=== PATIENT | female | born 1980 | race Asian ===

== ENCOUNTER → 2020-01-14 13:20 | Outpatient (BNVA) | payer MEDICAID, SELFPAY | PROVIDERS: Referring Provider Nurse Practitioner Family; Visit Provider Internal Medicine | DX: J45.50 Severe persistent asthma, uncomplicated (principal); Z79.899 Other long term (current) drug therapy | CPT/HCPCS: 99212 ==

== ENCOUNTER 2020-01-18 15:09 | Outpatient (REF) | payer MEDICAID, SELFPAY ==
[2020-01-18 15:43] LABS: MANUAL DIFF FLAG NO
[2020-01-18 15:44] LABS: Basophils Percent Auto 0.8 % (0-2); Eosinophils Absolute Auto 0.4 X10*3/uL (0.0-0.4); Eosinophils Percent Auto 6.8 % (0-4); Hematocrit 34.2 % (37-47); Hemoglobin 10.8 g/dl (12.0-16.0); Lymphocytes Absolute Auto 2.6 X10*3/uL (1.2-4.9); Lymphocytes Percent Auto 48.7 % (20-40); Mean Corpuscular HGB Conc 31.6 g/dl (31.0-35.0); Mean Corpuscular Hemoglobin 29.3 pg (27.0-33.0); Mean Corpuscular Volume 92.9 fL (80-98); Mean Platelet Volume 10.8 fL (9.4-12.3); Monocytes Absolute Auto 0.3 X10*3/uL (0.1-1.2); Monocytes Percent Auto 5.9 % (2-11); Neutrophils Percent Auto 37.8 % (45-73); Platelet Count 196 X10*3/uL (160-400); Red Blood Count 3.68 X10*6/uL (4.20-5.50); White Blood Count 5.3 X10*3/uL (4.8-10.8)
[2020-01-19 20:37] LABS: Immunoglobulin E 204 kU/L (<OR=114)
== END 2020-01-18 15:10 | disposition home or self-care (01) ==
LOC: HO.LAB 15:09
PROVIDERS: PCP Nurse Practitioner Family; Visit Provider Internal Medicine
DX: J45.909 Unspecified asthma, uncomplicated (principal)
CPT/HCPCS: 36415; 82785; 85025

== ENCOUNTER → 2020-01-21 14:01 | Outpatient (BNVA) | payer MEDICAID, SELFPAY | PROVIDERS: Visit Provider Internal Medicine | DX: J45.909 Unspecified asthma, uncomplicated (principal) | CPT/HCPCS: 99212 ==

== ENCOUNTER 2020-02-04 13:17 | Outpatient (REF) | payer MEDICAID, SELFPAY | END 2020-02-04 13:18 | disposition home or self-care (01) | LOC: HO.LAB 13:17 | PROVIDERS: PCP Nurse Practitioner Family; Visit Provider Internal Medicine | DX: J45.909 Unspecified asthma, uncomplicated (principal) | CPT/HCPCS: 82785; 86003; 99212 ==

== ENCOUNTER 2020-03-21 16:10 | Outpatient (REF) | payer MEDICAID, SELFPAY ==
[2020-03-21 17:34] LABS: Free T4 (Free Thyroxine) 1.32 ng/dL (0.71-1.85); Thyroid Stimulating Hormone 0.02 uIU/mL (0.32-4.0)
[2020-03-24 14:33] LABS: Thyroid Stimulating Immunoglob <89 % baseline (<140)
[2020-03-26 23:13] LABS: Thyrotropin Receptor Antibody <1.00 IU/L (<=2.00)
== END 2020-03-21 16:11 | disposition home or self-care (01) ==
LOC: HO.LAB 16:10
PROVIDERS: Visit Provider Nurse Practitioner Gerontology
DX: E89.0 Postprocedural hypothyroidism (principal)
CPT/HCPCS: 36415; 83520; 84439; 84443; 84445

== ENCOUNTER 2020-04-28 12:58 | Outpatient (REF) | payer MEDICAID, SELFPAY | END 2020-04-28 12:59 | disposition home or self-care (01) | LOC: HO.MDS 12:58 | PROVIDERS: Visit Provider Internal Medicine | DX: J45.50 Severe persistent asthma, uncomplicated (principal) | CPT/HCPCS: 96372; J2357 ==

== ENCOUNTER 2020-05-26 10:51 | Outpatient (REF) | payer MEDICAID, SELFPAY ==
[2020-05-26 11:47] LABS: MANUAL DIFF FLAG NO
[2020-05-26 11:55] LABS: Basophils Percent Auto 0.5 % (0-2); Eosinophils Absolute Auto 0.2 X10*3/uL (0.0-0.4); Eosinophils Percent Auto 3.8 % (0-4); Hematocrit 35.6 % (37-47); Hemoglobin 11.4 g/dl (12.0-16.0); Imm Gran Abs Auto 0.01 X10*3/uL (0.00-0.03); Imm Gran Pct Auto 0.2 % (0.0-0.4); Lymphocytes Absolute Auto 1.9 X10*3/uL (1.2-4.9); Lymphocytes Percent Auto 34.4 % (20-40); Mean Corpuscular Hemoglobin 28.9 pg (27.0-33.0); Mean Corpuscular Volume 90.4 fL (80-98); Mean Platelet Volume 10.8 fL (9.4-12.3); Monocytes Absolute Auto 0.4 X10*3/uL (0.1-1.2); Neutrophils Percent Auto 54.1 % (45-73); Platelet Count 209 X10*3/uL (160-400); Red Blood Count 3.94 X10*6/uL (4.20-5.50); Red Cell Distribution Width 12.5 % (11.0-16.0); White Blood Count 5.5 X10*3/uL (4.8-10.8)
[2020-05-26 11:56] LABS: INTERNATIONAL NORM RATIO 1.1 (0.9-1.1); Prothrombin Time 12.6 SEC (10.8-13.0)
[2020-05-26 12:59] LABS: Free T4 (Free Thyroxine) 1.16 ng/dL (0.71-1.85)
[2020-05-26 13:00] LABS: Ferritin 16 ng/mL (10-122); Thyroid Stimulating Hormone 0.06 uIU/mL (0.32-4.0)
[2020-05-31 09:52] LABS: Thyrotropin Receptor Antibody <1.00 IU/L (<=2.00)
[2020-05-31 20:37] LABS: Vitamin C 0.8 mg/dL (0.3-2.7)
[2020-06-02 15:17] LABS: Thyroid Stimulating Immunoglob <89 % baseline (<140)
== END 2020-05-26 10:52 | disposition home or self-care (01) ==
LOC: HO.MDS 10:51
PROVIDERS: Family Medicine; Nurse Practitioner Gerontology; PCP Nurse Practitioner Family; Visit Provider Internal Medicine
DX: J45.50 Severe persistent asthma, uncomplicated (principal); E89.0 Postprocedural hypothyroidism; D64.9 Anemia, unspecified; T14.8XXA Other injury of unspecified body region, initial encounter
CPT/HCPCS: 36415; 82180; 82728; 83520; 84439; 84443; 84445; 85025; 85610; 96372; J2357

== ENCOUNTER → 2020-06-09 14:00 | Outpatient (BNVA) | payer MEDICAID, SELFPAY | PROVIDERS: PCP Nurse Practitioner Family; Visit Provider Internal Medicine ==

== ENCOUNTER 2020-06-24 11:33 | Outpatient (REF) | payer MEDICAID, SELFPAY | END 2020-06-24 11:34 | disposition home or self-care (01) | LOC: HO.MDS 11:33 | PROVIDERS: PCP Nurse Practitioner Family; Visit Provider Internal Medicine | DX: J45.50 Severe persistent asthma, uncomplicated (principal) | CPT/HCPCS: 96372; J2357 ==

== ENCOUNTER 2020-07-02 12:06 | Emergency (ER) | payer OTHER, MEDICAID, SELFPAY ==
[2020-07-02 12:13] VITALS: BP 117/78; PULSE 65; RESP 17; TEMP 36.6; O2SAT 99; BMI 27.4
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
== END 2020-07-02 13:07 | disposition home or self-care (01) ==
PROVIDERS: Emergency Provider Emergency Medicine
DX: S39.012A Strain of muscle, fascia and tendon of lower back, initial encounter (principal); S16.1XXA Strain of muscle, fascia and tendon at neck level, initial encounter; M54.2 Cervicalgia; V43.62XA Car passenger injured in collision with other type car in traffic accident, initial encounter; Y93.9 Activity, unspecified; Y92.410 Unspecified street and highway as the place of occurrence of the external cause; Y99.9 Unspecified external cause status; Z79.899 Other long term (current) drug therapy
CPT/HCPCS: 99284

== ENCOUNTER 2020-07-27 10:15 | Outpatient (REF) | payer MEDICAID, SELFPAY ==
[2020-07-27 12:39] LABS: Free T4 (Free Thyroxine) 0.98 ng/dL (0.71-1.85); Thyroid Stimulating Hormone 1.86 uIU/mL (0.32-4.0)
== END 2020-07-27 10:16 | disposition home or self-care (01) ==
LOC: HO.LAB 10:15
PROVIDERS: Visit Provider Nurse Practitioner Gerontology
DX: E89.0 Postprocedural hypothyroidism (principal)
CPT/HCPCS: 36415; 84439; 84443

== ENCOUNTER 2020-07-27 10:30 | Outpatient (REF) | payer MEDICAID, SELFPAY | END 2020-07-27 10:31 | disposition home or self-care (01) | LOC: HO.MDS 10:30 | PROVIDERS: PCP Nurse Practitioner Family; Visit Provider Internal Medicine | DX: J45.50 Severe persistent asthma, uncomplicated (principal) | CPT/HCPCS: 96372; J2357 ==

== ENCOUNTER 2020-08-04 12:12 | Outpatient (REF) | payer MEDICAID, SELFPAY ==
[2020-08-04 14:45] LABS: Estimated Average Glucose 103 mg/dL; Hemoglobin A1c % 5.2 %
[2020-08-04 14:58] LABS: Free T4 (Free Thyroxine) 1.11 ng/dL (0.71-1.85); Thyroid Stimulating Hormone 1.28 uIU/mL (0.32-4.0)
[2020-08-10 15:56] LABS: Thyroid Stimulating Immunoglob <89 % baseline (<140)
== END 2020-08-04 12:13 | disposition home or self-care (01) ==
LOC: HO.LAB 12:12
PROVIDERS: Visit Provider Nurse Practitioner Gerontology
DX: E89.0 Postprocedural hypothyroidism (principal); E11.42 Type 2 diabetes mellitus with diabetic polyneuropathy; Z83.3 Family history of diabetes mellitus
CPT/HCPCS: 36415; 83036; 84439; 84443; 84445; 99212

== ENCOUNTER 2020-08-24 11:36 | Outpatient (REF) | payer MEDICAID, SELFPAY | END 2020-08-24 11:37 | disposition home or self-care (01) | LOC: HO.MDS 11:36 | PROVIDERS: Visit Provider Internal Medicine | DX: J45.50 Severe persistent asthma, uncomplicated (principal) | CPT/HCPCS: 96372; J2357 ==

== ENCOUNTER 2020-09-12 08:16 | Outpatient (REF) | payer MEDICAID, SELFPAY ==
--- NOTE | ~2020-09-12 | XR_ITS ---
EXAMINATION: XR KNEE, LEFT CLINICAL INFORMATION: Pain. COMPARISON: Left knee radiographs dated 01/22/2018 TECHNIQUE: Weightbearing AP and lateral views of the left knee. FINDINGS: Bones and soft tissues are normal. No fracture or joint effusion. Alignment is anatomic. Joint spaces are well maintained. No abnormal soft tissue calcification. XR/XR knee LT 2V IMPRESSION: Unremarkable examination.
== END 2020-09-12 08:17 | disposition home or self-care (01) ==
LOC: HO.XRAY 08:16
PROVIDERS: PCP Family Medicine; Visit Provider Family Medicine
DX: M25.562 Pain in left knee (principal)
CPT/HCPCS: 73560

== ENCOUNTER 2020-09-16 17:00 | Emergency (ER) | payer MEDICAID, SELFPAY ==
--- NOTE | ~2020-09-16 | XR_ITS ---
EXAMINATION: XR CHEST CLINICAL INFORMATION: Shortness of breath, cough COMPARISON: 11/07/2019 TECHNIQUE: 2 views of the chest were obtained. FINDINGS: No acute finding. No infiltrate. Lung pinto are grossly clear. The cardiac silhouette is within normal limits. The hilar structures do not appear pathologically enlarged. There is no effusion. XR/XR chest 2V IMPRESSION: No acute finding
[2020-09-16 17:50] VITALS: BP 109/56; PULSE 76; RESP 18; TEMP 36.2; O2SAT 99; BMI 25.6
[2020-09-16 19:56] LABS: MANUAL DIFF FLAG NO
[2020-09-16 19:57] LABS: Basophils Percent Auto 0.3 % (0-2); Eosinophils Percent Auto 0.1 % (0-4); Hematocrit 35.5 % (37-47); Hemoglobin 11.5 g/dl (12.0-16.0); Imm Gran Abs Auto 0.02 X10*3/uL (0.00-0.03); Imm Gran Pct Auto 0.3 % (0.0-0.4); Lymphocytes Absolute Auto 0.8 X10*3/uL (1.2-4.9); Lymphocytes Percent Auto 11.9 % (20-40); Mean Corpuscular HGB Conc 32.4 g/dl (31.0-35.0); Mean Corpuscular Hemoglobin 29.6 pg (27.0-33.0); Mean Corpuscular Volume 91.3 fL (80-98); Mean Platelet Volume 10.7 fL (9.4-12.3); Monocytes Absolute Auto 0.1 X10*3/uL (0.1-1.2); Neutrophils Absolute Auto 5.9 X10*3/uL (2.0-8.3); Neutrophils Percent Auto 86.4 % (45-73); Platelet Count 175 X10*3/uL (160-400); Red Blood Count 3.89 X10*6/uL (4.20-5.50); Red Cell Distribution Width 12.6 % (11.0-16.0); White Blood Count 6.8 X10*3/uL (4.8-10.8)
--- NOTE | 2020-09-16 20:18 | ED_ITS ---
HPI - Asthma General Chief Complaint: Asthma Stated Complaint: sob Time Seen by Provider: 09/16/20 20:17 Source: patient Mode of arrival: ambulatory Limitations: no limitations History of Present Illness HPI Narrative: patient is a 39-year-old female with a past medical history of asthma presenting with shortness of breath x1 day. Patient states she also feels itchiness throughout her body. She states she took 20 mg of prednisone prior to coming to the emergency department but did not feel any relief. She s tates she does have an allergy to seafood but did not eat any seafood today. She denies itchiness or tingling in the back of her throat, she denies feeling like her throat is closing up. She does endorse bilateral rib pain. she did try an albuterol treatment at home with no relief. She denies any sick contacts, nausea, vomiting, diarrhea or fevers. Related Data Home Medications Medication Instructions Recorded Confirmed Ca 600 mg-D3 20 mcg-mag oxide 50 tab PO DAILY tab 01/14/20 08/04/20 pu-Gy-botjni-manganese-boron tablet albuterol sulfate 2.5 mg INHALATION Q6H 01/14/20 08/04/20 citalopram 20 mg tablet 20 mg PO DAILY 01/14/20 08/04/20 clonidine HCl 0.1 mg tablet 0.1 mg PO BEDTIME 01/14/20 08/04/20 cyanocobalamin (vitamin B-12) 1,000 mcg PO DAILY 01/14/20 08/04/20 1,000 mcg tablet epinephrine 0.3 mg/0.3 mL 0.3 mg IM Q10M PRN 01/14/20 08/04/20 injection syringe famotidine 40 mg tablet 40 mg PO BEDTIME 01/14/20 08/04/20 fluticasone 500 mcg-salmeterol 50 1 inh INHALATION BID 01/14/20 08/04/20 mcg/dose blistr powdr for inhalation fluticasone propionate 50 1 spray INTRANASAL DAILY 01/14/20 08/04/20 mcg/actuation nasal spray,suspension loratadine 10 mg capsule 10 mg PO DAILY 01/14/20 08/04/20 montelukast 10 mg tablet 10 mg PO BEDTIME 01/14/20 08/04/20 multivitamin with minerals-folic tab PO DAILY tab 01/14/20 08/04/20 acid 120 mcg chewable tablet tiotropium bromide 1.25 2 puff INHALATION DAILY 01/14/20 08/04/20 mcg/actuation mist for inhalation venlafaxine 150 mg 150 mg PO DAILY 01/14/20 08/04/20 capsule,extended release 24 hr Previous Rx's Medication Instructions Recorded prednisone 5 mg tablet 5 mg PO BID 30 Days #60 tab 01/21/20 omalizumab 150 mg subcutaneous 150 mg SUBCUT Q4W 360 Days #1 ea 02/25/20 solution levothyroxine 125 mcg tablet 125 mcg PO DAILY #30 tab 05/28/20 albuterol sulfate 90 mcg/actuation 2 puff INHALATION Q4-6H PRN #8.5 g 06/13/20 aerosol inhaler ibuprofen 600 mg PO Q6H PRN #20 tab 07/02/20 prednisone 50 mg PO DAILY #4 tab 09/16/20 Allergies Allergy/AdvReac Type Severity Reaction Status Date / Time Penicillins Allergy Mild RASH Verified 08/04/20 12:44 Review of Systems Review of Systems: Yes all other systems are reviewed and are negative [facility] Past Medical History Medical History Allergic rhinitis Allergic rhinitis Asthma Bronchial asthma Depression Postablative hypothyroidism Surgical History Hx of carpal tunnel repair Hx of tubal ligation Family History Family History Father Heart disease CVD (cardiovascular disease) Diabetes Mother CVD (cardiovascular disease) Asthma Heart disease Thyroid disease Diabetes Social History Social History Alcohol intake: never Advance Directives: No Advance Directives Information Provided: No Physical Exam Vital Signs: Vital Signs: Last Vital Signs Temp 97.2 F 09/16/20 17:50 Pulse 62 09/16/20 20:53 Resp 18 09/16/20 17:50 BP 109/56 L 09/16/20 17:50 Pulse Ox 99 09/16/20 17:50 Body Mass Index 25.6 Const: General: cooperative, healthy appearing, comfortable and no acute distress Nutritional Appearance: average body habitus Orientation/consciousness: patient oriented x3 HENMT: Head: Yes normal to inspection Eyes: General: appearance normal, both eyes and all related structures Neck: Neck: Yes normal visual inspection and Yes full ROM Resp: Effort & Inspection: normal respiratory effort Auscultation: wheezes scattered wheezes Cardio: Rate: regular rate Rhythm: regular rhythm Heart sounds: normal S1 and S2 Skin: General skin exam: no rashes or lesions noted Neuro: General: patient oriented x3 Extrem: General: Yes normal to inspection and Yes no pedal edema Course Course Course Narrative: patient is a 39-year-old female with a past medical history of asthma presenting with shortness of breath x1 day. Will give an additional 40 mg of prednisone, DuoNeb treatment and Benadryl for the itching. Reevaluation(s) Reevaluation #1: labs are within normal limits, chest x-ray is negative for acute process. Patient states she is feeling much brother in breathing easier, will discharge with short course of prednisone. MDM - Asthma Lab Data Result diagrams: 09/16/20 19:53 09/16/20 19:53 Labs: Lab Results 09/16/20 09/16/20 Range/Units 19:53 19:53 WBC 6.8 (4.8-10.8) X10*3/uL RBC 3.89 L (4.20-5.50) X10*6/uL Hgb 11.5 L (12.0-16.0) g/dl Hct 35.5 L (37-47) % MCV 91.3 (80-98) fL MCH 29.6 (27.0-33.0) pg MCHC 32.4 (31.0-35.0) g/dl RDW 12.6 (11.0-16.0) % Plt Count 175 (160-400) X10*3/uL MPV 10.7 (9.4-12.3) fL Immature Gran % (Auto) 0.3 (0.0-0.4) % Neut % (Auto) 86.4 H (45-73) % Lymph % (Auto) 11.9 L (20-40) % Merrick % (Auto) 1.0 L (2-11) % Eos % (Auto) 0.1 (0-4) % Baso % (Auto) 0.3 (0-2) % Lymph # (Auto) 0.8 L (1.2-4.9) X10*3/uL Merrick # (Auto) 0.1 (0.1-1.2) X10*3/uL Eos # (Auto) 0.0 (0.0-0.4) X10*3/uL Baso # (Auto) 0.0 (0.0-0.2) X10*3/uL Abs Immat Gran (auto) 0.02 (0.00-0.03) X10*3/uL Absolute Neuts (auto) 5.9 (2.0-8.3) X10*3/uL Absolute Nucleated RBC 0.000 (0.0-0.012) X10*3/uL Nucleated RBC % (auto) 0.0 (0.0-0.2) /100WBC Sodium 138 (135-145) mmol/L Potassium 4.7 (3.3-5.1) mmol/L Chloride 109 H (96-108) mmol/L Carbon Dioxide 20 L (22-29) mmol/L Anion Gap 14 (12-20) BUN 13 (9-16) mg/dL Creatinine 0.81 (0.5-1.4) mg/dL Estim Creat Clear Calc 83.2 Estimated GFR > 60 Random Glucose 121 H (60-115) mg/dL Calcium 9.4 (8.4-10.2) mg/dL Discharge Plan Discharge Clinical Impression: Asthma with acute exacerbation Qualifiers: Asthma severity: mild Asthma persistence: intermittent Qualified Code(s): J45.21 - Mild intermittent asthma with (acute) exacerbation Patient Disposition: Home, Self-Care Instructions: Asthma (ED) Additional Instructions: Please be sure to follow-up with your PCP if you feel your home inhalers are not enough to manage her asthma, you may need to add some other medications or a daily allergy pill. I am prescribing you 4 more days of the prednisone to help you breathe easier and stop the wheezing. Please be sure to take this medication in full for the next 4 days. If you have difficulty breathing, short of breath or chest pain, please return to the emergency department or call 911. Prescriptions: New prednisone 50 mg tablet 50 mg PO DAILY Qty: 4 RF: 0 No Action Xolair 150 mg recon soln 150 mg subcut Q4W 360 Days Qty: 1 RF: 5 levothyroxine 125 mcg tablet 125 mcg PO DAILY Qty: 30 RF: 11 albuterol sulfate [ProAir HFA] 90 mcg/actuation HFA aerosol inhaler 2 puff inhalation Q4-6H PRN (Reason: for wheezing) Qty: 8.5 RF: 3 ibuprofen 600 mg tablet 600 mg PO Q6H PRN (Reason: pain) Qty: 20 RF: 0 prednisone 5 mg tablet 5 mg PO BID 30 Days Qty: 60 RF: 2 fluticasone propion-salmeterol [Advair Diskus] 500-50 mcg/dose blister with device 1 inh inhalation BID RF: 0 Ca-D3-mag fq-mocs-pih-perry-bor [Calcium 600-D3 Plus (mag-zinc)] 600 mg calcium- 800 unit-50 mg tablet PO DAILY RF: 0 venlafaxine [Effexor XR] 150 mg capsule,extended release 24hr 150 mg PO DAILY RF: 0 epinephrine 0.3 mg/0.3 mL syringe 0.3 mg IM Q10M PRNRF: 0 famotidine [Pepcid] 40 mg tablet 40 mg PO BEDTIME RF: 0 cyanocobalamin (vitamin B-12) 1,000 mcg tablet 1,000 mcg PO DAILY RF: 0 Centrum Adult 50 Fresh-Fruity 120 mcg tablet,chewable PO DAILY RF: 0 citalopram [Celexa] 20 mg tablet 20 mg PO DAILY RF: 0 clonidine HCl 0.1 mg tablet 0.1 mg PO BEDTIME RF: 0 Spiriva Respimat 1.25 mcg/actuation mist 2 puff inhalation DAILY RF: 0 loratadine 10 mg capsule 10 mg PO DAILY RF: 0 fluticasone propionate [Flonase Allergy Relief] 50 mcg/actuation spray,suspension 1 spray intranasal DAILY RF: 0 montelukast [Singulair] 10 mg tablet 10 mg PO BEDTIME RF: 0 albuterol sulfate 2.5 mg /3 mL (0.083 %) solution for nebulization 2.5 mg inhalation Q6H RF: 0
[2020-09-16 20:33] LABS: Anion Gap 14 (12-20); Blood Urea Nitrogen 13 mg/dL (9-16); Calcium 9.4 mg/dL (8.4-10.2); Carbon Dioxide 20 mmol/L (22-29); Chloride 109 mmol/L (96-108); Creatinine Clr Calc Pharmacy 83.2; Estimated Glomerular Filt Rate > 60; Glucose Random 121 mg/dL (60-115); Potassium 4.7 mmol/L (3.3-5.1); Sodium 138 mmol/L (135-145)
[2020-09-16 20:53] VITALS: PULSE 62; O2SAT 98
[2020-09-16] MEDS: diphenhydrAMINE HCL 25 MG TABLET PO (20:53)
[2020-09-16] MEDS: predniSONE 20 MG TABLET 40 MG PO (20:53)
[2020-09-16] MEDS: Albuterol/Iprat 2.5/0.5MG 3 ML AMPUL.NEB INHALE (20:53)
== END 2020-09-16 22:13 | disposition home or self-care (01) ==
PROVIDERS: Emergency Provider Internal Medicine; PCP Nurse Practitioner Family
DX: J45.21 Mild intermittent asthma with (acute) exacerbation (principal); R06.02 Shortness of breath; Z79.899 Other long term (current) drug therapy
CPT/HCPCS: 36415; 71046; 80048; 85025; 94640; 96374; 99283; 99284; Q0163

== ENCOUNTER 2020-09-21 13:38 | Outpatient (REF) | payer MEDICAID, SELFPAY | END 2020-09-21 13:39 | disposition home or self-care (01) | LOC: HO.MDS 13:38 | PROVIDERS: Visit Provider Internal Medicine | DX: J45.50 Severe persistent asthma, uncomplicated (principal) | CPT/HCPCS: 96372; J2357 ==

== ENCOUNTER 2020-10-03 15:35 | Outpatient (REF) | payer MEDICAID, SELFPAY ==
--- NOTE | ~2020-10-03 | MR_ITS ---
EXAMINATION: MR OF THE BRAIN WITHOUT CONTRAST. CLINICAL INFORMATION: 39-year-old with amnesia. COMPARISON: None TECHNIQUE: Routine multiplanar multisequence MR imaging of the brain was done without IV contrast. FINDINGS: Brain Volume: Within normal limits. Structural: No malformations. Brain and Meninges: DWI imaging demonstrates no restricted diffusion. Specifically, there is no evidence for subacute or acute ischemic event. The brain is normal in morphology. A few nonspecific punctate subcortical right parietal white matter T2 hyperintensities are seen. Otherwise, the remainder of the brain is normal in signal intensity. Gradient echo imaging demonstrates no evidence for hemorrhage, hemosiderin staining or abnormal mineral deposition. No extra-axial fluid collections, space-occupying process or mass effect are identified. Ventricles and Subarachnoid Spaces: The ventricular system and subarachnoid spaces are within normal limits, without hydrocephalus. Orbital Structures: The visualized orbital structures are grossly unremarkable within the limitations of the study. Assessment is limited. Vascular: Signal voids are noted in the visualized major intracranial vessels. Sinuses and Osseous Structures: Minor mucosal thickening in the ethmoid complex noted with nasal septal deviation to the left and a spur encroaching on the left middle turbinate. Craniocervical junction is intact. Osseous marrow signal intensity is grossly unremarkable. MR/MR head/brain wo con IMPRESSION: 1. A few nonspecific punctate subcortical right parietal white matter T2 hyperintensities are seen which are nonspecific. 2. Otherwise normal study.
== END 2020-10-03 15:36 | disposition home or self-care (01) ==
LOC: HO.MRI 15:35
PROVIDERS: PCP Nurse Practitioner Family; Visit Provider Family Medicine
DX: R41.3 Other amnesia (principal)
CPT/HCPCS: 70551

== ENCOUNTER → 2020-10-06 13:52 | Outpatient (BNVA) | payer MEDICAID, SELFPAY | PROVIDERS: PCP Nurse Practitioner Family; Visit Provider Internal Medicine | DX: J30.9 Allergic rhinitis, unspecified (principal); J45.909 Unspecified asthma, uncomplicated | CPT/HCPCS: 99212 ==

== ENCOUNTER 2020-10-20 12:11 | Outpatient (REF) | payer MEDICAID, SELFPAY | END 2020-10-20 12:12 | disposition home or self-care (01) | LOC: HO.MDS 12:11 | PROVIDERS: PCP Nurse Practitioner Family; Visit Provider Internal Medicine | DX: J45.50 Severe persistent asthma, uncomplicated (principal) | CPT/HCPCS: 96372; J2357 ==

== ENCOUNTER 2020-11-18 08:55 | Outpatient (REF) | payer MEDICAID, SELFPAY | END 2020-11-18 08:56 | disposition home or self-care (01) | LOC: HO.MDS 08:55 | PROVIDERS: PCP Nurse Practitioner Family; Visit Provider Internal Medicine | DX: J45.50 Severe persistent asthma, uncomplicated (principal) | CPT/HCPCS: 96372; J2357 ==

== ENCOUNTER 2020-11-28 08:09 | Emergency (ER) | payer MEDICAID, SELFPAY ==
--- NOTE | ~2020-11-28 | XR_ITS ---
EXAMINATION: XR CHEST CLINICAL INFORMATION: Rib pain COMPARISON: None TECHNIQUE: 2 views of the chest were obtained. FINDINGS: The lungs are well-expanded and clear of acute pneumonic process. Heart size and pulmonary vascularity is normal. No gross bony abnormality seen. XR/XR chest 2V IMPRESSION: Unremarkable chest exam. No change from 09/16/2020.
[2020-11-28 09:14] VITALS: BP 130/76; PULSE 77; RESP 18; TEMP 36.6; O2SAT 99; BMI 27.4
--- NOTE | 2020-11-28 10:30 | ECG_ITS ---
Test Reason : SOB Blood Pressure : / mmHG Vent. Rate : 089 BPM Atrial Rate : 089 BPM P-R Int : 138 ms QRS Dur : 086 ms QT Int : 348 ms P-R-T Axes : 068 040 040 degrees QTc Int : 423 ms Normal sinus rhythm Nonspecific ST abnormality Abnormal ECG When compared with ECG of 30-AUG-2015 16:31, Vent. rate has increased BY 30 BPM Referred By: Alona Desir Electronically Signed By:GERONIMO RIVAS
[2020-11-28 10:59] LABS: MANUAL DIFF FLAG NO
[2020-11-28 11:05] LABS: Basophils Percent Auto 0.5 % (0-2); Eosinophils Absolute Auto 0.1 X10*3/uL (0.0-0.4); Eosinophils Percent Auto 1.3 % (0-4); Hemoglobin 11.8 g/dl (12.0-16.0); Imm Gran Abs Auto 0.02 X10*3/uL (0.00-0.03); Imm Gran Pct Auto 0.3 % (0.0-0.4); Lymphocytes Percent Auto 31.8 % (20-40); Mean Corpuscular HGB Conc 32.8 g/dl (31.0-35.0); Mean Corpuscular Hemoglobin 30.4 pg (27.0-33.0); Mean Corpuscular Volume 92.8 fL (80-98); Mean Platelet Volume 10.6 fL (9.4-12.3); Monocytes Absolute Auto 0.4 X10*3/uL (0.1-1.2); Monocytes Percent Auto 6.5 % (2-11); Neutrophils Absolute Auto 3.7 X10*3/uL (2.0-8.3); Neutrophils Percent Auto 59.6 % (45-73); Platelet Count 198 X10*3/uL (160-400); Red Blood Count 3.88 X10*6/uL (4.20-5.50); Red Cell Distribution Width 12.6 % (11.0-16.0); White Blood Count 6.3 X10*3/uL (4.8-10.8)
[2020-11-28 11:10] LABS: Prothrombin Time 11.1 SEC (9.9-13.0)
[2020-11-28 11:14] LABS: Anion Gap 11 (12-20); Blood Urea Nitrogen 14 mg/dL (9-16); Calcium 9.7 mg/dL (8.4-10.2); Carbon Dioxide 28 mmol/L (22-29); Chloride 106 mmol/L (96-108); Creatinine Clr Calc Pharmacy 85.9; Estimated Glomerular Filt Rate > 60; Glucose Random 78 mg/dL (60-115); Magnesium 1.8 mg/dL (1.6-2.6); Potassium 3.6 mmol/L (3.3-5.1); Sodium 141 mmol/L (135-145)
[2020-11-28 11:15] LABS: Strep A Nucleic Acid Negative (Negative)
[2020-11-28 11:17] VITALS: PULSE 73; O2SAT 95
[2020-11-28] MEDS: Albuterol Sulfate (0.083%) 2.5 MG/3 ML VIAL.NEB 10 MG INHALE (11:17)
[2020-11-28 11:19] LABS: Troponin-I High Sensitivity 3.7 ng/L (<3.5-17.0)
[2020-11-28] MEDS: methylPREDNISolone Sod Succ 125 MG/2 ML VIAL IVPUSH (11:19)
[2020-11-28] MEDS: Magnesium Sulfate/H2O 2 GM/50 ML PIGGYBACK IV (11:19)
[2020-11-28 11:24] VITALS: PULSE 81; O2SAT 100
[2020-11-28 12:08] LABS: HCG Quantitative < 2 mIU/mL
--- NOTE | 2020-11-28 12:16 | ED.ASTHMA ---
HPI - Asthma General Chief Complaint: Asthma Stated Complaint: ASTHMA Time Seen by Provider: 11/28/20 10:23 Source: patient Mode of arrival: ambulatory Limitations: no limitations History of Present Illness HPI Narrative: 39-year-old female with a past medical history of asthma currently taking albuterol inhalers, albuterol nebulizer is and p.o. steroids presenting to the ED with complaints of 4 days of cough with wheezing, sputum production with clear/yellow colored sputum and chest discomfort over the past 4 days worse today. Reports that her friend tested positive for COVID over the weekend and she had close contact with her friend. She reports she had COVID in February of last year and she reports that her symptoms do not feel the same as today. She denies any measured fevers, chills, dizziness, headaches, ear pain, neck pain/stiffness, palpitations, nausea/vomiting/diarrhea/constipation or abdominal pain, dysuria, hematuria, recent travel or any other symptoms complaints or concerns at this time. She reports she has been taking her nebulizers at least 4 times a day along with her albuterol inhaler and is currently on p.o. steroids and no symptomatic relief. She reports she frequently has asthma attacks. She denies ever being intubated or recent hospitalization. MD complaint: asthma attack , shortness of breath and wheezing Onset (ago): day(s) (For the past 4 days worse today) Severity: severe and worse than usual Context: none known Associated symptoms: productive cough and chest pain Asthma History: childhood onset and history of frequent attacks Treatments Prior to Arrival: inhaled bronchodilator and inhaled steroid Related Data Current Asthma Therapy: inhaled bronchodilator, inhaled steroid and recent oral steroid Home Medications Medication Instructions Recorded Confirmed Ca 600 mg-D3 20 mcg-mag oxide 50 tab PO DAILY tab 01/14/20 08/04/20 [id number]-manganese-boron tablet (Calcium 600-D3 Plus (mag-zinc)) albuterol sulfate 2.5 mg INHALATION Q6H 01/14/20 08/04/20 citalopram 20 mg tablet (Celexa) 20 mg PO DAILY 01/14/20 08/04/20 clonidine HCl 0.1 mg tablet 0.1 mg PO BEDTIME 01/14/20 08/04/20 cyanocobalamin (vitamin B-12) 1,000 mcg PO DAILY 01/14/20 08/04/20 1,000 mcg tablet epinephrine 0.3 mg/0.3 mL 0.3 mg IM Q10M PRN 01/14/20 08/04/20 injection syringe famotidine 40 mg tablet (Pepcid) 40 mg PO BEDTIME 01/14/20 08/04/20 fluticasone propionate 50 1 spray INTRANASAL DAILY 01/14/20 08/04/20 mcg/actuation nasal spray,suspension (Flonase Allergy Relief) loratadine 10 mg capsule 10 mg PO DAILY 01/14/20 08/04/20 montelukast 10 mg tablet 10 mg PO BEDTIME 01/14/20 08/04/20 (Singulair) multivitamin with minerals-folic tab PO DAILY tab 01/14/20 08/04/20 acid 120 mcg chewable tablet (Centrum Adult 50 Plus Fresh-Fruity) tiotropium bromide 1.25 2 puff INHALATION DAILY 01/14/20 08/04/20 mcg/actuation mist for inhalation (Spiriva Respimat) venlafaxine 150 mg 150 mg PO DAILY 01/14/20 08/04/20 capsule,extended release 24 hr (Effexor XR) Previous Rx's Medication Instructions Recorded prednisone 5 mg tablet 5 mg PO BID 30 Days #60 tab 01/21/20 omalizumab 150 mg subcutaneous 150 mg SUBCUT Q4W 360 Days #1 ea 02/25/20 solution (Xolair) levothyroxine 125 mcg tablet 125 mcg PO DAILY #30 tab 05/28/20 ibuprofen 600 mg tablet 600 mg PO Q6H PRN #20 tab 07/02/20 prednisone 50 mg tablet 50 mg PO DAILY #4 tab 09/16/20 prednisone 50 mg tablet 50 mg PO DAILY 4 Days #4 tab 09/16/20 albuterol sulfate 90 mcg/actuation 2 puff INHALATION Q4-6H PRN #8.5 g 10/06/20 aerosol inhaler (ProAir HFA) fluticasone 500 mcg-salmeterol 50 1 inh INHALATION BID 30 Days #60 ea 10/06/20 mcg/dose blistr powdr for inhalation (Advair Diskus) prednisone 5 mg tablet 5 mg PO BID 7 Days #14 tab 10/06/20 albuterol sulfate 0.63 mg/3 mL 0.63 mg INHALATION QID PRN #75 ml 11/28/20 solution for nebulization albuterol sulfate 90 mcg/actuation 1 inh INHALATION QID PRN #8.5 g 11/28/20 aerosol inhaler azithromycin 250 mg tablet See Rx Instructions .ROUTE 11/28/20 .COMPLEX #6 tab codeine 10 mg-guaifenesin 100 mg/5 5 ml PO Q6H PRN #120 ml 11/28/20 mL oral liquid (Guaifenesin AC) prednisone 20 mg tablet 40 mg PO DAILY 5 Days #10 tab 11/28/20 Allergies Allergy/AdvReac Type Severity Reaction Status Date / Time Penicillins Allergy Mild RASH Verified 10/06/20 14:34 Review of Systems Review of Systems: Constitutional : denies med noncompliance, no history of PE or DVT, denies recent travel, No Fever, No Chills ENT/Mouth : No Hoarseness, No sore throat, No Rhinorrhea Eyes: No Redness, No Discharge, No Vision Changes Cardiovascular : Positive chest pain with shortness of breath, No Dyspnea on Exertion, No Edema, no pleurisy, Respiratory : Positive cough with wheezing and sputum production, no stridor, no hemoptysis, Gastrointestinal : No Nausea, No Vomiting, No Diarrhea, No abdominal Pain Genitourinary : No Dysuria, No Hematuria Musculoskeletal : No joint pain, No Myalgias Extremities: no extremity swelling /pain Skin : No rash, no itching, no swelling Neuro : No Weakness, No Numbness, No Headache Psych : No anxiety, depression Heme/Lymph: No Bruising, No Bleeding Endocrine : No Polyuria, No Polydipsia Yes all other systems are reviewed and are negative [facility] Past Medical History Attestation statement: The following information was validated with the patient. Medical History Allergic rhinitis Allergic rhinitis Asthma Bronchial asthma Depression Postablative hypothyroidism Surgical History Hx of carpal tunnel repair Hx of tubal ligation Family History Family History Father Heart disease CVD (cardiovascular disease) Diabetes Mother CVD (cardiovascular disease) Asthma Heart disease Thyroid disease Diabetes Social History Social History Alcohol intake: never Patient Tobacco Use Status: Former Tobacco user Smoked in Last 30 Days: Yes Use of substances other than those prescribed or required for medical reasons: No Advance Directives: Yes Advance Directives Information Provided: No Advance Directives on File: No Patient : No Physical Exam Vital Signs: Vital Signs: Last Vital Signs Temp 97.8 F 11/28/20 09:14 Pulse 81 11/28/20 11:24 Resp 18 11/28/20 09:14 BP 130/76 11/28/20 09:14 Pulse Ox 100 11/28/20 11:24 Body Mass Index 27.4 vital signs have been reviewed as normal and appeared to be correct. Blood pressure normal. Heart rate normal. Respiration rate normal. Temperature normal. Oxygen saturation normal. Appearance: Alert. Oriented X3. In respiratory distress. Head: Normal external exam. Normocephalic. Atraumatic. Eyes: PERRLA. EOMI. Conjunctiva and sclera normal. Eyelids normal. ENT: EAC normal. TM's Normal. Pharynx normal. Uvula midline. Moist mucous membranes. No trismus noted. No drooling noted. No muffled voice noted. Neck: Normal inspection. Neck supple. FROM. No adenopathy. Thyroid Normal. No meningeal signs. No neck mass noted. CVS: Normal heart rate and rhythm. Heart sound normal. Pulses normal throughout. No murmurs/rales/gallops. Respiratory: In mild respiratory distress with inspiratory and expiratory wheezing throughout and decreased breath sounds with accessory muscle usage noted. No tracheal tugging or retractions noted. No stridor noted. No rales/rhonchi noted. Patient has reached producible mid chest wall tenderness. No rashes noted. Not consistent with flail chest. No crepitus is noted. Abdomen: Soft and nontender. Bowel sounds normal in all 4 quadrants. No distention noted. No organomegaly noted. No visible injury noted. Back: Full range of motion noted. No rashes/lesion/induration/fluctuance or signs of infection noted. Skin: Skin warm and dry. Normal skin color. Normal skin turgor. No rashes/lesions/lacerations noted. Extremities: No lower extremity edema. Extremities exhibit normal range of motion. Extremities nontender. Neuro: Oriented X 3. No motor deficit. No sensory deficit. Reflexes normal. Normal steady gait. No focal neuro deficits noted. Vascular: + radial pulses/+ 2 distal pedal pulses/+2 dorsalis pedis b/l. Normal cap refill. No cyanosis noted to upper extremity nails and lower extremity toes nails. Course Course Course Narrative: 39-year-old female presenting to the ED with complaints of productive cough with associated wheezing/sputum production despite using her albuterol treatment, nebulizers and p.o. steroids. On exam patient was noted to have respiratory distress with inspiratory and expiatory wheezing throughout with decreased breath sounds. Therefore patient had labs and labs are within normal limits including troponin. EKG is normal sinus rhythm nonspecific ST abnormalities no acute ischemic changes were noted. Chest x-ray within normal limits no acute processes were noted. Rapid strep negative.. COVID/RSV/flu is still pending at this time. Patient received an hour long breathing treatment along with 125 mg of Solu-Medrol and 2 g of magnesium and she reports complete symptomatic relief at this time. Exam has improved. No additional labs or imaging or treatment indicated at this time. Will DC home with symptomatic treatment and instructions that I will call her within 2-4 hours with positive or negative results for COVID and to return if any new or worsening symptoms and to self isolate for at least 7-10 days due to her positive COVID exposure. Patient understands agrees with this plan. [facility] - Asthma Medical Records Attestation: I reviewed the patient's medical records. Lab Data Attestation: I reviewed the patient's lab results. Result diagrams: 11/28/20 10:46 11/28/20 10:46 Labs: Lab Results 11/28/20 11/28/20 11/28/20 Range/Units 10:46 10:46 10:46 WBC 6.3 (4.8-10.8) X10*3/uL RBC 3.88 L (4.20-5.50) X10*6/uL Hgb 11.8 L (12.0-16.0) g/dl Hct 36.0 L (37-47) % MCV 92.8 (80-98) fL MCH 30.4 (27.0-33.0) pg MCHC 32.8 (31.0-35.0) g/dl RDW 12.6 (11.0-16.0) % Plt Count 198 (160-400) X10*3/uL MPV 10.6 (9.4-12.3) fL Immature Gran % (Auto) 0.3 (0.0-0.4) % Neut % (Auto) 59.6 (45-73) % Lymph % (Auto) 31.8 (20-40) % Victoria % (Auto) 6.5 (2-11) % Eos % (Auto) 1.3 (0-4) % Baso % (Auto) 0.5 (0-2) % Lymph # (Auto) 2.0 (1.2-4.9) X10*3/uL Victoria # (Auto) 0.4 (0.1-1.2) X10*3/uL Eos # (Auto) 0.1 (0.0-0.4) X10*3/uL Baso # (Auto) 0.0 (0.0-0.2) X10*3/uL Abs Immat Gran (auto) 0.02 (0.00-0.03) X10*3/uL Absolute Neuts (auto) 3.7 (2.0-8.3) X10*3/uL Absolute Nucleated RBC 0.000 (0.0-0.012) X10*3/uL Nucleated RBC % (auto) 0.0 (0.0-0.2) /100WBC PT (9.9-13.0) SEC INR (0.9-1.1) Sodium 141 (135-145) mmol/L Potassium 3.6 D (3.3-5.1) mmol/L Chloride 106 (96-108) mmol/L Carbon Dioxide 28 (22-29) mmol/L Anion Gap 11 L (12-20) BUN 14 (9-16) mg/dL Creatinine 0.81 (0.5-1.4) mg/dL Estim Creat Clear Calc 85.9 Estimated GFR > 60 Random Glucose 78 (60-115) mg/dL Calcium 9.7 (8.4-10.2) mg/dL Magnesium 1.8 (1.6-2.6) mg/dL Troponin I High Sens (<3.5-17.0) ng/L Beta HCG, Quant < 2 mIU/mL S. pyogenes GrpA DEB Negative (Negative) 11/28/20 11/28/20 Range/Units 10:46 10:46 WBC (4.8-10.8) X10*3/uL RBC (4.20-5.50) X10*6/uL Hgb (12.0-16.0) g/dl Hct (37-47) % MCV (80-98) fL MCH (27.0-33.0) pg MCHC (31.0-35.0) g/dl RDW (11.0-16.0) % Plt Count (160-400) X10*3/uL MPV (9.4-12.3) fL Immature Gran % (Auto) (0.0-0.4) % Neut % (Auto) (45-73) % Lymph % (Auto) (20-40) % Victoria % (Auto) (2-11) % Eos % (Auto) (0-4) % Baso % (Auto) (0-2) % Lymph # (Auto) (1.2-4.9) X10*3/uL Victoria # (Auto) (0.1-1.2) X10*3/uL Eos # (Auto) (0.0-0.4) X10*3/uL Baso # (Auto) (0.0-0.2) X10*3/uL Abs Immat Gran (auto) (0.00-0.03) X10*3/uL Absolute Neuts (auto) (2.0-8.3) X10*3/uL Absolute Nucleated RBC (0.0-0.012) X10*3/uL Nucleated RBC % (auto) (0.0-0.2) /100WBC PT 11.1 (9.9-13.0) SEC INR 1.0 (0.9-1.1) Sodium (135-145) mmol/L Potassium (3.3-5.1) mmol/L Chloride (96-108) mmol/L Carbon Dioxide (22-29) mmol/L Anion Gap (12-20) BUN (9-16) mg/dL Creatinine (0.5-1.4) mg/dL Estim Creat Clear Calc Estimated GFR Random Glucose (60-115) mg/dL Calcium (8.4-10.2) mg/dL Magnesium (1.6-2.6) mg/dL Troponin I High Sens 3.7 (<3.5-17.0) ng/L Beta HCG, Quant mIU/mL S. pyogenes GrpA DEB (Negative) Imaging Data Chest x-ray: Attestation: I personally reviewed and interpreted this imaging study as follows: Radiologist's impression: FINDINGS: The lungs are well-expanded and clear of acute pneumonic process. Heart size and pulmonary vascularity is normal. No gross bony abnormality seen. XR/XR chest 2V IMPRESSION: Unremarkable chest exam. No change from 09/16/2020. ECG Data Attestation: I personally reviewed and interpreted this ECG as follows: ECG interpretation date: 11/28/20 ECG interpretation time: 11:57 Interpretation: Normal sinus rhythm with ventricular rate of [address] abnormalities no acute ischemic changes are noted. Similar when compared to prior EKG 08/30/2015. Critical Care Time Critical Care Time Critical Care Time: Yes Total Critical Care Time: 60 Attestation: I personally attest to this time spent taking care of the patient Discharge Plan Discharge Clinical Impression: Asthma with acute exacerbation, Acute bronchitis with bronchospasm, Respiratory syncytial virus (RSV) Patient Disposition: Home, Self-Care Instructions: Asthma (ED), Acute Bronchitis (ED), Wheezing (ED), Respiratory Syncytial Virus (ED) Additional Instructions: You had a negative COVID results. Although you were positive for RSV a different virus. This is usually common and younger children. You can return back to work within 7 days I gave you a work note. Return if any new or worsening symptoms follow-up with her primary care provider. If you have little kids at home watch their respirations/breathing due to they can have difficulty breathing from this RSV. Prescriptions: New albuterol sulfate 0.63 mg/3 mL solution for nebulization 0.63 mg inhalation QID PRN (Reason: shortness of breath or wheezing) Qty: 75 RF: 0 azithromycin 250 mg tablet See Rx Instructions .ROUTE .COMPLEX Qty: 6 RF: 0 codeine-guaifenesin [Guaifenesin AC] 10-100 mg/5 mL liquid 5 ml PO Q6H PRN (Reason: cold symptoms) Qty: 120 RF: 0 albuterol sulfate 90 mcg/actuation HFA aerosol inhaler 1 inh inhalation QID PRN (Reason: shortness of breath or wheezing) Qty: 8.5 RF: 0 prednisone 20 mg tablet 40 mg PO DAILY 5 Days Qty: 10 RF: 0 No Action Xolair 150 mg recon soln 150 mg subcut Q4W 360 Days Qty: 1 RF: 5 levothyroxine 125 mcg tablet 125 mcg PO DAILY Qty: 30 RF: 11 prednisone 50 mg tablet 50 mg PO DAILY Qty: 4 RF: 0 prednisone 50 mg tablet 50 mg PO DAILY 4 Days Qty: 4 RF: 0 ibuprofen 600 mg tablet 600 mg PO Q6H PRN (Reason: pain) Qty: 20 RF: 0 prednisone 5 mg tablet 5 mg PO BID 30 Days Qty: 60 RF: 2 fluticasone propion-salmeterol [Advair Diskus] 500-50 mcg/dose blister with device 1 inh inhalation BID 30 Days Qty: 60 RF: 3 albuterol sulfate [ProAir HFA] 90 mcg/actuation HFA aerosol inhaler 2 puff inhalation Q4-6H PRN (Reason: for wheezing) Qty: 8.5 RF: 3 prednisone 5 mg tablet 5 mg PO BID 7 Days Qty: 14 RF: 1 Ca-D3-mag [id number]-gps-perry-bor [Calcium 600-D3 Plus (mag-zinc)] 600 mg calcium- 800 unit-50 mg tablet PO DAILY RF: 0 venlafaxine [Effexor XR] 150 mg capsule,extended release 24hr 150 mg PO DAILY RF: 0 epinephrine 0.3 mg/0.3 mL syringe 0.3 mg IM Q10M PRNRF: 0 famotidine [Pepcid] 40 mg tablet 40 mg PO BEDTIME RF: 0 cyanocobalamin (vitamin B-12) 1,000 mcg tablet 1,000 mcg PO DAILY RF: 0 Centrum Adult 50 Fresh-Fruity 120 mcg tablet,chewable PO DAILY RF: 0 citalopram [Celexa] 20 mg tablet 20 mg PO DAILY RF: 0 clonidine HCl 0.1 mg tablet 0.1 mg PO BEDTIME RF: 0 Spiriva Respimat 1.25 mcg/actuation mist 2 puff inhalation DAILY RF: 0 loratadine 10 mg capsule 10 mg PO DAILY RF: 0 fluticasone propionate [Flonase Allergy Relief] 50 mcg/actuation spray,suspension 1 spray intranasal DAILY RF: 0 montelukast [Singulair] 10 mg tablet 10 mg PO BEDTIME RF: 0 albuterol sulfate 2.5 mg /3 mL (0.083 %) solution for nebulization 2.5 mg inhalation Q6H RF: 0 Referrals: Physician,Unknown [Primary Care Provider] - 2 days (your pcp) Stand Alone Forms: Work/School Release
[2020-11-28 12:22] LABS: Influenza A PCR NEGATIVE (Negative); Influenza B PCR NEGATIVE (Negative); Resp Syncy Virus RNA Qual PCR POSITIVE (Negative); SARS COV2 PCR INHOUSE NEGATIVE (Negative)
[2020-11-28 12:43] VITALS: BP 120/67; PULSE 85; RESP 18; TEMP 36.6; O2SAT 100
== END 2020-11-28 13:05 | disposition home or self-care (01) ==
PROVIDERS: Physician Assistant Medical; Emergency Provider Emergency Medicine
DX: J45.901 Unspecified asthma with (acute) exacerbation (principal); J20.5 Acute bronchitis due to respiratory syncytial virus; Z87.891 Personal history of nicotine dependence; Z79.899 Other long term (current) drug therapy; Z20.822 Contact with and (suspected) exposure to COVID-19
CPT/HCPCS: 0241U; 36415; 71046; 80048; 83735; 84484; 84702; 85025; 85610; 87651; 93005; 94640; 94644; 96365; 96366; 96375; 99284; 99291; J2930; J3475

== ENCOUNTER → 2020-12-07 14:26 | Outpatient (BNVA) | payer MEDICAID, SELFPAY | PROVIDERS: Visit Provider Internal Medicine | DX: J30.9 Allergic rhinitis, unspecified (principal); J45.909 Unspecified asthma, uncomplicated; J40 Bronchitis, not specified as acute or chronic | CPT/HCPCS: 99212 ==

== ENCOUNTER 2021-01-06 12:04 | Outpatient (REF) | payer MEDICAID, SELFPAY | END 2021-01-06 12:05 | disposition home or self-care (01) | LOC: HO.MDS 12:04 | PROVIDERS: Visit Provider Internal Medicine | DX: J45.50 Severe persistent asthma, uncomplicated (principal) | CPT/HCPCS: 96372; J2357 ==

== ENCOUNTER → 2021-02-22 11:55 | Outpatient (BNVA) | payer MEDICAID, SELFPAY | PROVIDERS: PCP Family Medicine; Visit Provider Nurse Practitioner Gerontology | DX: E89.0 Postprocedural hypothyroidism (principal); L65.9 Nonscarring hair loss, unspecified; Z83.3 Family history of diabetes mellitus | CPT/HCPCS: 99212 ==

== ENCOUNTER 2021-03-03 13:20 | Outpatient (REF) | payer MEDICAID, SELFPAY ==
[2021-03-03 15:36] LABS: Free T4 (Free Thyroxine) 1.09 ng/dL (0.71-1.85); Thyroid Stimulating Hormone 1.21 uIU/mL (0.32-4.0)
== END 2021-03-03 13:21 | disposition home or self-care (01) ==
LOC: HO.MDS 13:20
PROVIDERS: Nurse Practitioner Gerontology; Visit Provider Internal Medicine
DX: J45.50 Severe persistent asthma, uncomplicated (principal); E89.0 Postprocedural hypothyroidism
CPT/HCPCS: 36415; 84439; 84443; 96372; J2357

== ENCOUNTER 2021-03-31 14:03 | Outpatient (REF) | payer MEDICAID, SELFPAY | END 2021-03-31 14:04 | disposition home or self-care (01) | LOC: HO.MDS 14:03 | PROVIDERS: Visit Provider Internal Medicine | DX: J45.50 Severe persistent asthma, uncomplicated (principal) | CPT/HCPCS: 96372; J2357 ==

== ENCOUNTER 2021-04-28 13:06 | Outpatient (REF) | payer MEDICAID, SELFPAY | END 2021-04-28 13:07 | disposition home or self-care (01) | LOC: HO.MDS 13:06 | PROVIDERS: Visit Provider Internal Medicine | DX: J45.50 Severe persistent asthma, uncomplicated (principal) | CPT/HCPCS: 96372; J2357 ==

== ENCOUNTER 2021-05-22 16:13 | Emergency (ER) | payer MEDICAID, SELFPAY ==
--- NOTE | ~2021-05-22 | XR_ITS ---
EXAMINATION: XR RIBS, LEFT CLINICAL INFORMATION: Fall with left posterior rib cage pain and wheezing COMPARISON: None TECHNIQUE: 3 views of the left ribs were obtained. FINDINGS: Lungs are clear. No consolidation, pneumothorax, or pleural effusion. The cardiomediastinal silhouette and pulmonary vasculature are normal. Osseous structures are unremarkable. Ribs are intact. No fractures are identified. XR/XR ribs LT 2V IMPRESSION: Unremarkable examination.
--- NOTE | ~2021-05-22 | XR_ITS ---
EXAMINATION: XR CHEST CLINICAL INFORMATION: Shortness of breath. COMPARISON: Chest radiograph dated from 11/28/2020. TECHNIQUE: 2 views of the chest were obtained. FINDINGS: No significant abnormality is noted involving the heart, lungs, mediastinum, bony thorax or soft tissues. XR/XR chest 2V IMPRESSION: Unremarkable examination.
[2021-05-22 16:17] VITALS: BP 105/72; PULSE 78; RESP 19; TEMP 36.6; O2SAT 96; BMI 25.6
[2021-05-22 16:41] LABS: UPreg QC Valid YES; Urine Pregnancy NEGATIVE (NEGATIVE)
[2021-05-22 16:54] LABS: COVID-19 Test Negative (Negative)
--- NOTE | 2021-05-22 18:08 | ECG_ITS ---
Test Reason : CP WITH BREATHING Blood Pressure : / mmHG Vent. Rate : 073 BPM Atrial Rate : 073 BPM P-R Int : 154 ms QRS Dur : 078 ms QT Int : 376 ms P-R-T Axes : 063 040 044 degrees QTc Int : 414 ms Normal sinus rhythm Normal ECG When compared with ECG of 28-NOV-2020 11:57, No significant change was found Referred By: Alona Desir Electronically Signed By:TIANNA GAVIRIA MD
--- NOTE | 2021-05-22 18:13 | ED_ITS ---
HPI - SOB/Dyspnea General Chief Complaint: Upper Respiratory Symptoms Stated Complaint: Chest pain/SOB Time Seen by Provider: 05/22/21 17:56 Source: patient Mode of arrival: ambulatory Limitations: no limitations History of Present Illness HPI Narrative: 40-year-old female with a past medical history of asthma and COVID-19 presenting to the ED with complaints of midsternal, left-sided/ left posterior chest/lung pain for the past 2 days worse today. She reports associated shortness of breath, dry cough and wheezing. She reports she is unsure if this is related to the fall she had approximately 3 days ago where she slipped and fell on ice injuring her left chest/shoulder although the pain did not start u ntil 2 days ago which was 1 day after her fall. She denies head injury loss of consciousness. She denies being on any blood thinners. She denies being on any oral contraceptives. She denies any fevers, chills, dizziness, headaches, neck pain/ stiffness, trouble swallowing, sore throat, dyspnea on exertion, orthopnea, palpitations, paresthesias, nausea/ vomiting/ diarrhea constipation, abdominal pain, back pain, dysuria, hematuria, abnormal vaginal discharge, lower extremity edema or calf tenderness, history of DVT or PE, history of hypercoagulation disorder or any other symptoms complaints or concerns at this time. MD elicited complaint: shortness of breath, cough and pain with inspiration Pertinent past history: asthma Onset (ago): day(s) (2) Timing: constant and progressively worsening Severity: moderate Exacerbating factors: coughing, inspiration and deep breaths Known history of: asthma Associated symptoms: chest pain, pain with inspiration, cough and wheezing Treatment prior to arrival: none Related Data Home oxygen amount: none Home Medications Medication Instructions Recorded Confirmed Ca 600 mg-D3 20 mcg-mag oxide 50 tab PO DAILY tab 01/14/20 02/22/21 pr-Zu-uczcth-manganese-boron tablet (Calcium 600-D3 Plus (mag-zinc)) albuterol sulfate 2.5 mg INHALATION Q6H 01/14/20 02/22/21 citalopram 20 mg tablet (Celexa) 20 mg PO DAILY 01/14/20 02/22/21 clonidine HCl 0.1 mg tablet 0.1 mg PO BEDTIME 01/14/20 02/22/21 cyanocobalamin (vitamin B-12) 1,000 mcg PO DAILY 01/14/20 02/22/21 1,000 mcg tablet epinephrine 0.3 mg/0.3 mL 0.3 mg IM Q10M PRN 01/14/20 02/22/21 injection syringe famotidine 40 mg tablet (Pepcid) 40 mg PO BEDTIME 01/14/20 02/22/21 fluticasone propionate 50 1 spray INTRANASAL DAILY 01/14/20 02/22/21 mcg/actuation nasal spray,suspension (Flonase Allergy Relief) loratadine 10 mg capsule 10 mg PO DAILY 01/14/20 02/22/21 montelukast 10 mg tablet 10 mg PO BEDTIME 01/14/20 02/22/21 (Singulair) multivitamin with minerals-folic tab PO DAILY tab 01/14/20 02/22/21 acid 120 mcg chewable tablet (Centrum Adult 50 Plus Fresh-Fruity) tiotropium bromide 1.25 2 puff INHALATION DAILY 01/14/20 02/22/21 mcg/actuation mist for inhalation (Spiriva Respimat) venlafaxine 150 mg 150 mg PO DAILY 01/14/20 02/22/21 capsule,extended release 24 hr (Effexor XR) prednisone 5 mg tablet 10 mg PO BID PRN tab 02/22/21 02/22/21 Previous Rx's Medication Instructions Recorded omalizumab 150 mg subcutaneous 150 mg SUBCUT Q4W 360 Days #1 ea 02/25/20 solution (Xolair) ibuprofen 600 mg tablet 600 mg PO Q6H PRN #20 tab 07/02/20 albuterol sulfate 90 mcg/actuation 2 puff INHALATION Q4-6H PRN #8.5 g 10/06/20 aerosol inhaler (ProAir HFA) prednisone 5 mg tablet 5 mg PO BID 7 Days #14 tab 10/06/20 albuterol sulfate 0.63 mg/3 mL 0.63 mg (3 mL) INHALATION QID PRN 11/28/20 solution for nebulization #75 ml albuterol sulfate 90 mcg/actuation 1 inh INHALATION QID PRN #8.5 g 11/28/20 aerosol inhaler codeine 10 mg-guaifenesin 100 mg/5 5 ml PO Q6H PRN #120 ml 09/13/21 mL oral liquid (Guaifenesin AC) fluticasone 500 mcg-salmeterol 50 1 ea PO BID #60 cap 02/07/21 mcg/dose blistr powdr for inhalation (Advair Diskus) levothyroxine 125 mcg tablet 125 mcg PO DAILY #30 tab 05/04/21 albuterol sulfate 0.63 mg/3 mL 0.63 mg (3 mL) INHALATION QID PRN 05/22/21 solution for nebulization #75 ml albuterol sulfate 90 mcg/actuation 1 inh INHALATION QID PRN #8.5 g 05/22/21 aerosol inhaler azithromycin 250 mg tablet See Rx Instructions .ROUTE 05/22/21 .COMPLEX #6 tab codeine 10 mg-guaifenesin 100 mg/5 5 ml PO Q6H PRN #120 ml 05/22/21 mL oral liquid (Guaifenesin AC) nebulizers (AeroEclipse II #1 ea 05/22/21 Nebulizer) prednisone 20 mg tablet 40 mg PO DAILY 5 Days #10 tab 05/22/21 Allergies Allergy/AdvReac Type Severity Reaction Status Date / Time Penicillins Allergy Mild RASH Verified 02/22/21 12:10 Review of Systems 2 Review of Systems: Constitutional : denies med noncompliance, no history of PE or DVT, denies recent travel, No Fever, No Chills ENT/Mouth : No Hoarseness, No sore throat, No Rhinorrhea, No Nasal congestion, No Sinus Pressure, No Ear Pain, No stridor, Eyes: No Redness, No Discharge, No Vision Changes Cardiovascular : + Chest Pain, + SOB, No Dyspnea on Exertion, No Edema, no pleurisy, Respiratory : + Cough, + wheezing, No Sputum, no stridor, no hemoptysis, Gastrointestinal : No Nausea, No Vomiting, No Diarrhea, No abdominal Pain Genitourinary : No Dysuria, No Hematuria Musculoskeletal : No joint pain/swelling, No Myalgias Extremities: no extremity swelling /pain Skin : No rash, no itching, no swelling Neuro : No Weakness, No Numbness, No Headache, No Dizziness, No Paresthesias Psych : No anxiety, depression Heme/Lymph: No Bruising, No Bleeding Endocrine : No Polyuria, No Polydipsia Yes all other systems are reviewed and are negative FOR[facility]LY [facility] Past Medical History Attestation statement: The following information was validated with the patient. Medical History Allergic rhinitis Allergic rhinitis Asthma Bronchial asthma Bronchitis Depression Postablative hypothyroidism Surgical History Hx of carpal tunnel repair Hx of tubal ligation Family History Family History Father Heart disease CVD (cardiovascular disease) Diabetes Mother CVD (cardiovascular disease) Asthma Heart disease Thyroid disease Diabetes Social History Social History Household Members: Children Alcohol intake: current Alcohol intake frequency: holidays/special occasions only Patient Tobacco Use Status: Former Tobacco user Advance Directives: No Advance Directives Information Provided: No Patient : No Physical Exam Vital Signs: Vital Signs: Last Vital Signs Temp 98 F 05/22/21 16:17 Pulse 65 05/22/21 18:25 Resp 18 05/22/21 18:25 BP 105/72 05/22/21 16:17 Pulse Ox 96 05/22/21 16:17 BMI result Body Mass Index 25.6 vital signs have been reviewed as normal and appeared to be correct. Blood pressure normal. Heart rate normal. Respiration rate normal. Temperature no rmal. Oxygen saturation normal. Appearance: Alert. Oriented X3. No acute d istress. Head: Normal external exam. Normocephalic. Atraumatic. Eyes: PERRLA. EOMI. Conjunctiva and sclera normal. Eyelids normal. ENT: EAC normal. TM's Normal. Pharynx normal. Uvula midline. Moist mucous membranes. Normal voice. No trismus noted. No drooling noted. No muffled voice noted. Neck: Normal inspection. Neck supple. FROM. No adenopathy. Thyroid Normal. No tracheal deviation noted. No crepitus is noted. No meningeal signs. No neck mass noted. No signs of trauma noted. CVS: Normal heart rate and rhythm. Heart sound normal. Pulses normal throughout. No murmurs/rales/gallops. Respiratory: No respiratory distress. Painless inspiration. Breath sounds normal. No wheezes/rales/rhonchi noted. Chest nontender. No crepitus is noted. No signs of trauma noted. No accessory muscle usage noted or decreased air movement noted. No signs of trauma. Abdomen: Soft and nontender. Bowel sounds normal in all 4 quadrants. No distention noted. No organomegaly noted. No visible injury noted. Back: No CVA tenderness. Full range of motion noted. Nontender. No signs of trauma. Patient neuro intact bilaterally and distally on all 4 extremities. Patient's reflexes intact bilaterally and distally on all 4 extremities. No rashes/lesion/induration/fluctuance or signs of infection noted. Skin: Skin warm and dry. Normal skin color. Normal skin turgor. No rashes/lesions/lacerations noted. Extremities: No lower extremity edema. No calf tenderness is noted. Extremities exhibit normal range of motion and nontender. Neuro: Oriented X 3. No motor deficit. No sensory deficit. Reflexes normal. Normal steady gait. No focal neuro deficits noted. CN's II-XII intact bilat erally? Vascular: + radial pulses/+ 2 distal pedal pulses/+2 dorsalis pedis b/l. Normal cap refill. No cyanosis noted to upper extremity nails and lower extremity toes nails. Course Course Course Narrative: 18pm - 40-year-old female with a past medical history of asthma and COVID presenting to the ED with complaints of midsternal, left-sided/ left posterior chest/lung pain for the past 2 days worse today. She reports associated shortness of breath, dry cough and wheezing. She reports she is unsure if this is related to the fall she had approximately 3 days ago where she slipped and fell on ice injuring her left chest/shoulder although the pain did not start until 2 days ago which was 1 day after her fall. Plan: labs, EKG, CXR, Rib Xrays, covid swab, influenza swab. Provide an hour long breathing treatment, 125 mg of IV Solu-Medrol then re-evaluate. Reevaluation(s) Reevaluation #1: - Sign out to ERICKSON Brar pending Labs including D-dimer troponin, EKG, rib x- rays and influenza swab. Time: 18:41 MDM - SOB/Dyspnea Medical Records Attestation: I reviewed the patient's medical records. Lab Data Attestation: I reviewed the patient's lab results. Result diagrams: 05/22/21 18:22 05/22/21 18:22 Labs: Lab Results 05/22/21 05/22/21 Range/Units 16:29 16:34 Urine Test NEGATIVE (NEGATIVE) COVID-19 ([facility]) Negative (Negative) COVID-19 Clin Com See Note Imaging Data Chest x-ray: Attestation: I personally reviewed and interpreted this imaging study as follows: Radiologist's impression: FINDINGS: No significant abnormality is noted involving the heart, lungs, mediastinum, bony thorax or soft tissues. XR/XR chest 2V IMPRESSION: Unremarkable examination. Critical Care Time Critical Care Time Critical Care Time: Yes Total Critical Care Time: 60 Attestation: I personally attest to this time spent taking care of the patient Discharge Plan Discharge Clinical Impression: Asthma exacerbation, Acute bronchitis with bronchospasm Patient Disposition: Still a Patient Instructions: Asthma (DC), Acute Bronchitis (ED) Prescriptions: New albuterol sulfate 0.63 mg/3 mL solution for nebulization 0.63 mg inhalation QID PRN (Reason: shortness of breath or wheezing) Qty: 75 0RF (DME) AeroEclipse II Nebulizer [facility] [place] See Rx Instructions .ROUTE .MEDSUPPLY Qty: 1 0RF Rx Instructions: As directed albuterol sulfate 90 mcg/actuation HFA aerosol inhaler 1 inh inhalation QID PRN (Reason: shortness of breath or wheezing) Qty: 8.5 0RF azithromycin 250 mg tablet See Rx Instructions .ROUTE .COMPLEX Qty: 6 0RF Rx Instructions: take 500 mg today (day 1), then 250 mg for 4 days (days 2-5) prednisone 20 mg tablet 40 mg PO DAILY 5 Days Qty: 10 0RF codeine-guaifenesin [Guaifenesin AC] 10-100 mg/5 mL liquid 5 ml PO Q6H PRN (Reason: cold symptoms) Qty: 120 0RF No Action Xolair 150 mg recon soln 150 mg subcut Q4W 360 Days Qty: 1 5RF fluticasone propion-salmeterol [Advair Diskus] 500-50 mcg/dose blister with d evice 1 ea PO BID Qty: 60 3RF levothyroxine 125 mcg tablet 125 mcg PO DAILY Qty: 30 11RF albuterol sulfate 0.63 mg/3 mL solution for nebulization 0.63 mg inhalation QID PRN (Reason: shortness of breath or wheezing) Qty: 75 0RF codeine-guaifenesin [Guaifenesin AC] 10-100 mg/5 mL liquid 5 ml PO Q6H PRN (Reason: cold symptoms) Qty: 120 0RF albuterol sulfate 90 mcg/actuation HFA aerosol inhaler 1 inh inhalation QID PRN (Reason: shortness of breath or wheezing) Qty: 8.5 0RF ibuprofen 600 mg tablet 600 mg PO Q6H PRN (Reason: pain) Qty: 20 0RF albuterol sulfate [ProAir HFA] 90 mcg/actuation HFA aerosol inhaler 2 puff inhalation Q4-6H PRN (Reason: for wheezing) Qty: 8.5 3RF prednisone 5 mg tablet 5 mg PO BID 7 Days Qty: 14 1RF Ca-D3-mag oa-zbwk-ngr-perry-bor [Calcium 600-D3 Plus (mag-zinc)] 600 mg calcium- 800 unit-50 mg tablet PO DAILY 0RF venlafaxine [Effexor XR] 150 mg capsule,extended release 24hr 150 mg PO DAILY 0RF epinephrine 0.3 mg/0.3 mL syringe 0.3 mg IM Q10M PRN0RF Rx Instructions: for 2 doses famotidine [Pepcid] 40 mg tablet 40 mg PO BEDTIME 0RF cyanocobalamin (vitamin B-12) 1,000 mcg tablet 1,000 mcg PO DAILY 0RF Centrum Adult 50 Fresh-Fruity 120 mcg tablet,chewable PO DAILY 0RF citalopram [Celexa] 20 mg tablet 20 mg PO DAILY 0RF clonidine HCl 0.1 mg tablet 0.1 mg PO BEDTIME 0RF Spiriva Respimat 1.25 mcg/actuation mist 2 puff inhalation DAILY 0RF loratadine 10 mg capsule 10 mg PO DAILY 0RF fluticasone propionate [Flonase Allergy Relief] 50 mcg/actuation spray,suspension 1 spray intranasal DAILY 0RF Rx Instructions: administer into each nostril montelukast [Singulair] 10 mg tablet 10 mg PO BEDTIME 0RF albuterol sulfate 2.5 mg /3 mL (0.083 %) solution for nebulization 2.5 mg inhalation Q6H 0RF prednisone 5 mg tablet 10 mg PO BID PRN (Reason: AC . EXCERBATION OF ASTHMA ) 0RF Rx Instructions: PREDNISONE 5 MG 2 TABS PO BID FOR ONE WEEK, THEN 1 TAB . PO BID Referrals: [facility] [Primary Care Provider] - 2 days Stand Alone Forms: Work/School Release Print Language: Yakut
[2021-05-22 18:25] VITALS: PULSE 65; RESP 18; O2SAT 100
[2021-05-22] MEDS: Albuterol Sulfate (0.083%) 2.5 MG/3 ML VIAL.NEB 10 MG INHALE (18:25)
[2021-05-22 18:40] LABS: MANUAL DIFF FLAG NO
[2021-05-22 18:41] LABS: Basophils Percent Auto 0.2 % (0-2); Eosinophils Percent Auto 0.2 % (0-4); Hemoglobin 12.4 g/dl (12.0-16.0); Imm Gran Abs Auto 0.01 X10*3/uL (0.00-0.03); Imm Gran Pct Auto 0.2 % (0.0-0.4); Lymphocytes Absolute Auto 0.9 X10*3/uL (1.2-4.9); Lymphocytes Percent Auto 13.8 % (20-40); Mean Corpuscular HGB Conc 32.6 g/dl (31.0-35.0); Mean Corpuscular Hemoglobin 29.8 pg (27.0-33.0); Mean Corpuscular Volume 91.3 fL (80.0-98.0); Mean Platelet Volume 11.1 fL (9.4-12.3); Monocytes Absolute Auto 0.1 X10*3/uL (0.1-1.2); Monocytes Percent Auto 1.9 % (2-11); Neutrophils Absolute Auto 5.2 x10*3/uL (2.0-8.3); Neutrophils Percent Auto 83.7 % (45-73); Platelet Count 222 X10*3/uL (160-400); Red Blood Count 4.16 X10*6/uL (4.20-5.50); Red Cell Distribution Width 12.1 % (11.0-16.0); White Blood Count 6.2 X10*3/uL (4.8-10.8)
[2021-05-22 18:46] LABS: Prothrombin Time 11.3 SEC (9.9-13.0)
[2021-05-22 18:48] LABS: D Dimer High Sensitivity 188 NG/ML
[2021-05-22] MEDS: methylPREDNISolone Sod Succ 125 MG/2 ML VIAL IVPUSH (18:53)
[2021-05-22 18:56] LABS: Alanine Aminotransferase 16 U/L (0-31); Albumin Level 4.4 g/dL (3.5-5.0); Alkaline Phosphatase 62 U/L (39-117); Anion Gap 12 (12-20); Aspartate Amino Transferase 17 U/L (5-31); Bilirubin Total 0.2 mg/dL (0.0-1.0); Blood Urea Nitrogen 13 mg/dL (9-16); Calcium 9.6 mg/dL (8.4-10.2); Carbon Dioxide 24 mmol/L (22-29); Chloride 107 mmol/L (96-108); Creatinine Clr Calc Pharmacy 65.5; Estimated Glomerular Filt Rate > 60; Glucose Random 104 mg/dL (60-115); Potassium 4.7 mmol/L (3.3-5.1); Sodium 138 mmol/L (135-145); Total Protein 7.3 g/dL (6.5-8.0)
[2021-05-22 18:57] LABS: IDNOW Serial# 55D5AD1C; Influenza A Negative (Negative); Influenza B2 Negative (Negative)
[2021-05-22 19:03] LABS: Troponin-I High Sensitivity < 3.5 ng/L (<3.5-17.0)
[2021-05-22 19:48] VITALS: BP 107/63; PULSE 87; RESP 16; O2SAT 99
--- NOTE | 2021-05-22 19:49 | PC.NURSE ---
pt reports breathing better after updraft. provider at bedside for reeval.lungs clear.
[2021-05-22 20:00] VITALS: BP 107/63; PULSE 94; RESP 18; TEMP 36.7; O2SAT 98
== END 2021-05-22 20:02 | disposition home or self-care (01) ==
PROVIDERS: Physician Assistant Medical; Emergency Provider Internal Medicine
DX: J20.9 Acute bronchitis, unspecified (principal); J45.901 Unspecified asthma with (acute) exacerbation; R07.9 Chest pain, unspecified; Z20.822 Contact with and (suspected) exposure to COVID-19
CPT/HCPCS: 36415; 71046; 71100; 80053; 81025; 83735; 84484; 85025; 85379; 85610; 87502; 87635; 93005; 94640; 94644; 96374; 99284; 99291; J2930

== ENCOUNTER 2021-05-30 13:31 | Outpatient (REF) | payer MEDICAID, SELFPAY | END 2021-05-30 13:32 | disposition home or self-care (01) | LOC: HO.MDS 13:31 | PROVIDERS: Visit Provider Internal Medicine | DX: J45.50 Severe persistent asthma, uncomplicated (principal) | CPT/HCPCS: 96372; J2357 ==

== ENCOUNTER 2021-06-27 14:07 | Outpatient (REF) | payer MEDICAID, SELFPAY | END 2021-06-27 14:08 | disposition home or self-care (01) | LOC: HO.MDS 14:07 | PROVIDERS: Visit Provider Internal Medicine | DX: J45.50 Severe persistent asthma, uncomplicated (principal) | CPT/HCPCS: 96372; J2357 ==

== ENCOUNTER 2021-07-26 08:59 | Outpatient (REF) | payer MEDICAID, SELFPAY | END 2021-07-26 09:00 | disposition home or self-care (01) | LOC: HO.MDS 08:59 | PROVIDERS: Visit Provider Internal Medicine | DX: J45.50 Severe persistent asthma, uncomplicated (principal) | CPT/HCPCS: 96372; J2357 ==

== ENCOUNTER 2021-08-23 13:26 | Outpatient (REF) | payer MEDICAID, SELFPAY | END 2021-08-23 13:27 | disposition home or self-care (01) | LOC: HO.MDS 13:26 | PROVIDERS: Visit Provider Internal Medicine | DX: J45.50 Severe persistent asthma, uncomplicated (principal) | CPT/HCPCS: 96372; J2357 ==

== ENCOUNTER 2021-08-28 13:33 | Emergency (ER) | payer MEDICAID, SELFPAY | END 2021-08-28 14:40 | disposition left against medical advice (07) | PROVIDERS: Emergency Provider Emergency Medicine | DX: S61.411A Laceration without foreign body of right hand, initial encounter (principal); X58.XXXA Exposure to other specified factors, initial encounter; Y93.9 Activity, unspecified; Y92.9 Unspecified place or not applicable; Y99.9 Unspecified external cause status ==

== ENCOUNTER 2021-10-05 09:25 | Outpatient (REF) | payer MEDICAID, SELFPAY | END 2021-10-05 09:26 | disposition home or self-care (01) | LOC: HO.MDS 09:25 | PROVIDERS: Visit Provider Internal Medicine | DX: J45.50 Severe persistent asthma, uncomplicated (principal) | CPT/HCPCS: 96372; J2357 ==

== ENCOUNTER 2021-11-02 14:08 | Outpatient (REF) | payer MEDICAID, SELFPAY | END 2021-11-02 14:09 | disposition home or self-care (01) | LOC: HO.MDS 14:08 | PROVIDERS: Visit Provider Internal Medicine | DX: J45.50 Severe persistent asthma, uncomplicated (principal) | CPT/HCPCS: 96372; J2357 ==

== ENCOUNTER 2021-12-08 16:57 | Emergency (ER) | payer MEDICAID, SELFPAY ==
--- NOTE | ~2021-12-08 | XR_ITS ---
EXAMINATION: XR CHEST CLINICAL INFORMATION: Cough COMPARISON: Chest x-ray 05/22/2021 TECHNIQUE: Frontal view of the chest was obtained. FINDINGS: The lungs are clear. No airspace consolidation, pleural effusion, or pneumothorax. The cardiomediastinal silhouette is within normal limits. No acute osseous injury. XR/XR chest 1V IMPRESSION: Unremarkable examination.
[2021-12-08 17:23] VITALS: BP 111/49; PULSE 71; RESP 18; TEMP 37.2; O2SAT 100; BMI 29.2
[2021-12-08 17:37] LABS: MANUAL DIFF FLAG NO
[2021-12-08 17:56] LABS: Alanine Aminotransferase 16 U/L (0-31); Albumin Level 4.1 g/dL (3.5-5.0); Alkaline Phosphatase 52 U/L (39-117); Anion Gap 15 (12-20); Aspartate Amino Transferase 14 U/L (5-31); Bilirubin Total 0.4 mg/dL (0.0-1.0); Blood Urea Nitrogen 17 mg/dL (9-16); Calcium 9.3 mg/dL (8.4-10.2); Carbon Dioxide 23 mmol/L (22-29); Chloride 107 mmol/L (96-108); Creatinine Clr Calc Pharmacy 86.7; Estimated Glomerular Filt Rate > 60; Glucose Random 86 mg/dL (60-115); Potassium 3.7 mmol/L (3.3-5.1); Sodium 141 mmol/L (135-145); Total Protein 6.8 g/dL (6.5-8.0)
[2021-12-08 17:57] LABS: IDNOW Serial# 16C4AD1C
[2021-12-08 17:58] LABS: COVID-19 Test Negative (Negative)
[2021-12-08 18:01] LABS: Basophils Absolute Auto 0.1 X10*3/uL (0.0-0.2); Basophils Percent Auto 0.7 % (0-2); Eosinophils Absolute Auto 0.1 X10*3/uL (0.0-0.4); Eosinophils Percent Auto 1.9 % (0-4); Hematocrit 33.8 % (37.0-47.0); Hemoglobin 11.1 g/dl (12.0-16.0); Imm Gran Abs Auto 0.02 X10*3/uL (0.00-0.03); Imm Gran Pct Auto 0.3 % (0.0-0.4); Lymphocytes Absolute Auto 2.8 X10*3/uL (1.2-4.9); Lymphocytes Percent Auto 39.3 % (20-40); Mean Corpuscular HGB Conc 32.8 g/dl (31.0-35.0); Mean Corpuscular Hemoglobin 30.2 pg (27.0-33.0); Mean Corpuscular Volume 92.1 fL (80.0-98.0); Mean Platelet Volume 10.8 fL (9.4-12.3); Monocytes Absolute Auto 0.4 X10*3/uL (0.1-1.2); Monocytes Percent Auto 5.1 % (2-11); Neutrophils Absolute Auto 3.8 x10*3/uL (2.0-8.3); Neutrophils Percent Auto 52.7 % (45-73); Platelet Count 212 X10*3/uL (160-400); Red Blood Count 3.67 X10*6/uL (4.20-5.50); Red Cell Distribution Width 12.5 % (11.0-16.0); White Blood Count 7.2 X10*3/uL (4.8-10.8)
--- NOTE | 2021-12-09 00:59 | ED_ITS ---
HPI - General Adult General Chief complaint: Dyspnea Stated complaint: Phy. referral xray of chest Time Seen by Provider: 12/08/21 22:00 Source: patient Mode of arrival: ambulatory Limitations: no limitations History of Present Illness HPI narrative: 32-year-old female for whom complaints she has known asthma presents to emergency room complaining of cough back pain and left lung pain she called her primary care doctor told her to come to the ER patient states she has also had frequency. Patient denies fevers chills nausea vomiting or diarrhea. Related Data Home Medications Medication Instructions Recorded Confirmed Ca 600 mg-D3 20 mcg-mag oxide 50 tab PO DAILY 01/14/20 02/22/21 oj-Qj-ckgztt-manganese-boron tablet (Calcium 600-D3 Plus (mag-zinc)) albuterol sulfate 2.5 mg/3 mL 2.5 mg inhalation Q6H 01/14/20 02/22/21 (0.083 %) solution for nebulization citalopram 20 mg tablet (Celexa) 20 mg PO DAILY 01/14/20 02/22/21 clonidine HCl 0.1 mg tablet 0.1 mg PO BEDTIME 01/14/20 02/22/21 cyanocobalamin (vitamin B-12) 1,000 mcg PO DAILY 01/14/20 02/22/21 1,000 mcg tablet epinephrine 0.3 mg/0.3 mL 0.3 mg IM Q10M PRN 01/14/20 02/22/21 injection syringe famotidine 40 mg tablet (Pepcid) 40 mg PO BEDTIME 01/14/20 02/22/21 fluticasone propionate 50 1 spray intranasal DAILY 01/14/20 02/22/21 mcg/actuation nasal spray,suspension (Flonase Allergy Relief) loratadine 10 mg capsule 10 mg PO DAILY 01/14/20 02/22/21 montelukast 10 mg tablet 10 mg PO BEDTIME 01/14/20 02/22/21 (Singulair) multivitamin with minerals-folic tab PO DAILY 01/14/20 02/22/21 acid 120 mcg chewable tablet (Centrum Adult 50 Plus Fresh-Fruity) tiotropium bromide 1.25 2 puff inhalation DAILY 01/14/20 02/22/21 mcg/actuation mist for inhalation (Spiriva Respimat) venlafaxine 150 mg 150 mg PO DAILY 01/14/20 02/22/21 capsule,extended release 24 hr (Effexor XR) prednisone 5 mg tablet 10 mg PO BID PRN AC . EXCERBATION 02/22/21 02/22/21 OF ASTHMA Previous Rx's Medication Instructions Recorded omalizumab 150 mg subcutaneous 150 mg subcut Q4W 12 months #1 ea 02/25/20 solution (Xolair) ibuprofen 600 mg tablet 600 mg PO Q6H PRN pain #20 tabs 07/02/20 albuterol sulfate 90 mcg/actuation 2 puff inhalation Q4-6H PRN for 10/06/20 aerosol inhaler (ProAir HFA) wheezing #8.5 grams prednisone 5 mg tablet 5 mg PO BID 7 days #14 tabs 10/06/20 albuterol sulfate 0.63 mg/3 mL 0.63 mg (3 mL) inhalation QID PRN 11/28/20 solution for nebulization shortness of breath or wheezing #75 mL albuterol sulfate 90 mcg/actuation 1 inh inhalation QID PRN shortness 11/28/20 aerosol inhaler of breath or wheezing #8.5 grams codeine 10 mg-guaifenesin 100 mg/5 5 ml PO Q6H PRN cold symptoms #120 11/28/20 mL oral liquid (Guaifenesin AC) mL levothyroxine 125 mcg tablet 125 mcg PO DAILY #30 tabs 05/04/21 albuterol sulfate 0.63 mg/3 mL 0.63 mg (3 mL) inhalation QID PRN 05/22/21 solution for nebulization shortness of breath or wheezing #75 mL albuterol sulfate 90 mcg/actuation 1 inh inhalation QID PRN shortness 05/22/21 aerosol inhaler of breath or wheezing #8.5 grams azithromycin 250 mg tablet See Rx Instructions PO .COMPLEX #6 05/22/21 tabs codeine 10 mg-guaifenesin 100 mg/5 5 ml PO Q6H PRN cold symptoms #120 05/22/21 mL oral liquid (Guaifenesin AC) mL nebulizers (AeroEclipse II #1 ea 05/22/21 Nebulizer) prednisone 20 mg tablet 40 mg PO DAILY rash 5 days #10 tabs 05/22/21 fluticasone 500 mcg-salmeterol 50 1 ea PO BID #60 ea 06/01/21 mcg/dose blistr powdr for inhalation (Advair Diskus) prednisone 20 mg tablet 60 mg PO DAILY Asthma 5 days #15 12/09/21 tabs Allergies Allergy/AdvReac Type Severity Reaction Status Date / Time Penicillins Allergy Mild RASH Verified 02/22/21 12:10 Review of Systems Review of Systems: General:? Patient denies any fever chills recent illness or falls Musculoskeletal: Denies back pain or body aches or other injuries HEENT: denies headache, runny nose, ear pain Respiratory: denies shortness of breath, cough Cardiovascular: no chest pain or palpitations : denies dysuria, frequency Abdomen: no nausea vomiting denies abdominal pain? Extremities: no swelling, no pain Skin: no diaphoresis PMFSH Past Medical History Medical History Allergic rhinitis Allergic rhinitis Asthma Bronchial asthma Bronchitis Depression Postablative hypothyroidism Surgical History Hx of carpal tunnel repair Hx of tubal ligation Family History Family History Father Heart disease CVD (cardiovascular disease) Diabetes Mother CVD (cardiovascular disease) Asthma Heart disease Thyroid disease Diabetes Social History Social History Household Members: Children Alcohol intake: current Alcohol intake frequency: holidays/special occasions only Patient Tobacco Use Status: Former Tobacco user Advance Directives: No Physical Exam ED Vital Signs: Vital Signs - 24 hr 12/08/21 17:23 Temperature 98.9 F Pulse Rate 71 Respiratory Rate 18 Blood Pressure 111/49 L Pulse Oximetry 100 Oxygen Delivery Method Room Air BMI result Body Mass Index 29.2 General: Well-appearing well-nourished in no signs of distress HEENT: Normocephalic atraumatic? Neck: No signs of JVD, no masses no tenderness or lymphadenopathy Cardiovascular: Regular rate and rhythm Respiratory: Clear to auscultation bilaterally Abdomen: Soft nontender no masses Extremities: Normal pedal pulses no signs of edema Skin: Dry warm no rashes Back: No tenderness full ROM Medical Decision Making MDM Narrative Medical decision making narrative: I will check a UA I explained the lab results I will give prednisone and send home. UA is negative she is asking for 3 days off of work. Lab Data Result diagrams: 12/08/21 17:29 12/08/21 17:29 Labs: Lab Results 12/08/21 12/08/21 12/08/21 Range/Units 17:27 17:29 17:29 WBC 7.2 (4.8-10.8) X10*3/uL RBC 3.67 L (4.20-5.50) X10*6/uL Hgb 11.1 L (12.0-16.0) g/dl Hct 33.8 L (37.0-47.0) % MCV 92.1 (80.0-98.0) fL MCH 30.2 (27.0-33.0) pg MCHC 32.8 (31.0-35.0) g/dl RDW 12.5 (11.0-16.0) % Plt Count 212 (160-400) X10*3/uL MPV 10.8 (9.4-12.3) fL Immature Gran % (Auto) 0.3 (0.0-0.4) % Neut % (Auto) 52.7 (45-73) % Lymph % (Auto) 39.3 (20-40) % [place] % (Auto) 5.1 (2-11) % Eos % (Auto) 1.9 (0-4) % Baso % (Auto) 0.7 (0-2) % Lymph # (Auto) 2.8 (1.2-4.9) X10*3/uL [place] # (Auto) 0.4 (0.1-1.2) X10*3/uL Eos # (Auto) 0.1 (0.0-0.4) X10*3/uL Baso # (Auto) 0.1 (0.0-0.2) X10*3/uL Abs Immat Gran (auto) 0.02 (0.00-0.03) X10*3/uL Absolute Neuts (auto) 3.8 (2.0-8.3) x10*3/uL Absolute Nucleated RBC 0.000 (0.0-0.012) X10*3/uL Nucleated RBC % (auto) 0.0 (0.0-0.2) /100WBC Sodium 141 (135-145) mmol/L Potassium 3.7 D (3.3-5.1) mmol/L Chloride 107 (96-108) mmol/L Carbon Dioxide 23 (22-29) mmol/L Anion Gap 15 (12-20) BUN 17 H (9-16) mg/dL Creatinine 0.82 (0.5-1.4) mg/dL Estim Creat Clear Calc 86.7 Estimated GFR > 60 Random Glucose 86 (60-115) mg/dL Calcium 9.3 (8.4-10.2) mg/dL Total Bilirubin 0.4 (0.0-1.0) mg/dL AST 14 (5-31) U/L ALT 16 (0-31) U/L Alkaline Phosphatase 52 (39-117) U/L Total Protein 6.8 (6.5-8.0) g/dL Albumin 4.1 (3.5-5.0) g/dL Urine Color Urine Appearance Urine pH (5.0-9.0) Ur Specific [place] (1.005-1.025) Urine Protein (Neg-Trace) mg/dL Urine Glucose (UA) (Negative) mg/dL Urine Ketones (Negative) mg/dL Urine Blood (Negative) Urine Nitrite (Negative) Ur Leukocyte Esterase (Negative) COVID-19 ([facility]) Negative (Negative) COVID-19 Clin Com See Note 12/09/21 Range/Units 01:09 WBC (4.8-10.8) X10*3/uL RBC (4.20-5.50) X10*6/uL Hgb (12.0-16.0) g/dl Hct (37.0-47.0) % MCV (80.0-98.0) fL MCH (27.0-33.0) pg MCHC (31.0-35.0) g/dl RDW (11.0-16.0) % Plt Count (160-400) X10*3/uL MPV (9.4-12.3) fL Immature Gran % (Auto) (0.0-0.4) % Neut % (Auto) (45-73) % Lymph % (Auto) (20-40) % [place] % (Auto) (2-11) % Eos % (Auto) (0-4) % Baso % (Auto) (0-2) % Lymph # (Auto) (1.2-4.9) X10*3/uL [place] # (Auto) (0.1-1.2) X10*3/uL Eos # (Auto) (0.0-0.4) X10*3/uL Baso # (Auto) (0.0-0.2) X10*3/uL Abs Immat Gran (auto) (0.00-0.03) X10*3/uL Absolute Neuts (auto) (2.0-8.3) x10*3/uL Absolute Nucleated RBC (0.0-0.012) X10*3/uL Nucleated RBC % (auto) (0.0-0.2) /100WBC Sodium (135-145) mmol/L Potassium (3.3-5.1) mmol/L Chloride (96-108) mmol/L Carbon Dioxide (22-29) mmol/L Anion Gap (12-20) BUN (9-16) mg/dL Creatinine (0.5-1.4) mg/dL Estim Creat Clear Calc Estimated GFR Random Glucose (60-115) mg/dL Calcium (8.4-10.2) mg/dL Total Bilirubin (0.0-1.0) mg/dL AST (5-31) U/L ALT (0-31) U/L Alkaline Phosphatase (39-117) U/L Total Protein (6.5-8.0) g/dL Albumin (3.5-5.0) g/dL Urine Color Yellow Urine Appearance Cloudy Urine pH 5.5 (5.0-9.0) Ur Specific [place] >= 1.030 H (1.005-1.025) Urine Protein Negative (Neg-Trace) mg/dL Urine Glucose (UA) Negative (Negative) mg/dL Urine Ketones Negative (Negative) mg/dL Urine Blood Negative (Negative) Urine Nitrite Negative (Negative) Ur Leukocyte Esterase Negative (Negative) COVID-19 ([facility]) (Negative) COVID-19 Clin Com Discharge Plan Discharge Clinical Impression: Asthma with exacerbation Patient Disposition: Home, Self-Care Instructions: Asthma (ED) Additional Instructions: Please follow up with your doctor. Prescriptions: New prednisone 20 mg tablet 60 mg PO DAILY 5 Days Qty: 15 0RF No Action Xolair 150 mg recon soln 150 mg subcut Q4W 360 Days Qty: 1 5RF levothyroxine 125 mcg tablet 125 mcg PO DAILY Qty: 30 11RF fluticasone propion-salmeterol [Advair Diskus] 500-50 mcg/dose blister with device 1 ea PO BID Qty: 60 3RF albuterol sulfate 0.63 mg/3 mL solution for nebulization 0.63 mg inhalation QID PRN (Reason: shortness of breath or wheezing) Qty: 75 0RF codeine-guaifenesin [Guaifenesin AC] 10-100 mg/5 mL liquid 5 ml PO Q6H PRN (Reason: cold symptoms) Qty: 120 0RF albuterol sulfate 90 mcg/actuation HFA aerosol inhaler 1 inh inhalation QID PRN (Reason: shortness of breath or wheezing) Qty: 8.5 0RF ibuprofen 600 mg tablet 600 mg PO Q6H PRN (Reason: pain) Qty: 20 0RF albuterol sulfate 0.63 mg/3 mL solution for nebulization 0.63 mg inhalation QID PRN (Reason: shortness of breath or wheezing) Qty: 75 0RF (DME) AeroEclipse II Nebulizer Misc See Rx Instructions .ROUTE .MEDSUPPLY Qty: 1 0RF Rx Instructions: As directed albuterol sulfate 90 mcg/actuation HFA aerosol inhaler 1 inh inhalation QID PRN (Reason: shortness of breath or wheezing) Qty: 8.5 0RF azithromycin 250 mg tablet See Rx Instructions .ROUTE .COMPLEX Qty: 6 0RF Rx Instructions: take 500 mg today (day 1), then 250 mg for 4 days (days 2-5) prednisone 20 mg tablet 40 mg PO DAILY 5 Days Qty: 10 0RF codeine-guaifenesin [Guaifenesin AC] 10-100 mg/5 mL liquid 5 ml PO Q6H PRN (Reason: cold symptoms) Qty: 120 0RF albuterol sulfate [ProAir HFA] 90 mcg/actuation HFA aerosol inhaler 2 puff inhalation Q4-6H PRN (Reason: for wheezing) Qty: 8.5 3RF prednisone 5 mg tablet 5 mg PO BID 7 Days Qty: 14 1RF Ca-D3-mag rc-yxfj-biq-perry-bor [Calcium 600-D3 Plus (mag-zinc)] 600 mg calcium- 800 unit-50 mg tablet PO DAILY venlafaxine [Effexor XR] 150 mg capsule,extended release 24hr 150 mg PO DAILY epinephrine 0.3 mg/0.3 mL syringe 0.3 mg IM Q10M PRN Rx Instructions: for 2 doses famotidine [Pepcid] 40 mg tablet 40 mg PO BEDTIME cyanocobalamin (vitamin B-12) 1,000 mcg tablet 1,000 mcg PO DAILY Centrum Adult 50 Fresh-Fruity 120 mcg tablet,chewable PO DAILY citalopram [Celexa] 20 mg tablet 20 mg PO DAILY clonidine HCl 0.1 mg tablet 0.1 mg PO BEDTIME Spiriva Respimat 1.25 mcg/actuation mist 2 puff inhalation DAILY loratadine 10 mg capsule 10 mg PO DAILY fluticasone propionate [Flonase Allergy Relief] 50 mcg/actuation spray, suspension 1 spray intranasal DAILY Rx Instructions: administer into each nostril montelukast [Singulair] 10 mg tablet 10 mg PO BEDTIME albuterol sulfate 2.5 mg /3 mL (0.083 %) solution for nebulization 2.5 mg inhalation Q6H prednisone 5 mg tablet 10 mg PO BID PRN (Reason: AC . EXCERBATION OF ASTHMA ) Rx Instructions: PREDNISONE 5 MG 2 TABS PO BID FOR ONE WEEK, THEN 1 TAB . PO BID Stand Alone Forms: Work/School Release
[2021-12-09 01:14] LABS: Appearance Urine Cloudy; Color Urine Yellow; Glucose Urine UA Negative (Negative); Leukocyte Esterase Urine Negative (Negative); Nitrite Urine Negative (Negative); PH 5.5 (5.0-9.0); Specific Gravity - Urine >= 1.030 (1.005-1.025); Urine Blood Negative (Negative); Urine Ketones Negative (Negative); Urine Protein Negative (Neg-Trace)
[2021-12-09] MEDS: predniSONE 20 MG TABLET 60 MG PO (01:39)
--- NOTE | 2021-12-09 01:42 | PC.NURSE ---
Pt. resting quietly in room. No apparent distress or SOB.
== END 2021-12-09 01:42 | disposition home or self-care (01) ==
PROVIDERS: Emergency Provider Student in an Organized Health Care Education/Training Program; PCP Family Medicine
DX: J45.901 Unspecified asthma with (acute) exacerbation (principal); Z20.822 Contact with and (suspected) exposure to COVID-19
CPT/HCPCS: 36415; 71045; 80053; 81003; 85025; 87635; 99283

== ENCOUNTER 2021-12-15 12:56 | Outpatient (REF) | payer MEDICAID, SELFPAY | END 2021-12-15 12:57 | disposition home or self-care (01) | LOC: HO.MDS 12:56 | PROVIDERS: Visit Provider Internal Medicine | DX: J45.50 Severe persistent asthma, uncomplicated (principal) | CPT/HCPCS: 96372; J2357 ==

== ENCOUNTER 2022-01-02 13:31 | Outpatient (REF) | payer MEDICAID, SELFPAY ==
[2022-01-02 14:09] LABS: MANUAL DIFF FLAG NO
[2022-01-02 15:22] LABS: Basophils Percent Auto 0.7 % (0-2); Eosinophils Absolute Auto 0.2 X10*3/uL (0.0-0.4); Eosinophils Percent Auto 3.3 % (0-4); Hemoglobin 12.1 g/dl (12.0-16.0); Imm Gran Abs Auto 0.02 X10*3/uL (0.00-0.03); Imm Gran Pct Auto 0.3 % (0.0-0.4); Lymphocytes Absolute Auto 1.9 X10*3/uL (1.2-4.9); Lymphocytes Percent Auto 31.3 % (20-40); Mean Corpuscular HGB Conc 32.7 g/dl (31.0-35.0); Mean Corpuscular Hemoglobin 29.8 pg (27.0-33.0); Mean Corpuscular Volume 91.1 fL (80.0-98.0); Mean Platelet Volume 11.5 fL (9.4-12.3); Monocytes Absolute Auto 0.3 X10*3/uL (0.1-1.2); Monocytes Percent Auto 4.8 % (2-11); Neutrophils Absolute Auto 3.6 x10*3/uL (2.0-8.3); Neutrophils Percent Auto 59.6 % (45-73); Platelet Count 210 X10*3/uL (160-400); Red Blood Count 4.06 X10*6/uL (4.20-5.50); Red Cell Distribution Width 12.3 % (11.0-16.0); White Blood Count 6.1 X10*3/uL (4.8-10.8)
[2022-01-02 15:33] LABS: Estimated Average Glucose 103 mg/dL; Hemoglobin A1c % 5.2 %
[2022-01-02 15:49] LABS: Alanine Aminotransferase 12 U/L (0-31); Albumin Level 4.1 g/dL (3.5-5.0); Alkaline Phosphatase 52 U/L (39-117); Anion Gap 17 (12-20); Aspartate Amino Transferase 17 U/L (5-31); Bilirubin Total 0.7 mg/dL (0.0-1.0); Blood Urea Nitrogen 19 mg/dL (9-16); Calcium 8.9 mg/dL (8.4-10.2); Carbon Dioxide 19 mmol/L (22-29); Chloride 107 mmol/L (96-108); Cholesterol 166 mg/dL; Estimated Glomerular Filt Rate > 60; Glucose Random 76 mg/dL (60-115); HDL Cholesterol 59 mg/dL; Iron 192 mcg/dL (30-160); LDL Cholesterol Calculated 93 mg/dl; Percent Iron Saturation 58 % (15-50); Sodium 139 mmol/L (135-145); Total Iron Binding Capacity 329 mcg/dL (228-428); Total Protein 6.9 g/dL (6.5-8.0); Triglycerides 70 mg/dL; Unsaturated Iron Binding 137 ug/dL
[2022-01-02 15:57] LABS: Ferritin 80 ng/mL (10-122); Vitamin D 25-OH Total 35.3 ng/mL (>30)
== END 2022-01-02 13:32 | disposition home or self-care (01) ==
LOC: HO.LAB 13:31
PROVIDERS: PCP Family Medicine; Visit Provider Family Medicine
DX: E66.01 Morbid (severe) obesity due to excess calories (principal)
CPT/HCPCS: 36415; 80053; 80061; 82306; 82728; 83036; 83540; 85025

== ENCOUNTER → 2022-01-03 15:12 | Outpatient (BNVA) | payer MEDICAID, SELFPAY | PROVIDERS: PCP Family Medicine; Visit Provider Internal Medicine | DX: J45.909 Unspecified asthma, uncomplicated (principal); L25.9 Unspecified contact dermatitis, unspecified cause | CPT/HCPCS: 99212 ==

== ENCOUNTER 2022-01-12 14:35 | Outpatient (REF) | payer MEDICAID, SELFPAY | END 2022-01-12 14:36 | disposition home or self-care (01) | LOC: HO.MDS 14:35 | PROVIDERS: Visit Provider Internal Medicine | DX: J45.50 Severe persistent asthma, uncomplicated (principal) | CPT/HCPCS: 96372; J2357 ==

== ENCOUNTER 2022-02-02 13:45 | Outpatient (REF) | payer MEDICAID, SELFPAY | END 2022-02-02 13:46 | disposition home or self-care (01) | LOC: HO.MDS 13:45 | PROVIDERS: Visit Provider Internal Medicine | DX: J45.50 Severe persistent asthma, uncomplicated (principal) | CPT/HCPCS: 96372; J2357 ==

== ENCOUNTER 2022-03-09 14:09 | Outpatient (REF) | payer MEDICAID, SELFPAY | END 2022-03-09 14:10 | disposition home or self-care (01) | LOC: HO.MDS 14:09 | PROVIDERS: Visit Provider Internal Medicine | DX: J45.50 Severe persistent asthma, uncomplicated (principal) | CPT/HCPCS: 96372; J2357 ==

== ENCOUNTER 2022-04-06 13:49 | Outpatient (REF) | payer MEDICAID, SELFPAY | END 2022-04-06 13:50 | disposition home or self-care (01) | LOC: HO.MDS 13:49 | PROVIDERS: Visit Provider Internal Medicine | DX: J45.50 Severe persistent asthma, uncomplicated (principal) | CPT/HCPCS: 96372; J2357 ==

== ENCOUNTER 2022-04-19 13:11 | Outpatient (REF) | payer MEDICAID, SELFPAY ==
[2022-04-19 14:35] LABS: Eos%MD 3.8 %; Hematocrit 38.7 % (37.0-47.0); Hemoglobin 12.4 g/dl (12.0-16.0); IG%MD 0.2 %; Lymph%MD 45.6 %; Mean Corpuscular Hemoglobin 29.6 pg (27.0-33.0); Mean Corpuscular Volume 92.4 fL (80.0-98.0); Mono%MD 5.4 %; Platelet Count 235 X10*3/uL (160-400); Red Blood Count 4.19 X10*6/uL (4.20-5.50); Red Cell Distribution Width 12.5 % (11.0-16.0); White Blood Count 5.2 X10*3/uL (4.8-10.8)
[2022-04-19 17:58] LABS: Band Neutrophils Percent 0 % (3-5); Basophils Abs Manual 0.1 X10*3/uL (0.0-0.2); Basophils Percent Manual 1 % (0-2); Eosinophils Absolute Manual 0.3 X10*3/uL (0.0-0.4); Eosinophils Percent Manual 5 % (0-4); Lymphocytes Absolute Manual 2.1 X10*3/uL (1.2-4.9); Lymphocytes Percent Manual 40 % (20-40); Monocytes Absolute Manual 0.3 X10*3/uL (0.1-1.2); Monocytes Percent Manual 5 % (2-11); Neutrophils Absolute Manual 2.5 X10*3/uL (2.0-8.3); Neutrophils Percent Manual 49 % (45-73)
[2022-04-19 17:59] LABS: Burr Cells 3+ (>5) /OIF; Microcytosis 1+ (5-14) /OIF; RBC Morphology NOTED
[2022-04-19 18:00] LABS: Platelet Estimate NORMAL (NORMAL); Platelet Morphology Comment NORMAL
[2022-04-21 03:24] LABS: Immunoglobulin E 852 kU/L (<OR=114)
== END 2022-04-19 13:12 | disposition home or self-care (01) ==
LOC: HO.LAB 13:11
PROVIDERS: PCP Family Medicine; Visit Provider Internal Medicine
DX: J45.909 Unspecified asthma, uncomplicated (principal); D82.4 Hyperimmunoglobulin E [IgE] syndrome
CPT/HCPCS: 36415; 82785; 85007; 85027; 99212

== ENCOUNTER 2022-05-02 16:09 | Outpatient (REF) | payer MEDICAID, SELFPAY ==
[2022-05-02 16:21] LABS: MANUAL DIFF FLAG NO
[2022-05-02 17:31] LABS: Basophils Percent Auto 0.4 % (0-2); Eosinophils Absolute Auto 0.1 X10*3/uL (0.0-0.4); Eosinophils Percent Auto 2.2 % (0-4); Hemoglobin 11.2 g/dl (12.0-16.0); Imm Gran Abs Auto 0.01 X10*3/uL (0.00-0.03); Imm Gran Pct Auto 0.2 % (0.0-0.4); Lymphocytes Absolute Auto 2.4 X10*3/uL (1.2-4.9); Lymphocytes Percent Auto 48.8 % (20-40); Mean Corpuscular Hemoglobin 29.6 pg (27.0-33.0); Mean Corpuscular Volume 92.6 fL (80.0-98.0); Mean Platelet Volume 11.5 fL (9.4-12.3); Monocytes Absolute Auto 0.3 X10*3/uL (0.1-1.2); Monocytes Percent Auto 6.1 % (2-11); Neutrophils Absolute Auto 2.1 x10*3/uL (2.0-8.3); Neutrophils Percent Auto 42.3 % (45-73); Platelet Count 194 X10*3/uL (160-400); Red Blood Count 3.78 X10*6/uL (4.20-5.50); Red Cell Distribution Width 12.3 % (11.0-16.0); White Blood Count 4.9 X10*3/uL (4.8-10.8)
[2022-05-02 18:02] LABS: Alanine Aminotransferase 22 U/L (0-31); Albumin Level 4.3 g/dL (3.5-5.0); Alkaline Phosphatase 56 U/L (39-117); Anion Gap 15 (12-20); Aspartate Amino Transferase 18 U/L (5-31); Bilirubin Total 0.2 mg/dL (0.0-1.0); Blood Urea Nitrogen 11 mg/dL (9-16); Calcium 9.5 mg/dL (8.4-10.2); Carbon Dioxide 23 mmol/L (22-29); Chloride 108 mmol/L (96-108); Estimated Glomerular Filt Rate > 60; Glucose Random 84 mg/dL (60-115); Sodium 142 mmol/L (135-145); Total Protein 6.7 g/dL (6.5-8.0)
[2022-05-02 18:31] LABS: Folate 18.1 ng/mL (> or = 4.0); Free T4 (Free Thyroxine) 0.96 ng/dL (0.71-1.85); Vitamin B12 555 pg/mL (200-900)
[2022-05-04 08:54] LABS: HIV AB/AG Nonreactive (Nonreactive); HIV Num 1 0.07 S/CO (0.00-0.99)
== END 2022-05-02 16:10 | disposition home or self-care (01) ==
LOC: HO.LAB 16:09
PROVIDERS: PCP Family Medicine; Visit Provider Family Medicine
DX: R41.840 Attention and concentration deficit (principal)
CPT/HCPCS: 36415; 80053; 82607; 82746; 84439; 84443; 85025; 87389

== ENCOUNTER 2022-05-04 12:59 | Outpatient (REF) | payer MEDICAID, SELFPAY | END 2022-05-04 13:00 | disposition home or self-care (01) | LOC: HO.MDS 12:59 | PROVIDERS: Visit Provider Internal Medicine | DX: J45.50 Severe persistent asthma, uncomplicated (principal) | CPT/HCPCS: 96372; J2357 ==

== ENCOUNTER 2022-05-18 13:26 | Outpatient (REF) | payer MEDICAID, SELFPAY | END 2022-05-18 13:27 | disposition home or self-care (01) | LOC: HO.MDS 13:26 | PROVIDERS: Visit Provider Internal Medicine | DX: J45.50 Severe persistent asthma, uncomplicated (principal) | CPT/HCPCS: 96372; J2357 ==

== ENCOUNTER 2022-06-01 14:00 | Outpatient (REF) | payer MEDICAID, SELFPAY | END 2022-06-01 14:01 | disposition home or self-care (01) | LOC: HO.MDS 14:00 | PROVIDERS: Visit Provider Internal Medicine | DX: J45.50 Severe persistent asthma, uncomplicated (principal) | CPT/HCPCS: 96372; J2357 ==

== ENCOUNTER 2022-06-22 13:06 | Outpatient (REF) | payer MEDICAID, SELFPAY | END 2022-06-22 13:07 | disposition home or self-care (01) | LOC: HO.MDS 13:06 | PROVIDERS: Visit Provider Internal Medicine | DX: J45.50 Severe persistent asthma, uncomplicated (principal) | CPT/HCPCS: 96372; J2357 ==

== ENCOUNTER 2022-07-06 13:11 | Outpatient (REF) | payer MEDICAID, SELFPAY | END 2022-07-06 13:12 | disposition home or self-care (01) | LOC: HO.MDS 13:11 | PROVIDERS: Visit Provider Internal Medicine | DX: J45.50 Severe persistent asthma, uncomplicated (principal) | CPT/HCPCS: 96372; J2357 ==

== ENCOUNTER → 2022-07-10 15:55 | Outpatient (BNVA) | payer MEDICAID, SELFPAY | PROVIDERS: PCP Family Medicine; Visit Provider Internal Medicine | DX: J45.909 Unspecified asthma, uncomplicated (principal); D82.4 Hyperimmunoglobulin E [IgE] syndrome; Z79.899 Other long term (current) drug therapy; Z76.0 Encounter for issue of repeat prescription | CPT/HCPCS: 99212 ==

== ENCOUNTER → 2022-07-19 13:18 | Outpatient (BNVA) | payer MEDICAID, SELFPAY | PROVIDERS: PCP Family Medicine; Visit Provider Internal Medicine | DX: E89.0 Postprocedural hypothyroidism (principal) | CPT/HCPCS: 99212 ==

== ENCOUNTER 2022-07-20 15:29 | Outpatient (REF) | payer MEDICAID, SELFPAY | END 2022-07-20 15:30 | disposition home or self-care (01) | LOC: HO.MDS 15:29 | PROVIDERS: Visit Provider Internal Medicine | DX: J45.50 Severe persistent asthma, uncomplicated (principal) | CPT/HCPCS: 96372; J2357 ==

== ENCOUNTER 2022-08-03 15:42 | Outpatient (REF) | payer MEDICAID, SELFPAY | END 2022-08-03 15:43 | disposition home or self-care (01) | LOC: HO.MDS 15:42 | PROVIDERS: Visit Provider Internal Medicine | DX: J45.50 Severe persistent asthma, uncomplicated (principal) | CPT/HCPCS: 96372; J2357 ==

== ENCOUNTER 2022-08-24 15:56 | Outpatient (REF) | payer MEDICAID, SELFPAY | END 2022-08-24 15:57 | disposition home or self-care (01) | LOC: HO.MDS 15:56 | PROVIDERS: Visit Provider Internal Medicine | DX: J45.50 Severe persistent asthma, uncomplicated (principal) | CPT/HCPCS: 96372; J2357 ==

== ENCOUNTER 2022-09-12 14:12 | Outpatient (REF) | payer MEDICAID, SELFPAY | END 2022-09-12 14:13 | disposition home or self-care (01) | LOC: HO.MDS 14:12 | PROVIDERS: Visit Provider Internal Medicine | DX: J45.50 Severe persistent asthma, uncomplicated (principal) | CPT/HCPCS: 96372; J2357 ==

== ENCOUNTER 2022-10-09 15:55 | Outpatient (AMB) | payer MEDICAID, SELFPAY ==
[2022-10-09 15:58] VITALS: BP 114/68; PULSE 64; O2SAT 98; BMI 32.1
--- NOTE | 2022-10-09 15:58 | MHC.OFFVIS ---
Intake Vital Signs 10/09/22 15:58 Height 5 ft 2 in Weight 175 lb 4.28 oz BMI 32.1 BP 114/68 Blood Pressure Location Rt brachial Position Sitting Pulse 64 Pulse Source Pulse Oximeter Pulse Oximetry (%) 98 Oxygen Delivery Method Room Air Intake Visit Reasons: Asthma Intake Note: Pt reports feeling pain in the back of lungs and her asthma symptoms are the same as usual. Allergies Penicillins Allergy (Mild, Verified 10/09/22 16:18) RASH Medication List - Last Reconciled 10/09/22 by Donny Jimenez MD albuterol sulfate 90 mcg/actuation 1 inh inhalation QID PRN albuterol sulfate 0.63 mg (3 mL) inhalation QID PRN albuterol sulfate 2.5 mg inhalation Q6H Ca-D3-mag tp-wern-bjs-perry-bor 600 mg calcium- 20 mcg-50 mg (Calcium 600-D3 Plus (mag-zinc)) tabs PO DAILY cholecalciferol (vitamin D3) 25 mcg PO QAM clonidine HCl 0.1 mg PO BEDTIME cyanocobalamin (vitamin B-12) 1,000 mcg PO DAILY epinephrine 0.3 mg IM Q10M PRN famotidine (Pepcid) 40 mg PO BEDTIME fluticasone propion-salmeterol 500-50 mcg/dose (Advair Diskus) 1 ea PO BID 30 days fluticasone propionate 50 mcg/actuation (Flonase Allergy Relief) 1 spray intranasal DAILY hydrocortisone 2.5% 1 appl topical BID PRN 15 days MDD SKIN RASH/IRRITATION ibuprofen 600 mg PO Q6H PRN levothyroxine 125 mcg PO DAILY loratadine 10 mg PO DAILY montelukast (Singulair) 10 mg PO BEDTIME multivit with min-folic acid 120 mcg (Centrum Adult 50 Plus Fresh-Fruity) tabs PO DAILY nebulizers (AeroEclipse II Nebulizer) As directed omalizumab (Xolair) 150 mg subcut Q4W 12 months prednisone 5 mg PO DAILY tiotropium bromide 1.25 mcg/actuation (Spiriva Respimat) 2 puffs inhalation DAILY 30 days venlafaxine ER (Effexor XR) 150 mg PO DAILY Do you need a note to return to daycare/school/sports/work: No HPI Asthma HPI Details 41 YEARS OLD FEMALE IS BEING TREATED FOR BRONCHIAL ASTHMA/ALLERGIC RHINITIS. OVERALL HER SYMPTOMS ARE CONTROLLED BUT SHE DOES HAVE FREQUENT EXACERBATIONS, WHEN SHE HAS TO USE PREDNISONE FOR A FEW DAYS. MOST OF HER COMPLAINTS ARE RELATED TO THE BONES AND MUSCLES . COMPLAINS PAIN IN UPPER BACK ALSO IN THE THIGHS AND LEGS. SHE WAS THINKING THAT THE PAIN IN THE UPPER BACK MAY BE DUE TO HER LUNGS, BUT I EXPLAINED TO HER THAT THERE DOES NOT SEEM TO BE ANY RELATION OF THIS PAIN TO THE LUNGS. FORMERLY [facility] Medical History Allergic rhinitis Allergic rhinitis Asthma Bronchial asthma Bronchitis Contact dermatitis Depression Hyper-IgE syndrome Postablative hypothyroidism Surgical History Hx of carpal tunnel repair Hx of tubal ligation Family History Father Heart disease CVD (cardiovascular disease) Diabetes Mother CVD (cardiovascular disease) Asthma Heart disease Thyroid disease Diabetes Social History Household Members: Children Alcohol intake: current Alcohol intake frequency: holidays/special occasions only Patient Tobacco Use Status: Former Tobacco user Review of Systems Const Reports fatigue and Reports night sweats Eyes Reports no additional complaints ENT Reports nasal congestion and Reports nasal discharge Card Denies chest pain, Denies irregular heart rhythm and Denies leg edema Resp Reports as per HPI GI Reports no additional complaints Reports no additional complaints Musc Reports no additional complaints Skin/Breast Reports system reviewed and no additional complaints, except as documented Neuro Reports no additional complaints Psych Reports no additional complaints Endo Reports fatigue Physical Exam Vital Signs: Last Vital Signs Pulse 64 10/09/22 15:58 BP 114/68 10/09/22 15:58 Pulse Ox 98 10/09/22 15:58 Oxygen Delivery Method Room Air 10/09/22 15:58 BMI result Body Mass Index 32.1 Const General: healthy appearing, comfortable, no acute distress, alert and awake Orientation/consciousness: patient oriented x3 HEENT Head: Yes normal to inspection General nose exam: No nasal polyps present and No nasal discharge present Face and sinus: Yes sinuses nontender Mouth: oropharynx normal Throat: Yes posterior oropharynx normal Eyes General: appearance normal, both eyes and all related structures Neck Neck: Yes normal visual inspection, Yes no lymphadenopathy, Yes trachea midline and Yes no JVD Thyroid: Thyroid normal Chest Chest palpation & inspection: normal inspection of the chest, normal palpation of entire chest wall and no tenderness Resp Other: Breath sounds are somewhat distant but equal on both sides. She has only a few expiratory wheezes on both sides. No crepitations Cardio Palpation: normal PMI Rate: regular rate Rhythm: regular rhythm Heart sounds: no gallops and no murmurs Peripheral pulses: Peripheral pulses 2+ throughout GI Palpation (GI): Soft to palpation, nontender, No hepatosplenomegaly present and no masses Auscultation: normal bowel sounds Back/Spine/Pelvis Thoracic/Lumbar Spine: thoracic and lumbar spine normal to inspection Skin Rashes: rashes noted (Erythematous plaques, around the ankles on both sides.) Neuro General: patient oriented x3 and no focal motor deficits Cranial nerves: Yes CN's II-XII intact bilaterally Extrem General: Yes normal to inspection, Yes no clubbing, cyanosis or edema and Yes no calf tenderness Psych Appearance: grossly normal and well kempt Speech and movement: Normal speech and movement present Assessment & Plan Assessment & Plan (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 4 weeks. , asthma is relatively well controlled ., except for minor exacerbations off and on. Code(s): D82.4 - Hyperimmunoglobulin E [IgE] syndrome (2) Bronchial asthma: Comment: PATIENT HAS HAD CHRONIC PERSISTENT ALLERGIC BRONCHIAL ASTHMA, SHE HAS DONE WELL SINCE SHE WAS STARTED ON BIOLOGIC INJECTIONS( XOLAIR ) SINCE WE INCREASED THE DOSE OF XOLAIR TO 150 MG Q 4 WEEKS, SHE IS DOING BETTER. IGE LEVEL IS STILL QUITE HIGH. TX : ADVISED TO CONTINUE : ADVAIR 500-51 INHALATION B.I.D. SPIRIVA RESPIMAT 1.25 2 INHALATIONS DAILY PROAIR 2 PUFFS Q 4-6 HOURS P.R.N. ALTERNATIVELY SHE CAN USE ALBUTEROL SOLUTION IN THE NEBULIZER Q 6 HOURS P.R.N. SCRIPTS ARE RENEWED. * she has been using prednisone 5 mg tablet, once a day , and now I suggest that she should use only on alternate days or PRN for 5 days when she gets excarbation of symptoms . Advised to take calcium 600 mg and vitamin-D 1000 units daily, Code(s): J45.909 - Unspecified asthma, uncomplicated (3) Allergic rhinitis: Comment: HAS CHRONIC PERSISTENT ALLERGIC RHINITIS, SIGNIFICANTLY IMPROVED SINCE SHE IS ON XOLAIR INJECTION. TX FLONASE 2 SPRAY EACH NOSTRIL DAILY MONTELUKAST 10 MG DAILY Code(s): J30.9 - Allergic rhinitis, unspecified Coding Level of Care Code Est Pt Level 4 (59824) Diagnoses Hyper-IgE syndrome D82.4 Bronchial asthma J45.909 Allergic rhinitis J30.9
== END 2022-10-09 16:26 | disposition home or self-care (01) ==
PROVIDERS: PCP Family Medicine; Visit Provider Internal Medicine
DX: D82.4 Hyperimmunoglobulin E [IgE] syndrome (principal); J45.909 Unspecified asthma, uncomplicated
CPT/HCPCS: 99214

== ENCOUNTER → 2022-10-09 15:55 | Outpatient (BNVA) | payer MEDICAID, SELFPAY | PROVIDERS: PCP Family Medicine; Visit Provider Internal Medicine | DX: J45.909 Unspecified asthma, uncomplicated (principal); J30.9 Allergic rhinitis, unspecified; D82.4 Hyperimmunoglobulin E [IgE] syndrome | CPT/HCPCS: 99212 ==

== ENCOUNTER 2022-10-12 13:41 | Outpatient (REF) | payer MEDICAID, SELFPAY | END 2022-10-12 13:42 | disposition home or self-care (01) | LOC: HO.MDS 13:41 | PROVIDERS: Visit Provider Internal Medicine | DX: J45.50 Severe persistent asthma, uncomplicated (principal) | CPT/HCPCS: 96372; J2357 ==

== ENCOUNTER 2022-10-26 10:54 | Outpatient (REF) | payer MEDICAID, SELFPAY | END 2022-10-26 10:55 | disposition home or self-care (01) | LOC: HO.MDS 10:54 | PROVIDERS: Visit Provider Internal Medicine | DX: J45.50 Severe persistent asthma, uncomplicated (principal) | CPT/HCPCS: 96372; J2357 ==

== ENCOUNTER 2022-11-16 12:47 | Outpatient (REF) | payer MEDICAID, SELFPAY | END 2022-11-16 12:48 | disposition home or self-care (01) | LOC: HO.MDS 12:47 | PROVIDERS: Visit Provider Internal Medicine | DX: J45.50 Severe persistent asthma, uncomplicated (principal) | CPT/HCPCS: 96372; J2357 ==

== ENCOUNTER 2022-11-30 14:33 | Outpatient (REF) | payer MEDICAID, SELFPAY | END 2022-11-30 14:34 | disposition home or self-care (01) | LOC: HO.MDS 14:33 | PROVIDERS: Visit Provider Internal Medicine | DX: J45.50 Severe persistent asthma, uncomplicated (principal) | CPT/HCPCS: 96372; J2357 ==

== ENCOUNTER 2022-12-10 13:12 | Outpatient (REF) | payer MEDICAID, SELFPAY | END 2022-12-10 13:13 | disposition home or self-care (01) | LOC: HO.MDS 13:12 | PROVIDERS: Visit Provider Internal Medicine | DX: J45.50 Severe persistent asthma, uncomplicated (principal) | CPT/HCPCS: 96372; J2357 ==

== ENCOUNTER 2022-12-28 10:26 | Outpatient (AMB) | payer MEDICAID, SELFPAY ==
--- NOTE | 2022-12-28 10:49 | A.OFFVIS_ITS ---
Intake Vital Signs 12/28/22 10:51 Height 5 ft 2 in Weight 175 lb BMI 32.0 Intake Visit Reasons: [employer]-chronic pain of left knee Intake Note: Charlie is a 42 year old female who presents today as a new patient for a evaluation for her left knee pain and giving way. The patient states that she injured her left knee several years ago. She twisted her knee and had acute onset of pain. Since that time her symptoms have gotten worse in spite of continued non operative treatments. Most of the pain is along the medial aspect of her knee. She has tried Tylenol and anti-inflammatory medicines which gave her minimal relief. She has also done physical therapy for 12 weeks over the last 6 months which aggravated her pain. She has had injections in the past which gave her only temporary relief. She states that her left knee will give out several times per day. Allergies Penicillins Allergy (Mild, Verified 12/28/22 10:52) RASH Medication List - Last Reconciled 12/28/22 by Nate Ash MD albuterol sulfate 90 mcg/actuation 1 inh inhalation QID PRN albuterol sulfate 0.63 mg (3 mL) inhalation QID PRN albuterol sulfate 2.5 mg inhalation Q6H Ca-D3-mag hx-eeuf-zjw-perry-bor 600 mg calcium- 20 mcg-50 mg (Calcium 600-D3 Plus (mag-zinc)) tabs PO DAILY cholecalciferol (vitamin D3) 25 mcg PO QAM clonidine HCl 0.1 mg PO BEDTIME cyanocobalamin (vitamin B-12) 1,000 mcg PO DAILY epinephrine 0.3 mg IM Q10M PRN famotidine (Pepcid) 40 mg PO BEDTIME fluticasone propion-salmeterol 500-50 mcg/dose (Advair Diskus) 1 ea PO BID 30 days fluticasone propionate 50 mcg/actuation (Flonase Allergy Relief) 1 spray intranasal DAILY hydrocortisone 2.5% 1 appl topical BID PRN 15 days MDD SKIN RASH/IRRITATION ibuprofen 600 mg PO Q6H PRN levothyroxine 125 mcg PO DAILY loratadine 10 mg PO DAILY montelukast (Singulair) 10 mg PO BEDTIME multivit with min-folic acid 120 mcg (Centrum Adult 50 Plus Fresh-Fruity) tabs PO DAILY nebulizers (AeroEclipse II Nebulizer) As directed omalizumab (Xolair) 150 mg subcut Q4W 12 months prednisone 5 mg PO DAILY tiotropium bromide 1.25 mcg/actuation (Spiriva Respimat) 2 puffs inhalation DAILY 30 days venlafaxine ER (Effexor XR) 150 mg PO DAILY [facility] Medical History Allergic rhinitis Allergic rhinitis Asthma Bronchial asthma Bronchitis Contact dermatitis Depression Hyper-IgE syndrome Postablative hypothyroidism Surgical History Hx of carpal tunnel repair Hx of tubal ligation Family History Father Heart disease CVD (cardiovascular disease) Diabetes Mother CVD (cardiovascular disease) Asthma Heart disease Thyroid disease Diabetes Social History Household Members: Children Alcohol intake: current Alcohol intake frequency: holidays/special occasions only Patient Tobacco Use Status: Former Tobacco user Physical Exam Vital Signs: BMI result Body Mass Index 32.0 Const Other: Well-nourished well-developed very friendly female awake alert and oriented x3 in no acute distress Extrem Other: Bilateral lower extremity examination shows good capillary refill, no skin les ions noted, normal sensation light touch Left knee examination shows a minimal effusion, minimal crepitus with range of motion, tenderness along her medial joint line, positive Danitza's test, no ins tability Results Reviewed Results Reviewed: X-rays of the patient's left knee show minimal diffuse joint space narrowing, no acute bony abnormalities Assessment & Plan Assessment & Plan (1) Left knee pain: Code(s): M25.562 - Pain in left knee Plan: Ms. Navarro presents with progressively worsening left knee pain and mechanical symptoms most likely due to a tear of her medial meniscus. Thus, I will send the patient for an MRI of her left knee for further evaluation. I will see her back once the MRI is completed to discuss the findings and treatment options. Feel free to call me at any time should questions regarding her orthopedic management arise. Thank you very much for asking me to see this very friendly present. I spent 22 minutes in reviewing the patient's records and imaging studies, seeing the patient and documenting in the medical record. Orders: Orders XR knee LT 3V Today M25.562 - Pain in left knee MR knee LT wo con Today M25.562 - Pain in left knee Coding Level of Care Code New Pt Level 2 (48026) Diagnoses Left knee pain M25.562
[2022-12-28 10:51] VITALS: BMI 32.0
== END 2022-12-28 11:10 | disposition home or self-care (01) ==
PROVIDERS: PCP Family Medicine; Visit Provider Orthopaedic Surgery
DX: M25.562 Pain in left knee (principal)
CPT/HCPCS: 99202

== ENCOUNTER 2022-12-28 11:25 | Outpatient (REF) | payer MEDICAID, SELFPAY | END 2022-12-28 11:26 | disposition home or self-care (01) | LOC: HO.MDS 11:25 | PROVIDERS: Visit Provider Internal Medicine | DX: J45.50 Severe persistent asthma, uncomplicated (principal); M25.562 Pain in left knee | CPT/HCPCS: 96372; 99202; J2357 ==

== ENCOUNTER 2022-12-28 16:42 | Outpatient (REF) | payer MEDICAID, SELFPAY ==
--- NOTE | ~2022-12-28 | XR_ITS ---
EXAMINATION: XR KNEE, LEFT CLINICAL INFORMATION: Pain in left knee COMPARISON: 09/12/2020 TECHNIQUE: Three views of the left knee. FINDINGS: No significant joint effusion. Mild medial joint space narrowing. Small posterior patellar osteophytes. XR/XR knee LT 3V IMPRESSION: Mild degenerative changes
== END 2022-12-28 16:43 | disposition home or self-care (01) ==
LOC: HO.HOSX 16:42
PROVIDERS: Visit Provider Orthopaedic Surgery
DX: M25.562 Pain in left knee (principal)
CPT/HCPCS: 73562

== ENCOUNTER 2023-01-07 22:29 | Emergency (ER) | payer MEDICAID, SELFPAY ==
--- NOTE | ~2023-01-07 | CT_ITS ---
EXAMINATION: CT HEAD WITHOUT CONTRAST CLINICAL INFORMATION: Headache. COMPARISON: CT head 07/04/2016. TECHNIQUE: Contiguous axial imaging was performed from the skull base to vertex without intravenous administration of contrast. This CT examination was performed using dose optimization techniques as appropriate, variously including the following: *Automated exposure control *Adjustment of mA and/or kV according to patient size (this includes techniques or standardized protocols for targeted exams where dose is matched to indication/reason for exam; i.e. extremities or head) *Use of iterative reconstruction technique DLP: 628 mGy-cm FINDINGS: There is no acute intracranial hemorrhage or abnormal extra-axial collection. No intracranial mass effect or midline shift. Lateral and third ventricles are normal. No hydrocephalus. Barroso-white matter differentiation is preserved and there is no evidence of acute territorial infarct. The calvarium and skull base are intact. Mastoid air cells and middle ear cavities are well aerated. No active paranasal sinus disease. CT/CT head/brain wo IV con IMPRESSION: Normal CT scan of the head.
[2023-01-07 22:33] VITALS: BP 134/73; PULSE 63; RESP 18; TEMP 36.6; O2SAT 100; BMI 29.3
[2023-01-08 02:40] VITALS: BP 120/68; PULSE 68; RESP 18; TEMP 36.4; O2SAT 100
[2023-01-08] MEDS: Ibuprofen 600 MG TABLET PO (02:43)
[2023-01-08 06:18] VITALS: BP 110/60; PULSE 63; RESP 16; O2SAT 99
--- NOTE | 2023-01-08 06:52 | ECG_ITS ---
Test Reason : palpitations Blood Pressure : / mmHG Vent. Rate : 057 BPM Atrial Rate : 057 BPM P-R Int : 164 ms QRS Dur : 086 ms QT Int : 402 ms P-R-T Axes : 060 037 041 degrees QTc Int : 391 ms Sinus bradycardia Otherwise normal ECG When compared with ECG of 22-MAY-2021 18:42, No significant change was found Referred By: Adrianne Davis Electronically Signed By:NOHELIA TADEO MD
--- NOTE | 2023-01-08 06:54 | ED_ITS ---
HPI - Headache General Chief Complaint: Headache Stated Complaint: migraine,tingling in feet Time Seen by Provider: 01/08/23 06:32 Source: patient, family and RN notes reviewed Mode of arrival: ambulatory Limitations: no limitations History of Present Illness HPI Narrative: This is a [id number]-female, with a past medical history of allergic rhinitis, asthma, depression, and hypothyroidism presenting to the emergency department with complaints of a headache since last night at 8:00 p.m. patient reports that she has a history of migraines however states that her current pain is atypical of the migraine she has had before. Patient states that she has had intermittent pain radiating from her neck into her head. She endorses nausea and lightheadedness. She also reports that she has had a sore throat runny nose and nasal congestion. Denies ear pain, fevers or chills. She is also endorsing urinary frequency and dysuria. She is not sexually active trauma no concerns for sexually transmitted infections, no abnormal vaginal bleeding or discharge. She also reports that over the last 2 days she has had palpitations, reports that she had 2 episodes lasting for only several seconds and resolved on its own. She denies any alcohol or tobacco use. She does smoke marijuana. Denies chest pain or shortness of breath. She states that she has had some tingling the bottom of her feet, which worsens with weight-bearing. She states that she stands for prolonged periods of time at her work. She typically wears on supportive shoes. No other complaints or concerns at this time. Related Data Home Medications Medication Instructions Recorded Confirmed Ca 600 mg-D3 20 mcg-mag oxide 50 tab PO DAILY 01/14/20 12/28/22 qy-Ti-kzvjau-manganese-boron tablet (Calcium 600-D3 Plus (mag-zinc)) albuterol sulfate 2.5 mg/3 mL 2.5 mg inhalation Q6H 01/14/20 12/28/22 (0.083 %) solution for nebulization clonidine HCl 0.1 mg tablet 0.1 mg PO BEDTIME 01/14/20 12/28/22 cyanocobalamin (vitamin B-12) 1,000 mcg PO DAILY 01/14/20 12/28/22 1,000 mcg tablet epinephrine 0.3 mg/0.3 mL 0.3 mg IM Q10M PRN 01/14/20 12/28/22 injection syringe famotidine 40 mg tablet (Pepcid) 40 mg PO BEDTIME 01/14/20 12/28/22 fluticasone propionate 50 1 spray intranasal DAILY 01/14/20 12/28/22 mcg/actuation nasal spray,suspension (Flonase Allergy Relief) loratadine 10 mg capsule 10 mg PO DAILY 01/14/20 12/28/22 montelukast 10 mg tablet 10 mg PO BEDTIME 01/14/20 12/28/22 (Singulair) multivitamin with minerals-folic tab PO DAILY 01/14/20 12/28/22 acid 120 mcg chewable tablet (Centrum Adult 50 Plus Fresh-Fruity) venlafaxine 150 mg 150 mg PO DAILY 01/14/20 12/28/22 capsule,extended release 24 hr (Effexor XR) prednisone 5 mg tablet 5 mg PO DAILY 01/03/22 12/28/22 cholecalciferol (vitamin D3) 25 25 mcg PO QAM 07/19/22 12/28/22 mcg (1,000 unit) tablet Previous Rx's Medication Instructions Recorded omalizumab 150 mg subcutaneous 150 mg subcut Q4W 12 months #1 ea 02/25/20 solution (Xolair) ibuprofen 600 mg tablet 600 mg PO Q6H PRN pain #20 tabs 07/02/20 albuterol sulfate 90 mcg/actuation 1 inh inhalation QID PRN shortness 11/28/20 aerosol inhaler of breath or wheezing #8.5 grams levothyroxine 125 mcg tablet 125 mcg PO DAILY #30 tabs 05/04/21 albuterol sulfate 0.63 mg/3 mL 0.63 mg (3 mL) inhalation QID PRN 05/22/21 solution for nebulization shortness of breath or wheezing #75 mL nebulizers (AeroEclipse II #1 ea 05/22/21 Nebulizer) hydrocortisone 2.5 % topical cream 1 appl topical BID PRN skin 01/03/22 irritation 15 days #30 grams fluticasone 500 mcg-salmeterol 50 1 ea PO BID Severe Persistant Br. 07/10/22 mcg/dose blistr powdr for Asthma 30 days #60 ea inhalation (Advair Diskus) tiotropium bromide 1.25 2 puff inhalation DAILY 07/10/22 mcg/actuation mist for inhalation ASTHMA/COPD 30 days #4 grams (Spiriva Respimat) Allergies Allergy/AdvReac Type Severity Reaction Status Date / Time Penicillins Allergy Mild RASH Verified 12/28/22 10:52 Review of Systems 2 Review of Systems: Yes all other systems are reviewed and are negative Constitutional: Constitutional: Reports as per HPI [facility] Past Medical History Medical History Allergic rhinitis Allergic rhinitis Asthma Bronchial asthma Bronchitis Contact dermatitis Depression Hyper-IgE syndrome Postablative hypothyroidism Surgical History Hx of carpal tunnel repair Hx of tubal ligation Family History Family History Father Heart disease CVD (cardiovascular disease) Diabetes Mother CVD (cardiovascular disease) Asthma Heart disease Thyroid disease Diabetes Social History Social History Household Members: Children Alcohol intake: current Alcohol intake frequency: does not drink Patient Tobacco Use Status: Former Tobacco user Smoked in Last 30 Days: No Use of substances other than those prescribed or required for medical reasons: Yes Substance Use Type: Marijuana Substance Use Frequency: Occasionally Advance Directives: No Advance Directives Information Provided: Yes Physical Exam 2 Vital Signs: Vital Signs: Last Vital Signs Temp 97.6 F 01/08/23 02:40 Pulse 61 01/08/23 11:22 Resp 16 01/08/23 11:22 BP 100/50 L 01/08/23 11:22 Pulse Ox 99 01/08/23 11:22 O2 Del Method Room Air 01/08/23 11:22 BMI result Body Mass Index 29.3 Const: General: cooperative, comfortable and no acute distress O rientation/consciousness: patient oriented x3 Limitations: no limitations HEENT: Other: Tenderness palpation along the maxilla area frontal sinuses. Uvula midline Head: Yes normal to inspection, Yes normocephalic and Yes atraumatic E ars: hearing grossly normal bilaterally and TM's normal bilaterally General nose exam: Normal external nose present Mouth: lip normal, tongue normal and other (Oropharynx is mildly erythematous, no tonsillar hypertrophy or exudates. ) Throat: Yes posterior oropharynx normal Eyes: General: appearance normal, both eyes and all related structures E yelids: Yes eyelids normal Conjunctivae: conjunctivae normal Sclerae: s clerae normal Pupils: Equal, round and reactive pupils present EOM: EOMs intact bilaterally Neck: Neck: Yes normal visual inspection, Yes full ROM and Yes no lymphadenopathy Lymphatic: no lymphadenopathy noted Chest: Chest palpation & inspection: normal inspection of the chest Resp: Effort & Inspection: normal respiratory effort and able to speak in complete sentences Auscultation: clear to auscultation bilaterally, no crackles, no rales, no rhonchi and no wheezes Cardio: Rate: regular rate Rhythm: regular rhythm Heart sounds: S1 normal heart sound present and S2 normal heart sound present GI: Inspection: Yes normal to inspection Skin: General skin exam: no rashes or lesions noted Trauma: no lacerations or abrasions Wounds: no wounds Neuro: General: patient oriented x3 and moves all extremities Cranial nerves: Yes Equal, round and reactive pupils present Extrem: Other: No calf tenderness. DP pulses 2+ Plantar aspect of bilateral feet with tenderness palpation along the plantar tendon especially along the calcaneus bilaterally, left greater than right General: Yes normal to inspection, Yes no pedal edema and Yes no calf tenderness Right upper extremity: normal to inspection Left upper extremity: normal to inspection Right lower extremity: normal to inspection Left lower extremity: normal to inspection Course Reevaluation(s) Reevaluation #1: CT head normal, TSH mildly elevated at 5.43, no leukocytosis, H&H around her baseline, chemistry within normal limits. Negative for covid/rsv/flu, strep. Negative test. Urine with trace leuk esterases however appears to be contaminated. Will await urine culture to determine whether not patient needs treatment. Patient reporting continued headache, will treat with migraine cocktail and reassess. Time: 09:11 Reevaluation #2: Patient feeling much better after receiving migraine cocktail. Discussed workup with patient and mother at bedside. Advised follow-up with primary care physician and given return precautions if any new or worsening symptoms occur. Patient understands and agrees with plan. Patient stable for discharge. Time: 11:34 Medications Administered Discontinued Medications Generic Name Dose Route Start Last Admin Trade Name Freq PRN Reason Stop Dose Admin Diphenhydramine HCl 50 mg 01/08/23 08:45 01/08/23 09:04 Diphenhydramine Hcl 50 Mg/Ml Vial IVPUSH 01/08/23 08:46 50 mg ONCE ONE Administration Sodium Chloride 1,000 mls @ 999 mls/hr 01/08/23 07:00 01/08/23 08:37 Ns IV 01/08/23 08:00 Infused .Q1H1M MONTRELL Infusion Ibuprofen 600 mg 01/08/23 02:42 01/08/23 02:43 Ibuprofen 600 Mg Tablet PO 01/08/23 02:43 600 mg ONCE ONE Administration Ketorolac Tromethamine 30 mg 01/08/23 08:45 01/08/23 09:05 Ketorolac Tromethamine 30 Mg/Ml Vial IVPUSH 01/08/23 08:46 30 mg ONCE ONE Administration Metoclopramide HCl 10 mg 01/08/23 08:45 01/08/23 09:04 Metoclopramide Hcl 10 Mg/2 Ml Vial IVPUSH 01/08/23 08:46 10 mg ONCE ONE Administration Medical Decision Making Medical Decision Making MDM Narrative: This is a 89-djgn-[age]-female, with a past medical history of allergic rhinitis, asthma, depression, and hypothyroidism presenting to the emergency department with complaints of a headache since last night at 8:00 p.m. on arrival, vital signs within normal limits. Patient is fully neurologically intact. Patient has tenderness to palpation along maxillary sinuses as well as erythematous oropharynx. Given patient has a history of migraines and this is an atypical presentation, will obtain CT scan for further evaluation. Patient with tenderness palpation along the plantar aspect of bilateral feet, left greater than right, consistent with plantar fasciitis. Differential diagnoses include sinusitis, tension headache, migraine headache, viral syndrome Differential Diagnosis Differential Diagnoses: The differential diagnosis associated with the presentation includes See above Admission/Observation Consideration of admission/observation: Escalation of care including admission/observation considered Patient would have been admitted to the hospital had her work up had any findings where hospital admission was appropriate and her clinical presentation warranted hospital admission. Lab Data 01/08/23 07:34 01/08/23 07:34 Labs: Lab Results 01/08/23 01/08/23 01/08/23 Range/Units 07:15 07:23 07:34 WBC 5.3 (4.8-10.8) X10*3/uL RBC 3.67 L (4.20-5.50) X10*6/uL Hgb 10.8 L (12.0-16.0) g/dl Hct 33.5 L (37.0-47.0) % MCV 91.3 (80.0-98.0) fL MCH 29.4 (27.0-33.0) pg MCHC 32.2 (31.0-35.0) g/dl RDW 12.5 (11.0-16.0) % Plt Count 157 L (160-400) X10*3/uL MPV 10.9 (9.4-12.3) fL Immature Gran % (Auto) 0.8 H (0.0-0.4) % Neut % (Auto) 45.4 (45-73) % Lymph % (Auto) 43.0 H (20-40) % [place] % (Auto) 6.4 (2-11) % Eos % (Auto) 3.6 (0-4) % Baso % (Auto) 0.8 (0-2) % Lymph # (Auto) 2.3 (1.2-4.9) X10*3/uL [place] # (Auto) 0.3 (0.1-1.2) X10*3/uL Eos # (Auto) 0.2 (0.0-0.4) X10*3/uL Baso # (Auto) 0.0 (0.0-0.2) X10*3/uL Abs Immat Gran (auto) 0.04 H (0.00-0.03) X10*3/uL Absolute Neuts (auto) 2.4 (2.0-8.3) x10*3/uL Absolute Nucleated RBC 0.000 (0.0-0.012) X10*3/uL Nucleated RBC % (auto) 0.0 (0.0-0.2) /100WBC Sodium 141 (135-145) mmol/L Potassium 3.7 (3.3-5.1) mmol/L Chloride 108 (96-108) mmol/L Carbon Dioxide 24 (22-29) mmol/L Anion Gap 13 (12-20) BUN 11 (9-16) mg/dL Creatinine 0.76 (0.5-1.4) mg/dL Estim Creat Clear Calc 91.7 Estimated GFR > 60 Random Glucose 85 (60-115) mg/dL Calcium 9.0 (8.4-10.2) mg/dL Magnesium 2.0 (1.6-2.6) mg/dL Total Bilirubin 0.2 (0.0-1.0) mg/dL Direct Bilirubin < 0.2 (0.0-0.5) mg/dL AST 20 (5-31) U/L ALT 27 (0-31) U/L Alkaline Phosphatase 59 (39-117) U/L Troponin I High Sens < 2.7 (<3.5-17.0) ng/L Total Protein 6.4 L (6.5-8.0) g/dL Albumin 3.7 (3.5-5.0) g/dL TSH 5.43 H (0.32-4.0) uIU/mL Free T4 0.72 (0.71-1.85) ng/dL Urine Color Yellow Urine Appearance Clear Urine pH 5.5 (5.0-9.0) Ur Specific [place] 1.020 (1.005-1.025) Urine Protein Negative (Neg-Trace) mg/dL Urine Glucose (UA) Negative (Negative) mg/dL Urine Ketones Negative (Negative) mg/dL Urine Blood Negative (Negative) Urine Nitrite Negative (Negative) Ur Leukocyte Esterase Trace H (Negative) Urine RBC 0-2 (0-2) /HPF Urine WBC 0-5 (0-5) /HPF Ur Squamous Epith Cells 6-10 (0-2) /HPF Urine Bacteria None Seen (None Seen) Hyaline Casts 0-2 (0-2) /LPF Urine Test NEGATIVE (NEGATIVE) Influenza Type A (PCR) NEGATIVE (Negative) Influenza Type B (PCR) NEGATIVE (Negative) RSV RNA Qual (PCR) NEGATIVE (Negative) SARS-CoV-2 RNA (RT-PCR) NEGATIVE (Negative) S. pyogenes GrpA DEB Negative (Negative) Independent Interpretation I performed an independent interpretation of an: EKG Interpretation: Sinus bradycardia with sinus arrythmia noted at a ventricular rate of 57bpm, DE interval 164, QTC 391, no st elevation or depresion noted. Radiology Impression Discussion of test interpretation with radiology: I have reviewed the radiologist's reading. External Record Review External record reviewed: Inpatient record, Office record, Outpatient record, Prior outpatient labs, Prior outpatient radiology, Primary care record and Outside ED record Discharge Plan Discharge Clinical Impression: Headache, Plantar fasciitis, bilateral Patient Disposition: Home, Self-Care Instructions: Plantar Fasciitis (ED), Acute Headache (ED), Plantar Fasciitis Exercises (ED) Additional Instructions: You can to the emergency department today due to headaches and pain/numbness in your bilateral feet. Your headache pain improved after receiving IV medications. You tested negative for COVID/RSV,Flu, and strep throat. Your CT scan was normal today. Your labs are reassuring. Your TSH was 5.43, which is slightly elevated, please follow-up with your primary care physician regarding this test as you may need to increase your level thyroxine. Do not make any medication adjustments until you follow-up with them. The sensation that you are getting your feet is likely due to something called plantar fasciitis. This is inflammation of the globe your attendance in your feet trauma is given because by standing on her feet for prolonged periods of time without wearing supportive shoes. Please see attached exercises and information for further wound management for your pain and symptoms. Ice, rest, and elevation of the legs can also help with this pain. Please drink plenty of fluids get plenty of rest. You may take ibuprofen or Tylenol as needed for pain. If any new or worsening symptoms occur including but not limited to Prescriptions: No Action Xolair 150 mg recon soln 150 mg subcut Q4W 360 Days Qty: 1 5RF levothyroxine 125 mcg tablet 125 mcg PO DAILY Qty: 30 11RF albuterol sulfate 90 mcg/actuation HFA aerosol inhaler 1 inh inhalation QID PRN (Reason: shortness of breath or wheezing) Qty: 8.5 0RF ibuprofen 600 mg tablet 600 mg PO Q6H PRN (Reason: pain) Qty: 20 0RF albuterol sulfate 0.63 mg/3 mL solution for nebulization 0.63 mg inhalation QID PRN (Reason: shortness of breath or wheezing) Qty: 75 0RF (DME) AeroEclipse II Nebulizer Misc See Rx Instructions .ROUTE .MEDSUPPLY Qty: 1 0RF Rx Instructions: As directed Ca-D3-mag da-tupq-qru-prery-bor [Calcium 600-D3 Plus (mag-zinc)] 600 mg calcium- 800 unit-50 mg tablet PO DAILY venlafaxine [Effexor XR] 150 mg capsule,extended release 24hr 150 mg PO DAILY epinephrine 0.3 mg/0.3 mL syringe 0.3 mg IM Q10M PRN Rx Instructions: for 2 doses famotidine [Pepcid] 40 mg tablet 40 mg PO BEDTIME cyanocobalamin (vitamin B-12) 1,000 mcg tablet 1,000 mcg PO DAILY Centrum Adult 50 Fresh-Fruity 120 mcg tablet,chewable PO DAILY clonidine HCl 0.1 mg tablet 0.1 mg PO BEDTIME loratadine 10 mg capsule 10 mg PO DAILY fluticasone propionate [Flonase Allergy Relief] 50 mcg/actuation spray,suspension 1 spray intranasal DAILY Rx Instructions: administer into each nostril montelukast [Singulair] 10 mg tablet 10 mg PO BEDTIME albuterol sulfate 2.5 mg /3 mL (0.083 %) solution for nebulization 2.5 mg inhalation Q6H cholecalciferol (vitamin D3) 25 mcg (1,000 unit) tablet 25 mcg PO QAM prednisone 5 mg tablet 5 mg PO DAILY hydrocortisone 2.5 % cream 1 appl topical BID MDD SKIN RASH/IRRITATION PRN (Reason: skin irritation) 15 Days Qty: 30 2RF fluticasone propion-salmeterol [Advair Diskus] 500-50 mcg/dose blister with device 1 ea PO BID 30 Days Qty: 60 5RF Spiriva Respimat 1.25 mcg/actuation mist 2 puff inhalation DAILY 30 Days Qty: 4 5RF
[2023-01-08 07:21] LABS: Appearance Urine Clear; Color Urine Yellow; Glucose Urine UA Negative (Negative); Leukocyte Esterase Urine Trace (Negative); Nitrite Urine Negative (Negative); PH 5.5 (5.0-9.0); UMIC TRIGGER UACC YES; Urine Blood Negative (Negative); Urine Ketones Negative (Negative); Urine Protein Negative (Neg-Trace)
[2023-01-08 07:22] LABS: UPreg QC Valid YES
[2023-01-08 07:23] LABS: Urine Pregnancy NEGATIVE (NEGATIVE)
[2023-01-08] MEDS: 0.9 % Sodium Chloride 1,000 ML 999 ML IV (07:24)
[2023-01-08 07:26] LABS: Bacteria Urine None Seen (None Seen); Hyaline Casts Urine 0-2 /LPF (0-2); RBC Urine 0-2 /HPF (0-2); WBC Urine 0-5 /HPF (0-5)
[2023-01-08 07:28] LABS: IDNOW Serial# 08D9AD1C; Strep A Nucleic Acid Negative (Negative)
[2023-01-08 07:42] LABS: MANUAL DIFF FLAG NO
[2023-01-08 07:52] LABS: Basophils Percent Auto 0.8 % (0-2); Eosinophils Absolute Auto 0.2 X10*3/uL (0.0-0.4); Eosinophils Percent Auto 3.6 % (0-4); Hematocrit 33.5 % (37.0-47.0); Hemoglobin 10.8 g/dl (12.0-16.0); Imm Gran Abs Auto 0.04 X10*3/uL (0.00-0.03); Imm Gran Pct Auto 0.8 % (0.0-0.4); Lymphocytes Absolute Auto 2.3 X10*3/uL (1.2-4.9); Mean Corpuscular HGB Conc 32.2 g/dl (31.0-35.0); Mean Corpuscular Hemoglobin 29.4 pg (27.0-33.0); Mean Corpuscular Volume 91.3 fL (80.0-98.0); Mean Platelet Volume 10.9 fL (9.4-12.3); Monocytes Absolute Auto 0.3 X10*3/uL (0.1-1.2); Monocytes Percent Auto 6.4 % (2-11); Neutrophils Absolute Auto 2.4 x10*3/uL (2.0-8.3); Neutrophils Percent Auto 45.4 % (45-73); Platelet Count 157 X10*3/uL (160-400); Red Blood Count 3.67 X10*6/uL (4.20-5.50); Red Cell Distribution Width 12.5 % (11.0-16.0); White Blood Count 5.3 X10*3/uL (4.8-10.8)
[2023-01-08 07:56] LABS: Influenza A PCR NEGATIVE (Negative); Influenza B PCR NEGATIVE (Negative); Resp Syncy Virus RNA Qual PCR NEGATIVE (Negative); SARS COV2 PCR INHOUSE NEGATIVE (Negative)
[2023-01-08 07:57] LABS: Alanine Aminotransferase 27 U/L (0-31); Albumin Level 3.7 g/dL (3.5-5.0); Alkaline Phosphatase 59 U/L (39-117); Anion Gap 13 (12-20); Aspartate Amino Transferase 20 U/L (5-31); Bilirubin Direct < 0.2 mg/dL (0.0-0.5); Bilirubin Total 0.2 mg/dL (0.0-1.0); Blood Urea Nitrogen 11 mg/dL (9-16); Carbon Dioxide 24 mmol/L (22-29); Chloride 108 mmol/L (96-108); Creatinine Clr Calc Pharmacy 91.7; Estimated Glomerular Filt Rate > 60; Glucose Random 85 mg/dL (60-115); Potassium 3.7 mmol/L (3.3-5.1); Sodium 141 mmol/L (135-145); Total Protein 6.4 g/dL (6.5-8.0)
[2023-01-08 07:59] LABS: Troponin-I High Sensitivity < 2.7 ng/L (<3.5-17.0)
[2023-01-08 08:19] LABS: TSH reflex Free T4 5.43 uIU/mL (0.32-4.0)
[2023-01-08 08:22] VITALS: BP 105/68; PULSE 66; RESP 18; O2SAT 100
[2023-01-08 08:58] LABS: Free T4 (Free Thyroxine) 0.72 ng/dL (0.71-1.85)
[2023-01-08] MEDS: diphenhydrAMINE HCL 50 MG/ML VIAL IVPUSH (09:04)
[2023-01-08] MEDS: Metoclopramide HCl 10 MG/2 ML VIAL IVPUSH (09:04)
[2023-01-08] MEDS: Ketorolac Tromethamine 30 MG/ML VIAL IVPUSH (09:05)
[2023-01-08 11:22] VITALS: BP 100/50; PULSE 61; RESP 16; O2SAT 99
[2023-01-08 12:38] VITALS: BP 97/61; PULSE 64; RESP 14; O2SAT 99
== END 2023-01-08 12:40 | disposition home or self-care (01) ==
PROVIDERS: Physician Assistant Medical; Emergency Provider Internal Medicine; PCP Family Medicine
DX: R51.9 Headache, unspecified (principal); M72.2 Plantar fascial fibromatosis; J02.9 Acute pharyngitis, unspecified; Z20.822 Contact with and (suspected) exposure to COVID-19; Z20.828 Contact with and (suspected) exposure to other viral communicable diseases; Z87.891 Personal history of nicotine dependence
CPT/HCPCS: 0241U; 36415; 70450; 80048; 80076; 81001; 81025; 83735; 84439; 84443; 84484; 85025; 87651; 93005; 96361; 96374; 96375; 99284; 99285; J1200; J1885; J2765

== ENCOUNTER 2023-01-11 11:56 | Outpatient (REF) | payer MEDICAID, SELFPAY ==
--- NOTE | ~2023-01-11 | MM_ITS ---
EXAMINATION: BONE DENSITOMETRY CLINICAL INDICATION: Osteopenia. COMPARISON: Previous BD dated 02/16/2014 and baseline BD dated 01/12/2008. TECHNIQUE: Using a [employer]te[employer],SL DXA System (software version: 13.1) manufactured by [employer], dual-energy x-ray absorptiometry was performed of the lumbar spine and left hip. The images are of good technical quality. Based on ISCD (International Society for Clinical Densitometry) standards of reporting, Z-scores instead of T-scores are reported in this premenopausal woman. Summary results are attached. FINDINGS: AP SPINE L1-L4: Current: BMD 1.233 g/cm2, T-score 0.4, Z-score 0.2, Z-score within expected range for age, 4.8% decrease from previous, 11.0% increase from baseline (<5% change is not significant). Prior: BMD 1.177 g/cm2. Baseline: BMD 1.111 g/cm2. LEFT FEMUR, NECK: Current: BMD 1.078 g/cm2, T-score 0.3, Z-score 0.5, Z-score within expected range for age. Prior: BMD 1.094 g/cm2. Baseline: BMD 1.026 g/cm2. LEFT FEMUR, TOTAL: Current: BMD 1.160 g/cm2, T-score 1.2, Z-score 1.2, Z-score within expected range for age, 1.0% increase from previous, 1.1% decrease from baseline (<5% change is not significant). Prior: BMD 1.148 g/cm2. Baseline: BMD 1.173 g/cm2. IDENTIFIED RISK FACTORS: Glucocorticoid (chronic), tobacco use (current smoker). HISTORY OF FRACTURE: None listed. MEDICATIONS: None listed. MM/XR DEXA axial skeleton IMPRESSION: 1. DIAGNOSIS: Based on the lowest Z-score value of 0.2 in the lumbar spine, the patient's bone density is within the expected range for age. 2. 10-YEAR FRACTURE RISK PREDICTION, FRAX: Not performed in this perimenopausal patient. 3. Treatment Recommendations: NOF guidelines recommend consideration for treatment in postmenopausal women and men age 50 and older presenting with the following: -A hip or vertebral (clinical or morphometric) fracture. -T-score less than or equal to -2.5 at the femoral neck or spine after appropriate evaluation to exclude secondary causes. -Low bone mass at the hip or spine and a 10-year fracture probability by FRAX of greater than or equal to 3% for hip fracture or greater than or equal to 20% for major osteoporotic fracture based on the [place] adapted WHO algorithm. 4. Other Recommendations: All treatment decisions require clinical judgment and consideration of individual patient factors, including patient preferences, comorbidities, previous drug use, risk factors not captured in the FRAX model (e.g. frailty, falls, vitamin D deficiency, increased bone turnover, interval significant decline in bone density) and possible under or overestimation of fracture risk by FRAX. FUTURE SCAN RECOMMENDATION: People with diagnosed cases of osteoporosis or at high risk for fracture should have regular bone mineral density tests. For patients eligible for Medicare, routine testing is allowed once every 2 years. The testing frequency can be increased to one year for patients who have rapidly progressing disease, those who are receiving or discontinuing medical therapy to restore bone mass, or have additional risk factors.
== END 2023-01-11 11:57 | disposition home or self-care (01) ==
LOC: HO.MAMMO 11:56
PROVIDERS: PCP Family Medicine; Visit Provider Family Medicine
DX: Z13.820 Encounter for screening for osteoporosis (principal); M85.80 Other specified disorders of bone density and structure, unspecified site; T38.0X5A Adverse effect of glucocorticoids and synthetic analogues, initial encounter
CPT/HCPCS: 77080

== ENCOUNTER 2023-01-11 12:41 | Outpatient (REF) | payer MEDICAID, SELFPAY | END 2023-01-11 12:42 | disposition home or self-care (01) | LOC: HO.MDS 12:41 | PROVIDERS: Visit Provider Internal Medicine | DX: J45.50 Severe persistent asthma, uncomplicated (principal) | CPT/HCPCS: 96372; J2357 ==

== ENCOUNTER 2023-01-17 16:05 | Outpatient (AMB) | payer MEDICAID, SELFPAY ==
[2023-01-17 16:07] VITALS: BP 102/62; PULSE 59; O2SAT 100; BMI 32.9
--- NOTE | 2023-01-17 16:07 | MHC.OFFVIS ---
Intake Vital Signs 01/17/23 16:07 Height 5 ft 2 in Weight 180 lb BMI 32.9 BP 102/62 Blood Pressure Location Lt brachial Position Sitting Pulse 59 Pulse Source Pulse Oximeter Pulse Oximetry (%) 100 Oxygen Delivery Method Room Air Intake Visit Reasons: Asthma Intake Note: pt is here for follow up and states little wheezing today, biologic is helping, just a few days prior some difficulty but does not want dose change. pt states she has been getting palpitation but not related to her pump usage. Allergies Penicillins Allergy (Mild, Verified 01/17/23 16:32) RASH Medication List - Last Reconciled 01/17/23 by Donny Jimenez MD albuterol sulfate 0.63 mg (3 mL) inhalation QID PRN albuterol sulfate 2.5 mg inhalation Q6H albuterol sulfate 90 mcg/actuation (Ventolin HFA) 2 puffs inhalation Q4-6H PRN Ca-D3-mag ex-vyjk-awp-perry-bor 600 mg calcium- 20 mcg-50 mg (Calcium 600-D3 Plus (mag-zinc)) tabs PO DAILY cholecalciferol (vitamin D3) 25 mcg PO QAM clonidine HCl 0.1 mg PO BEDTIME cyanocobalamin (vitamin B-12) 1,000 mcg PO DAILY epinephrine 0.3 mg IM Q10M PRN famotidine (Pepcid) 40 mg PO BEDTIME fluticasone propion-salmeterol 500-50 mcg/dose (Advair Diskus) 1 ea PO BID 30 days fluticasone propionate 50 mcg/actuation (Flonase Allergy Relief) 1 spray intranasal DAILY hydrocortisone 2.5% 1 appl topical BID PRN 15 days MDD SKIN RASH/IRRITATION ibuprofen 600 mg PO Q6H PRN levothyroxine 137 mcg PO DAILY loratadine 10 mg PO DAILY montelukast (Singulair) 10 mg PO BEDTIME multivit with min-folic acid 120 mcg (Centrum Adult 50 Plus Fresh-Fruity) tabs PO DAILY nebulizers (AeroEclipse II Nebulizer) As directed omalizumab (Xolair) 150 mg subcut Q4W 12 months prednisone 5 mg PO DAILY tiotropium bromide 1.25 mcg/actuation (Spiriva Respimat) 2 puffs inhalation DAILY 30 days venlafaxine ER (Effexor XR) 150 mg PO DAILY Do you need a note to return to daycare/school/sports/work: No HPI Asthma HPI Details THIS 42 YEARS OLD FEMALE IS A CASE OF CHRONIC SEVERE BRONCHIAL ASTHMA. SHE ALSO HAS HYPER IGE SYNDROME. SHE IS ON XOLAIR 150 MG SUBQ Q.4 WEEKS, AND SINCE SHE IS ON THIS BIOLOGIC TREATMENT SHE HAS MUCH IMPROVED. SHE HAS HAD VERY FEW ACUTE EXACERBATIONS. SHE STILL HAS TO USE MONTELUKAST 10 MG DAILY ADVAIR 500-50 B.I.D. AND SPIRIVA RESPIMAT 2 INHALATIONS DAILY. SHE USES ALBUTEROL IN THE NEBULIZER ABOUT ONCE EVERY EVENING, AND DURING THE DAYTIME USES VENTOLIN ONCE IN A WHILE. SHE COMPLAINS OF DIFFICULTY IN SLEEPING SOMETIMES WHICH HAS NOTHING TO DO WITH HER BREATHING. 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 ENDS UP SMOKING WEED ONCE IN A WHILE ON LICENSE OF [facility] Medical History Hyper-IgE syndrome Contact dermatitis Bronchitis Depression Postablative hypothyroidism Bronchial asthma Allergic rhinitis Asthma Allergic rhinitis Surgical History Hx of carpal tunnel repair Hx of tubal ligation Family History Father Heart disease CVD (cardiovascular disease) Diabetes Mother CVD (cardiovascular disease) Asthma Heart disease Thyroid disease Diabetes Social History Household Members: Children Alcohol intake: current Alcohol intake frequency: does not drink Patient Tobacco Use Status: Former Tobacco user Substance Use Type: Marijuana Review of Systems Const Reports fatigue and Reports night sweats Eyes Reports no additional complaints ENT Reports nasal congestion and Reports nasal discharge Card Denies chest pain, Denies irregular heart rhythm and Denies leg edema Resp Reports as per HPI GI Reports no additional complaints Reports no additional complaints Musc Reports no additional complaints Skin/Breast Reports system reviewed and no additional complaints, except as documented Neuro Reports no additional complaints Psych Reports no additional complaints Endo Reports fatigue Physical Exam Vital Signs: Last Vital Signs Pulse 59 01/17/23 16:07 BP 102/62 01/17/23 16:07 Pulse Ox 100 01/17/23 16:07 Oxygen Delivery Method Room Air 01/17/23 16:07 BMI result Body Mass Index 32.9 Const General: healthy appearing, comfortable, no acute distress, alert and awake Orientation/consciousness: patient oriented x3 HEENT Head: Yes normal to inspection General nose exam: No nasal polyps present and No nasal discharge present Face and sinus: Yes sinuses nontender Mouth: oropharynx normal Throat: Yes posterior oropharynx normal Eyes General: appearance normal, both eyes and all related structures Neck Neck: Yes normal visual inspection, Yes no lymphadenopathy, Yes trachea midline and Yes no JVD Thyroid: Thyroid normal Chest Chest palpation & inspection: normal inspection of the chest, normal palpation of entire chest wall and no tenderness Resp Other: Breath sounds are somewhat distant but equal on both sides. She has only a few expiratory wheezes ON RT SIDE . No crepitations Cardio Palpation: normal PMI Rate: regular rate Rhythm: regular rhythm Heart sounds: no gallops and no murmurs Peripheral pulses: Peripheral pulses 2+ throughout GI Palpation (GI): Soft to palpation, nontender, No hepatosplenomegaly present and no masses Auscultation: normal bowel sounds Back/Spine/Pelvis Thoracic/Lumbar Spine: thoracic and lumbar spine normal to inspection Skin Rashes: rashes noted (Erythematous plaques, around the ankles on both sides.) Neuro General: patient oriented x3 and no focal motor deficits Cranial nerves: Yes CN's II-XII intact bilaterally Extrem General: Yes normal to inspection, Yes no clubbing, cyanosis or edema and Yes no calf tenderness Psych Appearance: grossly normal and well kempt Speech and movement: Normal speech and movement present Assessment & Plan Assessment & Plan (1) Bronchial asthma: Comment: PATIENT HAS HAD CHRONIC PERSISTENT ALLERGIC BRONCHIAL ASTHMA, SHE HAS DONE WELL SINCE SHE WAS STARTED ON BIOLOGIC INJECTIONS( XOLAIR ) SINCE WE INCREASED THE DOSE OF XOLAIR TO 150 MG Q 4 WEEKS, SHE IS DOING BETTER. IGE LEVEL IS STILL QUITE HIGH. [place] : ADVISED TO CONTINUE : ADVAIR 500-50 1 INHALATION B.I.D. SPIRIVA RESPIMAT 1.25 2 INHALATIONS DAILY PROAIR 2 PUFFS Q 4-6 HOURS P.R.N. ALTERNATIVELY SHE CAN USE ALBUTEROL SOLUTION IN THE NEBULIZER Q 6 HOURS P.R.N. * she has been using prednisone 5 mg tablet, once a day , and now I suggest that she should use only on alternate days or PRN for 5 days when she gets an excerbation . She is afraid to go off prednisone. Advised to take calcium 600 mg and vitamin-D 1000 units daily, Code(s): J45.909 - Unspecified asthma, uncomplicated (2) Allergic rhinitis: Comment: HAS CHRONIC PERSISTENT ALLERGIC RHINITIS, SIGNIFICANTLY IMPROVED SINCE SHE IS ON XOLAIR INJECTION. [place] FLONASE 2 SPRAY EACH NOSTRIL DAILY MONTELUKAST 10 MG DAILY Code(s): J30.9 - Allergic rhinitis, unspecified (3) Hyper-IgE syndrome: Comment: This patient is being treated for high E IgE level syndrome with Biologic Tx , Xolair 150 mg q. 4 weeks. ,Asthma is relatively well controlled ., except for minor exacerbations off and on. She is getting the [facility]. We will look into if she can start giving the injection to herself at home. Code(s): D82.4 - Hyperimmunoglobulin E [IgE] syndrome Coding Level of Care Code Est Pt Level 3 (26319) Diagnoses Bronchial asthma J45.909 Allergic rhinitis J30.9 Hyper-IgE syndrome D82.4
== END 2023-01-17 16:28 | disposition home or self-care (01) ==
PROVIDERS: PCP Family Medicine; Visit Provider Internal Medicine
DX: J45.909 Unspecified asthma, uncomplicated (principal); J30.9 Allergic rhinitis, unspecified; D82.4 Hyperimmunoglobulin E [IgE] syndrome
CPT/HCPCS: 99213

== ENCOUNTER → 2023-01-17 16:05 | Outpatient (BNVA) | payer MEDICAID, SELFPAY | PROVIDERS: PCP Family Medicine; Visit Provider Internal Medicine | DX: J45.909 Unspecified asthma, uncomplicated (principal); D82.4 Hyperimmunoglobulin E [IgE] syndrome | CPT/HCPCS: 99212 ==

== ENCOUNTER 2023-02-18 14:24 | Outpatient (REF) | payer MEDICAID, SELFPAY ==
[2023-02-18 16:19] LABS: Free T4 (Free Thyroxine) 0.99 ng/dL (0.71-1.85); Thyroid Stimulating Hormone 0.59 uIU/mL (0.32-4.0)
== END 2023-02-18 14:25 | disposition home or self-care (01) ==
LOC: HO.MDS 14:24
PROVIDERS: Absent Provider Internal Medicine Endocrinology, Diabetes & Metabolism; PCP Family Medicine; Visit Provider Internal Medicine
DX: J45.50 Severe persistent asthma, uncomplicated (principal); E89.0 Postprocedural hypothyroidism
CPT/HCPCS: 36415; 84439; 84443; 96372

== ENCOUNTER 2023-03-08 14:16 | Outpatient (REF) | payer MEDICAID, SELFPAY | END 2023-03-08 14:17 | disposition home or self-care (01) | LOC: HO.MDS 14:16 | PROVIDERS: Visit Provider Internal Medicine | DX: J45.50 Severe persistent asthma, uncomplicated (principal) | CPT/HCPCS: 96372 ==

== ENCOUNTER 2023-04-01 13:41 | Outpatient (REF) | payer MEDICAID, SELFPAY | END 2023-04-01 13:42 | disposition home or self-care (01) | LOC: HO.MDS 13:41 | PROVIDERS: Visit Provider Internal Medicine | DX: J45.50 Severe persistent asthma, uncomplicated (principal) | CPT/HCPCS: 96372 ==

== ENCOUNTER 2023-04-15 12:23 | Outpatient (REF) | payer MEDICAID, SELFPAY | END 2023-04-15 12:24 | disposition home or self-care (01) | LOC: HO.MDS 12:23 | PROVIDERS: Visit Provider Internal Medicine | DX: J45.50 Severe persistent asthma, uncomplicated (principal) | CPT/HCPCS: 96372 ==

== ENCOUNTER 2023-04-22 13:32 | Outpatient (AMB) | payer MEDICAID, SELFPAY ==
[2023-04-22 13:37] VITALS: BP 102/62; PULSE 80; O2SAT 95; BMI 32.5
--- NOTE | 2023-04-22 13:37 | MHC.OFFVIS ---
Intake Vital Signs 04/22/23 13:37 Height 5 ft 2 in Weight 177 lb 7.554 oz BMI 32.5 BP 102/62 Blood Pressure Location Lt brachial Position Sitting Pulse 80 Pulse Source Pulse Oximeter Pulse Oximetry (%) 95 Oxygen Delivery Method Room Air Intake Visit Reasons: Asthma Intake Note: pt is here for follow up and is little tight, xolair is every 2 weeks, it is helping wit her asthma Tandem Mill Roller Required: No Allergies Penicillins Allergy (Mild, Verified 04/22/23 13:42) RASH Medication List - Last Reconciled 04/22/23 by Donny Jimenez MD albuterol sulfate 0.63 mg (3 mL) inhalation QID PRN albuterol sulfate 2.5 mg inhalation Q6H albuterol sulfate 90 mcg/actuation (Ventolin HFA) 2 puffs inhalation Q4-6H PRN Ca-D3-mag ax-lsrt-tzn-perry-bor 600 mg calcium- 20 mcg-50 mg (Calcium 600-D3 Plus (mag-zinc)) tabs PO DAILY cholecalciferol (vitamin D3) 25 mcg PO QAM clonidine HCl 0.1 mg PO BEDTIME cyanocobalamin (vitamin B-12) 1,000 mcg PO DAILY epinephrine 0.3 mg IM Q10M PRN famotidine (Pepcid) 40 mg PO BEDTIME fluticasone propion-salmeterol 500-50 mcg/dose (Advair Diskus) 1 ea PO BID 30 days fluticasone propionate 50 mcg/actuation (Flonase Allergy Relief) 1 spray intranasal DAILY hydrocortisone 2.5% 1 appl topical BID PRN 15 days MDD SKIN RASH/IRRITATION ibuprofen 600 mg PO Q6H PRN levothyroxine 137 mcg PO DAILY loratadine 10 mg PO DAILY montelukast (Singulair) 10 mg PO BEDTIME multivit with min-folic acid 120 mcg (Centrum Adult 50 Plus Fresh-Fruity) tabs PO DAILY nebulizers (AeroEclipse II Nebulizer) As directed omalizumab 150 mg subcut Q2W prednisone 5 mg PO DAILY tiotropium bromide 1.25 mcg/actuation (Spiriva Respimat) 2 puffs inhalation DAILY venlafaxine ER (Effexor XR) 150 mg PO DAILY Do you need a note to return to daycare/school/sports/work: No HPI Asthma HPI Details 42 YEARS OLD FEMALE WITH, CHRONIC SEVERE ALLERGIC RHINITIS/BRONCHIAL ASTHMA, AND HYPER IGE LEVEL. DOING MUCH BETTER SINCE SHE IS ON BIOLOGIC TREATMENT WITH XOLAIR 150 Q.2 WEEKS. SHE WAS ABLE TO STAY STOP TAKING PREDNISONE , DAILY BUT STILL USES ONCE IN A WHILE WHEN SHE GETS INCREASED CONGESTION. NOW SINCE ABOUT LAST WEEK SHE IS HAVING INCREASED CHEST CONGESTION AND HERE SOME WHEEZES ON THE LEFT SIDE. NO FEVER OR CHILLS. FORMERLY [facility] Medical History Hyper-IgE syndrome Contact dermatitis Bronchitis Depression Postablative hypothyroidism Bronchial asthma Allergic rhinitis Asthma Allergic rhinitis Surgical History Hx of carpal tunnel repair Hx of tubal ligation Family History Father Heart disease CVD (cardiovascular disease) Diabetes Mother CVD (cardiovascular disease) Asthma Heart disease Thyroid disease Diabetes Social History Household Members: Children Alcohol intake: current Alcohol intake frequency: does not drink Patient Tobacco Use Status: Former Tobacco user Substance Use Type: Marijuana Review of Systems Const Reports fatigue and Reports night sweats Eyes Reports no additional complaints ENT Reports nasal congestion and Reports nasal discharge Card Denies chest pain, Denies irregular heart rhythm and Denies leg edema Resp Reports as per HPI GI Reports no additional complaints Reports no additional complaints Musc Reports no additional complaints Skin/Breast Reports system reviewed and no additional complaints, except as documented Neuro Reports no additional complaints Psych Reports no additional complaints Endo Reports fatigue Physical Exam Const General: healthy appearing, comfortable, no acute distress, alert and awake Orientation/consciousness: patient oriented x3 HEENT Head: Yes normal to inspection General nose exam: No nasal polyps present and No nasal discharge present Face and sinus: Yes sinuses nontender Mouth: oropharynx normal Throat: Yes posterior oropharynx normal Eyes General: appearance normal, both eyes and all related structures Neck Neck: Yes normal visual inspection, Yes no lymphadenopathy, Yes trachea midline and Yes no JVD Thyroid: Thyroid normal Chest Chest palpation & inspection: normal inspection of the chest, normal palpation of entire chest wall and no tenderness Resp Other: Breath sounds are somewhat distant but equal on both sides. She has scatterred wheezes over the left chest . Cardio Palpation: normal PMI Rate: regular rate Rhythm: regular rhythm Heart sounds: no gallops and no murmurs Peripheral pulses: Peripheral pulses 2+ throughout GI Palpation (GI): Soft to palpation, nontender, No hepatosplenomegaly present and no masses Auscultation: normal bowel sounds Back/Spine/Pelvis Thoracic/Lumbar Spine: thoracic and lumbar spine normal to inspection Skin Rashes: rashes noted (Erythematous plaques, around the ankles on both sides.) Neuro General: patient oriented x3 and no focal motor deficits Cranial nerves: Yes CN's II-XII intact bilaterally Extrem General: Yes normal to inspection, Yes no clubbing, cyanosis or edema and Yes no calf tenderness Psych Appearance: grossly normal and well kempt Speech and movement: Normal speech and movement present Assessment & Plan Assessment & Plan (1) Bronchial asthma: Comment: PATIENT HAS HAD CHRONIC PERSISTENT ALLERGIC BRONCHIAL ASTHMA, SHE HAS DONE WELL SINCE SHE WAS STARTED ON BIOLOGIC INJECTIONS( XOLAIR ) SINCE WE INCREASED THE DOSE OF XOLAIR TO 150 MG Q 2 WEEKS, SHE IS DOING BETTER. IGE LEVEL IS STILL QUITE HIGH. Has wheezes on Left side , ? of recent infection Code(s): J45.909 - Unspecified asthma, uncomplicated Plan: TX : ADVISED TO CONTINUE : ADVAIR 250-50 1 INHALATION B Dose is down scaled . SPIRIVA RESPIMAT 2.5 2 INHALATIONS DAILY Strength is upgraded . PROAIR 2 PUFFS Q 4-6 HOURS P.R.N. ALTERNATIVELY SHE CAN USE ALBUTEROL SOLUTION IN THE NEBULIZER Q 6 HOURS P.R.N. A course of z-ashwini (2) Allergic rhinitis: Comment: HAS CHRONIC PERSISTENT ALLERGIC RHINITIS, SIGNIFICANTLY IMPROVED SINCE SHE IS ON XOLAIR INJECTION. Code(s): J30.9 - Allergic rhinitis, unspecified Plan: [place] FLONASE 2 SPRAY EACH NOSTRIL DAILY MONTELUKAST 10 MG DAILY (3) Hyper-IgE syndrome: Comment: This patient is being treated for high E IgE level syndrome with Biologic Tx , Xolair 150 mg q. 4 weeks. ,Asthma is relatively well controlled ., except for minor exacerbations off and on. She is getting the short [facility]. We will look into if she can start giving the injection to herself at home. Code(s): D82.4 - Hyperimmunoglobulin E [IgE] syndrome Plan: as above Medications: New fluticasone propion-salmeterol 250-50 mcg/dose (Advair Diskus) 1 inh inhalation BID 60 ea 5RF Asthma 30 days azithromycin For 250 mg dose pack: take 500 mg today (day 1), then 250 mg for 4 days (days 2-5) PO 6 tabs 0RF tiotropium bromide 2.5 mcg/actuation (Spiriva Respimat) 2 puffs inhalation DAILY 4 grams 5RF Asthma 30 days Coding Level of Care Code Est Pt Level 3 (20768) Diagnoses Bronchial asthma J45.909 Allergic rhinitis J30.9 Hyper-IgE syndrome D82.4
== END 2023-04-22 13:53 | disposition home or self-care (01) ==
PROVIDERS: PCP Family Medicine; Referring Provider Family Medicine; Visit Provider Internal Medicine
DX: J45.909 Unspecified asthma, uncomplicated (principal); J30.9 Allergic rhinitis, unspecified; D82.4 Hyperimmunoglobulin E [IgE] syndrome
CPT/HCPCS: 99213

== ENCOUNTER → 2023-04-22 13:32 | Outpatient (BNVA) | payer MEDICAID, SELFPAY | PROVIDERS: PCP Family Medicine; Visit Provider Internal Medicine | DX: J45.909 Unspecified asthma, uncomplicated (principal); D82.4 Hyperimmunoglobulin E [IgE] syndrome | CPT/HCPCS: 99212 ==

== ENCOUNTER 2023-05-03 13:13 | Outpatient (REF) | payer MEDICAID, SELFPAY | END 2023-05-03 13:14 | disposition home or self-care (01) | LOC: HO.MDS 13:13 | PROVIDERS: Visit Provider Internal Medicine | DX: J45.50 Severe persistent asthma, uncomplicated (principal) | CPT/HCPCS: 96372 ==

== ENCOUNTER 2023-05-06 15:10 | Outpatient (REF) | payer MEDICAID, SELFPAY ==
[2023-05-06 15:18] LABS: MANUAL DIFF FLAG NO
[2023-05-06 16:15] LABS: Basophils Percent Auto 0.7 % (0-2); Eosinophils Absolute Auto 0.3 X10*3/uL (0.0-0.4); Eosinophils Percent Auto 4.7 % (0-4); Hematocrit 34.8 % (37.0-47.0); Hemoglobin 11.2 g/dl (12.0-16.0); Imm Gran Abs Auto 0.02 X10*3/uL (0.00-0.03); Imm Gran Pct Auto 0.3 % (0.0-0.4); Lymphocytes Absolute Auto 2.3 X10*3/uL (1.2-4.9); Lymphocytes Percent Auto 38.2 % (20-40); Mean Corpuscular HGB Conc 32.2 g/dl (31.0-35.0); Mean Corpuscular Hemoglobin 30.1 pg (27.0-33.0); Mean Corpuscular Volume 93.5 fL (80.0-98.0); Mean Platelet Volume 11.1 fL (9.4-12.3); Monocytes Absolute Auto 0.3 X10*3/uL (0.1-1.2); Monocytes Percent Auto 4.7 % (2-11); Neutrophils Percent Auto 51.4 % (45-73); Platelet Count 214 X10*3/uL (160-400); Red Blood Count 3.72 X10*6/uL (4.20-5.50); Red Cell Distribution Width 13.2 % (11.0-16.0); White Blood Count 5.9 X10*3/uL (4.8-10.8)
[2023-05-06 17:18] LABS: Ferritin 28 ng/mL (10-250); TSH reflex Free T4 8.79 uIU/mL (0.32-4.0)
[2023-05-06 18:01] LABS: Free T4 (Free Thyroxine) 0.89 ng/dL (0.71-1.85)
== END 2023-05-06 15:11 | disposition home or self-care (01) ==
LOC: HO.LAB 15:10
PROVIDERS: PCP Family Medicine; Visit Provider Family Medicine
DX: D50.9 Iron deficiency anemia, unspecified (principal); E03.9 Hypothyroidism, unspecified
CPT/HCPCS: 36415; 82728; 84439; 84443; 85025

== ENCOUNTER 2023-05-17 13:18 | Outpatient (REF) | payer MEDICAID, SELFPAY ==
[2023-05-17 13:38] VITALS: BP 131/81; PULSE 84; RESP 18; TEMP 36.6; O2SAT 98
[2023-05-17] MEDS: Omalizumab 150 MG/ML SYRINGE SUBCUT (13:44)
== END 2023-05-17 13:19 | disposition home or self-care (01) ==
LOC: HO.MDS 13:18
PROVIDERS: Visit Provider Internal Medicine
DX: J45.50 Severe persistent asthma, uncomplicated (principal)
CPT/HCPCS: 96372; J2357

== ENCOUNTER 2023-05-31 14:25 | Outpatient (REF) | payer MEDICAID, SELFPAY ==
[2023-05-31 14:30] VITALS: BP 117/75; PULSE 71; RESP 18; TEMP 36.7; O2SAT 98
[2023-05-31] MEDS: Omalizumab 150 MG/ML SYRINGE SUBCUT (14:32)
== END 2023-05-31 14:26 | disposition home or self-care (01) ==
LOC: HO.MDS 14:25
PROVIDERS: Visit Provider Internal Medicine
DX: J45.50 Severe persistent asthma, uncomplicated (principal)
CPT/HCPCS: 96372

== ENCOUNTER → 2023-06-10 12:51 | Outpatient (REF) | payer MEDICAID, SELFPAY ==
[2023-06-10 15:29] LABS: TSH reflex Free T4 2.37 uIU/mL (0.32-4.0)
== END ==
LOC: HO.SL 12:51
PROVIDERS: PCP Family Medicine; Visit Provider Family Medicine
DX: G47.10 Hypersomnia, unspecified (principal); G47.30 Sleep apnea, unspecified; E03.9 Hypothyroidism, unspecified
CPT/HCPCS: 36415; 84443; 95806

== ENCOUNTER → 2023-06-10 19:00 | Outpatient (BNV) | payer MEDICAID, SELFPAY | PROVIDERS: PCP Family Medicine; Visit Provider Internal Medicine | DX: G47.10 Hypersomnia, unspecified (principal) | CPT/HCPCS: 95806 ==

== ENCOUNTER 2023-06-14 13:50 | Outpatient (REF) | payer MEDICAID, SELFPAY ==
[2023-06-14 13:55] VITALS: BP 114/58; PULSE 65; RESP 20; TEMP 36.5; O2SAT 98
[2023-06-14] MEDS: Omalizumab 150 MG/ML SYRINGE SUBCUT (13:56)
== END 2023-06-14 13:51 | disposition home or self-care (01) ==
LOC: HO.MDS 13:50
PROVIDERS: Visit Provider Internal Medicine
DX: J45.50 Severe persistent asthma, uncomplicated (principal)
CPT/HCPCS: 96372

== ENCOUNTER 2023-06-24 13:22 | Outpatient (AMB) | payer MEDICAID, SELFPAY ==
--- NOTE | 2023-06-24 13:25 | MHC.OFFVIS ---
Intake Vital Signs 06/24/23 13:26 Height 5 ft 2 in Weight 171 lb 15.369 oz BMI 31.4 BP 98/68 Blood Pressure Location Rt brachial Position Sitting Pulse 71 Pulse Source Pulse Oximeter Intake Visit Reasons: F/U Hypothyroidism Intake Note: Patient presents today for Hypothyroidism follow up. Patient reports when her labs are normal, her that she starts to lose her voice and states it feels like the glands are enlarged. She states she is still able to swallow and reports no pain. When labs are low she feels migraines, dry eyes, dehydrated. Territory Sales Representative Required: Yes Territory Sales Representative Language: Yard Warehouse Worker Name: MaryFLORENTINO Information Interpreted: non-clinical & clinical Accompanied by: Mother Allergies Penicillins Allergy (Mild, Verified 06/24/23 13:48) RASH HPI HPI Comments History of Present Illness Details 42 YO Female with a PMHx of Grave's disease s/p I131 ablation with resultant hypothyroidism who is seen in F/U. The patient last saw Dr. Dubon on 07/19/2022 She remains on levothyroxine 150 mcg PO daily. She takes this appropriately. TSH has remained at goal. She does report occasional hoarseness of voice, but otherwise has no complaints today. Labs: Laboratory Tests 05/02/22 16:17 TSH 0.90 Free T4 0.96 Feels tired . 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 PFSH Medical History Hyper-IgE syndrome Contact dermatitis Bronchitis Depression Postablative hypothyroidism Bronchial asthma Allergic rhinitis Asthma Allergic rhinitis Surgical History Hx of carpal tunnel repair Hx of tubal ligation Family History Father Heart disease CVD (cardiovascular disease) Diabetes Mother CVD (cardiovascular disease) Asthma Heart disease Thyroid disease Diabetes Social History Household Members: Children Alcohol intake: current Alcohol intake frequency: does not drink Patient Tobacco Use Status: Former Tobacco user Substance Use Type: Marijuana Physical Exam Vital Signs: Last Vital Signs Pulse 71 06/24/23 13:26 BP 98/68 06/24/23 13:26 BMI result Body Mass Index 31.4 Const Other: Thyroid gland is decreased in size weighs about 5 g . Assessment & Plan Assessment & Plan (1) Postablative hypothyroidism: Comment: s/p ablation for Graves disease Code(s): E89.0 - Postprocedural hypothyroidism Plan: Is a 42-year-old female with a history of post-ablated hypothyroidism be replaced on 150 mcg levothyroxine. She appears to be clinically and biochemically euthyroid Plan is to continue the current therapy. At this point, patient returned to the care of her primary care provider returned back to endocrinology as needed Coding Level of Care Code Est Pt Level 3 (79268) Diagnoses Postablative hypothyroidism E89.0
[2023-06-24 13:26] VITALS: BP 98/68; PULSE 71; BMI 31.4
== END 2023-06-24 14:04 | disposition home or self-care (01) ==
PROVIDERS: PCP Family Medicine; Referring Provider Family Medicine; Visit Provider Internal Medicine Endocrinology, Diabetes & Metabolism
DX: E89.0 Postprocedural hypothyroidism (principal)
CPT/HCPCS: 99213

== ENCOUNTER → 2023-06-24 13:22 | Outpatient (BNVA) | payer MEDICAID, SELFPAY | PROVIDERS: PCP Family Medicine; Visit Provider Internal Medicine Endocrinology, Diabetes & Metabolism | DX: E89.0 Postprocedural hypothyroidism (principal) | CPT/HCPCS: 99212 ==

== ENCOUNTER 2023-07-15 13:27 | Outpatient (REF) | payer MEDICAID, SELFPAY ==
[2023-07-15 14:01] LABS: MANUAL DIFF FLAG NO
[2023-07-15 14:15] LABS: Basophils Percent Auto 0.6 % (0-2); Eosinophils Absolute Auto 0.2 X10*3/uL (0.0-0.4); Eosinophils Percent Auto 2.8 % (0-4); Hematocrit 33.4 % (37.0-47.0); Hemoglobin 11.1 g/dl (12.0-16.0); Imm Gran Abs Auto 0.01 X10*3/uL (0.00-0.03); Imm Gran Pct Auto 0.2 % (0.0-0.4); Lymphocytes Absolute Auto 2.2 X10*3/uL (1.2-4.9); Lymphocytes Percent Auto 41.1 % (20-40); Mean Corpuscular HGB Conc 33.2 g/dl (31.0-35.0); Mean Corpuscular Hemoglobin 30.4 pg (27.0-33.0); Mean Corpuscular Volume 91.5 fL (80.0-98.0); Mean Platelet Volume 10.8 fL (9.4-12.3); Monocytes Absolute Auto 0.3 X10*3/uL (0.1-1.2); Monocytes Percent Auto 5.7 % (2-11); Neutrophils Absolute Auto 2.7 x10*3/uL (2.0-8.3); Neutrophils Percent Auto 49.6 % (45-73); Platelet Count 195 X10*3/uL (160-400); Red Blood Count 3.65 X10*6/uL (4.20-5.50); Red Cell Distribution Width 12.3 % (11.0-16.0); White Blood Count 5.4 X10*3/uL (4.8-10.8)
[2023-07-15 14:51] LABS: Erythrocyte Sedimentation Rate 13 MM/HR (0-20)
[2023-07-15 14:53] LABS: Rheumatoid Factor < 13.0 IU/mL (<15.0)
[2023-07-15 15:24] LABS: Alanine Aminotransferase 14 U/L (0-31); Albumin Level 3.9 g/dL (3.5-5.0); Alkaline Phosphatase 55 U/L (39-117); Anion Gap 9 (12-20); Aspartate Amino Transferase 15 U/L (5-31); Bilirubin Total 0.4 mg/dL (0.0-1.0); Blood Urea Nitrogen 15 mg/dL (9-16); C Reactive Protein 0.17 mg/dL (< or = 0.50); Calcium 9.4 mg/dL (8.4-10.2); Carbon Dioxide 26 mmol/L (22-29); Chloride 107 mmol/L (96-108); Estimated Glomerular Filt Rate > 60; Glucose Random 89 mg/dL (60-115); Potassium 3.7 mmol/L (3.3-5.1); Sodium 138 mmol/L (135-145); Total Protein 6.8 g/dL (6.5-8.0)
[2023-07-16 09:12] LABS: HBS Num1 4.51 mIU/mL (0-7.99); HBc Num1 0.05 S/CO (0.00-0.79); HBsAGNum1 0.47 S/CO (0.00-0.99); Hepatitis A Antibody IgM 0.15 Index (0-0.79); Hepatitis B Core Antibody Nonreactive (Nonreactive); Hepatitis B Surface Antigen Negative (Negative); ~HepC Num1 0.07 S/CO (0.00-0.79); ~Hepatitis A Antibody IgM Nonreactive (Nonreactive); ~Hepatitis B Surface Antibody NONREACTIVE (Nonreactive); ~Hepatitis C Antibody Nonreactive (Nonreactive)
[2023-07-17 13:48] LABS: Cyclic Citrullinated Peptide <16 UNITS
[2023-07-17 20:39] LABS: Anti Nuclear Antibody Screen NEGATIVE (NEGATIVE)
== END 2023-07-15 13:28 | disposition home or self-care (01) ==
LOC: HO.CHCLDS 13:27
PROVIDERS: Visit Provider Family Medicine
DX: M25.50 Pain in unspecified joint (principal)
CPT/HCPCS: 36415; 80053; 85025; 85652; 86038; 86140; 86200; 86431; 86704; 86706; 86709; 86803; 87340; 99212

== ENCOUNTER 2023-07-15 13:55 | Outpatient (AMB) | payer MEDICAID, SELFPAY ==
--- NOTE | 2023-07-15 14:02 | MHC.OFFVIS ---
Vital Signs 07/15/23 14:03 Height 5 ft 2 in Weight 179 lb BMI 32.7 BP 102/64 Blood Pressure Location Lt brachial Position Sitting Pulse 70 Pulse Source Pulse Oximeter Pulse Oximetry (%) 99 Oxygen Delivery Method Room Air Intake Visit Reasons: asthma Intake Note: pt is here for follow up and is having a very difficult time with her asthma, her lungs are hurting in the back, also getting black and blue, her lips are going to pink/purple and nailbeds are splitting. Her skin is also affected, was in urgent care this am, for her shaking. Allergies Penicillins Allergy (Mild, Verified 07/15/23 14:05) RASH Medication List - Last Reconciled 07/15/23 by Donny Jimenez MD albuterol sulfate 90 mcg/actuation (Ventolin HFA) 2 puffs inhalation Q4-6H PRN Ca-D3-mag ma-frgx-eye-perry-bor 600 mg calcium- 20 mcg-50 mg (Calcium 600-D3 Plus (mag-zinc)) tabs PO DAILY cholecalciferol (vitamin D3) 25 mcg PO QAM clonidine HCl 0.1 mg PO BEDTIME cyanocobalamin (vitamin B-12) 1,000 mcg PO DAILY epinephrine 0.3 mg IM Q10M PRN famotidine (Pepcid) 40 mg PO BEDTIME fluticasone propion-salmeterol 250-50 mcg/dose (Advair Diskus) 1 inh inhalation BID 30 days fluticasone propionate 50 mcg/actuation (Flonase Allergy Relief) 1 spray intranasal DAILY hydrocortisone 2.5% 1 appl topical BID PRN 15 days MDD SKIN RASH/IRRITATION ibuprofen 600 mg PO Q6H PRN levothyroxine 150 mcg PO QAM loratadine 10 mg PO DAILY montelukast (Singulair) 10 mg PO BEDTIME multivit with min-folic acid 120 mcg (Centrum Adult 50 Plus Fresh-Fruity) tabs PO DAILY nebulizers (AeroEclipse II Nebulizer) As directed omalizumab 150 mg subcut Q2W 30 days prednisone 5 mg PO DAILY tiotropium bromide 1.25 mcg/actuation (Spiriva Respimat) 2 puffs inhalation DAILY tiotropium bromide 2.5 mcg/actuation (Spiriva Respimat) 2 puffs inhalation DAILY 30 days venlafaxine ER (Effexor XR) 150 mg PO DAILY Do you need a note to return to daycare/school/sports/work: No HPI HPI asthma: Details: TORI , 42 years old known asthmatic, and high IgE level, has longstanding bronchial asthma. Now that she is on Xolair 150 mg subQ q.2 weeks , her asthma is under good control. She complains of aches and pains in the back of her shoulders and upper back, which she has been thinking that she is having pain in her lungs. She is also complaining of very nonspecific symptoms such as Blue spots on the hands and back. She went to the urgent care clinic with these complaints and has had some lap tests the reports of which are pending. She wants to have a good checkup of her lungs. [facility] Medical History Hyper-IgE syndrome Contact dermatitis Bronchitis Depression Postablative hypothyroidism Bronchial asthma Allergic rhinitis Asthma Allergic rhinitis Surgical History Hx of carpal tunnel repair Hx of tubal ligation Family History Father Heart disease CVD (cardiovascular disease) Diabetes Mother CVD (cardiovascular disease) Asthma Heart disease Thyroid disease Diabetes Social History Household Members: Children Alcohol intake: current Alcohol intake frequency: does not drink Patient Tobacco Use Status: Former Tobacco user Substance Use Type: Marijuana Review of Systems Const Reports fatigue and Reports night sweats Eyes Reports no additional complaints ENT Reports nasal congestion and Reports nasal discharge Card Denies chest pain, Denies irregular heart rhythm and Denies leg edema Resp Reports as per HPI GI Reports no additional complaints Reports no additional complaints Musc Reports no additional complaints Skin/Breast Reports system reviewed and no additional complaints, except as documented Neuro Reports no additional complaints Psych Reports no additional complaints Endo Reports fatigue Physical Exam Const General: healthy appearing, comfortable, no acute distress, alert and awake Orientation/consciousness: patient oriented x3 HEENT Head: Yes normal to inspection General nose exam: No nasal polyps present and No nasal discharge present Face and sinus: Yes sinuses nontender Mouth: oropharynx normal Throat: Yes posterior oropharynx normal Eyes General: appearance normal, both eyes and all related structures Neck Neck: Yes normal visual inspection, Yes no lymphadenopathy, Yes trachea midline and Yes no JVD Thyroid: Thyroid normal Chest Chest palpation & inspection: normal inspection of the chest, normal palpation of entire chest wall and no tenderness Resp Other: Breath sounds are somewhat distant but equal on both sides. She has scatterred wheezes over the left chest . Cardio Palpation: normal PMI Rate: regular rate Rhythm: regular rhythm Heart sounds: no gallops and no murmurs Peripheral pulses: Peripheral pulses 2+ throughout GI Palpation (GI): Soft to palpation, nontender, No hepatosplenomegaly present and no masses Auscultation: normal bowel sounds Back/Spine/Pelvis Thoracic/Lumbar Spine: thoracic and lumbar spine normal to inspection Skin Rashes: rashes noted (Erythematous plaques, around the ankles on both sides.) Neuro General: patient oriented x3 and no focal motor deficits Cranial nerves: Yes CN's II-XII intact bilaterally Extrem General: Yes normal to inspection, Yes no clubbing, cyanosis or edema and Yes no calf tenderness Psych Appearance: grossly normal and well kempt Speech and movement: Normal speech and movement present Assessment & Plan Assessment & Plan (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 2 weeks. ,Asthma is relatively well controlled ., except for minor exacerbations off and on. She is getting the shots at [facility] infusion center. Code(s): D82.4 - Hyperimmunoglobulin E [IgE] syndrome Category: Medical Plan: as above (2) Bronchial asthma: Comment: PATIENT HAS HAD CHRONIC PERSISTENT ALLERGIC BRONCHIAL ASTHMA, SHE HAS DONE WELL SINCE SHE WAS STARTED ON BIOLOGIC INJECTIONS( XOLAIR ) SINCE WE INCREASED THE DOSE OF XOLAIR TO 150 MG Q 2 WEEKS, SHE IS DOING BETTER. IGE LEVEL IS STILL QUITE HIGH. Code(s): J45.909 - Unspecified asthma, uncomplicated Category: Medical Plan: Advised to continue having the injections q.2 weeks. Continue present medications including : Singulair 10 mg daily prednisone 5 mg daily Tired troponin bromide 2.5 mcg, 2 actuations daily Advair 250-51 inhalation b.i.d. Albuterol HFA 2 puffs Q 4-6 hours p.r.n. Complete pulmonary function test is ordered. (3) Allergic rhinitis: Comment: HAS CHRONIC PERSISTENT ALLERGIC RHINITIS, SIGNIFICANTLY IMPROVED SINCE SHE IS ON XOLAIR INJECTION. Code(s): J30.9 - Allergic rhinitis, unspecified Category: Medical Plan: Singulair 10 mg daily. Flonase 2 spray each nostril daily Loratadine 10 mg once a day p.r.n. Coding Level of Care Code Est Pt Level 3 (57436) Diagnoses Hyper-IgE syndrome D82.4 Bronchial asthma J45.909 Allergic rhinitis J30.9
[2023-07-15 14:03] VITALS: BP 102/64; PULSE 70; O2SAT 99; BMI 32.7
== END 2023-07-15 14:21 | disposition home or self-care (01) ==
PROVIDERS: PCP Family Medicine; Referring Provider Family Medicine; Visit Provider Internal Medicine
DX: D82.4 Hyperimmunoglobulin E [IgE] syndrome (principal); J45.909 Unspecified asthma, uncomplicated; J30.9 Allergic rhinitis, unspecified
CPT/HCPCS: 99213

== ENCOUNTER 2023-09-16 13:07 | Outpatient (REF) | payer MEDICAID, SELFPAY ==
[2023-09-16 14:35] LABS: MANUAL DIFF FLAG NO
[2023-09-16 15:40] LABS: Basophils Percent Auto 0.6 % (0-2); Eosinophils Absolute Auto 0.1 X10*3/uL (0.0-0.4); Eosinophils Percent Auto 2.1 % (0-4); Hematocrit 34.4 % (37.0-47.0); Hemoglobin 11.1 g/dl (12.0-16.0); Imm Gran Abs Auto 0.01 X10*3/uL (0.00-0.03); Imm Gran Pct Auto 0.2 % (0.0-0.4); Lymphocytes Absolute Auto 2.4 X10*3/uL (1.2-4.9); Lymphocytes Percent Auto 46.4 % (20-40); Mean Corpuscular HGB Conc 32.3 g/dl (31.0-35.0); Mean Corpuscular Hemoglobin 30.1 pg (27.0-33.0); Mean Corpuscular Volume 93.2 fL (80.0-98.0); Mean Platelet Volume 11.3 fL (9.4-12.3); Monocytes Absolute Auto 0.3 X10*3/uL (0.1-1.2); Monocytes Percent Auto 5.2 % (2-11); Neutrophils Absolute Auto 2.3 x10*3/uL (2.0-8.3); Neutrophils Percent Auto 45.5 % (45-73); Platelet Count 199 X10*3/uL (160-400); Red Blood Count 3.69 X10*6/uL (4.20-5.50); Red Cell Distribution Width 12.2 % (11.0-16.0); White Blood Count 5.2 X10*3/uL (4.8-10.8)
[2023-09-17 20:02] LABS: Immunoglobulin E 569 kU/L (<OR=114)
== END 2023-09-16 13:08 | disposition home or self-care (01) ==
LOC: HO.LAB 13:07
PROVIDERS: PCP Family Medicine; Visit Provider Internal Medicine
DX: J45.909 Unspecified asthma, uncomplicated (principal); D82.4 Hyperimmunoglobulin E [IgE] syndrome; L25.9 Unspecified contact dermatitis, unspecified cause
CPT/HCPCS: 36415; 82785; 85025; 94010; 99212

== ENCOUNTER 2023-09-16 13:07 | Outpatient (AMB) | payer MEDICAID, SELFPAY ==
[2023-09-16 13:29] VITALS: BP 102/60; PULSE 74; O2SAT 98; BMI 31.8
--- NOTE | 2023-09-16 13:29 | A.OFFVIS_ITS ---
Vital Signs 09/16/23 13:29 Height 5 ft 2 in Weight 174 lb BMI 31.8 BP 102/60 Blood Pressure Location Lt brachial Position Sitting Pulse 74 Pulse Source Pulse Oximeter Pulse Oximetry (%) 98 Oxygen Delivery Method Room Air Intake Visit Reasons: Asthma Intake Note: pt is here for follow up and states she has been very fatigued, but her asthma has been acting up, and biologic arm has some bruising which is causing some concern. Patient Accounts Coordinator Required: No Allergies Penicillins Allergy (Mild, Verified 09/16/23 13:39) RASH Medication List - Last Reconciled 09/16/23 by Donny Jimenez MD albuterol sulfate 90 mcg/actuation (Ventolin HFA) 2 puffs inhalation Q4-6H PRN Ca-D3-mag vu-sxaj-ziu-perry-bor 600 mg calcium- 20 mcg-50 mg (Calcium 600-D3 Plus (mag-zinc)) tabs PO DAILY cholecalciferol (vitamin D3) 25 mcg PO QAM clonidine HCl 0.1 mg PO BEDTIME cyanocobalamin (vitamin B-12) 1,000 mcg PO DAILY epinephrine 0.3 mg IM Q10M PRN famotidine (Pepcid) 40 mg PO BEDTIME fluticasone propion-salmeterol 250-50 mcg/dose (Advair Diskus) 1 inh inhalation BID 30 days fluticasone propionate 50 mcg/actuation (Flonase Allergy Relief) 1 spray intranasal DAILY hydrocortisone 2.5% 1 appl topical BID PRN 15 days MDD SKIN RASH/IRRITATION ibuprofen 600 mg PO Q6H PRN levothyroxine 150 mcg PO QAM loratadine 10 mg PO DAILY montelukast (Singulair) 10 mg PO BEDTIME multivit with min-folic acid 120 mcg (Centrum Adult 50 Plus Fresh-Fruity) tabs PO DAILY nebulizers (AeroEclipse II Nebulizer) As directed omalizumab 150 mg subcut Q2W 30 days prednisone 5 mg PO DAILY tiotropium bromide 1.25 mcg/actuation (Spiriva Respimat) 2 puffs inhalation DAILY tiotropium bromide 2.5 mcg/actuation (Spiriva Respimat) 2 puffs inhalation DAILY 30 days venlafaxine ER (Effexor XR) 150 mg PO DAILY Do you need a note to return to daycare/school/sports/work: No HPI HPI Asthma: Details: 43 years old female a well known case of chronic allergic rhinitis/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 On her current treatment regimen including Xolair 150 mg subQ q.2 weeks and Singulair 10 mg daily, she is doing much better. However there are minor side effects that she is worried about. Getting some discoloration at the site of injections. And mild muscular aches and pains. Patient is still on prednisone 5 mg daily. And has to use albuterol by nebulizer or albuterol HFA once or twice a day. [facility] Medical History Hyper-IgE syndrome Contact dermatitis Bronchitis Depression Postablative hypothyroidism Bronchial asthma Allergic rhinitis Asthma Allergic rhinitis Surgical History Hx of carpal tunnel repair Hx of tubal ligation Family History Father Heart disease CVD (cardiovascular disease) Diabetes Mother CVD (cardiovascular disease) Asthma Heart disease Thyroid disease Diabetes Social History Household Members: Children Alcohol intake: current Alcohol intake frequency: does not drink Patient Tobacco Use Status: Former Tobacco user Substance Use Type: Marijuana Review of Systems Const Reports fatigue and Reports night sweats Eyes Reports no additional complaints ENT Reports nasal congestion and Reports nasal discharge Card Denies chest pain, Denies irregular heart rhythm and Denies leg edema Resp Reports as per HPI GI Reports no additional complaints Reports no additional complaints Musc Reports no additional complaints Skin/Breast Reports system reviewed and no additional complaints, except as documented Neuro Reports no additional complaints Psych Reports no additional complaints Endo Reports fatigue Physical Exam Vital Signs: Last Vital Signs Pulse 74 09/16/23 13:29 BP 102/60 09/16/23 13:29 Pulse Ox 98 09/16/23 13:29 Oxygen Delivery Method Room Air 09/16/23 13:29 BMI result Body Mass Index 31.8 Const General: healthy appearing, comfortable, no acute distress, alert and awake Orientation/consciousness: patient oriented x3 HEENT Head: Yes normal to inspection General nose exam: No nasal polyps present and No nasal discharge present Face and sinus: Yes sinuses nontender Mouth: oropharynx normal Throat: Yes posterior oropharynx normal Eyes General: appearance normal, both eyes and all related structures Neck Neck: Yes normal visual inspection, Yes no lymphadenopathy, Yes trachea midline and Yes no JVD Thyroid: Thyroid normal Chest Chest palpation & inspection: normal inspection of the chest, normal palpation of entire chest wall and no tenderness Resp Other: Breath sounds are somewhat distant but equal on both sides. She has scatterred wheezes over the left chest . Cardio Palpation: normal PMI Rate: regular rate Rhythm: regular rhythm Heart sounds: no gallops and no murmurs Peripheral pulses: Peripheral pulses 2+ throughout GI Palpation (GI): Soft to palpation, nontender, No hepatosplenomegaly present and no masses Auscultation: normal bowel sounds Back/Spine/Pelvis Thoracic/Lumbar Spine: thoracic and lumbar spine normal to inspection Skin Rashes: rashes noted (Erythematous plaques, around the ankles on both sides.) Neuro General: patient oriented x3 and no focal motor deficits Cranial nerves: Yes CN's II-XII intact bilaterally Extrem General: Yes normal to inspection, Yes no clubbing, cyanosis or edema and Yes no calf tenderness Psych Appearance: grossly normal and well kempt Speech and movement: Normal speech and movement present Office Procedures Spirometry Testing Spirometry Comments: Spirometry done in the office, Dr. Jimenez has the results results scanned to her chart. 67114- Spirometry Results Reviewed Results Reviewed: SPIROMETRY IN THE OFFICE: FVC=79 % FEV1= 65 % FEV1/FVC=67 FEF 25-75 = 37 % C/W MODERATELY SEVERE OBSTRUCTIVE AIRWAY DISORDER. Assessment & Plan Assessment & Plan (1) Allergic rhinitis: Comment: HAS CHRONIC PERSISTENT ALLERGIC RHINITIS, SIGNIFICANTLY IMPROVED SINCE SHE IS ON XOLAIR INJECTION. Code(s): J30.9 - Allergic rhinitis, unspecified Category: Medical Plan: CONTINUE XOLAIR INJECTION 150 MG Q.2 WEEKS SINGULAIR 10 MG DAILY (2) Bronchial asthma: Comment: PATIENT HAS HAD CHRONIC PERSISTENT ALLERGIC BRONCHIAL ASTHMA, SHE HAS DONE WELL SINCE SHE WAS STARTED ON BIOLOGIC INJECTIONS( XOLAIR ) SINCE WE INCREASED THE DOSE OF XOLAIR TO 150 MG Q 2 WEEKS, SHE IS DOING BETTER. Code(s): J45.909 - Unspecified asthma, uncomplicated Category: Medical Plan: CONTINUE XOLAIR 150 MG SUBQ Q.2 WEEKS. ADVAIR DISKUS 250-51 INHALATION B.I.D. SPIRIVA RESPIMAT 2.5 MCG 2 INHALATIONS DAILY ALBUTEROL IN THE NEBULIZER OR ALBUTEROL HFA 2 PUFFS Q 4-6 HOURS P.R.N. PREDNISONE 5 MG , advised to decrease to 5 mg Q alternate days. (3) Hyper-IgE syndrome: Comment: This patient is being treated for high E IgE level syndrome with Biologic Tx , Xolair 150 mg q. 2 weeks. ,Asthma is relatively well controlled ., except for minor exacerbations off and on. She is getting the shots at [facility] infusion center. Code(s): D82.4 - Hyperimmunoglobulin E [IgE] syndrome Category: Medical Plan: Will check IgE level for follow-up. (4) Contact dermatitis: Comment: She has longstanding history of nonspecific skin rash, diagnosed as contact dermatitis. Eruptions are much less frequent. However she still has some dark scaly spots on the left arm. Code(s): L25.9 - Unspecified contact dermatitis, unspecified cause Category: Medical Plan: Advised to use hydrocortisone 1% cream b.i.d. p.r.n.. Orders: Orders AMB Spirometry Testing Today J45.909 - Unspecified asthma, uncomplicated Complete Blood Count Auto Diff Today D82.4 - Hyperimmunoglobulin E [IgE] syndrome, J30.9 - Allergic rhinitis, unspecified, J45.909 - Unspecified asthma, uncomplicated Immunoglobulin E Today D82.4 - Hyperimmunoglobulin E [IgE] syndrome, J30.9 - Allergic rhinitis, unspecified, J45.909 - Unspecified asthma, uncomplicated Coding Level of Care Code Est Pt Level 4 (02426) Diagnoses Allergic rhinitis J30.9 Bronchial asthma J45.909 Hyper-IgE syndrome D82.4 Contact dermatitis L25.9 CPT Codes Spirometry - CPT: 34772- Spirometry ([id number])
== END 2023-09-16 14:03 | disposition home or self-care (01) ==
PROVIDERS: PCP Family Medicine; Visit Provider Internal Medicine
DX: J30.9 Allergic rhinitis, unspecified (principal); J45.909 Unspecified asthma, uncomplicated; D82.4 Hyperimmunoglobulin E [IgE] syndrome; L25.9 Unspecified contact dermatitis, unspecified cause
CPT/HCPCS: 94010; 99214

== ENCOUNTER 2023-10-03 13:39 | Outpatient (REF) | payer MEDICAID, SELFPAY ==
--- NOTE | ~2023-10-03 | MM_ITS ---
EXAMINATION: MM SCREENING DIGITAL BREAST TOMOSYNTHESIS, BILATERAL CLINICAL INFORMATION: Screening. Asymptomatic. COMPARISON: Mammography: This is a baseline mammogram. TECHNIQUE: Digital breast tomosynthesis is performed in both the craniocaudal and mediolateral oblique views along with computer-aided detection (CAD). Synthesized 2D images are generated from the tomosynthesis. FINDINGS: There are scattered areas of fibroglandular density (ACR BI-RADS breast composition Category b). Patient has bilateral nipple rings. There are no significant masses, abnormal calcifications, or other abnormalities. MM/MM tomosynthesis screening BI IMPRESSION: No mammographic evidence of malignancy. ASSESSMENT: BI-RADS BI-RADS 1 - Negative RECOMMENDATION: Routine annual mammography screening. 1 year F/U This examination should not preclude the clinical evaluation of a suspicious palpable abnormality. This patient's information was entered into a reminder system with a target due date for their next mammogram.
== END 2023-10-03 13:40 | disposition home or self-care (01) ==
LOC: HO.MAMMO 13:39
PROVIDERS: PCP Family Medicine; Visit Provider Family Medicine
DX: Z12.31 Encounter for screening mammogram for malignant neoplasm of breast (principal)
CPT/HCPCS: 77063; 77067

== ENCOUNTER → 2023-10-03 14:00 | Outpatient (BNV) | payer MEDICAID, SELFPAY | PROVIDERS: PCP Family Medicine; Visit Provider Radiology Diagnostic Radiology | DX: Z12.31 Encounter for screening mammogram for malignant neoplasm of breast (principal) | CPT/HCPCS: 77063; 77067 ==

== ENCOUNTER 2023-10-16 16:15 | Outpatient (REF) | payer MEDICAID, SELFPAY ==
[2023-10-16 17:57] LABS: TSH reflex Free T4 0.05 uIU/mL (0.32-4.0)
[2023-10-16 19:11] LABS: Free T4 (Free Thyroxine) 0.94 ng/dL (0.71-1.85)
== END 2023-10-16 16:16 | disposition home or self-care (01) ==
LOC: HO.LAB 16:15
PROVIDERS: PCP Family Medicine; Visit Provider Family Medicine
DX: E03.9 Hypothyroidism, unspecified (principal)
CPT/HCPCS: 36415; 84439; 84443

== ENCOUNTER 2023-11-19 09:21 | Outpatient (REF) | payer MEDICAID, SELFPAY ==
--- NOTE | 2023-11-19 09:26 | EMG_ITS ---
Bilateral median and ulnar motor and sensory studies were performed. Bilateral radial sensory and median and lateral antecubital brachial sensory studies were performed, and needle examination was performed. IMPRESSION: 1. 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 2. Mild right ulnar sensory neuropathy. 3. No evidence of radiculopathy. MD MARYBETH Nina/KYLIE / [phone]
== END 2023-11-19 09:22 | disposition home or self-care (01) ==
LOC: HO.NEURO 09:21
PROVIDERS: PCP Family Medicine; Visit Provider Family Medicine
DX: R20.2 Paresthesia of skin (principal); R20.0 Anesthesia of skin
CPT/HCPCS: 95886; 95913; 99212

== ENCOUNTER 2023-11-19 13:39 | Outpatient (AMB) | payer MEDICAID, SELFPAY ==
--- NOTE | 2023-11-19 13:48 | A.OFFVIS_ITS ---
Vital Signs 11/19/23 13:49 Height 5 ft 2 in Weight 171 lb 15.369 oz BMI 31.4 BP 104/60 Blood Pressure Location Lt brachial Position Sitting Pulse 67 Pulse Source Pulse Oximeter Pulse Oximetry (%) 99 Oxygen Delivery Method Room Air Intake Visit Reasons: Asthma Intake Note: pt is here for follow up and is still struggling with her asthma, she is had an issue with unable to breath after eating something, and now her voice is ruff right now, when talking she gasps for air when talking causing her to cough. Allergies Penicillins Allergy (Mild, Verified 11/19/23 14:22) RASH Medication List - Last Reconciled 11/19/23 by Donny Jimenez MD albuterol sulfate 90 mcg/actuation (Ventolin HFA) 2 puffs inhalation Q4-6H PRN albuterol sulfate mg inhalation Q6H PRN Ca-D3-mag ke-kgys-fkc-perry-bor 600 mg calcium- 20 mcg-50 mg (Calcium 600-D3 Plus (mag-zinc)) tabs PO DAILY cholecalciferol (vitamin D3) 25 mcg PO QAM clonidine HCl 0.1 mg PO BEDTIME cyanocobalamin (vitamin B-12) 1,000 mcg PO DAILY epinephrine 0.3 mg IM Q10M PRN famotidine (Pepcid) 40 mg PO BEDTIME fluticasone propion-salmeterol 250-50 mcg/dose (Advair Diskus) 1 inh inhalation BID 30 days fluticasone propionate 50 mcg/actuation (Flonase Allergy Relief) 1 spray intranasal DAILY hydrocortisone 2.5% 1 appl topical BID PRN 15 days MDD SKIN RASH/IRRITATION ibuprofen 600 mg PO Q6H PRN levothyroxine 150 mcg PO QAM loratadine 10 mg PO DAILY montelukast (Singulair) 10 mg PO BEDTIME multivit with min-folic acid 120 mcg (Centrum Adult 50 Plus Fresh-Fruity) tabs PO DAILY nebulizers (AeroEclipse II Nebulizer) As directed omalizumab 150 mg subcut Q2W 30 days prednisone 5 mg PO DAILY tiotropium bromide 1.25 mcg/actuation (Spiriva Respimat) 2 puffs inhalation DAILY tiotropium bromide 2.5 mcg/actuation (Spiriva Respimat) 2 puffs inhalation DAILY 30 days venlafaxine ER (Effexor XR) 150 mg PO DAILY Do you need a note to return to daycare/school/sports/work: No HPI HPI Asthma: Details: THIS 42 YEARS OLD FEMALE IS HERE FOR 4 MONTHS FOLLOW-UP FOR HER BRONCHIAL ASTHMA, AND ALLERGIC RHINITIS. SHE IS ON XOLAIR THERAPY FOR HER CHRONIC ALLERGIC RHINITIS/ALLERGIC ASTHMA, AND HIGH IGE SYNDROME BREATHING ALANIS HAS BEEN DOING MUCH BETTER SINCE SHE IS ON XOLAIR. SHE ALSO USES ADVAIR 250-50 B.I.D. AND ALBUTEROL P.R.N.. ON THIS VISIT SHE IS MORE CONCERNED ABOUT SOME HOARSENESS, AND MINIMAL DISCOMFORT ON SWALLOWING. ALSO COMPLAINS OF COUGH AFTER EATING, . ESPECIALLY SPICY FOODS SHE TRIES TO AVOID SPICY FOODS BUT ON 1 OR 2 OCCASIONS SHE ENDED EATING JALAPENO PEPPERS. SHE FELT MUCH WORSE AFTER THIS FOR A DAY OR 2. [facility] Medical History (Updated 11/19/23 @ 16:49 by Donny Jimenez MD) Cough Hyper-IgE syndrome Contact dermatitis Bronchitis Depression Postablative hypothyroidism Bronchial asthma Allergic rhinitis Asthma Allergic rhinitis Surgical History Hx of carpal tunnel repair Hx of tubal ligation Family History Father Heart disease CVD (cardiovascular disease) Diabetes Mother CVD (cardiovascular disease) Asthma Heart disease Thyroid disease Diabetes Social History Household Members: Children Alcohol intake: current Alcohol intake frequency: does not drink Patient Tobacco Use Status: Former Tobacco user Substance Use Type: Marijuana Review of Systems Const Reports fatigue and Reports night sweats Eyes Reports no additional complaints ENT Reports nasal congestion and Reports nasal discharge Card Denies chest pain, Denies irregular heart rhythm and Denies leg edema Resp Reports as per HPI GI Reports no additional complaints Reports no additional complaints Musc Reports no additional complaints Skin/Breast Reports system reviewed and no additional complaints, except as documented Neuro Reports no additional complaints Psych Reports no additional complaints Endo Reports fatigue Physical Exam Vital Signs: Last Vital Signs Pulse 67 11/19/23 13:49 BP 104/60 11/19/23 13:49 Pulse Ox 99 11/19/23 13:49 Oxygen Delivery Method Room Air 11/19/23 13:49 BMI result Body Mass Index 31.4 Const General: healthy appearing, comfortable, no acute distress, alert and awake Orientation/consciousness: patient oriented x3 HEENT Head: Yes normal to inspection General nose exam: No nasal polyps present and No nasal discharge present Face and sinus: Yes sinuses nontender Mouth: oropharynx abnormals (A FEW PINPOINT WHITE SPOTS NOTED ON THE POSTERIOR PHARYNGEAL WALL) Throat: Yes posterior oropharynx normal Eyes General: appearance normal, both eyes and all related structures Neck Neck: Yes normal visual inspection, Yes no lymphadenopathy, Yes trachea midline and Yes no JVD Thyroid: Thyroid normal Chest Chest palpation & inspection: normal inspection of the chest, normal palpation of entire chest wall and no tenderness Resp Other: Breath sounds are somewhat distant but equal on both sides. She has scatterred wheezes over the left chest . Cardio Palpation: normal PMI Rate: regular rate Rhythm: regular rhythm Heart sounds: no gallops and no murmurs Peripheral pulses: Peripheral pulses 2+ throughout GI Palpation (GI): Soft to palpation, nontender, No hepatosplenomegaly present and no masses Auscultation: normal bowel sounds Back/Spine/Pelvis Thoracic/Lumbar Spine: thoracic and lumbar spine normal to inspection Skin Rashes: rashes noted (Erythematous plaques, around the ankles on both sides.) Neuro General: patient oriented x3 and no focal motor deficits Cranial nerves: Yes CN's II-XII intact bilaterally Extrem General: Yes normal to inspection, Yes no clubbing, cyanosis or edema and Yes no calf tenderness Psych Appearance: grossly normal and well kempt Speech and movement: Normal speech and movement present Assessment & Plan Assessment & Plan (1) Allergic rhinitis: Comment: HAS CHRONIC PERSISTENT ALLERGIC RHINITIS, SIGNIFICANTLY IMPROVED SINCE SHE IS ON XOLAIR INJECTION. Code(s): J30.9 - Allergic rhinitis, unspecified Category: Medical Plan: CONTINUE XOLAIR THERAPY (2) Bronchial asthma: Comment: PATIENT HAS HAD CHRONIC PERSISTENT ALLERGIC BRONCHIAL ASTHMA, SHE HAS DONE WELL SINCE SHE WAS STARTED ON BIOLOGIC INJECTIONS( XOLAIR ) SINCE WE INCREASED THE DOSE OF XOLAIR TO 150 MG Q 2 WEEKS, SHE IS DOING BETTER. Code(s): J45.909 - Unspecified asthma, uncomplicated Category: Medical Plan: ADVISED TO CONTINUE THE XOLAIR THERAPY. ALBUTEROL HFA 2 PUFFS Q 4-6 HOURS P.R.N. ADVAIR DISKUS 250-51 INHALATION B.I.D. SPIRIVA RESPIMAT 2.5 TO INHALED PATIENT'S DAILY PREDNISONE 5 MG DAILY (3) Hyper-IgE syndrome: Comment: This patient is being treated for high IgE level syndrome with Biologic Tx , Xolair 150 mg q. 2 weeks. ,Asthma is relatively well controlled ., except for minor exacerbations off and on. She is getting the shots at [facility] infusion center. Code(s): D82.4 - Hyperimmunoglobulin E [IgE] syndrome Category: Medical Plan: ADVISED TO CONTINUE XOLAIR THERAPY (4) Cough: Comment: LATELY SHE IS HAVING INCREASED COUGH DUE TO SCRATCHY FEELING IN THE THROAT, WORSENED IF SHE EATS SPICY FOOD. THERE SEEMS TO BE FL IRRITATION OF THE POSTERIOR PHARYNGEAL WALL WITH A FEW WHITE SPOTS. POSSIBILITY OF MILD THRUSH ALSO POSSIBILITY OF GERD SECONDARY TO SPICY FOODS, WHICH MAY BE CAUSING INCREASED COUGH. Code(s): R05.9 - Cough, unspecified Category: Medical Plan: TREATMENT WITH NYSTATIN FOR 1 WEEK. ADVISED TO RINSE THE THROAT THOROUGHLY AFTER USING ADVAIR. ADVISED TO AVOID ANY SPICY FOODS AND MAY USE FAMOTIDINE 20 MG ONCE A DAY. Medications: New nystatin administer 1/2 of dose in each side of the mouth 5 mL PO BID 100 mL 1RF THRUSH 10 days Coding Level of Care Code Est Pt Level 3 (84491) Diagnoses Allergic rhinitis J30.9 Bronchial asthma J45.909 Hyper-IgE syndrome D82.4 Cough R05.9
[2023-11-19 13:49] VITALS: BP 104/60; PULSE 67; O2SAT 99; BMI 31.4
== END 2023-11-19 14:23 | disposition home or self-care (01) ==
PROVIDERS: PCP Family Medicine; Visit Provider Internal Medicine
DX: J30.9 Allergic rhinitis, unspecified (principal); J45.909 Unspecified asthma, uncomplicated; D82.4 Hyperimmunoglobulin E [IgE] syndrome; R05.9 Cough, unspecified
CPT/HCPCS: 99213

== ENCOUNTER 2023-11-20 11:03 | Outpatient (AMB) | payer MEDICAID, SELFPAY ==
--- NOTE | 2023-11-20 11:08 | A.OFFVIS_ITS ---
Vital Signs 11/20/23 11:09 Height 5 ft 2 in Weight 171 lb 1.259 oz BMI 31.3 BP 90/62 Blood Pressure Location Lt brachial Position Sitting Pulse 94 Pulse Source Pulse Oximeter Intake Visit Reasons: Hypothyroidism Intake Note: Patient present today for Hypothyroidism office visit. City Recorder Required: No Accompanied by: Self / Same As Patient Allergies Penicillins Allergy (Mild, Verified 11/20/23 11:13) RASH Medication List - Last Reconciled 11/20/23 by Soledad Torres MD albuterol sulfate 90 mcg/actuation (Ventolin HFA) 2 puffs inhalation Q4-6H PRN albuterol sulfate mg inhalation Q6H PRN Ca-D3-mag [id number]-perry-bor 600 mg calcium- 20 mcg-50 mg (Calcium 600-D3 Plus (mag-zinc)) tabs PO DAILY cholecalciferol (vitamin D3) 25 mcg PO QAM clonidine HCl 0.1 mg PO BEDTIME cyanocobalamin (vitamin B-12) 1,000 mcg PO DAILY epinephrine 0.3 mg IM Q10M PRN famotidine (Pepcid) 40 mg PO BEDTIME fluticasone propion-salmeterol 250-50 mcg/dose (Advair Diskus) 1 inh inhalation BID 30 days fluticasone propionate 50 mcg/actuation (Flonase Allergy Relief) 1 spray intranasal DAILY hydrocortisone 2.5% 1 appl topical BID PRN 15 days MDD SKIN RASH/IRRITATION ibuprofen 600 mg PO Q6H PRN levothyroxine 125 mcg PO QAM loratadine 10 mg PO DAILY montelukast (Singulair) 10 mg PO BEDTIME multivit with min-folic acid 120 mcg (Centrum Adult 50 Plus Fresh-Fruity) tabs PO DAILY nebulizers (AeroEclipse II Nebulizer) As directed nystatin 5 mL PO BID 10 days omalizumab 150 mg subcut Q2W 30 days prednisone 5 mg PO DAILY tiotropium bromide 1.25 mcg/actuation (Spiriva Respimat) 2 puffs inhalation DAILY tiotropium bromide 2.5 mcg/actuation (Spiriva Respimat) 2 puffs inhalation DAILY 30 days venlafaxine ER (Effexor XR) 150 mg PO DAILY HPI Comments Details: 42 YO Female with a PMHx of Grave's disease s/p I131 ablation when she was a child with resultant hypothyroidism who is seen in F/U. Patient was previously seeing Dr. Dubon, and then last saw Dr. Robledo in June 2023. She reports she is back as there has been a lot of fluctuation in her thyroid labs recently over the last few months. Currently takng 125 mcg daily [facility] she takes everyday diesnt miss doses and takes it first thing in the morning appropriately, doesnt take with other meds. Waits an hour at leats before eating. Most recent blood work in October 15 showed low TSH of 0.05 but patient is not sure whether the medicine was decreased after this or before this blood work to 125 . Previously when she was eeing Dr. Duarte was on 150 mcg daily. na din between was then on 137 mcg daily but now down to 125 mcg daily. Has lost 10 lbs over the past year, has been working out. Bowel movements are regular, menses are regular, LMP a month ago. Was feeling hot before does was decreased. Reports tremors are better now which she had on the high dose. No increased diaphoresis now. Reports fatigue. Hair loss was worsening but again better after dose decrease. Quit smoking 10 years ago. She does report occasional hoarseness of voice, that has really worsened over the past month, she feels a choking sensation and pressure sensation that happened once. Review of systems Constitutional: no fevers, chills HEENT: no changes in vision Cardiac: as above . Pulmonary: No SOB GI:No abdominal pain, no nausea or vomiting, no anorexia, no blood in stool : no burning micturition, dysuria or increase in urinary frequency Neurologic: No dizziness, no weakness in extremities Physical exam General: sitting comfortably in no acute distress HEENT: normocephalic/atraumatic, EOM intact, moist oral mucosa Neck: supple, symmetrical, no thyromegaly , no dorsocervical or supraclavicular fat pads, palpable anterior cervical LN about 0.5 cm on the right side Cardiac: normal heart sounds Pulm: normal breath sounds B/L, no added breath sounds Abd: not distended, no tenderness Extremities: no edema, no signs of myxedema Neuro: AAO x3, Speech: normal, no facial droop, moving all 4 extremities, normal reflexles ON LICENSE OF [facility] Medical History (Updated 11/19/23 @ 16:49 by Donny Jimenez MD) Cough Hyper-IgE syndrome Contact dermatitis Bronchitis Depression Postablative hypothyroidism Bronchial asthma Allergic rhinitis Asthma Allergic rhinitis Surgical History Hx of carpal tunnel repair Hx of tubal ligation Family History Father Heart disease CVD (cardiovascular disease) Diabetes Mother CVD (cardiovascular disease) Asthma Heart disease Thyroid disease Diabetes Social History Household Members: Children Alcohol intake: current Alcohol intake frequency: does not drink Patient Tobacco Use Status: Former Tobacco user Substance Use Type: Marijuana Physical Exam Vital Signs: Last Vital Signs Pulse 94 11/20/23 11:09 BP 90/62 11/20/23 11:09 BMI result Body Mass Index 31.3 Results Reviewed Results Reviewed: Laboratory Tests 05/06/23 10/16/23 15:16 16:24 TSH 8.79 H 0.05 L Free T4 0.89 0.94 Assessment & Plan Assessment & Plan (1) Postablative hypothyroidism: Comment: s/p ablation for Graves disease Code(s): E89.0 - Postprocedural hypothyroidism Category: Medical Plan: Patient with postablative hypothyroidism with history of Graves disease status post I 131 ablation back when she was a child, coming in today for follow up. Recently she has been having a lot of fluctuations and her thyroid function and levothyroxine dosing hence she would like to follow up with us. Most recently labs from September 2023 showed low TSH of 0.05 with normal free T4. She is not entirely sure if her dose of levothyroxine was decreased after these labs prior to the. She is currently taking 125 mcg daily per patient. She is taking it appropriately. We will repeat her blood work now and see if she needs any dose adjustment. Overall she had been having some hyperthyroid symptoms in the last few months, but it sounds like that most of them have improved since the dose change. Patient is also describing that she had an episode of choking sensation and has been having a worsening cough and some hoarseness over the past few weeks. From chart reviewed seems like she has had a hoarse voice for some time. She is seeing that it is worse. I could not feel any palpable thyroid nodules on my exam today. I discussed with her that since she has a cough, she could have be having some sort of an allergic reaction/postnasal drip/upper respiratory tract infection. I discussed with her to give it 2 weeks' time and if her symptoms continue to or persist, to give our office a call and we will order a thyroid ultrasound. Patient verbalized understanding and is agreeable with this plan. Plan: -ordered TSH, free T4 -we will adjust levothyroxine if needed based on results -if she is biochemically euthyroid on lab work, we will plan to follow up in 6 months with repeat blood work given recent fluctuations Plan I spent 30 minutes in reviewing the record, seeing the patient and documenting in the medical record. Orders: Orders Thyroid Stimulating Hormone Today E89.0 - Postprocedural hypothyroidism Free T4 (Free Thyroxine) Today E89.0 - Postprocedural hypothyroidism Patient Instructions: Do blood work today We will give you a call about results Coding Level of Care Code Est Pt Level 4 (73870) Diagnoses Postablative hypothyroidism E89.0 Time Spent (min) 30
[2023-11-20 11:09] VITALS: BP 90/62; PULSE 94; BMI 31.3
== END 2023-11-20 11:54 | disposition home or self-care (01) ==
PROVIDERS: PCP Family Medicine; Visit Provider Student in an Organized Health Care Education/Training Program
DX: E89.0 Postprocedural hypothyroidism (principal)
CPT/HCPCS: 99214

== ENCOUNTER → 2023-11-20 11:03 | Outpatient (BNVA) | payer MEDICAID, SELFPAY | PROVIDERS: PCP Family Medicine; Visit Provider Student in an Organized Health Care Education/Training Program | DX: E89.0 Postprocedural hypothyroidism (principal) | CPT/HCPCS: 99212 ==

== ENCOUNTER 2023-11-20 11:54 | Outpatient (REF) | payer MEDICAID, SELFPAY ==
[2023-11-20 13:34] LABS: Thyroid Stimulating Hormone 0.09 uIU/mL (0.32-4.0)
== END 2023-11-20 11:55 | disposition home or self-care (01) ==
LOC: HO.10HDL 11:54
PROVIDERS: Visit Provider Student in an Organized Health Care Education/Training Program
DX: E89.0 Postprocedural hypothyroidism (principal)
CPT/HCPCS: 36415; 84439; 84443; 99212

== ENCOUNTER 2023-12-09 10:01 | Outpatient (REF) | payer MEDICAID, SELFPAY ==
[2023-12-09 11:42] LABS: Free T4 (Free Thyroxine) 1.16 ng/dL (0.71-1.85); Thyroid Stimulating Hormone 0.12 uIU/mL (0.32-4.0)
== END 2023-12-09 10:02 | disposition home or self-care (01) ==
LOC: HO.10HDL 10:01
PROVIDERS: Visit Provider Student in an Organized Health Care Education/Training Program
DX: E89.0 Postprocedural hypothyroidism (principal)
CPT/HCPCS: 36415; 84439; 84443

== ENCOUNTER 2024-01-10 10:55 | Outpatient (REF) | payer MEDICAID, SELFPAY ==
[2024-01-10 14:06] LABS: Free T4 (Free Thyroxine) 1.34 ng/dL (0.71-1.85); Thyroid Stimulating Hormone 0.17 uIU/mL (0.32-4.0)
== END 2024-01-10 10:56 | disposition home or self-care (01) ==
LOC: HO.10HDL 10:55
PROVIDERS: Visit Provider Student in an Organized Health Care Education/Training Program
DX: E89.0 Postprocedural hypothyroidism (principal)
CPT/HCPCS: 36415; 84439; 84443

== ENCOUNTER 2024-03-26 14:02 | Outpatient (AMB) | payer MEDICAID, SELFPAY ==
[2024-03-26 14:18] VITALS: BP 102/64; PULSE 60; O2SAT 99; BMI 32.1
--- NOTE | 2024-03-26 14:18 | MHC.OFFVIS ---
Vital Signs 03/26/24 14:18 Height 5 ft 2 in Weight 175 lb 4.28 oz BMI 32.1 BP 102/64 Blood Pressure Location Lt brachial Position Sitting Pulse 60 Pulse Source Pulse Oximeter Pulse Oximetry (%) 99 Oxygen Delivery Method Room Air Intake Visit Reasons: Asthma Intake Note: pt is here for follow up and states she has been having some wheezing and cough, center based chest pain. She is still on her biologic and feels it is helping. pt needs refills on all 3 inhalers and neb medication, singular, and loratidine. Community Manager Required: No Allergies Penicillins Allergy (Mild, Verified 11/20/23 11:13) RASH [facility] Medical History (Updated 11/19/23 @ 16:49 by Donny Jimenez MD) Cough Hyper-IgE syndrome Contact dermatitis Bronchitis Depression Postablative hypothyroidism Bronchial asthma Allergic rhinitis Asthma Allergic rhinitis Surgical History Hx of carpal tunnel repair Hx of tubal ligation Family History Father Heart disease CVD (cardiovascular disease) Diabetes Mother CVD (cardiovascular disease) Asthma Heart disease Thyroid disease Diabetes Social History Household Members: Children Alcohol intake: current Alcohol intake frequency: does not drink Patient Tobacco Use Status: Former Tobacco user Substance Use Type: Marijuana Physical Exam Vital Signs: Last Vital Signs Pulse 60 03/26/24 14:18 BP 102/64 03/26/24 14:18 Pulse Ox 99 03/26/24 14:18 Oxygen Delivery Method Room Air 03/26/24 14:18 BMI result Body Mass Index 32.1 Coding
--- NOTE | 2024-03-26 14:38 | MHC.OFFVIS ---
Vital Signs 03/26/24 14:18 Height 5 ft 2 in Weight 175 lb 4.28 oz BMI 32.1 BP 102/64 Blood Pressure Location Lt brachial Position Sitting Pulse 60 Pulse Source Pulse Oximeter Pulse Oximetry (%) 99 Oxygen Delivery Method Room Air Intake Visit Reasons: Asthma, Allergic rhinitis Allergies Penicillins Allergy (Mild, Verified 03/26/24 14:38) RASH Medication List - Last Reconciled 03/26/24 by Donny Jimenez MD albuterol sulfate 90 mcg/actuation (Ventolin HFA) 2 puffs inhalation Q4-6H PRN albuterol sulfate mg inhalation Q6H PRN Ca-D3-mag fb-jfxb-xvh-perry-bor 600 mg calcium- 20 mcg-50 mg (Calcium 600-D3 Plus (mag-zinc)) tabs PO DAILY cholecalciferol (vitamin D3) 25 mcg PO QAM clonidine HCl 0.1 mg PO BEDTIME cyanocobalamin (vitamin B-12) 1,000 mcg PO DAILY epinephrine 0.3 mg IM Q10M PRN famotidine (Pepcid) 40 mg PO BEDTIME fluticasone propion-salmeterol 250-50 mcg/dose (Advair Diskus) 1 inh inhalation BID 30 days fluticasone propionate 50 mcg/actuation (Flonase Allergy Relief) 1 spray intranasal DAILY hydrocortisone 2.5% 1 appl topical BID PRN 15 days MDD SKIN RASH/IRRITATION ibuprofen 600 mg PO Q6H PRN levothyroxine 112 mcg PO DAILY loratadine 10 mg PO DAILY montelukast (Singulair) 10 mg PO BEDTIME multivit with min-folic acid 120 mcg (Centrum Adult 50 Plus Fresh-Fruity) tabs PO DAILY nebulizers (AeroEclipse II Nebulizer) As directed nystatin 5 mL PO BID 10 days omalizumab 150 mg subcut Q2W 30 days tiotropium bromide 2.5 mcg/actuation (Spiriva Respimat) 2 puffs inhalation DAILY 30 days venlafaxine ER (Effexor XR) 150 mg PO DAILY Do you need a note to return to daycare/school/sports/work: No HPI HPI Asthma: Details: THIS 43 YEARS OLD FEMALE WITH LONGSTANDING HISTORY OF ALLERGIC RHINITIS AND BRONCHIAL ASTHMA/COPD COMES AFTER 4 MONTHS FOR ROUTINE FOLLOW-UP. SHE CONTINUES TO HAVE MILD INTERMITTENT NASAL CONGESTION AND FREQUENT BOUTS OF COUGH DURING THE DAYTIME. BUT DOES NOT HAVE ANY EPISODES OF PERSISTENT WHEEZING. SHE HAS DONE MUCH BETTER SINCE SHE IS ON XOLAIR INJECTION ONCE A MONTH. [facility] Medical History (Updated 03/26/24 @ 14:43 by Donny Jimenez MD) Cough Hyper-IgE syndrome Contact dermatitis Bronchitis Depression Postablative hypothyroidism Bronchial asthma Allergic rhinitis Asthma Allergic rhinitis Surgical History Hx of carpal tunnel repair Hx of tubal ligation Family History Father Heart disease CVD (cardiovascular disease) Diabetes Mother CVD (cardiovascular disease) Asthma Heart disease Thyroid disease Diabetes Social History Household Members: Children Alcohol intake: current Alcohol intake frequency: does not drink Patient Tobacco Use Status: Former Tobacco user Substance Use Type: Marijuana Review of Systems Const Reports fatigue and Reports night sweats Eyes Reports no additional complaints ENT Reports nasal congestion and Reports nasal discharge Card Denies chest pain, Denies irregular heart rhythm and Denies leg edema Resp Reports as per HPI GI Reports no additional complaints Reports no additional complaints Musc Reports no additional complaints Skin/Breast Reports system reviewed and no additional complaints, except as documented Neuro Reports no additional complaints Psych Reports no additional complaints Endo Reports fatigue Physical Exam Vital Signs: Last Vital Signs Pulse 60 03/26/24 14:18 BP 102/64 03/26/24 14:18 Pulse Ox 99 03/26/24 14:18 Oxygen Delivery Method Room Air 03/26/24 14:18 BMI result Body Mass Index 32.1 Const General: healthy appearing, comfortable, no acute distress, alert and awake Orientation/consciousness: patient oriented x3 HEENT Head: Yes normal to inspection General nose exam: No nasal polyps present, No nasal discharge present and Other nasal findings present (HAS MILD NASAL CONGESTION ON BOTH SIDES) Face and sinus: Yes sinuses nontender Mouth: oropharynx abnormals (A FEW PINPOINT WHITE SPOTS NOTED ON THE POSTERIOR PHARYNGEAL WALL) Throat: Yes posterior oropharynx normal Eyes General: appearance normal, both eyes and all related structures Neck Neck: Yes normal visual inspection, Yes no lymphadenopathy, Yes trachea midline and Yes no JVD Thyroid: Thyroid normal Chest Chest palpation & inspection: normal inspection of the chest, normal palpation of entire chest wall and no tenderness Resp Other: Breath sounds are somewhat distant but equal on both sides. She has scatterred wheezes over the left chest . Cardio Palpation: normal PMI Rate: regular rate Rhythm: regular rhythm Heart sounds: no gallops and no murmurs Peripheral pulses: Peripheral pulses 2+ throughout GI Palpation (GI): Soft to palpation, nontender, No hepatosplenomegaly present and no masses Auscultation: normal bowel sounds Back/Spine/Pelvis Thoracic/Lumbar Spine: thoracic and lumbar spine normal to inspection Skin Rashes: rashes noted (Erythematous plaques, around the ankles on both sides.) Neuro General: patient oriented x3 and no focal motor deficits Cranial nerves: Yes CN's II-XII intact bilaterally Extrem General: Yes normal to inspection, Yes no clubbing, cyanosis or edema and Yes no calf tenderness Psych Appearance: grossly normal and well kempt Speech and movement: Normal speech and movement present Assessment & Plan Assessment & Plan (1) Allergic rhinitis: Comment: CHRONIC ALLERGIC RHINITIS, MUCH BETTER CONTROLLED SINCE SHE IS ON BIOLOGIC TREATMENT. STILL HAS INTERMITTENT BOUTS OF INCREASED NASAL CONGESTION . CAUSING COUGH Code(s): J30.9 - Allergic rhinitis, unspecified Category: Medical Plan: USE FLONASE 2 SPRAY IN EACH NOSTRIL DAILY CONTINUE MONTELUKAST 10 MG DAILY USE LORATADINE 10 MG ONCE A DAY P.R.N. (2) Bronchial asthma: Comment: PATIENT HAS HAD CHRONIC PERSISTENT ALLERGIC BRONCHIAL ASTHMA, SHE HAS DONE WELL SINCE SHE WAS STARTED ON BIOLOGIC INJECTIONS( XOLAIR ) SINCE WE INCREASED THE DOSE OF XOLAIR TO 150 MG Q 2 WEEKS, SHE IS DOING BETTER. Code(s): J45.909 - Unspecified asthma, uncomplicated Category: Medical Plan: CONTINUE XOLAIR 150 MG SUBQ Q.2 WEEKS. SPIRIVA RESPIMAT 2.5 MG 2 INHALATIONS DAILY. . ADVAIR DISKUS 250-51 INHALATION B.I.D. ALBUTEROL HFA 2 PUFFS. Q 4-6 HOURS P.R.N. WHEN OUTDOORS AT HOME SHE CAN USE ALBUTEROL SOLUTION IN THE NEBULIZER Q 4-6 HOURS P.R.N. Coding Level of Care Code Est Pt Level 3 (02822) Diagnoses Allergic rhinitis J30.9 Bronchial asthma J45.909
== END 2024-03-26 14:39 | disposition home or self-care (01) ==
PROVIDERS: PCP Family Medicine; Visit Provider Internal Medicine
DX: J30.9 Allergic rhinitis, unspecified (principal); J45.909 Unspecified asthma, uncomplicated
CPT/HCPCS: 99213

== ENCOUNTER → 2024-03-26 14:02 | Outpatient (BNVA) | payer MEDICAID, SELFPAY | PROVIDERS: PCP Family Medicine; Visit Provider Internal Medicine | DX: J45.909 Unspecified asthma, uncomplicated (principal) | CPT/HCPCS: 99212 ==

== ENCOUNTER 2024-04-09 15:19 | Outpatient (REF) | payer MEDICAID, SELFPAY ==
[2024-04-09 17:00] LABS: Free T4 (Free Thyroxine) 0.96 ng/dL (0.71-1.85); Thyroid Stimulating Hormone 13.36 uIU/mL (0.32-4.0)
[2024-04-10 07:59] LABS: Triiodothyronine T3 Total 62 ng/dL (76-181)
[2024-04-10 22:35] LABS: Thyroid Peroxidase Antibodies 1 IU/mL (<9)
[2024-04-12 21:57] LABS: Thyrotropin Receptor Antibody <1.00 IU/L (<=2.00)
[2024-04-14 15:08] LABS: Thyroid Stimulating Immunoglob <89 % baseline (<140)
== END 2024-04-09 15:20 | disposition home or self-care (01) ==
LOC: HO.LAB 15:19
PROVIDERS: PCP Family Medicine; Visit Provider Student in an Organized Health Care Education/Training Program
DX: E89.0 Postprocedural hypothyroidism (principal)
CPT/HCPCS: 36415; 83520; 84439; 84443; 84445; 84480; 86376

== ENCOUNTER 2024-04-15 13:11 | Emergency (ER) | payer MEDICAID, SELFPAY ==
--- NOTE | ~2024-04-15 | CT_ITS ---
CLINICAL HISTORY: evaluate for bowel obstruction due to obstipation CT abdomen and pelvis with contrast Comparison: CT of the abdomen and pelvis from 10/07/2017 Findings: No consolidation in the imaged lung bases. Solid abdominal organs and gallbladder are unremarkable. Small mesenteric and periaortic lymph nodes are likely reactive. No small bowel obstruction. Appendix is within normal limits. Severe stool burden is present, including the cecum. Uterus is anteverted. No adnexal mass by CT. Urinary bladder is unremarkable. Mild free fluid in the pelvis is likely physiologic. Metal artifacts including from imaged piercings. Subcutaneous edema is noted dependently. Degenerative disc changes including vacuum disc phenomenon at L4-L5 and L5-S1 with small disc bulges. Bilateral facet arthropathy also in the lower lumbar spine. IMPRESSION: 1. No small bowel obstruction. 2. Severe stool burden. This document has been electronically signed by: Kojo Bowen MD on 04/15/2024 18:14:04
[2024-04-15 14:28] VITALS: BP 98/50; PULSE 65; RESP 16; TEMP 36.3; O2SAT 99; BMI 31.9
--- NOTE | 2024-04-15 14:30 | ED.GENADULT ---
HPI - General Adult General Chief complaint: Abdominal Pain Stated complaint: abd pain sent by walk in Time Seen by Provider: 04/15/24 14:59 History of Present Illness ED Provider: Willis Jones DO HPI narrative: 43-year-old female with past medical history of allergic rhinitis, hypothyroidism, constipation, hepatitis-C antibody positive, previous PCP drug use asthma, depression and hypothyroidism presents to the ED for abdominal pain and decreased flatus. Patient states he typically has a bowel movement every other day but has not passed her bowels in about 4 days. She also states she has not passed flatus since this time. She reports some nausea and bloating as well as right upper quadrant abdominal pain all when attempting to eat but has been tolerating liquids without difficulty. She reports urinary frequency but denies dysuria, decreased voids or vaginal bleeding. She states she last had her menstrual cycle starting on 03/22 but had another menstrual cycle starting 04/09 to 04/13. She states she is sexually active with 1 male partner and does not use contraceptive. History of tubal ligation. Denies current illicit drug use or tobacco use. Occasionally drinks alcohol once or twice a week up to 6 drinks. Denies alcohol withdrawal. Denies other intra-abdominal surgeries or blockages in the past. Denies difficulty breathing, chest pain, fevers or chills. Related Data Home Medications ?Medication ?Instructions ?Recorded ?Confirmed calcium 600 mg-D3 20 mcg-magnesium tab PO DAILY 01/14/20 03/26/24 50 nb-Vq-mbyssv-shayan-boron tablet (Calcium 600-D3 Plus (mag-zinc)) clonidine HCl 0.1 mg tablet 0.1 mg PO BEDTIME 01/14/20 03/26/24 cyanocobalamin (vitamin B-12) 1,000 mcg PO DAILY 01/14/20 03/26/24 1,000 mcg tablet epinephrine 0.3 mg/0.3 mL 0.3 mg IM Q10M PRN 01/14/20 03/26/24 injection syringe famotidine 40 mg tablet (Pepcid) 40 mg PO BEDTIME 01/14/20 03/26/24 fluticasone propionate 50 1 spray intranasal DAILY 01/14/20 03/26/24 mcg/actuation nasal spray,suspension (Flonase Allergy Relief) loratadine 10 mg capsule 10 mg PO DAILY 01/14/20 03/26/24 montelukast 10 mg tablet 10 mg PO BEDTIME 01/14/20 03/26/24 (Singulair) multivitamin with minerals-folic tab PO DAILY 01/14/20 03/26/24 acid 120 mcg chewable tablet (Centrum Adult 50 Plus Fresh-Fruity) venlafaxine 150 mg 150 mg PO DAILY 01/14/20 03/26/24 capsule,extended release 24 hr (Effexor XR) cholecalciferol (vitamin D3) 25 25 mcg PO QAM 07/19/22 03/26/24 mcg (1,000 unit) tablet albuterol sulfate 90 mcg/actuation 2 puff inhalation Q4-6H PRN 01/17/23 03/26/24 aerosol inhaler (Ventolin HFA) albuterol sulfate 2.5 mg/3 mL mg inhalation Q6H PRN 11/19/23 03/26/24 (0.083 %) solution for nebulization Previous Rx's ?Medication ?Instructions ?Recorded ibuprofen 600 mg tablet 600 mg PO Q6H PRN pain #20 tabs 07/02/20 nebulizers (AeroEclipse II #1 ea 05/22/21 Nebulizer) hydrocortisone 2.5 % topical cream 1 appl topical BID PRN skin 01/03/22 irritation 15 days #30 grams omalizumab 150 mg subcutaneous 150 mg subcut Q2W 30 days #2 ea 06/27/23 solution nystatin 100,000 unit/mL oral 5 ml PO BID THRUSH 10 days #100 mL 11/19/23 suspension fluticasone 250 mcg-salmeterol 50 1 inh inhalation BID Asthma 30 12/16/23 mcg/dose blistr powdr for days #60 ea inhalation (Advair Diskus) levothyroxine 112 mcg tablet 112 mcg PO DAILY #30 tabs 01/13/24 tiotropium bromide 2.5 2 puff inhalation DAILY Asthma 30 01/15/24 mcg/actuation mist for inhalation days #4 grams (Spiriva Respimat) polyethylene glycol 3350 17 17 g PO BID #510 grams 04/15/24 gram/dose oral powder (Miralax) Allergies Allergy/AdvReac Type Severity Reaction Status Date / Time Penicillins Allergy Mild RASH Verified 04/15/24 14:31 Review of Systems Review of Systems: Yes all other systems are reviewed and are negative PMFSH Past Medical History Medical History (Updated 04/15/24 @ 18:38 by Willis Jones DO) Cough Hyper-IgE syndrome Contact dermatitis Bronchitis Depression Postablative hypothyroidism Bronchial asthma Allergic rhinitis Asthma Allergic rhinitis Surgical History Hx of carpal tunnel repair Hx of tubal ligation Family History Family History Father Heart disease CVD (cardiovascular disease) Diabetes Mother CVD (cardiovascular disease) Asthma Heart disease Thyroid disease Diabetes Social History Social History Household Members: Children Alcohol intake: current Alcohol intake frequency: 3 or more drinks per day Patient Tobacco Use Status: Former Tobacco user Substance Use Type: Marijuana Physical Exam ED Vital Signs: Vital Signs - 24 hr 04/15/24 14:28 04/15/24 16:53 Temperature 97.3 F 98.4 F Pulse Rate 65 68 Respiratory Rate 16 18 Blood Pressure 98/50 L 101/69 Pulse Oximetry 99 100 Oxygen Delivery Method Room Air Room Air BMI result Body Mass Index 31.9 Constitutional: ?Alert, oriented, speaking in full sentences HEENT: ?Normocephalic, atraumatic. ?Moist mucous membranes Eyes: ?PERRL, EOMI Neck: ?Supple, nontender Chest: ?No chest wall tenderness Respiratory: ?Lungs clear to auscultation, no increased work of breathing Cardio: ?Regular rate and rhythm, no murmur, 2+ radial and DP pulses symmetrically GI: ?Soft, nondistended, nontender, no appreciable hepatomegaly, hypoactive bowel sounds Back: ?Normal range of motion, nontender, no CVA tenderness Skin: ?No rash, no lesions Neuro: ?Alert and oriented to person, place and time, moves all 4 extremities, no focal deficits Extremities: ?No swelling or tenderness, full range of motion Psych: ?Calm, alert and cooperative, appropriate behavior Course Course Course Narrative: This is a Rapid Medical Examination (RME) performed by Joel Rose PA-C in triage. Full HPI, ROS, assessment and treatment plan per primary provider in the Main ED. 43 yo female here for eval of abdominal bloating and RLQ pain which wraps around to her back x4 days. last BM 2 days ago. not passing flatus. also endorses urinary freq and nocturia. denies dysuria, hamturia, vaginal discharge, fever, N/V. surgical hx: Bilateral tubal ligation. Plan: labs, UA Medications Administered Discontinued Medications Generic Name Dose Route Start Last Admin Trade Name Joni PRN Reason Stop Dose Admin Acetaminophen 975 mg 04/15/24 16:16 04/15/24 16:53 Acetaminophen 325 Mg Tablet PO 04/15/24 16:17 975 mg ONCE ONE Administration Iohexol 100 ml 04/15/24 17:28 04/15/24 17:29 Iohexol 350 Mg/Ml 100 Ml Infus..Btl IV 04/15/24 17:29 85 ml ONCE ONE Administration Medical Decision Making Medical Decision Making [facility] Narrative: Patient presenting with history of obstipation. She also has urinary frequency. Her exam is remarkably normal and she has a half empty water bottle at the bedside that she has been drinking. Differential diagnosis includes a mild bowel obstruction, less likely ureteral stone, constipation, impaction of stool. Patient does not recall history of hepatitis-C. Her vital signs show no significant abnormalities. She is overall well-appearing. She has no pain right now and not requiring analgesics or antiemetics at this time. CT imaging shows no bowel obstruction but severe stool burden. Patient prefers to manage this at home. We discussed that if she does have signs of impaction at home that she can return for further care. She will trial laxatives and enemas. We discussed holding her clonidine and avoiding any other medications that may worsened constipation. Admission/Observation Consideration of admission/observation: Escalation of care including admission/observation considered Lab Data [facility] Lab Attestation statement: I reviewed the patient's lab results. 04/15/24 15:09 04/15/24 15:09 Labs: Lab Results 04/15/24 Range/Units 15:09 WBC 5.1 (4.8-10.8) X10*3/uL RBC 3.67 L (4.20-5.50) X10*6/uL Hgb 11.2 L (12.0-16.0) g/dl Hct 34.6 L (37.0-47.0) % MCV 94.3 (80.0-98.0) fL MCH 30.5 (27.0-33.0) pg MCHC 32.4 (31.0-35.0) g/dl RDW 12.7 (11.0-16.0) % Plt Count 200 (160-400) X10*3/uL MPV 10.2 (9.4-12.3) fL Immature Gran % (Auto) 0.2 (0.0-0.4) % Neut % (Auto) 42.2 L (45-73) % Lymph % (Auto) 48.8 H (20-40) % [place] % (Auto) 4.9 (2-11) % Eos % (Auto) 3.1 (0-4) % Baso % (Auto) 0.8 (0-2) % Lymph # (Auto) 2.5 (1.2-4.9) X10*3/uL [place] # (Auto) 0.3 (0.1-1.2) X10*3/uL Eos # (Auto) 0.2 (0.0-0.4) X10*3/uL Baso # (Auto) 0.0 (0.0-0.2) X10*3/uL Abs Immat Gran (auto) 0.01 (0.00-0.03) X10*3/uL Absolute Neuts (auto) 2.2 (2.0-8.3) x10*3/uL Absolute Nucleated RBC 0.000 (0.0-0.012) X10*3/uL Nucleated RBC % (auto) 0.0 (0.0-0.2) /100WBC Sodium 139 (135-145) mmol/L Potassium 4.5 D (3.3-5.1) mmol/L Chloride 107 (96-108) mmol/L Carbon Dioxide 26 (22-29) mmol/L Anion Gap 11 L (12-20) BUN 10 (9-16) mg/dL Creatinine 0.73 (0.5-1.4) mg/dL Estim Creat Clear Calc 98.8 Estimated GFR > 60 Random Glucose 94 (60-115) mg/dL Calcium 9.4 (8.4-10.2) mg/dL Magnesium 2.1 (1.6-2.6) mg/dL Total Bilirubin 0.2 (0.0-1.0) mg/dL AST 22 (5-31) U/L ALT 17 (0-31) U/L Alkaline Phosphatase 55 (39-117) U/L Total Protein 7.2 (6.5-8.0) g/dL Albumin 3.9 (3.5-5.0) g/dL Lipase 19 (8-78) U/L TSH 8.49 H (0.32-4.0) uIU/mL Free T4 0.87 (0.71-1.85) ng/dL Urine Color Yellow Urine Appearance Clear Urine pH 7.0 (5.0-9.0) Ur Specific [place] 1.010 (1.005-1.025) Urine Protein Negative (Neg-Trace) mg/dL Urine Glucose (UA) Negative (Negative) mg/dL Urine Ketones Negative (Negative) mg/dL Urine Blood Negative (Negative) Urine Nitrite Negative (Negative) Ur Leukocyte Esterase Negative (Negative) Radiology Impression Discussion of test interpretation with radiology: I have reviewed the radiologist's reading. Discharge Plan Discharge Clinical Impression: Constipation Patient Disposition: Home, Self-Care Additional Instructions: You were evaluated for bloating and were diagnosed with constipation. As discussed, the clonidine may cause constipation so we would avoid a few days of doses if possible. Also avoid other medications that would slow your got including Benadryl or any anticholinergic medications. You can Google any ncfj-otq-zejvgzc medications to see if they have anticholinergic effects. Treat her constipation with Fleet enemas as well as 2 caps full of MiraLax, 1 in the morning and 1 in the evening until you have relief of your symptoms. If you find that you have impacted stool at the rectum and are unable to remove this to treat the constipation, please return. Please continue your thyroid medication and follow up with your primary care provider about this. Prescriptions: New polyethylene glycol 3350 [Miralax] 17 gram/dose powder 17 g PO BID Qty: 510 0RF No Action omalizumab 150 mg recon soln 150 mg subcut Q2W 30 Days Qty: 2 12RF fluticasone propion-salmeterol [Advair Diskus] 250-50 mcg/dose blister with device 1 inh inhalation BID 30 Days Qty: 60 5RF levothyroxine 112 mcg tablet 112 mcg PO DAILY Qty: 30 5RF Spiriva Respimat 2.5 mcg/actuation mist 2 puff inhalation DAILY 30 Days Qty: 4 5RF ibuprofen 600 mg tablet 600 mg PO Q6H PRN (Reason: pain) Qty: 20 0RF (DME) AeroEclipse II Nebulizer Misc See Rx Instructions .ROUTE .MEDSUPPLY Qty: 1 0RF Rx Instructions: As directed Ca-D3-mag da-fhkh-tcl-perry-bor [Calcium 600-D3 Plus (mag-zinc)] 600 mg calcium- 800 unit-50 mg tablet PO DAILY venlafaxine [Effexor XR] 150 mg capsule,extended release 24hr 150 mg PO DAILY epinephrine 0.3 mg/0.3 mL syringe 0.3 mg IM Q10M PRN Rx Instructions: for 2 doses famotidine [Pepcid] 40 mg tablet 40 mg PO BEDTIME cyanocobalamin (vitamin B-12) 1,000 mcg tablet 1,000 mcg PO DAILY Centrum Adult 50 Fresh-Fruity 120 mcg tablet,chewable PO DAILY clonidine HCl 0.1 mg tablet 0.1 mg PO BEDTIME loratadine 10 mg capsule 10 mg PO DAILY fluticasone propionate [Flonase Allergy Relief] 50 mcg/actuation spray,suspension 1 spray intranasal DAILY Rx Instructions: administer into each nostril montelukast [Singulair] 10 mg tablet 10 mg PO BEDTIME cholecalciferol (vitamin D3) 25 mcg (1,000 unit) tablet 25 mcg PO QAM hydrocortisone 2.5 % cream 1 appl topical BID MDD SKIN RASH/IRRITATION PRN (Reason: skin irritation) 15 Days Qty: 30 2RF albuterol sulfate [Ventolin HFA] 90 mcg/actuation HFA aerosol inhaler 2 puff inhalation Q4-6H PRN albuterol sulfate 2.5 mg /3 mL (0.083 %) solution for nebulization inhalation Q6H PRN nystatin 100,000 unit/mL suspension 5 ml PO BID 10 Days Qty: 100 1RF Rx Instructions: administer 1/2 of dose in each side of the mouth Print Language: Czech
[2024-04-15 15:13] LABS: MANUAL DIFF FLAG NO
[2024-04-15 15:15] LABS: Basophils Percent Auto 0.8 % (0-2); Eosinophils Absolute Auto 0.2 X10*3/uL (0.0-0.4); Eosinophils Percent Auto 3.1 % (0-4); Hematocrit 34.6 % (37.0-47.0); Hemoglobin 11.2 g/dl (12.0-16.0); Imm Gran Abs Auto 0.01 X10*3/uL (0.00-0.03); Imm Gran Pct Auto 0.2 % (0.0-0.4); Lymphocytes Absolute Auto 2.5 X10*3/uL (1.2-4.9); Lymphocytes Percent Auto 48.8 % (20-40); Mean Corpuscular HGB Conc 32.4 g/dl (31.0-35.0); Mean Corpuscular Hemoglobin 30.5 pg (27.0-33.0); Mean Corpuscular Volume 94.3 fL (80.0-98.0); Mean Platelet Volume 10.2 fL (9.4-12.3); Monocytes Absolute Auto 0.3 X10*3/uL (0.1-1.2); Monocytes Percent Auto 4.9 % (2-11); Neutrophils Absolute Auto 2.2 x10*3/uL (2.0-8.3); Neutrophils Percent Auto 42.2 % (45-73); Platelet Count 200 X10*3/uL (160-400); Red Blood Count 3.67 X10*6/uL (4.20-5.50); Red Cell Distribution Width 12.7 % (11.0-16.0); White Blood Count 5.1 X10*3/uL (4.8-10.8)
[2024-04-15 15:33] LABS: Alanine Aminotransferase 17 U/L (0-31); Albumin Level 3.9 g/dL (3.5-5.0); Alkaline Phosphatase 55 U/L (39-117); Anion Gap 11 (12-20); Aspartate Amino Transferase 22 U/L (5-31); Bilirubin Total 0.2 mg/dL (0.0-1.0); Blood Urea Nitrogen 10 mg/dL (9-16); Calcium 9.4 mg/dL (8.4-10.2); Carbon Dioxide 26 mmol/L (22-29); Chloride 107 mmol/L (96-108); Creatinine Clr Calc Pharmacy 98.8; Estimated Glomerular Filt Rate > 60; Glucose Random 94 mg/dL (60-115); Lipase 19 U/L (8-78); Magnesium 2.1 mg/dL (1.6-2.6); Potassium 4.5 mmol/L (3.3-5.1); Sodium 139 mmol/L (135-145); Total Protein 7.2 g/dL (6.5-8.0)
[2024-04-15 15:45] LABS: Appearance Urine Clear; Color Urine Yellow; Glucose Urine UA Negative (Negative); Leukocyte Esterase Urine Negative (Negative); Nitrite Urine Negative (Negative); Urine Blood Negative (Negative); Urine Ketones Negative (Negative); Urine Protein Negative (Neg-Trace)
[2024-04-15 16:41] LABS: Free T4 (Free Thyroxine) 0.87 ng/dL (0.71-1.85); Thyroid Stimulating Hormone 8.49 uIU/mL (0.32-4.0)
[2024-04-15 16:53] VITALS: BP 101/69; PULSE 68; RESP 18; TEMP 36.9; O2SAT 100
[2024-04-15] MEDS: Acetaminophen 325 MG TABLET 975 MG PO (16:53)
--- NOTE | 2024-04-15 16:55 | PC.NURSE ---
patient a&ox3, vss, rr equal/non labored- lungs clear, pt states her last BM was greater than 5 days- pt states she has never taken any stool softeners to assist with BM. pt c/o 8-11/25 abd pain, pt medicated with tylenol per order. IV was inserted, labs previously drawn, pt awaiting ct scan, plan of care ongoing
--- OUTSIDE RECORDS SUMMARY | 2024-04-15 17:08 | XMS_ITS | Encounter Summary ---
Author Organization [employer] Address [address] [address] [address] [place] [address] Care Team Providers Care Outside Sales Account Representative Name Role Phone Mary Hurd MD Primary Care Provider [phone] Encounter Details Date Type Department Care Team ([facility] st Contact Info) Description 04/15/2024 10:00 AM EST Office Visit [facility] [address] [place] [address] [phone] Fredo Drkae MD [address] [place], [place] [phone] Abdominal pain, unspecified abdominal location (Primary Dx); Abnormal uterine bleeding; Right flank pain Social History Tobacco Use Types Packs/Day Years Used Date Smoking Tobacco: Never Smokeless Tobacco: Never Alcohol Use Standard Drinks/Week Comments Defer 0 (1 standard drink = 0.6 oz pur e alcohol) Depression Answer Date Recorded Patient Health Questionnaire-9 Score 5 02/27/2024 Patient Health Questionnaire-9 Score 5 02/27/2024 Last PHQ-9: Questionnaire Data Not on file 1 04/29/2023 Housing Stability Answer Date Recorded What is your housing situation today? I have trev morocho 12/31/[address] you li ve. Do you have problems with any of the following? None of the above 12/31/2022 Food Insecurity Answer Date Recorded Within the past 12 months, y ou worried that your food would run out before you got money to buy more: Never True 05/24/2023 Within the past 12 months,th e food you bought just didn't last and you didn't have enough money to get more: Never True 10/2023 Transportation Answer Date Recorded In the past 12 months, has l ack of transportation kept you from medical appts, meetings, work or from getting things needed for daily living? No 12/31/2022 Utilities Answer Date Recorded In the past 12 months, has t he electric, gas, oil or water company threatened to shut off services in your home? No 12/31/2022 Depression Answer Date Recorded Patient Health Questionnaire-2 Score 1 02/27/2024 Comments No Sex and Gender Information Value Date Recorded Sex Assigned at Female 01/15/2022 10:14 AM EDT Legal Sex Female 10:14 AM EDT Gender Identity Female 01/15/2022 10:14 AM EDT Sexual Orientation Choose not to disclose 2021 10:14 AM EDT documented as of this encounter Last Filed Vital Signs Vital Sign Reading Time Taken Comments Blood Pressure 121/67 04/15/2024 9:57 AM EST Pulse 75 04/15/2024 9:57 AM EST Temperature 36.6 ??C (97.8 ??F) 04/15/2024 9:57 AM ES T Respiratory Rate 18 04/15/2024 9:57 AM EST Oxygen Saturation 97% 04/15/2024 9:57 AM EST Inhaled Oxygen Concentration - - Weight 79.8 kg (176 lb) 04/15/2024 9:57 AM EST Height - - Body Mass Index 31.18 10/31/2023 2:27 PM EDT documented in this encounter Progress Notes * Fredo Drake MD - 04/15/2024 10:00 AM EST Subjective Patient ID: Charlie Navarro is a 43 y.o. female. HPI 3 days ago Charile had onset of constant abd bloating , occasional pain in RLQ that radiates around to back. Bloating worsens when she eats, keeps her awake at night. Last bowel movement was 2 days ago. Had had urinary frequency for 4 days, nocturia, no burning on urination or vaginal discharge. No fever, n/v. Had LMP=03/22, then had vaginal bleeding again 04/09 until yesterday. Also had 2 periods last month. Has unprotected intercourse wiith her male partner. Abd surgery: BTL. Lives with son. 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 Never smoked. Occasional EtOH. Patient Active Problem List Diagnosis Acquired hypothyroidism Allergic rhinitis Cobalamin deficiency Constipation Depressive disorder Gastroesophageal reflux disease Hepatitis C antibody test positive History of substance abuse ([facility]) Illiteracy Severe persistent asthma Steroid-induced osteopenia Tremor Visual impairment Memory loss Concentration deficit Chronic pain of left knee Chronic daily headache Sleep apnea Iron deficiency anemia Current chronic use of systemic steroids Polyarthralgia Numbness and tingling in both hands The following portions of the chart were reviewed this encounter and updated as appropriate: Tobacco Allergies Meds Problems Med Hx Surg Hx Fam Hx Review of Systems Constitutional: Negative for fever. Respiratory: Negative for shortness of breath. Cardiovascular: Negative for chest pain. Gastrointestinal: Positive for abdominal pain and constipation. Genitourinary: Positive for flank pain, frequency and menstrual problem. Skin: Negative for rash. Neurological: Negative for headaches. Objective Physical Exam Constitutional: Appearance: Normal appearance. HENT: Nose: Nose normal. Mouth/Throat: Mouth: Mucous membranes are moist. Pharynx: Oropharynx is clear. Eyes: Conjunctiva/sclera: Conjunctivae normal. Pupils: Pupils are equal, round, and reactive to light. Cardiovascular: Rate and Rhythm: Normal rate and regular rhythm. Heart sounds: No murmur heard. Pulmonary: Effort: Pulmonary effort is normal. Breath sounds: Normal breath sounds. Abdominal: General: Abdomen is flat. Palpations: Abdomen is soft. Tenderness: There is abdominal tenderness in the right lower quadrant, epigastric area, suprapubic area and left lower quadrant. There is right CVA tenderness. There is no left CVA tenderness, guarding or rebound. Musculoskeletal: General: Normal range of motion. Cervical back: No tenderness. Skin: Findings: No rash. Neurological: Mental Status: She is alert. Gait: Gait is intact. Psychiatric: Mood and Affect: Mood normal. Behavior: Behavior normal. Procedures Assessment/Plan Diagnoses and all orders for this visit: Abdominal pain, unspecified abdominal location U/a, UCG neg. Urine C&S pending. ?etiology. Discussed going to ED now; she would like to try laxatives at home first, and will go to the ED if not improving. Right flank pain As above. Abnormal uterine bleeding Referred to Kayleigh Mcclelland. Other orders - docusate sodium (Colace) 100 MG capsule; Take 1 capsule (100 mg) by mouth if needed in the morning and at bedtime for constipation. - polyethylene glycol, PEG, 3350 (MiraLax) 17 GM/SCOOP powder; Take 17 g by mouth Once per day for 7 days. documented in this encounter Plan of Treatment Scheduled Orders Name Type Priority Associated Diagnoses Orde r Schedule Culture, Urine, Routine Microbiology Routine Abdominal pain, unspecified abdominal location Ordered: 04/15/2024 documented as of this encounter Procedures Procedure Name Priority Date/Time Associated Diagnosis Comments POCT , URINE Routine 04/15/2024 11:05 AM EST Abdominal pain, unspecified abdominal location POCT URINALYSIS DIPSTICK Routine 04/15/2024 11:05 AM EST Abdominal pain, unspecified abdominal location documented in this encounter Results * POCT , urine manually resulted (04/15/2024 11:05 AM EST) Preg Test, Ur Negative Negative, Indeterminate, None Detected, Invalid, Specimen unsatisfactory for evaluation, Weakly Positive Urine 04/15/2024 11:0 5 AM EST us Fredo Drake MD POINT OF CARE TEST ENTER/EDIT OR DERABLES Final Result * POCT urinalysis dipstick manually resulted (04/15/2024 11:05 AM EST) Color, UA Yellow Clarity, UA Clear Glucose, UA Negative Bilirubin, UA Negative Ketones, UA Negative Spec Grav, UA 1.010 Blood, UA Negative Negative, None Detected pH, UA 7.0 Protein, UA Negative Urobilinogen, UA 0.2 Leukocytes, UA Negative Negative, Rare, Trace Nitrite, UA Negative Negative, None Detected Urine 04/15/2024 11:0 5 AM EST us Fredo Drake MD POINT OF CARE TEST ENTER/EDIT OR DERABLES Final Result documented in this encounter Visit Diagnoses Diagnosis Abdominal pain, unspecified abdominal location- Primary Abnormal uterine bleeding Unspecified disorder of menstruation and other abnormal bleeding from female genital tract Right flank pain Abdominal pain, unspecified site documented in this encounter Additional Health Concerns Assessment Noted Time PHQ-9 Depression Total Score: 5 02/27/20 24 12:52 PM EST documented as of this encounter Care Teams Outside Sales Account Representative Relationship Specialty Start Date End Date Mary Hurd MD [address] [place] [id number] PCP - General Family Medicine 02/01/21 Sigrid Florentino Postal WorkerComputer Specialist 05/24/23 Donny Jimenez MD Consulting Physician Pulmonary Disease 02/27/24 documented as of this encounter
--- OUTSIDE RECORDS SUMMARY | 2024-04-15 17:09 | XMS_ITS | Encounter Summary ---
Author Organization [employer] Address [address] [place] [address] Care Team Providers Care Bean Weigher Name Role Phone Mary Hurd MD Primary Care Provider [phone] Encounter Details Date Type Department Care Team (Latest Contact Info) Description 04/09/2024 Travel Social History Tobacco Use Types Packs/Day Years [...] AM EDT documented as of this encounter Plan of Treatment Not on file documented as of this encounter Visit Diagnoses Not on filedocumented in this encounter Additional Health Concerns Assessment Noted Time PHQ-9 Depression Total Score: 5 02/27/20 24 12:52 PM EST documented as of this encounter Care Teams Bean Weigher Relationship Specialty Start Date End Date Mary Hurd MD [address] [place] [id number] PCP - General Family Medicine 02/01/21 Sigrid Florentino Mathematics ProfessorUltimate Hoops Scoreboard Operator 05/24/23 Donny Jimenez MD Consulting Physician Pulmonary Disease 02/27/24 documented as of this encounter
--- OUTSIDE RECORDS SUMMARY | 2024-04-15 17:09 | XMS_ITS | Clinical Summary ---
Author Organization [email or web address] Address [address] [place] [address] Care Team Providers Care Dry Plasterer Name Role Phone Mary Hurd MD Primary Care Provider [phone] Allergies Active Allergy Reactions Criticality Noted Date Comments Penicillin V Other Low 01/23/2013 Other reaction(s): Rash per patient memory Shellfish-Derived Products Other Low 1 Other reaction(s): unspecified Medications * This document contains information received from the source organization and may not represent a complete record from that organization. SUMAtriptan (Imitrex) 100 MG tablet TAKE 1 TABLET BY MOUTH NEEDED. MAY REPEAT ONCE AFTER 4 HOURS. NO MORE THAN 2 TABLETS PER 24 HOURS 02/08/20 22 Active omalizumab (Xolair) 150 MG injection Inject 1.2 mL under the skin every 4 (four) weeks. Active EPINEPHrine (Epipen) 0.3 MG/0.3ML injection syringe Inject 0.3 mg into the shoulder, thigh, or buttocks. 02/20/20 19 Active emtricitabine- tenofovir DF (Truvada) 200-300 MG tablet Take 1 tablet by mouth in the morning. 10/05/19 22 Active topiramate (Topamax) 100 MG tablet TAKE 1 TABLET BY MOUTH TWICE DAILY IN THE MORNING AND AT BEDTIME 03/20/19 24 Active zolpidem (Ambien) 10 MG tablet Take 10 mg by mouth at bedtime. 02/12/20 23 Active famotidine (Pepcid) 20 MG tablet Take 1 tablet (20 mg) by mouth 2 times daily. 60 tablet 11 04/19/19 24 025 Active buPROPion (Wellbutrin) 75 MG tabletIndicati ons:Depressive disorder Take 1 tablet (75 mg) by mouth 2 times daily. 180 tablet 3 07/08/19 24 Active Advair Diskus 250-50 MCG/ACT aerosol powder INHALE 1 PUFF TWICE DAILY (for asthma). RINSE MOUTH AFTER USING. 07/02/19 24 Active Spiriva Respimat 2.5 MCG/ACT inhaler INHALE 2 PUFFS EVERY DAY (for asthma) 07/02/19 24 Active Multiple Vitamins-Iron (Tab-A-Osman/Ir on/Beta Carotene) tablet Take 1 tablet by mouth in the morning. 08/28/19 24 Active Multiple Vitamins-Mathematics Teacher als (CertaVite/Ant ioxidants) tablet TAKE 1 TABLET BY MOUTH EVERY MORNING 30 tablet 11 11/14/19 24 Active montelukast (Singulair) 10 MG tablet TAKE 1 TABLET BY MOUTH EVERY EVENING 30 tablet 11 11/14/19 24 Active cyanocobalamin (Vitamin B-12) 1000 MCG tablet TAKE 1 TABLET BY MOUTH EVERY MORNING 30 tablet 11 11/14/19 24 Active loratadine (Claritin) 10 MG tabletIndicati ons:Severe persistent asthma, unspecified whether complicated TAKE 1 TABLET BY MOUTH EVERY MORNING 90 tablet 1 12/18/19 24 Active Calcium Carb-Cholecalc iferol 600-10 MG-MCG tabletIndicati ons:Vitamin D deficiency TAKE 1 TABLET BY MOUTH TWICE DAILY AT NOON AND IN THE EVENING 180 tablet 1 01/14/20 24 Active cholecalcifero l (Vitamin D-3) 25 MCG tabletIndicati ons:Vitamin D deficiency TAKE 1 TABLET BY MOUTH EVERYDAY AT NOON 90 tablet 1 01/14/20 24 Active fluticasone (Flonase) 50 MCG/ACT nasal spray USE 1 SPRAY IN EACH NOSTRIL TWICE DAILY 48 g 1 02/12/20 24 Active predniSONE (Deltasone) 5 MG tablet TAKE 1 TABLET BY MOUTH ONCE DAILY 90 tablet 1 02/12/20 24 Active amitriptyline (Elavil) 100 MG tablet Take 100 mg by mouth at bedtime. 01/22/20 24 Active albuterol 108 (90 Base) MCG/ACT inhaler Inhale 2 puffs every 4 (four) hours if needed for wheezing. 18 g 02/27/20 24 025 Active albuterol (2.5 MG/3ML) 0.083% nebulizer solution Take 3 mL (2.5 mg) by nebulization every 6 (six) hours if needed for wheezing. 180 mL 5 02/27/20 24 Active levothyroxine (Tirosint) 112 MCG capsuleIndicat ions:Acquired Hypothyroidism ,Rx'ed per pt by ENDO Take by mouth before breakfast. Active hydrOXYzine HCl (Atarax) 25 MG tablet Take 1 tablet (25 mg) by mouth every 6 (six) hours if needed for anxiety. 90 tablet 3 04/09/19 25 025 Active docusate sodium (Colace) 100 MG capsule Take 1 capsule (100 mg) by mouth if needed in the morning and at bedtime for constipation. 60 capsule 3 04/15/19 25 026 Active polyethylene glycol, PEG, 3350 (MiraLax) 17 GM/SCOOP powder Take 17 g by mouth Once per day for 7 days. 119 g 04/15/19 25 025 Active hydrOXYzine HCl (Atarax) 25 MG tablet Take 1 tablet (25 mg) by mouth if needed in the morning, at noon, and at bedtime for itching. 90 tablet 3 04/09/19 25 025 Discontinued Active Problems Problem Noted Date Diagnosed Date Numbness and tingling in both hands 10/31/2023 Assessment & Plan (11/06/2023 8:51 AM EDT): Numbness in bilateral hands, requested EMG study Polyarthralgia 07/15/2023 Assessment & Plan (07/16/2023 1:15 PM EDT): Vague symptoms of diffuse joint aches. Will send testing to r/o autoimmune causes. Will f/up with lab results. Current chronic use of systemic steroids 024 Assessment & Plan (06/04/2023 12:49 AM EDT): Recommended a bone density test to assess the current status of osteoporosis. Reviewed the patient's Hx of steroid use and its potential impact on bone health. Scheduled F/U to review the results of the thyroid test, bone density test, and to assess the patients response to the PCV-20 vaccine. Future Appointments Date Time Provider Department Center 06/28/2023 1:30 PM Sulma Trotter, OD [facility] 07/08/2023 2:30 PM Willie Rubalcava, HABITAT BIOLOGIST MEDIC[facility] Sleep apnea 04/19/2023 Assessment & Plan (08/26/2023 11:57 AM EDT): Sleep study didn't show any evidence of sleep apnea. Assessment & Plan (04/19/2023 2:55 PM EST): Patient that presented visit with complaints of sleep apnea will be sent for Home Sleep Test. Iron deficiency anemia 04/19/2023 Assessment & Plan (04/19/2023 2:56 PM EST): Patient will be sent for labs for further evaluation. -Labs: CBC, Ferritin Chronic daily headache 02/04/2023 Assessment & Plan (02/04/2023 11:30 AM EST): Patient that presented visit with concerns of constant headaches will be prescribed Butalbital-Acetaminophen. Chronic pain of left knee 12/14/2022 Assessment & Plan (12/17/2022 9:42 AM EDT): Will refer patient to orthopedics per her request, linsey GONZALEZ, sent for X ray. Defer PT referral, patient will like to speak with ortho first. Concentration deficit 04/30/2022 Assessment & Plan (04/30/2022 10:03 AM EST): Patient reports she has had concentration problems and memory deficits. Reports that she is having problems at work, reports bringing it up to psych about her depression/anxiety, & mood, which per patient report was told it was not related (reviewed psych note, they consider this is likely multifactorial). Prior use of substances that has discontinued. Will send labs and referral to neurology, although given her hx she may be having some pseudodementia Memory loss 04/26/2022 Assessment & Plan (04/26/2022 10:01 AM EST): Forgetful and distracted both with short-term information (affecting her job performance), and medium-term, such as forgetting appointments and information the following day. Likely multi-factorial: Mood with depressive and anxious symptoms; hx prior substance use (PCP), hx severe asthma with hypoxic events including need for intubation. Also hypothyroidism historically poorly controlled. She will F/U with her PCP. Cobalamin deficiency 03/07/2015 History of substance abuse 03/07/2015 Tremor 01/26/2014 Constipation 06/19/2013 Visual impairment 06/19/2013 Hepatitis C antibody test positive 09/19/2012 Acquired hypothyroidism 02/05/2012 Assessment & Plan (02/27/2024 1:08 PM EST): Lab Results Component Value Date TSH 0.05 (L) 10/16/2023 Reports she was seen in Nov by endo and her dose was decr to 112 mcg, no records or labs in chart, requested [place] to get records/labs. F/up in 6 mo Assessment & Plan (11/06/2023 8:50 AM EDT): Patient had previously requested endocrinology referral for management of her hypothyroidism, she is being following by PCP but will want ENDO input. Referral placed Assessment & Plan (04/19/2023 2:55 PM EST): Patient will be sent for labs for further evaluation. -Labs: TSH/FT4 Allergic rhinitis 02/05/2012 Depressive disorder 02/05/2012 Assessment & Plan (07/08/2023 3:07 PM EDT): Pt has lifetime history of depression, multiple family and personal traumas. Chronic illnesses. Some cognitive limitations: forgetful. Does not read or write. Very sensitive to sedating medications. She is still finding Bupropion 75 mg BID helpful for mood. Had sleep study but has not heard results yet, which may influence treatment for insomnia. Also c/o chronic pain, weakness, dropping things. Has been unable to work. Has not spoken with therapist in a while, but did not have a good rapport with her anyway and requests new referral which is made today. She is getting some help from [facility]. As this provider will be retiring, at this time patient is referred back to her PCP for continued medication management. Call [facility] with any questions or concerns. All questions were answered today. She agrees with the plan Assessment & Plan (05/27/2023 3:16 PM EDT): Pt has lifetime history of depression, multiple family and personal traumas. Very sensitive to sedating medications. Reports sleep onset and sleep maintenance insomnia. Due to her serious respiratory conditions with chronic asthma, I had previously discussed with the patient the potential risks of sedating medication without the reassurance of a sleep study demonstrating adequate ventilation/oxygenation at night. She has been referred for sleep study but has not yet had it scheduled. Her Neurologist advised her to continue taking Zolpidem to prevent migraines, but stated he would discontinue that if her sleep study findings warranted. Pt will have to make the informed decision whether or not to take the Zolpidem. Meanwhile, will continue Bupropion 75 mg BID. F/U with therapist as usual, and [facility] Care Mgt. On 01/21/2023 pt was informed that this provider would be retiring, and suggested that she discuss with her therapist a referral to agency prescriber. She agrees with the plan Assessment & Plan (03/25/2023 2:37 PM EST): Pt has lifetime history of depression, multiple family and personal traumas. Very sensitive to sedating medications. Reports sleep difficulty with frequent awakening. Due to her serious respiratory conditions with chronic asthma, I am reluctant to prescribe sedating medication without the reassurance of a sleep study demonstrating adequate ventilation/oxygenation at night. Will defer to her PCP to consider this. Recommend she not take Zolpidem or Lorazepam prescribed by Dr. Marie, Neurologist (note that there is no documentation from him available in her record). Meanwhile, will continue Bupropion 75 mg BID. F/U with therapist as usual. F/U with therapist as usual, and [facility] Care Mgt. On 01/21/2023 pt was informed that this provider would be retiring, and suggested that she discuss with her therapist a referral to agency prescriber. Assessment & Plan (01/21/2023 1:50 PM EST): Pt has lifetime history of depression, multiple family and personal traumas. Very sensitive to sedating medications. Reports sleep difficulty with frequent awakening. Due to her serious respiratory conditions with chronic asthma, I am reluctant to prescribe sedating medication without the reassurance of a sleep study demonstrating adequate ventilation/oxygenation at night. Will defer to her PCP to consider this. Meanwhile, will continue Bupropion 75 mg BID. F/U with therapist as usual. Today 01/21/2023 pt was informed that this provider would be retiring within the next year or so, and suggested that she discuss with her therapist a referral to agency prescriber. Will also be referred to [facility] Care Mgt. ADDENDUM: After the visit was complete, provider noted in [place] PDMP that pt has been getting prescription for Zolpidem from Neurologist Dr. Lopez. With her respiratory compromise, cognitive impairment, and history of substance use, this may not be appropriate for the patient. There is also record of a single prescription for Lorazepam 1 mg twice a day from Dr. Lopez from 11/2022. Of note there is no correspondence from the specialist available in the patient's record. Not doing as well with anxiety and preoccupations. Will increase Bupropion 75 mg to twice daily. F/U for counseling when available and with me in 6 weeks. She agrees with the plan. Assessment & Plan (04/26/2022 9:57 AM EST): Pt has lifetime history of depression, multiple family and personal traumas. Very sensitive to sedating medications. Not doing as well with anxiety and preoccupations. Will increase Bupropion 75 mg to twice daily. F/U for counseling when available and with me in 6 weeks. She agrees with the plan. Assessment & Plan (02/15/2022 1:25 PM EST): Pt has lifetime history of depression, multiple family and personal traumas. Very sensitive to sedating medications. Still doing well with Bupropion 75 mg once daily in am. F/U for counseling when available and with me in 6 weeks. She agrees with the plan. Gastroesophageal reflux disease 02/05/2012 Illiteracy 02/05/2012 Severe persistent asthma 02/05/2012 Assessment & Plan (02/27/2024 1:02 PM EST): Patient currently on Advair, Xolair, prednisone & singulair. Reports she was having some exacerbations symptoms last week but has improved. Following with pulmonology. Assessment & Plan (08/28/2023 11:44 AM EDT): Discussed side effects of current medication that can cause dry mouth symptoms. Reviewed medications and updated immunization records, she declined administration today. Continue on current medications. 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 Resolved Problems Problem Noted Date Diagnosed Date Resolved Date Physical exam, annual 12/14/20222023 Asthma 03/07/2015 02/27/2024 Assessment & Plan (09/01/2023 7:53 PM EDT): Patient with severe asthma exacerbation, will send antibiotics for antiinflammatory benefit. Will send prolonged taper of prednisone. Will f/up soon prn, attempt avoid ED visit. ED precautions discussed Assessment & Plan (12/17/2022 9:43 AM EDT): Reviewed meds with patient and sent refills. Cont f/up with Dr. Cochran (pul) Encounters Date Type Department Care Team Description 04/15/2024 10:00 AM EST Office Visit [facility] [address] [place] [address] Fredo Drake MD Abdominal pain, unspecified abdominal location (Primary Dx); Abnormal uterine bleeding; Right flank pain 04/09/2024 2:15 PM EST Telemedicine [facility] [address] [place] [address] Henry Shelton MD Anxiety (Primary Dx) 04/09/2024 Orders Only GENERIC EXTERNAL DATA DEPARTMENT Provider, Generic External Data 04/09/2024 Travel 04/09/2024 Telephone [facility] [address] [place] [address] Mary Hurd MD Nurse Triage 02/27/2024 1:00 PM EST Telemedicine [facility] [address] [place] [address] Mary Hurd MD Severe persistent asthma, unspecified whether complicated (Primary Dx); Acquired hypothyroidism 02/27/2024 Travel 02/26/2024 Telephone [facility] [address] [place] [address] Mary Hurd MD CHART PREP 02/17/2024 Telephone [facility] [address] [place] [address] Mary Hurd MD 02/12/2024 Refill [facility] [address] [place] [address] Mary Hurd MD 01/24/2024 Patient Outreach [facility] [address] [place] [address] Mary Hurd MD Care Coordination ([employer] telelphone call graduate) 01/14/2024 Refill [facility] [address] [place] [address] Mary Hurd MD Vitamin D deficiency from Last 3 Months Immunizations Name Administration Dates Next Due DTP 11/24/1985,07/28/1985,06/04/1985 DTaP 04/27/2018,03/22/1989,12/07/1986 Hep B, Adolescent or Pediatric 07/29/1995,1995,02/05/1995 Hib ([facility]) 05/21/1985 IPV 03/22/1989, 6,07/28/1985,06/04 Influenza injectable quadriv alent IIV4 with preservative 12/12/2017 Influenza injectable quadriv alent preservative free 02/17/2020,02/19/2019,01/09/2017 Influenza, IIV3, injectable 01/04/1998 Influenza, Split (incl. freddy fied surface antigen) 02/05/2012 Krysten SARS-CoV-2 Vaccination 06/01/2020 MMR 04/03/1995,06/04/1985 Pfizer Covid-19 Vaccine 12+ 02/28/2021 Pneumococcal Conjugate PCV 20 06/03/2023 Pneumococcal Polysaccharide PPSV23 01/23/2010 Pneumococcal, Unspecified 01/23/2010 TD (adult), 2 Lf tetanus tox oid, preservative free, adsorbed 03/10/1995 Td (adult), 5 Lf tetanus tox oid, preservative free, adsorbed 05/06/2016,07/02/2014 Tdap 02/05/2012 Social History Tobacco Use Types Packs/Day Years Used Date Smoking Tobacco: Never Smokeless Tobacco: Never Tobacco Cessation:Counseling Given: Not Answered Alcohol Use Standard Drinks/Week Comments Defer 0 [...] not to disclose 2021 10:14 AM EDT Last Filed Vital Signs Vital Sign Reading Time Taken Comments Blood Pressure 121/67 04/15/2024 9:57 AM EST Pulse 75 04/15/2024 9:57 AM EST Temperature 36.6 ??C (97.8 ??F) 04/15/2024 9:57 AM ES T Respiratory Rate 18 04/15/2024 9:57 AM EST Oxygen Saturation 97% 04/15/2024 9:57 AM EST Inhaled Oxygen Concentration - - Weight 79.8 kg (176 lb) 04/15/2024 9:57 AM EST Height 160 cm (5' 3 ) 10/31/2023 2:27 PM EDT Body Mass Index 31.18 10/31/2023 2:27 PM EDT Plan of Treatment Health Maintenance Due Date Last Done Comments Family Planning (PISQ) 1997 COVID-19 Vaccine ( season) 2023 02/28/2021, 06/01/2020 Influenza Vaccine (#1) 2023 , 02/19/2019, 12/12/2017, Additional history exists SDOH Screening 05/23/2024 05/24/2023 Alcohol/Substance Use Screening 02/26/2025 02/27/2024 Depression Screening 02/26/2025 02/27/2024, 02/27/20 24 Cervical Cancer Screening 04/15/2025 HPV/Cotest 04/15/2025 04/15/2020, 01/09/2017 Pap Smear 04/15/2025 04/15/2020 Tobacco Screening 04/15/2025 04/15/2024 Mammogram 10/02/2025 10/03/2023 DTaP/Tdap/Td Vaccines (10 - Td or Tdap) 04/27/2028 04/27/2018, 05/06/2016, 07/02/2014, Additional history exists Zoster Vaccines (1 of 2) 2032 RSV Patients and Patients Aged 60 years or older (1 - 1-dose 75+ series) 2057 HIB Vaccines Completed 05/21/1985 IPV Vaccines Completed 03/22/1989, 11/1985, 07/28/1985, Additional history exists Hepatitis B Vaccines Completed 07/29/1995, 04/02/1995, 02/05/1995 HIV Screening Completed 05/02/2022, 05/2020, 09/15/2020, Additional history exists Pneumococcal Vaccine: Pediatrics (0 to 5 Years) and At-Risk Patients (6 to 49) Years) Completed 06/03/2023, 01/23/2010, 01/23/2010 Hepatitis C Screening Completed 07/15/2023 , 02/17/2021, 01/12/2020 HPV Vaccines Aged Out No longer eligi ble based on patient's age to complete this topic Hepatitis A Vaccines Aged Out No long er eligible based on patient's age to complete this topic Meningococcal Vaccine Aged Out No yonas weston eligible based on patient's age to complete this topic RSV under 20 months Aged Out No longe r eligible based on patient's age to complete this topic Rotavirus Vaccines Aged Out No longer eligible based on patient's age to complete this topic Procedures Procedure Name Priority Date/Time Associated Diagnosis Comments TSH Routine 04/15/2024 3:09 PM EST T4, FREE Routine 04/15/2024 3:09 PM EST URINALYSIS WITH REFLEX MICROSCOPIC Routine 04/15/2024 3:09 PM EST LIPASE Routine 04/15/2024 3:09 PM EST MAGNESIUM Routine 04/15/2024 3:09 PM EST COMPREHENSIVE METABOLIC PANEL Routine 04/15/2024 3:09 PM EST CBC WITH AUTO DIFFERENTIAL Routine 04/15/2024 3:09 PM EST POCT , URINE Routine 04/15/2024 11:05 AM EST Abdominal pain, unspecified abdominal location POCT URINALYSIS DIPSTICK Routine 04/15/2024 11:05 AM EST Abdominal pain, unspecified abdominal location TSI (THYROID STIMULATING IMMUNOGLOBULIN) Routine 04/09/2024 3:48 PM EST TRAB (TSH RECEPTOR BINDING ANTIBODY) Routine 04/09/2024 3:48 PM EST THYROID PEROXIDASE ANTIBODIES Routine 04/09/2024 3:48 PM EST T3, TOTAL Routine 04/09/2024 3:48 PM EST TSH Routine 04/09/2024 3:48 PM EST T4, FREE Routine 04/09/2024 3:48 PM EST BI MAMMOGRAM SCREENING TOMOSYNTHESIS BILATERAL Routine 10/03/2023 2:07 PM EDT Breast cancer screening by mammogram HEPATITIS PANEL, GENERAL Routine 07/15/2023 1:30 PM EDT Polyarthralgia HIV ANTIBODY/ANTIGEN ([place] [facility]) Routine 05/02/2022 4:17 PM EST HPV MRNA E6/E7 Routine 04/15/2020 11:47 AM EST THINPREP IMAGING SYSTEM PAP Routine 04/15/2020 11:47 AM EST from Last 3 Months or Most Recently Relevant to Health Maintenance Results * (ABNORMAL) CBC auto differential (04/15/2024 3:09 PM EST) White Blood Count 5.1 4.8 - 10.8 X10*3/uL [facility] Red Blood Count 3.67(L) 4.20 - 5.50 X10*6/uL [facility] Hemoglobin 11.2(L) 12.0 - 16.0 g/dl [facility] Hematocrit 34.6(L) 37.0 - 47.0 % [facility] Mean Corpuscular Volume 94.3 80.0 - 98.0 fL [facility] Mean Corpuscular Hemoglobin 30.5 27.0 - 33.0 pg [facility] Mean Corpuscular HGB Conc 32.4 31.0 - 35.0 g/dl [facility] Red Cell Distribution Width 12.7 11.0 - 16.0 % [facility] Platelet Count 200 160 - 400 X10*3/uL [facility] Mean Platelet Volume 10.2 9.4 - 12.3 fL [facility] Neutrophils Percent Auto 42.2(L) 45 - 73 % [facility] Imm Gran Pct Auto 0.2 0.0 - 0.4 % [facility] Lymphocytes Percent Auto 48.8(H) 20 - 40 % [facility] Monocytes Percent Auto 4.9 2 - 11 % [facility] Eosinophils Percent Auto 3.1 0 - 4 % [facility] Basophils Percent Auto 0.8 0 - 2 % [facility] NRBC Pct Auto 0.0 0.0 - 0.2 /100WBC [facility] Neutrophils Absolute Auto 2.2 2.0 - 8.3 x10*3/uL [facility] Imm Gran Abs Auto 0.01 0.00 - 0.03 X10*3/uL [facility] Lymphocytes Absolute Auto 2.5 1.2 - 4.9 X10*3/uL [facility] Monocytes Absolute Auto 0.3 0.1 - 1.2 X10*3/uL [facility] Eosinophils Absolute Auto 0.2 0.0 - 0.4 X10*3/uL [facility] Basophils Absolute Auto 0.0 0.0 - 0.2 X10*3/uL [facility] NRBC Abs Auto 0.000 0.0 - 0.012 X10*3/uL [facility] 04/15/2024 3:09 PM EST 04/15/2024 3:12 PM EST us Generic External Data Provider LAB BLOOD ORDERAB LES Final Result [facility] [address] [place] [phone] * Urinalysis w/reflex microscopic (04/15/2024 3:09 PM EST) Color Urine Yellow [facility] Appearance Urine Clear [facility] PH 7.0 5.0 - 9.0 [facility] Glucose Urine UA Negative Negative mg/dL [facility] Urine Blood Negative Negative [facility] Specific Boon - Urine 1.010 1.005 - 1.025 [facility] Urine Protein Negative Neg-Trace mg/dL [facility] Urine Ketones Negative Negative mg/dL [facility] Nitrite Urine Negative Negative [facility] Leukocyte Esterase Urine Negative Negative [facility] 04/15/2024 3:09 PM EST 04/15/2024 3:12 PM EST Narrative [facility] - 04/15/2024 3:57 PM EST [id number], Clean Catch Generic External Data Provider LAB URINE ORDERAB LES Final Result Performing Organization Address City/[facility]/ZIP Co de Phone Number [facility] [address] [place] [phone] * (ABNORMAL) TSH (04/15/2024 3:09 PM EST) Only the most recent of2 resultswithin the time period is included. Thyroid Stimulating Hormone 8.49(H) 0.32 - 4.0 uIU/mL [facility] Comment:Note: A sustained TS H level above 2.5 uIU/mL may warrant further investigation. TSH 3rd Generation ([facility]) 04/15/2024 3:09 PM EST 04/15/2024 3:12 PM EST us Generic External Data Provider LAB BLOOD ORDERAB LES Final Result Performing Organization Address City/[facility]/ZIP Co de Phone Number [facility] [address] [place] [phone] * T4, Free (04/15/2024 3:09 PM EST) Only the most recent of2 resultswithin the time period is included. [facility] Free T4 (Free Thyroxine) 0.87 0.71 - 1.85 ng/dL [facility] 04/15/2024 3:09 PM EST 04/15/2024 3:12 PM EST Generic External Data Provider LAB BLOOD ORDERAB LES Final Result Performing Organization Address [facility] Co de Phone Number [facility] [address] [place] [phone] * Magnesium (04/15/2024 3:09 PM EST) [facility] Magnesium 2.1 1.6 - 2.6 mg/dL [facility] 04/15/2024 3:09 PM EST 04/15/2024 3:12 PM EST Generic External Data Provider LAB BLOOD ORDERAB LES Final Result Performing Organization Address [facility] Co de Phone Number [facility] [address] [place] [address] [phone] * Lipase (04/15/2024 3:09 PM EST) [facility] Lipase 19 8 - 78 U/L [facility] 04/15/2024 3:09 PM EST 04/15/2024 3:12 PM EST Generic External Data Provider LAB BLOOD ORDERAB LES Final Result Performing Organization Address [facility] de Phone Number [facility] [address] [place] [phone] * (ABNORMAL) Comprehensive Metabolic Panel (04/15/2024 3:09 PM EST) [facility] Sodium 139 135 - 145 mmol/L [facility] Potassium 4.5 3.3 - 5.1 mmol/L [facility] Chloride 107 96 - 108 mmol/L [facility] Carbon Dioxide 26 22 - 29 mmol/L [facility] Anion Gap 11(L) 12 - 20 [facility] Urea Nitrogen (BUN) 10 9 - 16 mg/dL [facility] Creatinine, Serum 0.73 0.5 - 1.4 mg/dL [facility] Creatinine Clr Calc Pharmacy 98.8 [facility] Comment:Provided height and weight: 157.48 cm,79.2 kg.eGFR (calculated from the MDRD study equation) and eCrCl(calculated from the Cockcroft-Gault equation) are based ondifferent parameters and may not yield comparable results.If eCrCl result is absurd, please check patient'sheight/weight. Estimated Glomerular Filt Rate >60 [facility] Comment:Chronic Kidney Disea se: Estimated GFR < 60 mL/min/1.46u6Dprknu Kidney Disease: Estimated GFR < 15 mL/min/1.73m2 Glucose 94 60 - 115 mg/dL [facility] Calcium 9.4 8.4 - 10.2 mg/dL [facility] Bilirubin, Total 0.2 0.0 - 1.0 mg/dL [facility] Aspartate Amino Transferase 22 5 - 31 U/L [facility] Alanine Aminotransferase 17 0 - 31 U/L [facility] Total Protein 7.2 6.5 - 8.0 g/dL [facility] Albumin Level 3.9 3.5 - 5.0 g/dL [facility] Alkaline Phosphatase 55 39 - 117 U/L [facility] 04/15/2024 3:09 PM EST 04/15/2024 3:12 PM EST us Generic External Data Provider LAB BLOOD ORDERAB LES Final Result [facility] [address] [place] [address] [phone] * POCT , urine manually resulted (04/15/2024 11:05 AM EST) Preg Test, Ur Negative Negative, Indeterminate, None Detected, Invalid, Specimen unsatisfactory for evaluation, Weakly Positive Urine 04/15/2024 11:0 5 AM EST Fredo Drake MD POINT OF CARE TEST [...] Detected Urine 04/15/2024 11:0 5 AM EST Fredo Drake MD POINT OF CARE TEST ENTER/EDIT OR DERABLES Final Result * Thyroid Peroxidase Antibodies (04/09/2024 3:48 PM EST) Thyroid Peroxidase Antibodies 1 <9 IU/mL [facility] Comment:THIS TEST WAS PERFOR MED AT:[employer] [address] [phone] GENTILE MD 04/09/2024 3:48 PM EST 04/09/2024 3:48 PM EST Generic External Data Provider LAB BLOOD ORDERAB LES Final Result [facility] [address] [place] [address] [phone] * TSI (Thyroid Stimulating Immunoglobulin) (04/09/2024 3:48 PM EST) Thyroid Stimulating Immunoglobulin <89 <140 % baseline [facility] Comment: Thyroid stimulating immunoglobulins (TSI) can engagethe TSH receptors resulting in hyperthyroidism inGraves' disease patients. TSI levels can be useful inmonitoring the clinical outcome of Graves' disease aswell as assessing the potential for hyperthyroidismfrom maternal- transfer. TSI results greater thanor equal to (>=) 140% of the Reference Control areconsidered positive.NOTE:A serum TSH level greater than 350 micro-InternationalUnits/mL can interfere with the TSI bioassay andpotentially give false positive results.Patients who are and are suspected of havinghyperthyroidism should have both TSI and humanChorionic Gonadotropin(hCG) tests measured. A serumhCG level greater than 40,625 mIU/mL can interferewith the TSI bioassay and may give false negativeresults. In these patients it is recommended thata second TSI be obtained when the hCG concentrationfalls below 40,625 mIU/mL (usually after [id number]-jvqkp gestation).The analytical performance characteristics of thisassay have been determined by [facility]. ??The modificationshave not been cleared or approved by the FDA. ??Thisassay has been validated pursuant to the CLIAregulations and is used for clinical purposes.THIS TEST WAS PERFORMED AT:[employer] [address] ??[phone] AGUILAR MD,PHD 04/09/2024 3:48 PM EST 04/09/2024 3:48 PM EST us Generic External Data Provider LAB BLOOD ORDERAB LES Final Result [facility] [address] [place] [phone] * TRAb (TSH Receptor Binding Antibody) (04/09/2024 3:48 PM EST) TRAb (TSH Receptor Binding Antibody) <1.00 <=2.00 IU/L [facility] Comment:This test was perfor med using the TRAb Antibody ELISAmethod which is standardized against the 1stInternational Standard 90/672 and is reported inInternational Units (IU/L). The reference rangereported was established specifically for this testmethod.THIS TEST WAS PERFORMED AT:[employer] [address]NYMEQMLIRINEO AGUILAR MD,PHD 04/09/2024 3:48 PM EST 04/09/2024 3:48 PM EST Generic External Data Provider LAB BLOOD ORDERAB LES Final Result Performing Organization Address [facility] Co de Phone Number [facility] [address] [place] [address] [phone] * (ABNORMAL) T3, Total (04/09/2024 3:48 PM EST) T3, Total 62(A) 76 - 181 ng/dL [facility] Comment:THIS TEST WAS PERFOR MED AT:[employer] [place] [phone] GENTILE MD 04/09/2024 3:48 PM EST 04/09/2024 3:48 PM EST Generic External Data Provider LAB BLOOD ORDERAB LES Final Result Performing Organization Address [facility] Co de Phone Number [facility] [address] [place] [phone] [phone] * BI Mammogram Screening Tomosynthesis Bilateral (10/03/2023 2:07 PM EDT) Anatomical Region Laterality Modality Breast Bilateral Mammography 10/03/2023 2:07 PM EDT Narrative 10/29/2023 1:58 PM EDT ? [facility] ? [address] ?[place] [address] ? Mammography Report ? Signed ? Patient: Ramon,Yeliska ?MR#: [id number] ?? 89 ? : 1980 ?Acct:[id number] ? Age/Sex: 42 / F ?ADM Date: 07/18/24 ? Loc: HO.MAMMO ? Attending Dr: Mary Hurd MD ? Ordering Physician: Mary Hurd MD ?Results: 1Nega ?? tive ? Date of Service: 10/03/23 ?Follow Up: 1 Year From Orig ?? inal Mammogram ? Procedure(s): MM tomosynthesis screening BI ?? Accession Number(s): [id number] ? cc: Mary Hurd MD ? EXAMINATION: ?? MM SCREENING DIGITAL BREAST TOMOSYNTHESIS, BILATERAL ? CLINICAL INFORMATION: ? Screening. Asymptomatic. ? COMPARISON: ?? Mammography: This is a baseline mammogram. ? TECHNIQUE: ?? Digital breast tomosynthesis is performed in both the craniocaudal and ?? mediolateral oblique views along with computer-aided detection (CAD). ?? Synthesized 2D images are generated from the tomosynthesis. ? FINDINGS: ?? There are scattered areas of fibroglandular density (ACR BI-RADS breast ?? composition Category b). ? Patient has bilateral nipple rings. ? There are no significant masses, abnormal calcifications, or other ?? abnormalities. ? MM/MM tomosynthesis screening BI ?? IMPRESSION: ?? No mammographic evidence of malignancy. ? ASSESSMENT: ? BI-RADS BI-RADS 1 - Negative ? RECOMMENDATION: ?? Routine annual mammography screening. ? 1 year F/U ? This examination should not preclude the clinical evaluation of a ?? suspicious palpable abnormality. ? This patient's information was entered into a reminder system with a ?? target due date for their next mammogram. ? Dictated By: ?Reyna Wing MD ? Signed By: ?<Electronically signed by Reyna Wing MD in OV> ? 10/29/23 1353 ? DD/ 1407 ? TD/TT: ? Soldering Machine Feeder: ? Procedure Note Donotuseinterpreter, Image - [facility] [address] [place] [address] Mammography Report Signed Patient: Brenda Navarro#: [id number] 89 : 1980Acct:[id number] Age/Sex: 42 / FADM Date: 10/03/23 Loc: HO.MAMMO Attending Dr: Mary Hurd MD Ordering Physician: Mary Hurdesults: 1Nega tive Date of Service: 10/03/23Follow Up: 1 Year From Orig inal Mammogram Procedure(s): MM tomosynthesis screening BI Accession Number(s): [id number] cc: Mary Hurd MD EXAMINATION: MM SCREENING DIGITAL BREAST TOMOSYNTHESIS, BILATERAL CLINICAL INFORMATION: Screening. Asymptomatic. COMPARISON: Mammography: This is a baseline mammogram. TECHNIQUE: Digital breast tomosynthesis is performed in both the craniocaudal and mediolateral oblique views along with computer-aided detection (CAD). Synthesized 2D images are generated from the tomosynthesis. FINDINGS: There are scattered areas of fibroglandular density (ACR BI-RADS breast composition Category b). Patient has bilateral nipple rings. There are no significant masses, abnormal calcifications, or other abnormalities. MM/MM tomosynthesis screening BI IMPRESSION: No mammographic evidence of malignancy. ASSESSMENT: BI-RADS BI-RADS 1 - Negative RECOMMENDATION: Routine annual mammography screening. 1 year F/U This examination should not preclude the clinical evaluation of a suspicious palpable abnormality. This patient's information was entered into a reminder system with a target due date for their next mammogram. Dictated By: Reyna Wing MD Signed By: <Electronically signed by Reyna Wing MD in OV> 10/29/23 1353 DD/ 1407 TD/TT: Soldering Machine Feeder: Mary Hurd MD IMG BI PROCEDURES Final Resul t * Hepatitis A,B,C Profile (07/15/2023 1:30 PM EDT) Hepatitis A IgM Nonreactive Nonreactive [facility] Comment:IgM antibodies to COOPER V not detected; does not exclude earlyacute or recovered HAV infection. ~Hepatitis B Surface Antibody NONREACTIVE Nonreactive [facility] Comment:Nonreactive: < 8.00 mIU/mL Hepatitis B Core Antibody Nonreactive Nonreactive [facility] Hepatitis C Antibody Nonreactive Nonreactive [facility] Comment:Antibodies to HCV no t detected; does not exclude early acuteHCV infection. Hepatitis B Surface Ag Negative Negative [facility] Blood Venous blood specimen / Unknown 07/15/2023 1:30 PM EDT 07/15/2023 2:00 PM EDT Mary Hurd MD LAB BLOOD ORDERABLES Final Re sult [facility] [address] [place] [phone] * HIV Ab/Ag ([facility]) (05/02/2022 4:17 PM EST) HIV AB/AG Nonreactive Nonreactive [facility] Comment:HIV-1 p24 Ag and/or HIV-1/HIV-2 Ab not detected.A test result that is nonreactive does not exclude thepossibility of exposure to or infection with HIV-1 and/orHIV-2. Nonreactive results in this assay for individualswith prior exposure to HIV-1 and/or HIV-2 may be due toantigen and antibody levels that are below the limit ofdetection of this assay.The [employer] HIV Ag/Ab Combo assay result andsupplemental assay results should be interpreted inconjunction with the patient's clinical presentation,history and other laboratory results. If the results areinconsistent with clinical evidence, additional testing issuggested to confirm the result. 05/02/2022 4:17 PM EST 05/02/2022 4:19 PM EST us [facility] External Provider LAB BLO OD ORDERABLES Final Result Performing Organization Address [facility]/ZIP Co de Phone Number [facility] [address] [place] [phone] * THINPREP TIS PAP (04/15/2020 11:47 AM EST) Clinical Information: None given [facility] COMMENT SEE COMMENT [facility] Comment: EXPLANATORY NOTE: ? The Pap is a screening test for cervical cancer. It is ?? not a diagnostic test and is subject to false negative ?? and false positive results. It is most reliable when a ?? satisfactory sample, regularly obtained, is submitted ?? with relevant clinical findings and history, and when ?? the Pap result is evaluated along with historic and ?? current clinical information. ?? COMMENT: This Pap test has been evaluated with computer assisted technology. [facility] Console Operator : SEE COMMENT [facility] Comment: MSM, CT(ASCP) CT screening location: [address] ??[address] Infection Fungal organisms morphologically consistent with Cary spp. [facility] Interpretation/R esult: Negative for intraepithelial lesion or malignancy. [facility] LMP: NONE [facility] Prev. BX: NONE [facility] Prev. PAP: NONE [facility] SOURCE: None given [facility] Statement Of Adequacy: SEE COMMENT [facility] Comment: Satisfactory for evaluation. Endocervical/transformation zone component present. Age and/or menstrual status not provided 04/15/2020 11:4 7 AM EST Mary Hurd MD LAB PATHOLOGY ORDERABLES Toshia l Result Performing Organization Address [facility]/ZIP Co de Phone Number [facility] [address] * HPV mRNA E6/E7 (04/15/2020 11:47 AM EST) HPV nRNA E6/E7 Not Detected Not Detected [facility] Comment: Methodology: Collections Clerk-Mediated Amplification This assay detects E6/E7 viral messenger RNA (mRNA) from 14 high-risk HPV types (16,18,31,33,35,39,45,51,52,56,58,59,66,68). ? The analytical performance characteristics of this assay have been determined by [employer]. The modifications have not been cleared or approved by the FDA. This assay has been validated pursuant to the CLIA regulations and is used for clinical purposes. ?? For additional information, please refer to http://education.[employer]/MUL095u2 (This link if provided for information/ educational purposes only.) 04/15/2020 11:4 7 AM EST us Mary Hurd MD LAB BLOOD ORDERABLES Final Re sult [facility] [address] from Last 3 Months or Most Recently Relevant to Health Maintenance Insurance [facility] C3 Care Teams Dry Plasterer Relationship Specialty Start Date End Date Mary Hurd MD [address] [place] [phone] PCP - General Family Medicine 02/01/21 Sigrid Florentino Front End Wheel Loader OperatorSalesperson Furs 05/24/23 Donny Jimenez MD Consulting Physician Pulmonary Disease 02/27/24
--- OUTSIDE RECORDS SUMMARY | 2024-04-15 17:09 | XMS_ITS | Encounter Summary ---
Author Organization [employer] Address [address] [facility] [place] [address] Care Team Providers Care Grinder Set Up Operator External Name Role Phone Mary Hurd MD Primary Care Provider [phone] Encounter Details Date Type Department Care Team ([facility] st Contact Info) Description 03/27/2023 Abstract [facility] MEDICINE [address] [place] [address] Mary Hurd MD [address] [place], [place] [phone] Social History Tobacco Use Types Packs/Day Years Used Date Smoking Tobacco: Unknown Depression Answer Date Recorded Patient Health Questionnaire-9 Score 5 03/25/2023 Patient Health Questionnaire-9 Score 5 03/25/2023 Last PHQ-9: Questionnaire Data Not on file 0 03/25/2023 Housing Stability Answer Date Recorded What is your housing situation today? I have trev morocho 12/31/[address] you li ve. Do you have problems with any of the following? None of the above 12/31/2022 Food Insecurity Answer Date Recorded Within the past 12 months, y ou worried that your food would run out before you got money to buy more: Sometimes True 2022 Within the past 12 months,th e food you bought just didn't last and you didn't have enough money to get more: Sometimes True 01/24/2023 Transportation Answer Date Recorded In the past [...] Answer Date Recorded Patient Health Questionnaire-2 Score 0 03/25/2023 Comments Unknown Sex and Gender Information Value Date Recorded [...] Noted Time PHQ-9 Depression Total Score: 5 03/25/19 24 1:50 PM EST documented as of this encounter Care Teams Grinder Set Up Operator External Relationship Specialty Start Date End Date Mary Hurd MD [address] [place] [phone] PCP - General Family Medicine 02/01/21 Sigrid Florentino Tie MakerManager Enrollment 05/24/23 Donny Jimenez MD Consulting Physician Pulmonary Disease 02/27/24 documented as of this encounter
--- OUTSIDE RECORDS SUMMARY | 2024-04-15 17:09 | XMS_ITS | Encounter Summary ---
Author Organization [employer] Address [address] [facility] 7[address] [place] [address] Care Team Providers Care Support Associate Name Role Phone Mary Hurd MD Primary Care Provider [phone] Reason for Visit * Reason Onset Date Comments Nurse Triage 07/10/2023 Encounter Details Date Type Department Care Team ([facility] st Contact Info) Description 07/10/2023 Telephone [facility] MEDICINE [address] [place] [phone] Mary Hurd MD [address] [place], [place] [phone] Nurse Triage Social History Tobacco Use Types Packs/Day Years Used Date Smoking Tobacco: Never Smokeless Tobacco: Never Alcohol Use Standard Drinks/Week Comments Defer 0 (1 standard drink = 0.6 oz pur e alcohol) Depression Answer Date Recorded Patient Health Questionnaire-9 Score 11 07/08/2023 Patient Health Questionnaire-9 Score 11 07/08/2023 Last PHQ-9: Questionnaire Data Not on file 0 07/08/2023 Housing Stability Answer Date Recorded What is [...] Answer Date Recorded Patient Health Questionnaire-2 Score 4 07/08/2023 Comments No Sex and Gender Information Value Date Recorded Sex Assigned at Female 01/15/2022 10:14 AM EDT Legal Sex Female 10:14 AM EDT Gender Identity Female 01/15/2022 10:14 AM EDT Sexual Orientation Choose not to disclose 2021 10:14 AM EDT documented as of this encounter Miscellaneous Notes * Telephone Encounter - Adalgisa Laboy RN - 07/10/2023 4:07 PM EDT Triage call Pt reports chronic tremors of bilateral hands and now legs feeling shaky as well. Pt reports it is painful to hold a pen to write and Pt frequently drops things. Now Pt reports bilateral lower extremities are feeling shaky and weak too. No change since last triage note 06/24/23. Pt is going about daily activities and was seen by Willie Rubalcava today . Pt reports was advised to see PCP as soon as possible. Apt with PCP 07/15/23 @ 1115am. Pt agrees with disposition . Insurance is verified as active prior to booking. Protocol Used: Neurologic Deficit (Adult) Protocol-Based Disposition: See in Office or Video Visit within 3 Days Positive Triage Question: * Numbness or tingling in one or both hands is a chronic symptom (recurrent or ongoing problem lasting > 4 weeks) * All higher-acuity triage questions were negative Care Advice Discussed: * Reasons To Call Back - Symptoms do not go away within 10 to 15 minutes - You become worse * Telephone Encounter - James Barnett - 07/10/2023 3:39 PM EDT Symptom: Hand Shaking and feet Outcome: Schedule an urgent appointment (within 1 hour) or talk to a nurse or provider soon Reason: Getting worse The caller accepted this outcome Patient speaks somali documented in this encounter Plan of Treatment Not on file documented as of this encounter Visit Diagnoses Not on filedocumented in this encounter Additional Health Concerns Assessment Noted Time PHQ-9 Depression Total Score: 11 024 2:01 PM EDT documented as of this encounter Care Teams Support Associate Relationship Specialty Start Date End Date Mary Hurd MD [address] [place] [address] PCP - General Family Medicine 02/01/21 Sigrid Florentino Asset Card ClerkInstrumentation Engineering Technician 05/24/23 Donny Jimenez MD Consulting Physician Pulmonary Disease 02/27/24 documented as of this encounter
--- OUTSIDE RECORDS SUMMARY | 2024-04-15 17:09 | XMS_ITS | Encounter Summary ---
Author Organization [employer] Address [address] [facility] 7t [place] [address] Care Team Providers Care Cotton Baler Name Role Phone Mary Hurd MD Primary Care Provider [phone] Reason for Visit * Reason Onset Date Comments Med Refill 09/16/2023 Encounter Details Date Type Department Care Team ([facility] Contact Info) Description 09/16/2023 Telephone [facility] MED & PEDS [address] [place] [address] Mary Hurd MD [address] [place] [address] Med Refill Social History Tobacco Use Types Packs/Day Years [...] encounter Miscellaneous Notes * Telephone Encounter - Jen Lake - 09/16/2023 8:50 AM EDT TC from pt requesting medication refill. Medications needing refill : levothyroxine (Synthroid) 150 MCG tablet To be sent to: [facility] - [place], [place] - [address] [place] [address] documented in this encounter Plan of Treatment Not on file documented as of this encounter Visit Diagnoses Not on filedocumented in this encounter Additional Health Concerns Assessment Noted Time PHQ-9 Depression Total Score: 11 024 2:01 PM EDT documented as of this encounter Care Teams Cotton Baler Relationship Specialty Start Date End Date Mary Hurd MD [address] [facility] [place] [address] PCP - General Family Medicine 02/01/21 Sigrid Florentino [employer] DemonstratorSpeech Language Pathologist Assistant 05/24/23 Donny Jimenez MD Consulting Physician Pulmonary Disease 02/27/24 documented as of this encounter
--- OUTSIDE RECORDS SUMMARY | 2024-04-15 17:09 | XMS_ITS | Encounter Summary ---
Author Organization [employer] Address [address] [facility] 7t [place] [address] Care Team Providers Care Line Fisher Name Role Phone Mary Hurd MD Primary Care Provider [phone] Reason for Visit * Reason Onset Date Comments Nurse Triage 04/09/2024 Encounter Details Date Type Department Care Team ([facility] Contact Info) Description 04/09/2024 Telephone [facility] MED & PEDS [address] [place] [address] Mary Hurd MD [address] [place] [address] Nurse Triage Social History Tobacco Use Types [...] encounter Miscellaneous Notes * Telephone Encounter - Leyla Clark RN - 04/09/2024 12:19 PM EST Call returned to Charlie Navarro to triage below. Reports having increased anxiety due to issues with child having issues at the school. Per mom having issues with IEP being followed. Per mom had tomove from [place]. Per pt has continued to take buproprion 75mg BID . Per pt has weekly visit with [facility] coordinator. Pt states also concerned that school is trying to say that [place] to [employer] [place]. Will need to apply for school choice since mom lives in another city. Patient sounds very aggravated and speaking in a fast paced rate. Pt advised can have [facility] referral to see if [facility] has any other community resources that can assist with issues going on in the school. As far as anxiety can discuss with a team provider to see if other treatment options available. Protocol Used: Anxiety and Panic Attack (Adult) Protocol-Based Disposition: See in Office or Video Visit Today Future Appointments Date Time Provider Department Center 04/09/2024 2:15 PM Henry Watson MD [facility] Insurance verified as active per Real Time Eligibility in [facility]. Video visit offered and caller accepted Positive Triage Question: * Patient sounds very upset or troubled to the triager * All higher-acuity triage questions were negative Care Advice Discussed: * Anxiety - Healthy Lifestyle Tips * Avoid Triggers of Anxiety * Stress Reduction * Reasons To Call Back - Anxiety or panic attacks continue - You feel like harming yourself - You become worse * Telephone Encounter - Melida Fontaine - 04/09/2024 11:47 AM EST Symptom: Anxiety or Panic Attack Outcome: Schedule an appointment to be seen within 3 days Reason: Caller denied all higher acuity questions The caller accepted this outcome. Tc from outside sales representative insurance at [facility] calling to request appointment. Pt is experiencing anxiety more frequent than usual due to problems at son school Security System Analyst was advise to forward message to triage nurse. Contact pt at [phone] documented in this encounter Plan of Treatment Not on file documented as of this encounter Visit Diagnoses Not on filedocumented in this encounter Additional Health Concerns Assessment Noted Time PHQ-9 Depression Total Score: 5 02/27/20 12:52 PM EST documented as of this encounter Care Teams Line Fisher Relationship Specialty Start Date End Date Mary Hurd MD [address] [place] [phone] PCP - General Family Medicine 02/01/21 Sigrid Florentino Health Information ProviderNetwork Operations Technician 05/24/23 Donny Jimenez MD Consulting Physician Pulmonary Disease 02/27/24 documented as of this encounter
--- OUTSIDE RECORDS SUMMARY | 2024-04-15 17:09 | XMS_ITS | Encounter Summary ---
Author Organization [employer] Address [address] [place] [address] Care Team Providers Care Ambulatory Technologist Name Role Phone Mary Hurd MD Primary Care Provider [phone] Encounter Details Date Type Department Care Team (Late st Contact Info) Description 04/09/2024 Orders Only GENERIC EXTERNAL DATA DEPARTMENT Provider, Generic External Data Social History Tobacco Use Types Packs/Day Years [...] on file documented as of this encounter Procedures Procedure Name Priority Date/Time Associated Diagnosis Comments CBC WITH AUTO DIFFERENTIAL Routine 04/15/2024 3:09 PM EST URINALYSIS WITH REFLEX MICROSCOPIC Routine 04/15/2024 3:09 PM EST TSH Routine 04/15/2024 3:09 PM EST T4, FREE Routine 04/15/2024 3:09 PM EST MAGNESIUM Routine 04/15/2024 3:09 PM EST LIPASE Routine 04/15/2024 3:09 PM EST COMPREHENSIVE METABOLIC PANEL Routine 04/15/2024 3:09 PM EST THYROID PEROXIDASE ANTIBODIES Routine 04/09/2024 3:48 PM EST TSI (THYROID STIMULATING IMMUNOGLOBULIN) Routine 04/09/2024 3:48 PM EST TRAB (TSH RECEPTOR BINDING ANTIBODY) Routine 04/09/2024 3:48 PM EST T3, TOTAL Routine 04/09/2024 3:48 PM EST TSH Routine 04/09/2024 3:48 PM EST T4, FREE Routine 04/09/2024 3:48 PM EST documented in this encounter Results * (ABNORMAL) TSH (04/15/2024 3:09 PM EST) Thyroid Stimulating Hormone 8.49(H) 0.32 - 4.0 uIU/mL [facility] Comment:Note: A sustained TS H level above 2.5 uIU/mL may warrant further investigation. TSH 3rd Generation ([facility]) 04/15/2024 3:09 PM EST 04/15/2024 3:12 PM EST Generic External Data Provider LAB BLOOD ORDERAB LES Final Result Performing Organization Address City/[facility]/ZIP Co de Phone Number [facility] [address] [place] [phone] * T4, Free (04/15/2024 3:09 PM EST) Free T4 (Free Thyroxine) 0.87 0.71 - 1.85 ng/dL [facility] 04/15/2024 3:09 PM EST 04/15/2024 3:12 PM EST Generic External Data Provider LAB BLOOD ORDERAB LES Final Result Performing Organization Address City/[facility]/ZIP Co de Phone Number [facility] [address] [place] [phone] * Urinalysis w/reflex microscopic (04/15/2024 3:09 PM EST) Color Urine Yellow [facility] Appearance Urine Clear [facility] PH 7.0 5.0 - 9.0 [facility] Glucose Urine UA Negative Negative mg/dL [facility] Urine Blood Negative Negative [facility] Specific [place] - Urine 1.010 1.005 - 1.025 [facility] Urine Protein Negative Neg-Trace mg/dL [facility] Urine Ketones Negative Negative mg/dL [facility] Nitrite Urine Negative Negative [facility] Leukocyte Esterase Urine Negative Negative [facility] 04/15/2024 3:09 PM EST 04/15/2024 3:12 PM EST Narrative [facility] - 04/15/2024 3:57 PM EST [id number], Clean Catch Generic External Data Provider LAB URINE ORDERAB LES Final Result Performing Organization Address [facility] de Phone Number [facility] [address] [place] [phone] * Lipase (04/15/2024 3:09 PM EST) Pathologist [facility] Lipase 19 8 - 78 U/L [facility] 04/15/2024 3:09 PM EST 04/15/2024 3:12 PM EST Generic External Data Provider LAB BLOOD ORDERAB LES Final Result Performing Organization Address [facility] de Phone Number [facility] [address] [place] [phone] * Magnesium (04/15/2024 3:09 PM EST) Pathologist [facility] Magnesium 2.1 1.6 - 2.6 mg/dL [facility] 04/15/2024 3:09 PM EST 04/15/2024 3:12 PM EST Generic External Data Provider LAB BLOOD ORDERAB LES Final Result Performing Organization Address [facility] de Phone Number [facility] [address] [place] [phone] * (ABNORMAL) Comprehensive Metabolic Panel (04/15/2024 3:09 PM EST) Pathologist [facility] Sodium 139 135 - 145 mmol/L [facility] Potassium 4.5 3.3 - 5.1 mmol/L [facility] Chloride 107 96 - 108 mmol/L [facility] Carbon Dioxide 26 22 - 29 mmol/L [facility] Anion Gap 11(L) 12 - 20 [facility] Urea Nitrogen (BUN) 10 9 - 16 mg/dL [facility] Creatinine, Serum 0.73 0.5 - 1.4 mg/dL [facility] Creatinine Clr Calc Pharmacy 98.8 [facility] Comment:Provided height and weight: 157.48 cm,79.2 kg.eGFR (calculated from the MDRD study equation) and eCrCl(calculated from the Cockcroft-Gault equation) are based ondifferent parameters and may not yield comparable results.If eCrCl result is absurd, please check patient'sheight/weight. Estimated Glomerular Filt Rate >60 [facility] Comment:Chronic Kidney Disea se: Estimated GFR < 60 mL/min/1.12h9Vhdcit Kidney Disease: Estimated GFR < 15 mL/min/1.73m2 Glucose 94 60 - 115 mg/dL [facility] Calcium 9.4 8.4 - 10.2 mg/dL [facility] Bilirubin, Total 0.2 0.0 - 1.0 mg/dL [facility] Aspartate Amino Transferase 22 5 - 31 U/L [facility] Alanine Aminotransferase 17 0 - 31 U/L [facility] Total Protein 7.2 6.5 - 8.0 g/dL [facility] Albumin Level 3.9 3.5 - 5.0 g/dL [facility] Alkaline Phosphatase 55 39 - 117 U/L [facility] 04/15/2024 3:09 PM EST 04/15/2024 3:12 PM EST us Generic External Data Provider LAB BLOOD ORDERAB LES Final Result [facility] [address] [place] [phone] * (ABNORMAL) CBC auto differential (04/15/2024 3:09 PM EST) White Blood Count 5.1 4.8 - 10.8 X10*3/uL [facility] Red Blood Count 3.67(L) 4.20 - 5.50 X10*6/uL [facility] Hemoglobin 11.2(L) 12.0 - 16.0 g/dl [facility] Hematocrit 34.6(L) 37.0 - 47.0 % [facility] Mean Corpuscular Volume 94.3 80.0 - 98.0 fL [facility] Mean Corpuscular Hemoglobin 30.5 27.0 - 33.0 pg [facility] Mean Corpuscular HGB Conc 32.4 31.0 - 35.0 g/dl [facility] Red Cell Distribution Width 12.7 11.0 - 16.0 % [facility] Platelet Count 200 160 - 400 X10*3/uL [facility] Mean Platelet Volume 10.2 9.4 - 12.3 fL [facility] Neutrophils Percent Auto 42.2(L) 45 - 73 % [facility] Imm Gran Pct Auto 0.2 0.0 - 0.4 % [facility] Lymphocytes Percent Auto 48.8(H) 20 - 40 % [facility] Monocytes Percent Auto 4.9 2 - 11 % [facility] Eosinophils Percent Auto 3.1 0 - 4 % [facility] Basophils Percent Auto 0.8 0 - 2 % [facility] NRBC Pct Auto 0.0 0.0 - 0.2 /100WBC [facility] Neutrophils Absolute Auto 2.2 2.0 - 8.3 x10*3/uL [facility] Imm Gran Abs Auto 0.01 0.00 - 0.03 X10*3/uL [facility] Lymphocytes Absolute Auto 2.5 1.2 - 4.9 X10*3/uL [facility] Monocytes Absolute Auto 0.3 0.1 - 1.2 X10*3/uL [facility] Eosinophils Absolute Auto 0.2 0.0 - 0.4 X10*3/uL [facility] Basophils Absolute Auto 0.0 0.0 - 0.2 X10*3/uL [facility] NRBC Abs Auto 0.000 0.0 - 0.012 X10*3/uL [facility] 04/15/2024 3:09 PM EST 04/15/2024 3:12 PM EST us Generic External Data Provider LAB BLOOD ORDERAB LES Final Result [facility] [address] [place] [phone] * TSI (Thyroid Stimulating Immunoglobulin) (04/09/2024 3:48 PM EST) Thyroid Stimulating Immunoglobulin <89 <140 % baseline [facility] Comment: Thyroid stimulating immunoglobulins (TSI) [...] hCG concentrationfalls below 40,625 mIU/mL (usually after [id number] gestation).The analytical performance characteristics of thisassay have been determined by [place]. ??The modificationshave not been cleared or approved by the FDA. ??Thisassay has been validated pursuant to the CLIAregulations and is used for clinical purposes.THIS TEST WAS PERFORMED AT:[facility] [place], [place] ??[id number] AGUILAR MD,PHD 04/09/2024 3:48 PM EST 04/09/2024 3:48 PM EST Generic External Data Provider LAB BLOOD ORDERAB LES Final Result Performing Organization Address [facility] Co de Phone Number [facility] [address] [place] [phone] * TRAb (TSH Receptor Binding Antibody) (04/09/2024 3:48 PM EST) TRAb (TSH Receptor Binding Antibody) <1.00 <=2.00 IU/L [facility] Comment:This test was perfor med using the TRAb Antibody ELISAmethod which is standardized against the [address] [place], [place] [address]national Standard 90/672 and is reported inInternational Units (IU/L). The reference rangereported was established specifically for this testmethod.THIS TEST WAS PERFORMED AT:[facility] [place] [phone] AGUILAR MD,PHD 04/09/2024 3:48 PM EST 04/09/2024 3:48 PM EST Generic External Data Provider LAB BLOOD ORDERAB LES Final Result Performing Organization Address [facility] de Phone Number [facility] [address] [place] [phone] * Thyroid Peroxidase Antibodies (04/09/2024 3:48 PM EST) Thyroid Peroxidase Antibodies 1 <9 IU/mL [facility] Comment:THIS TEST WAS PERFOR MED AT:[facility] [address] [id number] GENTILE MD 04/09/2024 3:48 PM EST 04/09/2024 3:48 PM EST Generic External Data Provider LAB BLOOD ORDERAB LES Final Result Performing Organization Address [facility] Co de Phone Number [facility] [address] [place] [phone] * (ABNORMAL) T3, Total (04/09/2024 3:48 PM EST) T3, Total 62(A) 76 - 181 ng/dL [facility] Comment:THIS TEST WAS PERFOR MED AT:[employer] [place] [id number] GENTILE MD 04/09/2024 3:48 PM EST 04/09/2024 3:48 PM EST us Generic External Data Provider LAB BLOOD ORDERAB LES Final Result Performing Organization Address [facility]/ZIP Co de Phone Number [facility] [address] [place] [phone] * (ABNORMAL) TSH (04/09/2024 3:48 PM EST) Thyroid Stimulating Hormone 13.36(H) 0.32 - 4.0 uIU/mL [facility] Comment:Note: A sustained TS H level above 2.5 uIU/mL may warrant further investigation. TSH 3rd Generation ([facility]) 04/09/2024 3:48 PM EST 04/09/2024 3:48 PM EST us Generic External Data Provider LAB BLOOD ORDERAB LES Final Result Performing Organization Address [facility] Co de Phone Number [facility] [address] [place] [phone] * T4, Free (04/09/2024 3:48 PM EST) Free T4 (Free Thyroxine) 0.96 0.71 - 1.85 ng/dL [facility] 04/09/2024 3:48 PM EST 04/09/2024 3:48 PM EST us Generic External Data Provider LAB BLOOD ORDERAB LES Final Result Performing Organization Address [facility]/ZIP Co de Phone Number [facility] [address] [place] [phone] documented in this encounter Visit Diagnoses Not on filedocumented in this encounter Additional Health Concerns Assessment Noted Time PHQ-9 Depression Total Score: 5 02/27/20 24 12:52 PM EST documented as of this encounter Care Teams Ambulatory Technologist Relationship Specialty Start Date End Date Mary Hurd MD [address] [place] [address] PCP - General Family Medicine 02/01/21 Sigrid Florentino Retail Loan OriginatorIbm Websphere Portal Developer 05/24/23 Donny Jimenez MD Consulting Physician Pulmonary Disease 02/27/24 documented as of this encounter
--- OUTSIDE RECORDS SUMMARY | 2024-04-15 17:09 | XMS_ITS | Encounter Summary ---
Author Organization [employer] Address [address] [place] [address] Care Team Providers Care Veterinary Inspector Name Role Phone Mary Hurd MD Primary Care Provider [phone] Reason for Visit * Reason Onset Date Comments Order(s) 09/17/2023 Encounter Details Date Type Department Care Team ([facility] st Contact Info) Description 09/17/2023 Telephone [facility] MEDICINE [address] [place] [address] Mary Hurd MD [address] [place], [place] [phone] Order(s) Social History Tobacco Use Types Packs/Day Years [...] encounter Miscellaneous Notes * Telephone Encounter - Nate Joyce - 09/17/2023 1:19 PM EDT Tc from Nadya with [facility] calling to request a mammogram order for the pt stating she is due for one. If any questions you can contact Nadya at [phone]. documented in this encounter Plan of Treatment Not on file documented as of this encounter Visit Diagnoses Not on filedocumented in this encounter Additional Health Concerns Assessment Noted Time PHQ-9 Depression Total Score: 11 024 2:01 PM EDT documented as of this encounter Care Teams Veterinary Inspector Relationship Specialty Start Date End Date Mary Hurd MD [address] [place] [address] PCP - General Family Medicine 02/01/21 Sigrid Florentino Appliance Service SupervisorBag Grader 05/24/23 Donny Jimenez MD Consulting Physician Pulmonary Disease 02/27/24 documented as of this encounter
--- OUTSIDE RECORDS SUMMARY | 2024-04-15 17:09 | XMS_ITS | Encounter Summary ---
Author Organization [employer] Address [address] [facility] [address]t [place] [address] Care Team Providers Care Apartment Leasing Specialist Name Role Phone Mary Hurd MD Primary Care Provider [phone] Encounter Details Date Type Department Care Team ([facility] Contact Info) Description 04/09/2024 2:15 PM EST Telemedicine [facility] CHC MED & PEDS [address] [place], [place] [phone] ColonHenry Montiel MD [address] [place] [address] Anxiety (Primary Dx) Social History Tobacco Use Types Packs/Day Years [...] AM EDT documented as of this encounter Progress Notes * Henry Watson MD - 04/09/2024 2:15 PM EST Subjective Patient ID: Charlie Navarro is a 43 y.o. female who presents for No chief complaint on file.. Anxiety Presents for initial visit. Onset was 1 to 6 months ago. Symptoms include compulsions, decreased concentration, excessive worry, hyperventilation, irritability, nervous/anxious behavior, palpitationsand restlessness. Patient reports no suicidal ideas. Review of Systems Constitutional: Positive for irritability. Cardiovascular: Positive for palpitations. Psychiatric/Behavioral: Positive for decreased concentration. Negative for suicidal ideas. The patient is nervous/anxious. Objective Physical Exam Neurological: General: No focal deficit present. Mental Status: She is oriented to person, place, and time. Psychiatric: Mood and Affect: Mood normal. Behavior: Behavior normal. Assessment/Plan Problem List Items Addressed This Visit None Visit Diagnoses Anxiety - Primary Patient undergoing thought a lot of stressors, no sucidal/homicidal ideas, refers has a therapist, will prescribe hydroxyzine to be taken PRN, she is on bupropion, also noted last tsh was 0.05 which could also explain her symptoms, dose was adjusted but she never went to get blood test done, she refers will get them done. documented in this encounter Plan of Treatment Not on file documented as of this encounter Visit Diagnoses Diagnosis Anxiety- Primary Anxiety state, unspecified documented in this encounter Additional Health Concerns Assessment Noted Time PHQ-9 Depression Total Score: 5 02/27/20 24 12:52 PM EST documented as of this encounter Care Teams Apartment Leasing Specialist Relationship Specialty Start Date End Date Mary Hurd MD [address] [place] [address] PCP - General Family Medicine 02/01/21 Sigrid Florentino Veterinary X Ray OperatorEap Clinician 05/24/23 Donny Jimenez MD Consulting Physician Pulmonary Disease 02/27/24 documented as of this encounter
--- OUTSIDE RECORDS SUMMARY | 2024-04-15 17:09 | XMS_ITS | Encounter Summary ---
Author Organization [employer] Address [address] [facility] [address] [place] [address] Care Team Providers Care Remnant Sorter Name Role Phone Mary Hurd MD Primary Care Provider [phone] Reason for Visit * Reason Onset Date Comments Food Assistance 12/27/2023 Encounter Details Date Type Department Care Team ([facility] st Contact Info) Description 12/27/2023 Telephone [facility] MEDICINE [address] [place] [address] Mary Hurd MD [address] [place], [place] [phone] Food Assistance Social History Tobacco Use Types Packs/Day Years [...] encounter Miscellaneous Notes * Telephone Encounter - James Barnett - 12/27/2023 10:22 AM EDT Tc from patient requesting a call back for food assistance documented in this encounter Plan of Treatment Not on file documented as of this encounter Visit Diagnoses Not on filedocumented in this encounter Additional Health Concerns Assessment Noted Time PHQ-9 Depression Total Score: 11 024 2:01 PM EDT documented as of this encounter Care Teams Remnant Sorter Relationship Specialty Start Date End Date Mary Hurd MD [address] [place] [phone] PCP - General Family Medicine 02/01/21 Sigrid Florentino Coil FormerCommercial Finance Manager 05/24/23 Donny Jimenez MD Consulting Physician Pulmonary Disease 02/27/24 documented as of this encounter
[2024-04-15] MEDS: iohexoL 350 MG/ML 100 ML INFUS..BTL IV (17:29)
[2024-04-15 19:15] VITALS: BP 103/66; PULSE 66; RESP 18; TEMP 36.8; O2SAT 100
== END 2024-04-15 19:16 | disposition home or self-care (01) ==
PROVIDERS: Physician Assistant Medical; Emergency Provider Emergency Medicine; PCP Family Medicine
DX: K59.00 Constipation, unspecified (principal); R10.2 Pelvic and perineal pain; R11.0 Nausea; Z79.899 Other long term (current) drug therapy
CPT/HCPCS: 36415; 74177; 80053; 81003; 83690; 83735; 84439; 84443; 85025; 99284; Q9967

== ENCOUNTER → 2024-04-15 15:50 | Outpatient (BNV) | payer MEDICAID, SELFPAY | PROVIDERS: Emergency Provider Emergency Medicine; PCP Family Medicine; Visit Provider Radiology Neuroradiology | DX: K56.41 Fecal impaction (principal) | CPT/HCPCS: 74177 ==

== ENCOUNTER 2024-04-15 17:52 | Outpatient (REF) | payer MEDICAID, SELFPAY ==
--- OUTSIDE RECORDS SUMMARY | 2024-04-15 17:59 | XMS_ITS | Clinical Summary ---
Author Organization [employer] Address [address] [place] [address] Care Team Providers Care Clinical Informatics Strategist Name Role Phone Mary Hurd MD Primary Care Provider [phone] Allergies Active Allergy Reactions Criticality Noted Date [...] in the morning. 08/28/19 24 Active Multiple Vitamins-Puller Machine als (CertaVite/Ant ioxidants) tablet TAKE 1 TABLET [...] 06/28/2023 1:30 PM Sulma Trotter, OD VISION [facility] 07/08/2023 2:30 PM Willie Rubalcava, ENROLLMENT COUNSELOR MEDICINE [facility] Sleep apnea 04/19/2023 Assessment & Plan [...] today. She is getting some help from [employer]visor [employer]. As this provider will be retiring, at this time patient is referred back to her PCP for continued medication management. Call [facility] with any questions or concerns. All [...] BID. F/U with therapist as usual, and [facility] Care Mgt. On 01/21/2023 pt was [...] usual. F/U with therapist as usual, and [facility] Care Mgt. On 01/21/2023 pt was [...] agency prescriber. Will also be referred to [facility] Care Mgt. ADDENDUM: After the visit [...] Description 04/15/2024 10:00 AM EST Office Visit [facility] [address] [place] [address] Fredo Drake MD Abdominal pain, unspecified abdominal location (Primary Dx); Abnormal uterine bleeding; Right flank pain 04/09/2024 2:15 PM EST Telemedicine [facility] [address] [place] [address] Henry Shelton MD Anxiety (Primary Dx) 04/09/2024 Orders Only GENERIC EXTERNAL DATA DEPARTMENT Provider, Generic External Data 04/09/2024 Travel 04/09/2024 Telephone [facility] [address] [place] [address] Mary Hurd MD Nurse Triage 02/27/2024 1:00 PM EST Telemedicine [facility] [address] [place] [address] Mary Hurd MD Severe persistent asthma, unspecified whether complicated (Primary Dx); Acquired hypothyroidism 02/27/2024 Travel 02/26/2024 Telephone [facility] [address] [place] [address] Mary Hurd MD CHART PREP 02/17/2024 Telephone [facility] [address] [place] [address] Mary Hurd MD 02/12/2024 Refill [facility] [address] [place] [address] Mary Hurd MD 01/24/2024 Patient Outreach [facility] MEDICINE [address] [place] [address] Mary Hurd MD Care Coordination (C3 -W [employer]o [employer] telelphone call graduate) 01/14/2024 Refill [facility] [address] [place] [address] Mary Hurd MD Vitamin D deficiency from Last 3 Months Immunizations Name Administration Dates Next Due DTP 11/24/1985,07/28/1985,06/04/1985 DTaP 04/27/2018,03/22/1989,12/07/1986 Hep B, Adolescent or Pediatric 07/29/1995,1995,02/05/1995 Hib ([facility]) 05/21/1985 IPV 03/22/1989, 6,07/28/1985,06/04 Influenza injectable quadriv [...] Blood Count 5.1 4.8 - 10.8 X10*3/uL [facility] Red Blood Count 3.67(L) 4.20 - 5.50 X10*6/uL [facility] Hemoglobin 11.2(L) 12.0 - 16.0 g/dl [facility] Hematocrit 34.6(L) 37.0 - 47.0 % [facility] Mean Corpuscular Volume 94.3 80.0 - 98.0 fL [facility] Mean Corpuscular Hemoglobin 30.5 27.0 - 33.0 pg [facility] Mean Corpuscular HGB Conc 32.4 31.0 - 35.0 g/dl [facility] Red Cell Distribution Width 12.7 11.0 - 16.0 % [facility] Platelet Count 200 160 - 400 X10*3/uL [facility] Mean Platelet Volume 10.2 9.4 - 12.3 fL [facility] Neutrophils Percent Auto 42.2(L) 45 - 73 % [facility] Imm Gran Pct Auto 0.2 0.0 - 0.4 % [facility] Lymphocytes Percent Auto 48.8(H) 20 - 40 % [facility] Monocytes Percent Auto 4.9 2 - 11 % [facility] Eosinophils Percent Auto 3.1 0 - 4 % [facility] Basophils Percent Auto 0.8 0 - 2 % [facility] NRBC Pct Auto 0.0 0.0 - 0.2 /100WBC [facility] Neutrophils Absolute Auto 2.2 2.0 - 8.3 x10*3/uL [facility] Imm Gran Abs Auto 0.01 0.00 - 0.03 X10*3/uL [facility] Lymphocytes Absolute Auto 2.5 1.2 - 4.9 X10*3/uL [facility] Monocytes Absolute Auto 0.3 0.1 - 1.2 X10*3/uL [facility] Eosinophils Absolute Auto 0.2 0.0 - 0.4 X10*3/uL [facility] Basophils Absolute Auto 0.0 0.0 - 0.2 X10*3/uL [facility] NRBC Abs Auto 0.000 0.0 - 0.012 X10*3/uL [facility] 04/15/2024 3:09 PM EST 04/15/2024 3:12 PM EST us Generic External Data Provider LAB BLOOD ORDERAB LES Final Result [facility] [address] [place] [address] [phone] * Urinalysis w/reflex microscopic (04/15/2024 3:09 PM EST) Color Urine Yellow [facility] Appearance Urine Clear [facility] PH 7.0 5.0 - 9.0 [facility] Glucose Urine UA Negative Negative mg/dL [facility] Urine Blood Negative Negative [facility] Specific [place] - Urine 1.010 1.005 - 1.025 [facility] Urine Protein Negative Neg-Trace mg/dL [facility] Urine Ketones Negative Negative mg/dL [facility] Nitrite Urine Negative Negative [facility] Leukocyte Esterase Urine Negative Negative [facility] 04/15/2024 3:09 PM EST 04/15/2024 3:12 PM EST Narrative [facility] - 04/15/2024 3:57 PM EST [id number], Clean Catch Generic External Data Provider LAB URINE ORDERAB LES Final Result Performing Organization Address City/[facility]/ZIP Co de Phone Number [facility] [address] [place] [phone] * (ABNORMAL) TSH (04/15/2024 3:09 PM EST) Only the most recent of2 resultswithin the time period is included. Thyroid Stimulating Hormone 8.49(H) 0.32 - 4.0 uIU/mL [facility] Comment:Note: A sustained TS H level above 2.5 uIU/mL may warrant further investigation. TSH 3rd Generation ([facility]) 04/15/2024 3:09 PM EST 04/15/2024 3:12 PM EST us Generic External Data Provider LAB BLOOD ORDERAB LES Final Result Performing Organization Address City/[facility]/ZIP Co de Phone Number [facility] [address] [place] [phone] * T4, Free (04/15/2024 3:09 PM EST) Only the most recent of2 resultswithin the time period is included. [facility] Free T4 (Free Thyroxine) 0.87 0.71 - 1.85 ng/dL [facility] 04/15/2024 3:09 PM EST 04/15/2024 3:12 PM EST Generic External Data Provider LAB BLOOD ORDERAB LES Final Result Performing Organization Address [facility] Co de Phone Number [facility] [address] [place] [phone] * Magnesium (04/15/2024 3:09 PM EST) [facility] Magnesium 2.1 1.6 - 2.6 mg/dL [facility] 04/15/2024 3:09 PM EST 04/15/2024 3:12 PM EST Generic External Data Provider LAB BLOOD ORDERAB LES Final Result Performing Organization Address [facility] Co de Phone Number [facility] [address] [place] [phone] * Lipase (04/15/2024 3:09 PM EST) [facility] Lipase 19 8 - 78 U/L [facility] 04/15/2024 3:09 PM EST 04/15/2024 3:12 PM EST Generic External Data Provider LAB BLOOD ORDERAB LES Final Result Performing Organization Address [facility] de Phone Number [facility] [address] [place] [phone] * (ABNORMAL) Comprehensive Metabolic Panel (04/15/2024 3:09 PM EST) [facility] Sodium 139 135 - 145 mmol/L [facility] Potassium 4.5 3.3 - 5.1 mmol/L [facility] Chloride 107 96 - 108 mmol/L [facility] Carbon Dioxide 26 22 - 29 mmol/L [facility] Anion Gap 11(L) 12 - 20 [facility] Urea Nitrogen (BUN) 10 9 - 16 mg/dL [facility] Creatinine, Serum 0.73 0.5 - 1.4 mg/dL [facility] Creatinine Clr Calc Pharmacy 98.8 [facility] Comment:Provided height and weight: 157.48 cm,79.2 kg.eGFR (calculated from the MDRD study equation) and eCrCl(calculated from the Cockcroft-Gault equation) are based ondifferent parameters and may not yield comparable results.If eCrCl result is absurd, please check patient'sheight/weight. Estimated Glomerular Filt Rate >60 [facility] Comment:Chronic Kidney Disea se: Estimated GFR < 60 mL/min/1.83p3Jhgayj Kidney Disease: Estimated GFR < 15 mL/min/1.73m2 Glucose 94 60 - 115 mg/dL [facility] Calcium 9.4 8.4 - 10.2 mg/dL [facility] Bilirubin, Total 0.2 0.0 - 1.0 mg/dL [facility] Aspartate Amino Transferase 22 5 - 31 U/L [facility] Alanine Aminotransferase 17 0 - 31 U/L [facility] Total Protein 7.2 6.5 - 8.0 g/dL [facility] Albumin Level 3.9 3.5 - 5.0 g/dL [facility] Alkaline Phosphatase 55 39 - 117 U/L [facility] 04/15/2024 3:09 PM EST 04/15/2024 3:12 PM EST us Generic External Data Provider LAB BLOOD ORDERAB LES Final Result [facility] [address] [place] [phone] * POCT , urine manually resulted [...] EST) Thyroid Peroxidase Antibodies 1 <9 IU/mL [facility] Comment:THIS TEST WAS PERFOR MED AT:[facility] [address] [phone] GENTILE MD 04/09/2024 3:48 PM EST 04/09/2024 3:48 PM EST Generic External Data Provider LAB BLOOD ORDERAB LES Final Result [facility] [address] [place] [phone] * TSI (Thyroid Stimulating Immunoglobulin) (04/09/2024 3:48 PM EST) Thyroid Stimulating Immunoglobulin <89 <140 % baseline [facility] Comment: Thyroid stimulating immunoglobulins (TSI) [...] hCG concentrationfalls below 40,625 mIU/mL (usually after [id number]-euscx gestation).The analytical performance characteristics of thisassay have been determined by [facility], [place]. ??The modificationshave not been cleared or approved by the FDA. ??Thisassay has been validated pursuant to the CLIAregulations and is used for clinical purposes.THIS TEST WAS PERFORMED AT:[employer] [facility] [address] [employer] [address] ??[phone] AGUILAR MD,PHD 04/09/2024 3:48 PM EST 04/09/2024 3:48 PM EST us Generic External Data Provider LAB BLOOD ORDERAB LES Final Result [facility] [address] [place] [phone] * TRAb (TSH Receptor Binding Antibody) (04/09/2024 3:48 PM EST) TRAb (TSH Receptor Binding Antibody) <1.00 <=2.00 IU/L [facility] Comment:This test was perfor med using the TRAb Antibody ELISAmethod which is standardized against the 1stInternational Standard 90/672 and is reported inInternational Units (IU/L). The reference rangereported was established specifically for this testmethod.THIS TEST WAS PERFORMED AT:[employer]/[place] [phone] AGUILAR MD,PHD 04/09/2024 3:48 PM EST 04/09/2024 3:48 PM EST Generic External Data Provider LAB BLOOD ORDERAB LES Final Result Performing Organization Address [facility] [place]/[facility] Co de Phone Number [facility] [address] [place] [phone] * (ABNORMAL) T3, Total (04/09/2024 3:48 PM EST) T3, Total 62(A) 76 - 181 ng/dL [facility] Comment:THIS TEST WAS PERFOR MED AT:[facility] [place] [phone] GENTILE MD 04/09/2024 3:48 PM EST 04/09/2024 3:48 PM EST Generic External Data Provider LAB BLOOD ORDERAB LES Final Result Performing Organization Address [facility] [place]/[facility] Co de Phone Number [facility] [address] [place] [phone] [phone] * BI Mammogram Screening Tomosynthesis Bilateral (10/03/2023 2:07 PM EDT) Anatomical Region Laterality Modality Breast Bilateral Mammography 10/03/2023 2:07 PM EDT Narrative 10/29/2023 1:58 PM EDT ? [facility] ? [address] ?[place] [address] ? Mammography Report ? Signed ? Patient: Ramon,Yeliska ?MR#: [id number] ?? 89 ? : 1980 ?Acct:[id number] ? Age/Sex: 42 / F ?ADM Date: 07/18/24 ? Loc: HO.MAMMO ? Attending Dr: Mary Hurd MD ? Ordering Physician: Mary Hurd MD ?Results: 1Nega ?? tive ? Date of Service: 10/03/23 ?Follow Up: 1 Year From Orig ?? inal Mammogram ? Procedure(s): MM tomosynthesis screening BI ?? Accession Number(s): [id number] ? cc: Mary Hurd MD ? EXAMINATION: [...] 1353 ? DD/ 1407 ? TD/TT: ? Hand Bander: ? Procedure Note Donotuseinterpreter, Image - [facility] [address] [place] [address] Mammography Report Signed Patient: Brenda Navarro#: [id number] 91 : 1980Acct:[id number] Age/Sex: 42 / FADM Date: 10/03/23 Loc: HO.MAMMO Attending Dr: Mary Hurd MD Ordering Physician: Mary Hurdesults: 1Nega tive Date of Service: 10/03/23Follow Up: 1 Year From Orig inal Mammogram Procedure(s): MM tomosynthesis screening BI Accession Number(s): [id number] cc: Mary Hurd MD EXAMINATION: MM SCREENING [...] in OV> 10/29/23 1353 DD/ 1407 TD/TT: Hand Bander: Mary Hurd MD IMG BI PROCEDURES Final Resul t * Hepatitis A,B,C Profile (07/15/2023 1:30 PM EDT) Hepatitis A IgM Nonreactive Nonreactive [facility] Comment:IgM antibodies to COOPER V not detected; does not exclude earlyacute or recovered HAV infection. ~Hepatitis B Surface Antibody NONREACTIVE Nonreactive [facility] Comment:Nonreactive: < 8.00 mIU/mL Hepatitis B Core Antibody Nonreactive Nonreactive [facility] Hepatitis C Antibody Nonreactive Nonreactive [facility] Comment:Antibodies to HCV no t detected; does not exclude early acuteHCV infection. Hepatitis B Surface Ag Negative Negative [facility] Blood Venous blood specimen / Unknown 07/15/2023 1:30 PM EDT 07/15/2023 2:00 PM EDT Mary Hurd MD LAB BLOOD ORDERABLES Final Re sult [facility] [address] [place] [phone] * HIV Ab/Ag ([facility]) (05/02/2022 4:17 PM EST) HIV AB/AG Nonreactive Nonreactive [facility] Comment:HIV-1 p24 Ag and/or HIV-1/HIV-2 Ab not detected.A test result that is nonreactive does not exclude thepossibility of exposure to or infection with HIV-1 and/orHIV-2. Nonreactive results in this assay for individualswith prior exposure to HIV-1 and/or HIV-2 may be due toantigen and antibody levels that are below the limit ofdetection of this assay.The [facility] HIV Ag/Ab Combo assay result andsupplemental assay results should be interpreted inconjunction with the patient's clinical presentation,history and other laboratory results. If the results areinconsistent with clinical evidence, additional testing issuggested to confirm the result. 05/02/2022 4:17 PM EST 05/02/2022 4:19 PM EST us [facility] External Provider LAB BLO OD ORDERABLES Final Result Performing Organization Address [facility] [place]/[facility]/ZIP Co de Phone Number [facility] [address] [place] [phone] [phone] * THINPREP TIS PAP (04/15/2020 11:47 [...] has been evaluated with computer assisted technology. [facility] Nurse Orthopaedic : SEE COMMENT [facility] Comment: MSM, CT(ASCP) CT screening location: [address] ??[phone] Infection Fungal organisms morphologically consistent with Cary spp. [facility] Interpretation/R esult: Negative for intraepithelial lesion or malignancy. [facility] LMP: NONE [facility] Prev. BX: NONE [facility] Prev. PAP: NONE [facility] SOURCE: None given [facility] Statement Of Adequacy: SEE COMMENT [facility] Comment: Satisfactory for evaluation. Endocervical/transformation zone component present. Age and/or menstrual status not provided 04/15/2020 11:4 7 AM EST Mary Hurd MD LAB PATHOLOGY ORDERABLES Toshia l Result Performing Organization Address [facility] [place]/[facility]/ZIP Co de Phone Number [facility] [address] * HPV mRNA E6/E7 (04/15/2020 11:47 AM EST) HPV nRNA E6/E7 Not Detected Not Detected [facility] Comment: Methodology: Grocery Store Courtesy Clerk-Mediated Amplification This assay detects E6/E7 viral messenger RNA (mRNA) from 14 high-risk HPV types (16,18,31,33,35,39,45,51,52,56,58,59,66,68). ? The analytical performance characteristics of this assay have been determined by [facility]. The modifications have not been cleared or approved by the FDA. This assay has been validated pursuant to the CLIA regulations and is used for clinical purposes. ?? For additional information, please refer to http://education.Messagemind/WPT222k4 (This link if provided for information/ educational purposes only.) 04/15/2020 11:4 7 AM EST us Mary Hurd MD LAB BLOOD ORDERABLES Final Re sult [facility] [address] from Last 3 Months or Most Recently Relevant to Health Maintenance Insurance [facility] C3 Care Teams Clinical Informatics Strategist Relationship Specialty Start Date End Date Mary Hurd MD [address] [place] [phone] PCP - General Family Medicine 02/01/21 Sigrid Florentino Head HolderWeed Sprayer 05/24/23 Donny Jimenez MD Consulting Physician Pulmonary Disease 02/27/24
--- OUTSIDE RECORDS SUMMARY | 2024-04-15 17:59 | XMS_ITS | Encounter Summary ---
Author Organization [employer] Address [address] [place] [address] Care Team Providers Care Director Of Front Office Name Role Phone Mary Hurd MD Primary Care Provider [phone] Encounter Details Date Type Department Care Team ([facility] st Contact Info) Description 04/15/2024 10:00 AM EST Office Visit [facility] [address] [place] [address] [phone] Fredo Drake MD [address] [place], [place] [phone] Abdominal pain, unspecified abdominal location (Primary Dx); [...] 43 y.o. female. HPI 3 days ago Charlie had onset of constant abd bloating , [...] surgery: BTL. Lives with son. 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 Never smoked. Occasional EtOH. Patient Active Problem List Diagnosis Acquired hypothyroidism Allergic rhinitis Cobalamin deficiency Constipation Depressive disorder Gastroesophageal reflux disease Hepatitis C antibody test positive History of substance abuse ([facility]) Illiteracy Severe persistent asthma Steroid-induced osteopenia Tremor [...] documented as of this encounter Care Teams Director Of Front Office Relationship Specialty Start Date End Date Mary Hurd MD [address] [place] [phone] PCP - General Family Medicine 02/01/21 Sigrid Florentino Turbine AttendantWeather Stripper 05/24/23 Donny Jimneez MD Consulting Physician Pulmonary Disease 02/27/24 documented as of this encounter
--- OUTSIDE RECORDS SUMMARY | 2024-04-15 17:59 | XMS_ITS | Encounter Summary ---
Author Organization [employer] Address [address] [place] [address] Care Team Providers Care Warehouse Coordinator Name Role Phone Mary Hurd MD Primary Care Provider Encounter Details Date Type Department Care Team [...] documented as of this encounter Care Teams Warehouse Coordinator Relationship Specialty Start Date End Date Mary Hurd MD [address] [place] [phone] PCP - General Family Medicine 02/01/21 Sigrid Florentino Machine Bander And Cellophaner HelperLance Crewmember 05/24/23 Donny Jimenez MD Consulting Physician Pulmonary Disease 02/27/24 documented as of this encounter
--- OUTSIDE RECORDS SUMMARY | 2024-04-15 17:59 | XMS_ITS | Encounter Summary ---
Author Organization [employer] Address [address]t [place] [address] Care Team Providers Care Online Editor Name Role Phone Mary Hurd MD Primary Care Provider [phone] Encounter Details Date Type Department Care Team [...] Stimulating Hormone 8.49(H) 0.32 - 4.0 uIU/mL [facility] Comment:Note: A sustained TS H level above 2.5 uIU/mL may warrant further investigation. TSH 3rd Generation ([facility]) 04/15/2024 3:09 PM EST 04/15/2024 3:12 PM EST Generic External Data Provider LAB BLOOD ORDERAB LES Final Result Performing Organization Address City/[facility]/ZIP Co de Phone Number [facility] [address] [place] [phone] * T4, Free (04/15/2024 3:09 PM EST) Free T4 (Free Thyroxine) 0.87 0.71 - 1.85 ng/dL [facility] 04/15/2024 3:09 PM EST 04/15/2024 3:12 PM EST Generic External Data Provider LAB BLOOD ORDERAB LES Final Result Performing Organization Address City/[facility]/ZIP Co de Phone Number [facility] [address] [place] [phone] * Urinalysis w/reflex microscopic (04/15/2024 3:09 PM EST) Color Urine Yellow [facility] Appearance Urine Clear [facility] PH 7.0 5.0 - 9.0 [facility] Glucose Urine UA Negative Negative mg/dL [facility] Urine Blood Negative Negative [facility] Specific [place] - Urine 1.010 1.005 - 1.025 [facility] Urine Protein Negative Neg-Trace mg/dL [facility] Urine Ketones Negative Negative mg/dL [facility] Nitrite Urine Negative Negative [facility] Leukocyte Esterase Urine Negative Negative [facility] 04/15/2024 3:09 PM EST 04/15/2024 3:12 PM EST Narrative [facility] - 04/15/2024 3:57 PM EST [id number], Clean Catch Generic External Data Provider LAB URINE ORDERAB LES Final Result Performing Organization Address [facility] de Phone Number [facility] [address] [place] [phone] * Lipase (04/15/2024 3:09 PM EST) Pathologist [facility] Lipase 19 8 - 78 U/L [facility] 04/15/2024 3:09 PM EST 04/15/2024 3:12 PM EST Generic External Data Provider LAB BLOOD ORDERAB LES Final Result Performing Organization Address [facility] de Phone Number [facility] [address] [place] [phone] * Magnesium (04/15/2024 3:09 PM EST) Pathologist [facility] Magnesium 2.1 1.6 - 2.6 mg/dL [facility] 04/15/2024 3:09 PM EST 04/15/2024 3:12 PM EST Generic External Data Provider LAB BLOOD ORDERAB LES Final Result Performing Organization Address [facility] de Phone Number [facility] [address] [place] [phone] * (ABNORMAL) Comprehensive Metabolic Panel (04/15/2024 3:09 PM EST) Pathologist [facility] Sodium 139 135 - 145 mmol/L [facility] Potassium 4.5 3.3 - 5.1 mmol/L [facility] Chloride 107 96 - 108 mmol/L [facility] Carbon Dioxide 26 22 - 29 mmol/L [facility] Anion Gap 11(L) 12 - 20 [facility] Urea Nitrogen (BUN) 10 9 - 16 mg/dL [facility] Creatinine, Serum 0.73 0.5 - 1.4 mg/dL [facility] Creatinine Clr Calc Pharmacy 98.8 [facility] Comment:Provided height and weight: 157.48 cm,79.2 kg.eGFR (calculated from the MDRD study equation) and eCrCl(calculated from the Cockcroft-Gault equation) are based ondifferent parameters and may not yield comparable results.If eCrCl result is absurd, please check patient'sheight/weight. Estimated Glomerular Filt Rate >60 [facility] Comment:Chronic Kidney Disea se: Estimated GFR < 60 mL/min/1.68j0Huyzji Kidney Disease: Estimated GFR < 15 mL/min/1.73m2 Glucose 94 60 - 115 mg/dL [facility] Calcium 9.4 8.4 - 10.2 mg/dL [facility] Bilirubin, Total 0.2 0.0 - 1.0 mg/dL [facility] Aspartate Amino Transferase 22 5 - 31 U/L [facility] Alanine Aminotransferase 17 0 - 31 U/L [facility] Total Protein 7.2 6.5 - 8.0 g/dL [facility] Albumin Level 3.9 3.5 - 5.0 g/dL [facility] Alkaline Phosphatase 55 39 - 117 U/L [facility] 04/15/2024 3:09 PM EST 04/15/2024 3:12 PM EST us Generic External Data Provider LAB BLOOD ORDERAB LES Final Result [facility] [address] [place] [phone] [phone] * (ABNORMAL) CBC auto differential (04/15/2024 3:09 PM EST) White Blood Count 5.1 4.8 - 10.8 X10*3/uL [facility] Red Blood Count 3.67(L) 4.20 - 5.50 X10*6/uL [facility] Hemoglobin 11.2(L) 12.0 - 16.0 g/dl [facility] Hematocrit 34.6(L) 37.0 - 47.0 % [facility] Mean Corpuscular Volume 94.3 80.0 - 98.0 fL [facility] Mean Corpuscular Hemoglobin 30.5 27.0 - 33.0 pg [facility] Mean Corpuscular HGB Conc 32.4 31.0 - 35.0 g/dl [facility] Red Cell Distribution Width 12.7 11.0 - 16.0 % [facility] Platelet Count 200 160 - 400 X10*3/uL [facility] Mean Platelet Volume 10.2 9.4 - 12.3 fL [facility] Neutrophils Percent Auto 42.2(L) 45 - 73 % [facility] Imm Gran Pct Auto 0.2 0.0 - 0.4 % [facility] Lymphocytes Percent Auto 48.8(H) 20 - 40 % [facility] Monocytes Percent Auto 4.9 2 - 11 % [facility] Eosinophils Percent Auto 3.1 0 - 4 % [facility] Basophils Percent Auto 0.8 0 - 2 % [facility] NRBC Pct Auto 0.0 0.0 - 0.2 /100WBC [facility] Neutrophils Absolute Auto 2.2 2.0 - 8.3 x10*3/uL [facility] Imm Gran Abs Auto 0.01 0.00 - 0.03 X10*3/uL [facility] Lymphocytes Absolute Auto 2.5 1.2 - 4.9 X10*3/uL [facility] Monocytes Absolute Auto 0.3 0.1 - 1.2 X10*3/uL [facility] Eosinophils Absolute Auto 0.2 0.0 - 0.4 X10*3/uL [facility] Basophils Absolute Auto 0.0 0.0 - 0.2 X10*3/uL [facility] NRBC Abs Auto 0.000 0.0 - 0.012 X10*3/uL [facility] 04/15/2024 3:09 PM EST 04/15/2024 3:12 PM EST us Generic External Data Provider LAB BLOOD ORDERAB LES Final Result [facility] [address] [place] [address] [phone] * TSI (Thyroid Stimulating Immunoglobulin) (04/09/2024 3:48 PM EST) Thyroid Stimulating Immunoglobulin <89 <140 % baseline [facility] Comment: Thyroid stimulating immunoglobulins (TSI) can [...] hCG concentrationfalls below 40,625 mIU/mL (usually after [id number] gestation).The analytical performance characteristics of thisassay have been determined by [place]. ??The modificationshave not been cleared or approved by the FDA. ??Thisassay has been validated pursuant to the CLIAregulations and is used for clinical purposes.THIS TEST WAS PERFORMED AT:[facility] [place], [place] ??[id number] AGUILAR MD,PHD 04/09/2024 3:48 PM EST 04/09/2024 3:48 PM EST Generic External Data Provider LAB BLOOD ORDERAB LES Final Result Performing Organization Address [facility] Co de Phone Number [facility] [address] [place] [phone] * TRAb (TSH Receptor Binding Antibody) (04/09/2024 3:48 PM EST) TRAb (TSH Receptor Binding Antibody) <1.00 <=2.00 IU/L [facility] Comment:This test was perfor med using the TRAb Antibody ELISAmethod which is standardized against the [address] [place], [place] [address]national Standard 90/672 and is reported inInternational Units (IU/L). The reference rangereported was established specifically for this testmethod.THIS TEST WAS PERFORMED AT:[facility] [place] [address]LAHYWVHIRINEO AGUILAR MD,PHD 04/09/2024 3:48 PM EST 04/09/2024 3:48 PM EST Generic External Data Provider LAB BLOOD ORDERAB LES Final Result Performing Organization Address [facility] de Phone Number [facility] [address] [place] [phone] * Thyroid Peroxidase Antibodies (04/09/2024 3:48 PM EST) Thyroid Peroxidase Antibodies 1 <9 IU/mL [facility] Comment:THIS TEST WAS PERFOR MED AT:[facility] [address] [phone] GENTILE MD 04/09/2024 3:48 PM EST 04/09/2024 3:48 PM EST Generic External Data Provider LAB BLOOD ORDERAB LES Final Result Performing Organization Address [facility] Co de Phone Number [facility] [address] [place] [phone] * (ABNORMAL) T3, Total (04/09/2024 3:48 PM EST) T3, Total 62(A) 76 - 181 ng/dL [facility] Comment:THIS TEST WAS PERFOR MED AT:[facility] [place] [id number] GENTILE MD 04/09/2024 3:48 PM EST 04/09/2024 3:48 PM EST us Generic External Data Provider LAB BLOOD ORDERAB LES Final Result Performing Organization Address [facility]/ZIP Co de Phone Number [facility] [address] [place] [phone] * (ABNORMAL) TSH (04/09/2024 3:48 PM EST) Thyroid Stimulating Hormone 13.36(H) 0.32 - 4.0 uIU/mL [facility] Comment:Note: A sustained TS H level above 2.5 uIU/mL may warrant further investigation. TSH 3rd Generation ([facility]) 04/09/2024 3:48 PM EST 04/09/2024 3:48 PM EST us Generic External Data Provider LAB BLOOD ORDERAB LES Final Result Performing Organization Address [facility] Co de Phone Number [facility] [address] [place] [phone] * T4, Free (04/09/2024 3:48 PM EST) Free T4 (Free Thyroxine) 0.96 0.71 - 1.85 ng/dL [facility] 04/09/2024 3:48 PM EST 04/09/2024 3:48 PM EST us Generic External Data Provider LAB BLOOD ORDERAB LES Final Result Performing Organization Address [facility]/ZIP Co de Phone Number [facility] [address] [place] [phone] documented in this encounter Visit Diagnoses Not on filedocumented in this encounter Additional Health Concerns Assessment Noted Time PHQ-9 Depression Total Score: 5 02/27/20 24 12:52 PM EST documented as of this encounter Care Teams Online Editor Relationship Specialty Start Date End Date Mary Hurd MD [address] [place] [address] PCP - General Family Medicine 02/01/21 Sigrid Florentino Shredder Tender PeatLawnmower Repair Mechanic 05/24/23 Donny Jimenze MD Consulting Physician Pulmonary Disease 02/27/24 documented as of this encounter
--- OUTSIDE RECORDS SUMMARY | 2024-04-15 17:59 | XMS_ITS | Encounter Summary ---
Author Organization [employer] Address [address] [facility] 7t [place] [address] Care Team Providers Care Plant Control Operator Name Role Phone Mary Hurd MD Primary Care Provider [phone] Reason for Visit * Reason Onset Date Comments Food Assistance 12/27/2023 Encounter Details Date Type Department Care Team ([facility] st Contact Info) Description 12/27/2023 Telephone [facility] [address] [place] [address] Mary Hurd MD [address] [place], [place] [phone] Food Assistance Social History Tobacco Use Types [...] documented as of this encounter Care Teams Plant Control Operator Relationship Specialty Start Date End Date Mary Hurd MD [address] [place] [address] PCP - General Family Medicine 02/01/21 Sigrid Florentino Tableau AnalystSupervisor General 05/24/23 Donny Jimenez MD Consulting Physician Pulmonary Disease 02/27/24 documented as of this encounter
--- OUTSIDE RECORDS SUMMARY | 2024-04-15 17:59 | XMS_ITS | Encounter Summary ---
Author Organization [employer] Address [address] [facility] 7t [place] [address] Care Team Providers Care Car Parker Name Role Phone Mary Hurd MD Primary Care Provider [phone] Encounter Details Date Type Department Care Team ([facility] Contact Info) Description 04/09/2024 2:15 PM EST Telemedicine [facility] [address] [place], [place] [phone] ColonHenry Montiel MD [address] [place] [address] Anxiety (Primary Dx) Social History Tobacco Use [...] documented as of this encounter Care Teams Car Parker Relationship Specialty Start Date End Date Mary Hurd MD [address] [place] [address] PCP - General Family Medicine 02/01/21 Sigrid Florentino Integration DirectorBulb Packer 05/24/23 Donny Jimenez MD Consulting Physician Pulmonary Disease 02/27/24 documented as of this encounter
--- OUTSIDE RECORDS SUMMARY | 2024-04-15 17:59 | XMS_ITS | Encounter Summary ---
Author Organization [employer] Address [address] [facility] 7t [place] [address] Care Team Providers Care Front Desk Lead Name Role Phone Mary Hurd MD Primary Care Provider [phone] Reason for Visit * Reason Onset Date Comments Nurse Triage 04/09/2024 Encounter Details Date Type Department Care Team ([facility] Contact Info) Description 04/09/[address] [facility] PEDS [address] [place] [address] Mary Hurd MD [address] [place] [address] Nurse Triage Social History Tobacco Use Types [...] being followed. Per mom had tomove from [place]. Per pt has continued to take buproprion 75mg BID . Per pt has weekly visit with [facility] coordinator. Pt states also concerned that school is trying to say that [place] to [employer] next year. Will need to apply for school choice since mom lives in another city. Patient sounds very aggravated and speaking in a fast paced rate. Pt advised can have [facility] referral to see if [facility] has any [...] Center 04/09/2024 2:15 PM Henry Watson MD [facility] Insurance verified as active per Real Time Eligibility in [facility]. Video visit offered and caller accepted Positive [...] The caller accepted this outcome. Tc from direct marketing representative at [facility] calling to request appointment. 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 Contact pt at [phone] documented in this encounter Plan of Treatment Not on file documented as of this encounter Visit Diagnoses Not on filedocumented in this encounter Additional Health Concerns Assessment Noted Time PHQ-9 Depression Total Score: 5 02/27/20 12:52 PM EST documented as of this encounter Care Teams Front Desk Lead Relationship Specialty Start Date End Date Mary Hurd MD [address] [place] [phone] PCP - General Family Medicine 02/01/21 Sigrid Florentino Fuel Cell Systems EngineerSlitter Scorer Cut Off Operator 05/24/23 Donny Jimenez MD Consulting Physician Pulmonary Disease 02/27/24 documented as of this encounter
--- OUTSIDE RECORDS SUMMARY | 2024-04-15 17:59 | XMS_ITS | Encounter Summary ---
Author Organization [employer] Address [address] [facility] 7t [place] [address] Care Team Providers Care Valuation Manager Name Role Phone Mary Hurd MD Primary Care Provider [phone] Reason for Visit * Reason Onset Date Comments Med Refill 09/16/2023 Encounter Details Date Type Department Care Team ([facility] Contact Info) Description 09/16/2023 Telephone [facility] [address] [place] [address] Mary Hurd MD [address] [place] [address] Med Refill Social History Tobacco Use Types [...] 150 MCG tablet To be sent to: [facility] - [place], [place] - [address] [place] [address] documented in this encounter Plan of Treatment Not on file documented as of this encounter Visit Diagnoses Not on filedocumented in this encounter Additional Health Concerns Assessment Noted Time PHQ-9 Depression Total Score: 11 024 2:01 PM EDT documented as of this encounter Care Teams Valuation Manager Relationship Specialty Start Date End Date Mary Hurd MD [address] [facility] [place] [address] PCP - General Family Medicine 02/01/21 Sigrid Florentino Quality Control ManagerShell Freezing Machine Operator 05/24/23 Donny Jimenez MD Consulting Physician Pulmonary Disease 02/27/24 documented as of this encounter
--- OUTSIDE RECORDS SUMMARY | 2024-04-15 17:59 | XMS_ITS | Encounter Summary ---
Author Organization [employer] Address [address] [facility] 7t [place] [address] Care Team Providers Care Photography Professor Name Role Phone Mary Hurd MD Primary Care Provider [phone] Reason for Visit * Reason Onset Date Comments Nurse Triage 07/10/2023 Encounter Details Date Type Department Care Team ([facility] st Contact Info) Description 07/10/2023 Telephone [facility] MED[facility]INE [address] [place] [address] Mary Hurd MD [address] [place], [place] [phone] Nurse Triage Social History Tobacco Use Types [...] The caller accepted this outcome Patient speaks armenian documented in this encounter Plan of Treatment Not on file documented as of this encounter Visit Diagnoses Not on filedocumented in this encounter Additional Health Concerns Assessment Noted Time PHQ-9 Depression Total Score: 11 024 2:01 PM EDT documented as of this encounter Care Teams Photography Professor Relationship Specialty Start Date End Date Mary Hurd MD [address] [place] [address] PCP - General Family Medicine 02/01/21 Sigrid Florentino Scallop DredgerWharf Builder 05/24/23 Donny Jimenez MD Consulting Physician Pulmonary Disease 02/27/24 documented as of this encounter
--- OUTSIDE RECORDS SUMMARY | 2024-04-15 17:59 | XMS_ITS | Encounter Summary ---
Author Organization [employer] Address [address] [facility] [address] [place] [address] Care Team Providers Care Sales Representative Gas Service Name Role Phone Mary Hurd MD Primary Care Provider [phone] Reason for Visit * Reason Onset Date Comments Order(s) 09/17/2023 Encounter Details Date Type Department Care Team ([facility] st Contact Info) Description 09/17/2023 Telephone [facility] MED[facility] [address] [place] [address] Mary Hurd MD [address] [place], [place] [phone] Order(s) Social History Tobacco Use Types Packs/Day [...] 1:19 PM EDT Tc from Nadya with [facility] calling to request a mammogram order for the pt stating she is due for one. If any questions you can contact Nadya at [phone]. documented in this encounter Plan of Treatment Not on file documented as of this encounter Visit Diagnoses Not on filedocumented in this encounter Additional Health Concerns Assessment Noted Time PHQ-9 Depression Total Score: 11 024 2:01 PM EDT documented as of this encounter Care Teams Sales Representative Gas Service Relationship Specialty Start Date End Date Mary Hurd MD [address] [place] [address] PCP - General Family Medicine 02/01/21 Sigrid Florentino Line Service TechnicianFoundry Metallurgist 05/24/23 Donny Jimenez MD Consulting Physician Pulmonary Disease 02/27/24 documented as of this encounter
--- OUTSIDE RECORDS SUMMARY | 2024-04-15 17:59 | XMS_ITS | Encounter Summary ---
Author Organization [employer] Address [address] [place] [address] Care Team Providers Care Electrician Bus Name Role Phone Mary Hurd MD Primary Care Provider [phone] Encounter Details Date Type Department Care Team ([facility] st Contact Info) Description 03/27/2023 Abstract [facility] MED[facility]INE [address] [place] [address] Mary Hurd MD [address] [place], [place] [phone] Social History Tobacco Use Types Packs/Day Years [...] documented as of this encounter Care Teams Electrician Bus Relationship Specialty Start Date End Date Mary Hurd MD [address] [place] [address] PCP - General Family Medicine 02/01/21 Sigrid Florentino Tuber Machine Operator HelperInjection Molding Process Technician 05/24/23 Donny Jimenez MD Consulting Physician Pulmonary Disease 02/27/24 documented as of this encounter
== END 2024-04-15 17:53 | disposition home or self-care (01) ==
LOC: HO.HHCLNP 17:52
PROVIDERS: Visit Provider Emergency Medicine
DX: R10.9 Unspecified abdominal pain (principal)
CPT/HCPCS: 87086

== ENCOUNTER 2024-04-16 14:25 | Outpatient (REF) | payer MEDICAID, SELFPAY ==
--- OUTSIDE RECORDS SUMMARY | 2024-04-16 18:21 | XMS_ITS | Encounter Summary ---
Author Organization [employer] Address [address] [facility] 7t [place] [address] Care Team Providers Care Line Up Worker Name Role Phone Mary Hurd MD Primary Care Provider Reason for Visit * Reason Onset Date Comments Nurse Triage 04/09/2024 Encounter Details Date Type Department Care Team ([facility] st Contact Info) Description 04/09/2024 Telephone [facility] CHC MED & PEDS [address] [place] [address] Mary Hurd MD [address] [place] [address] Nurse Triage Social History Tobacco Use Types [...] being followed. Per mom had tomove from [place]. Per pt has continued to take buproprion 75mg BID . Per pt has weekly visit with [facility] coordinator. Pt states also concerned that school is trying to say that [facility] [email or web address] next year. Will need to apply for school choice since mom lives in another city. Patient sounds very aggravated and speaking in a fast paced rate. Pt advised can have [facility] referral to see if [facility] has any [...] Center 04/09/2024 2:15 PM Henry Watson MD [facility] Insurance verified as active per Real Time Eligibility in [facility]. Video visit offered and caller accepted [...] The caller accepted this outcome. Tc from parts representative at [facility] calling to request appointment. 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 Contact pt at [phone] documented in this encounter Plan of Treatment Not on file documented as of this encounter Visit Diagnoses Not on filedocumented in this encounter Additional Health Concerns Assessment Noted Time PHQ-9 Depression Total Score: 5 02/27/20 24 12:52 PM EST documented as of this encounter Care Teams Line Up Worker Relationship Specialty Start Date End Date Mary Hurd MD [address] [place] [address] PCP - General Family Medicine 02/01/21 Sirgid Florentino Steward/Stewardess Tourist ClassExecutive Vice President 05/24/23 Donny Jimenez MD Consulting Physician Pulmonary Disease 02/27/24 documented as of this encounter
--- OUTSIDE RECORDS SUMMARY | 2024-04-16 18:21 | XMS_ITS | Encounter Summary ---
Author Organization [employer] Address [address] [facility] [address] 7[address] [place] [address] Care Team Providers Care Phys Therapist Name Role Phone Mary Hurd MD Primary Care Provider [phone] Encounter Details Date Type Department Care Team ([facility] st Contact Info) Description 03/27/2023 Abstract [facility] MEDICINE [address] [place] [address] Mary Hurd MD [address] [place], [place] [phone] Social History Tobacco Use Types Packs/Day Years [...] documented as of this encounter Care Teams Phys Therapist Relationship Specialty Start Date End Date Mary Hurd MD [address] [place] [address] PCP - General Family Medicine 02/01/21 Sigrid Florentino Lacer And TierRecords Specialist 05/24/23 Donny Jimenez MD Consulting Physician Pulmonary Disease 02/27/24 documented as of this encounter
--- OUTSIDE RECORDS SUMMARY | 2024-04-16 18:21 | XMS_ITS | Encounter Summary ---
Author Organization [employer] Address [address] [facility] [address] [place] [address] Care Team Providers Care Scutcher Tender Name Role Phone Mary Hurd MD Primary Care Provider [phone] Reason for Visit * Reason Onset Date Comments Nurse Triage 07/10/2023 Encounter Details Date Type Department Care Team ([facility] st Contact Info) Description 07/10/2023 Telephone [facility] MEDICINE [address] [place] [address] Mary Hurd MD [address] [place], [place] [phone] Nurse Triage Social History Tobacco Use Types [...] The caller accepted this outcome Patient speaks comoran documented in this encounter Plan of Treatment Not on file documented as of this encounter Visit Diagnoses Not on filedocumented in this encounter Additional Health Concerns Assessment Noted Time PHQ-9 Depression Total Score: 11 024 2:01 PM EDT documented as of this encounter Care Teams Scutcher Tender Relationship Specialty Start Date End Date Mary Hurd MD [address] [place] [address] PCP - General Family Medicine 02/01/21 Sigrid Florentino Supervisor Rubber CoveringExport Freight Clerk 05/24/23 Donny Jimenez MD Consulting Physician Pulmonary Disease 02/27/24 documented as of this encounter
--- OUTSIDE RECORDS SUMMARY | 2024-04-16 18:21 | XMS_ITS | Encounter Summary ---
Author Organization [employer] Address [address] [facility] 7t [place] [address] Care Team Providers Care Petroleum Inspector Name Role Phone Mary Hurd MD Primary Care Provider [phone] Reason for Visit * Reason Onset Date Comments Nurse Triage 04/16/2024 Encounter Details Date Type Department Care Team ([facility] st Contact Info) Description 04/16/2024 Telephone [facility] CHC MED & PEDS [address] [place] [address] Mary Hurd MD [address] [place] [address] Nurse Triage Social History Tobacco Use Types [...] encounter Miscellaneous Notes * Telephone Encounter - Kalyani Watkins RN - 04/16/2024 11:42 AM EST Date: 04/15/24 Hospital: [facility] Seen for: Abdominal pain Symptomatic Yes DX. Constipation. Called pt. She states that she went to ED for abdominal pain and was DX. With Constipation. Pt. Started the MiriLax last night and did have a BM last night. Pt is more concerned that the provider in the [facility] ED told her yesterday that bloodwork from the past shows that she has Hep C. Pt. Is concerned and upset and wants to speak to a provider about this and also confirm if she does have Hepc. Appt. Made for televisit for 115pm today to discuss concern. Will send this to provider to look into theHepatitis C DX. Prior to appt. So that he is prepared to discuss with pt. I do see a result from for a Positive HCV RNA quantitative real time pcr in labwork from 02/17/2021. There is also a lab for Hep C Antibody from 07/15/23 which is Negative. * Telephone Encounter - Terri Vigil - 04/16/2024 10:28 AM EST Patient calling to report ED visit on : Date: 04/15/24 Hospital: [facility] Seen for: Abdominal pain Symptomatic Yes *if yes message should go to Triage Patient advised will forward to team nurse for follow up Pt inform was told has Hep C documented in this encounter Plan of Treatment Not on file documented as of this encounter Visit Diagnoses Not on filedocumented in this encounter Additional Health Concerns Assessment Noted Time PHQ-9 Depression Total Score: 5 02/27/20 24 12:52 PM EST documented as of this encounter Care Teams Petroleum Inspector Relationship Specialty Start Date End Date Mary Hurd MD [address] [place] [address] PCP - General Family Medicine 02/01/21 Sigrid Florentino Administrative Library AssistantWrapping Machine Helper 05/24/23 Donny Jimenez MD Consulting Physician Pulmonary Disease 02/27/24 documented as of this encounter
--- OUTSIDE RECORDS SUMMARY | 2024-04-16 18:21 | XMS_ITS | Encounter Summary ---
Author Organization [employer] Address [address] [facility] 7t [place] [address] Care Team Providers Care Mechanical Press Operator Name Role Phone Mary Hurd MD Primary Care Provider [phone] Encounter Details Date Type Department Care Team ([facility] Contact Info) Description 04/16/2024 1:15 PM EST Telemedicine [facility] CHC MED & PEDS [address] [place], [place] [phone] Henry Shelton MD [address] [place] [address] Screening examination for STD (sexually transmitted disease) (Primary Dx); Hepatitis C antibody test positive Social History Tobacco Use Types Packs/Day Years [...] Progress Notes * Henry Watson MD - 04/16/2024 1:15 PM EST Subjective Patient ID: Charlie Navarro is a 43 y.o. female who presents for No chief complaint on file.. HPI Patient was scheduled for a televisit to discuss concerns for hepatitis c Review of Systems Constitutional: Negative for chills, fatigue and fever. Respiratory: Negative for cough and shortness of breath. Cardiovascular: Negative for chest pain and palpitations. Gastrointestinal: Negative for abdominal distention, abdominal pain, constipation, diarrhea, nauseaand vomiting. Skin: Negative for color change. Objective Physical Exam Neurological: General: No focal deficit present. Mental Status: She is oriented to person, place, and time. Psychiatric: Mood and Affect: Mood normal. Behavior: Behavior normal. Assessment/Plan Problem List Items Addressed This Visit Hepatitis C antibody test positive Patient was told she had hepatitis c, on record review I can see labs done on 2023 were she had negative antibodies, and one from 2020 where she had positive antibodies with a negative viral count, patient was explained of findings, discussed diagnosis/prognosis, will order test for confitmation Other Visit Diagnoses Screening examination for STD (sexually transmitted disease) - Primary Relevant Orders Hepatitis C Antibody with Reflex to HCV, RNA, Quantitative, Real-Time PCR HIV-1/2 Antigen and Antibodies, Fourth Generation, with Reflexes Chlamydia/N. Gonorrhoeae RNA, TMA, Urogenitial Syphilis Screen documented in this encounter Miscellaneous Notes * Assessment & Plan Note - Henry Watson MD - 04/16/2024 2:21 PM ESTAssociated Problem(s): Hepatitis C antibody test positive Patient was told she had hepatitis c, on record review I can see labs done on 2023 were she had negative antibodies, and one from 2020 where she had positive antibodies with a negative viral count, patient was explained of findings, discussed diagnosis/prognosis, will order test for confitmation documented in this encounter Plan of Treatment Scheduled Orders Name Type Priority Associated Diagnoses Orde r Schedule Hepatitis C Antibody with Reflex to HCV, RNA, Quantitative, Real-Time PCR Lab Routine Screening examination for STD (sexually transmitted disease) Expected: 04/16/2024, Expires: 04/16/2025 HIV-1/2 Antigen and Antibodies, Fourth Generation, with Reflexes Lab Routine Screening examination for STD (sexually transmitted disease) Expected: 04/16/2024 (Approximate), Expires: 04/16/2025 Chlamydia/N. Gonorrhoeae RNA, TMA, Urogenitial Microbiology Routine Screening examination for STD (sexually transmitted disease) Ordered: 04/16/2024 Syphilis Screen Lab Routine Screening examination for STD (sexually transmitted disease) Expected: 04/16/2024, Expires: 04/16/2025 documented as of this encounter Visit Diagnoses Diagnosis Screening examination for STD (sexually transmitted disease)- Primary Hepatitis C antibody test positive Other and unspecified nonspecific immunological findings documented in this encounter Additional Health Concerns Assessment Noted Time PHQ-9 Depression Total Score: 5 02/27/20 24 12:52 PM EST documented as of this encounter Care Teams Mechanical Press Operator Relationship Specialty Start Date End Date Mary Hurd MD [address] [place] [address] PCP - General Family Medicine 02/01/21 Sigrid Florentino Home Energy Consultant SupervisorShearer Helper 3/8/24 Donny Jimenez MD Consulting Physician Pulmonary Disease 02/27/24 documented as of this encounter
--- OUTSIDE RECORDS SUMMARY | 2024-04-16 18:21 | XMS_ITS | Encounter Summary ---
Author Organization [employer] Address [address] [facility] [address] 7t [place] [address] Care Team Providers Care Sub Master Name Role Phone Mary Hurd MD Primary Care Provider [phone] Reason for Visit * Reason Onset Date Comments Order(s) 09/17/2023 Encounter Details Date Type Department Care Team ([facility] st Contact Info) Description 09/17/2023 Telephone [facility] MEDICINE [address] [place] [address] Mary Hurd MD [address] [place] [address] Order(s) Social History Tobacco Use Types Packs/Day [...] 1:19 PM EDT Tc from Nadya with [facility] calling to request a mammogram order for the pt stating she is due for one. If any questions you can contact Nadya at [phone]. documented in this encounter Plan of Treatment Not on file documented as of this encounter Visit Diagnoses Not on filedocumented in this encounter Additional Health Concerns Assessment Noted Time PHQ-9 Depression Total Score: 11 024 2:01 PM EDT documented as of this encounter Care Teams Sub Master Relationship Specialty Start Date End Date Mary Hurd MD [address] [place] [address] PCP - General Family Medicine 02/01/21 Sigrid Florentino Table And Desk FinisherHealth Insurance Adjuster 05/24/23 Donny Jiemnez MD Consulting Physician Pulmonary Disease 02/27/24 documented as of this encounter
--- OUTSIDE RECORDS SUMMARY | 2024-04-16 18:21 | XMS_ITS | Encounter Summary ---
Author Organization [employer] Address [address] [facility] 7t [place] [address] Care Team Providers Care Systems Spec Name Role Phone Mary Hurd MD Primary Care Provider [phone] Encounter Details Date Type Department Care Team ([facility] Contact Info) Description 04/09/2024 2:15 PM EST Telemedicine [facility] CHC MED & PEDS [address] [place], [place] [phone] Henry Shelton MD [address] [place] [address] Anxiety (Primary Dx) Social History Tobacco Use [...] documented as of this encounter Care Teams Systems Spec Relationship Specialty Start Date End Date Mary Hurd MD [address] [place] [address] PCP - General Family Medicine 02/01/21 Sigrid Florentino Software Support TechnicianHand Stone Polisher 05/24/23 Donny Jimenez MD Consulting Physician Pulmonary Disease 02/27/24 documented as of this encounter
--- OUTSIDE RECORDS SUMMARY | 2024-04-16 18:21 | XMS_ITS | Encounter Summary ---
Author Organization [employer] Address [address] [facility] [address] [place] [address] Care Team Providers Care Mechanical Engineering Specialist Name Role Phone Mary Hurd MD Primary Care Provider [phone] Encounter Details Date Type Department Care Team [...] as of this encounter Care Teams Mechanical Engineering Specialist Relationship Specialty Start Date End Date Mary Hurd MD [address] [place] [address] PCP - General Family Medicine 02/01/21 Sigrid Florentino Station JailerStand Up Comedian 05/24/23 Donny Jimenez MD Consulting Physician Pulmonary Disease 02/27/24 documented as of this encounter
--- OUTSIDE RECORDS SUMMARY | 2024-04-16 18:21 | XMS_ITS | Encounter Summary ---
Author Organization [employer] Address [address] [facility] [address] [place] [address] Care Team Providers Care Print Decorator Name Role Phone Mary Hurd MD Primary Care Provider [phone] Reason for Visit * Reason Onset Date Comments Food Assistance 12/27/2023 Encounter Details Date Type Department Care Team ([facility] st Contact Info) Description 12/27/2023 Telephone [facility] MEDICINE [address] [place] [address] Mary Hurd MD [address] [place], [place] [phone] Food Assistance Social History Tobacco Use Types [...] documented as of this encounter Care Teams Print Decorator Relationship Specialty Start Date End Date Mary Hurd MD [address] [place] [address] PCP - General Family Medicine 02/01/21 Sigrid Florentino Scholarship CounselorStrike Operations Officer 05/24/23 Donny Jimenez MD Consulting Physician Pulmonary Disease 02/27/24 documented as of this encounter
--- OUTSIDE RECORDS SUMMARY | 2024-04-16 18:21 | XMS_ITS | Encounter Summary ---
Author Organization [employer] Address [address] [facility] [address] [place] [address] Care Team Providers Care Supervisor Game Farm Name Role Phone Mary Hurd MD Primary Care Provider [phone] Encounter Details Date Type Department Care Team ([facility] st Contact Info) Description 04/15/2024 10:00 AM EST Office Visit [facility] [address] [place], [place] [phone] Fredo Drake MD [address] [place] [address] Abdominal pain, unspecified abdominal location (Primary Dx); [...] surgery: BTL. Lives with son. 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 Never smoked. Occasional EtOH. Patient Active Problem List Diagnosis Acquired hypothyroidism Allergic rhinitis Cobalamin deficiency Constipation Depressive disorder Gastroesophageal reflux disease Hepatitis C antibody test positive History of substance abuse ([facility]) Illiteracy Severe persistent asthma Steroid-induced osteopenia Tremor [...] documented in this encounter Plan of Treatment Pending Results Name Type Priority Associated Diagnoses Date /Time Culture, Urine, Routine Microbiology Routine Abdominal pain, unspecified abdominal location 04/15/2024 11:48 AM EST documented as of this encounter Procedures Procedure Name Priority Date/Time Associated Diagnosis Comments CULTURE, URINE, ROUTINE Routine 04/15/2024 11:48 AM EST Abdominal pain, unspecified abdominal location POCT , URINE Routine 04/15/2024 11:05 AM [...] documented as of this encounter Care Teams Supervisor Game Farm Relationship Specialty Start Date End Date Mary Hurd MD [address] [place] [address] PCP - General Family Medicine 02/01/21 Sigrid Florentino Forestry PilotAgile Tester 05/24/23 Donny Jimenez MD Consulting Physician Pulmonary Disease 02/27/24 documented as of this encounter
--- OUTSIDE RECORDS SUMMARY | 2024-04-16 18:21 | XMS_ITS | Encounter Summary ---
Author Organization [employer] Address [address] [place] [address] Care Team Providers Care Vocational Instructor Name Role Phone Mary Hurd MD Primary Care Provider [phone] Encounter Details Date Type Department Care Team [...] t he electric, gas, oil or water [employer] threatened to shut off services in your [...] Procedure Name Priority Date/Time Associated Diagnosis Comments CT ABDOMEN PELVIS W CONTRAST Routine 04/15/2024 6:14 PM EST CBC WITH AUTO DIFFERENTIAL Routine [...] EST documented in this encounter Results * CT Abdomen Pelvis w/ Contrast (04/15/2024 6:14 PM EST) Anatomical Region Laterality Modality Body, Pelvis, Abdomen Computed T omography 04/15/2024 6:14 PM EST Narrative 04/15/2024 6:15 PM EST ? [facility] ?[address] ?[place] [address] ? CT Scan Report ? Signed ? Patient: Ramon,Yeliska ?MR#: [id number] ?? 89 ? : 1980 ?Acct:[id number] ? Age/Sex: 43 / F ?ADM Date: 04/15/24 ? Loc: HO.ED ? Attending Dr: ? Ordering Physician: Willis Jones DO ?? Date of Service: 04/15/24 ?? Procedure(s): CT abdomen pelvis w IV con ?? Accession Number(s): [id number] ? cc: Willis Jones DO; Mary Hurd MD ? Report Number: ?? [id number]: Total DLP = ??559.00 mGy-cm ? CLINICAL HISTORY: evaluate for bowel obstruction due to obstipation ? CT abdomen and pelvis with contrast ? Comparison: CT of the abdomen and pelvis from 10/07/2017 ? Findings: ?? No consolidation in the imaged lung bases. Solid abdominal organs and ?? gallbladder are unremarkable. ?? Small mesenteric and periaortic lymph nodes are likely reactive. No small ?? bowel obstruction. Appendix is within normal limits. Severe stool burden ?? is present, including the cecum. Uterus is anteverted. No adnexal mass by ?? CT. Urinary bladder is unremarkable. Mild free fluid in the pelvis is ?? likely physiologic. Metal artifacts including from imaged piercings. ?? Subcutaneous edema is noted dependently. Degenerative disc changes ?? including vacuum disc phenomenon at L4-L5 and L5-S1 with small disc ?? bulges. Bilateral facet arthropathy also in the lower lumbar spine. ? IMPRESSION: ?? 1. No small bowel obstruction. ?? 2. Severe stool burden. ? This document has been electronically signed by: Kojo Bowen MD on ?? 04/15/2024 18:14:04 ? Dictated By: ?Kojo Bowen MD ? Signed By: ?<Electronically signed by Kojo Bowen MD in OV> ? 04/15/241813 ? DD/ 13 ? TD/TT: 04/15/241813 ? Dice Table Person: ? Procedure Note Donotnaminterpreter, Image - 04/15/[address] [place] [address] [address] Scan Report Signed Patient: Brenda Navarro#: [id number] [birth year] : 1980Acct:[id number] Age/Sex: 43 / FADM Date: 04/15/24 Loc: HO.ED Attending Dr: Ordering Physician: Willis Jones DO Date of Service: 04/15/24 Procedure(s): CT abdomen pelvis w IV con Accession Number(s): [id number] cc: Willis Jones DO; Mary Hurd MD Report Number: [id number]: Total DLP = 559.00 mGy-cm CLINICAL HISTORY: evaluate for bowel obstruction due to obstipation CT abdomen and pelvis with contrast Comparison: CT of the abdomen and pelvis from 10/07/2017 Findings: No consolidation in the imaged lung bases. Solid abdominal organs and gallbladder are unremarkable. Small mesenteric and periaortic lymph nodes are likely reactive. No small bowel obstruction. Appendix is within normal limits. Severe stool burden is present, including the cecum. Uterus is anteverted. No adnexal mass by CT. Urinary bladder is unremarkable. Mild free fluid in the pelvis is likely physiologic. Metal artifacts including from imaged piercings. Subcutaneous edema is noted dependently. Degenerative disc changes including vacuum disc phenomenon at L4-L5 and L5-S1 with small disc bulges. Bilateral facet arthropathy also in the lower lumbar spine. IMPRESSION: 1. No small bowel obstruction. 2. Severe stool burden. This document has been electronically signed by: Kojo Bowen MD on 04/15/2024 18:14:04 Dictated By: Kojo Bowen MD Signed By: <Electronically signed by Kojo Bowen MD in OV> 04/15/241813 DD/ 13 TD/TT: 04/15/241813 Dice Table Person: us [facility] External Provider IMG CT PROCEDURES Edited Result - Final * (ABNORMAL) TSH (04/15/2024 3:09 PM EST) Thyroid Stimulating Hormone 8.49(H) 0.32 - 4.0 uIU/mL [facility] Comment:Note: A sustained TS H level above 2.5 uIU/mL may warrant further investigation. TSH 3rd Generation ([facility]) 04/15/2024 3:09 PM EST 04/15/2024 3:12 PM EST Generic External Data Provider LAB BLOOD ORDERAB LES Final Result Performing Organization Address City/[facility] [address]/ZIP Co de Phone Number [facility] [address] [place] [phone] * T4, Free (04/15/2024 3:09 PM EST) Free T4 (Free Thyroxine) 0.87 0.71 - 1.85 ng/dL [facility] 04/15/2024 3:09 PM EST 04/15/2024 3:12 PM EST Generic External Data Provider LAB BLOOD ORDERAB LES Final Result Performing Organization Address City/[facility] [address]/ZIP Co de Phone Number [facility] [address] [place] [phone] * Urinalysis w/reflex microscopic (04/15/2024 3:09 PM EST) Color Urine Yellow [facility] Appearance Urine Clear [facility] PH 7.0 5.0 - 9.0 [facility] Glucose Urine UA Negative Negative mg/dL [facility] Urine Blood Negative Negative [facility] Specific [place] - Urine 1.010 1.005 - 1.025 [facility] Urine Protein Negative Neg-Trace mg/dL [facility] Urine Ketones Negative Negative mg/dL [facility] Nitrite Urine Negative Negative [facility] Leukocyte Esterase Urine Negative Negative [facility] 04/15/2024 3:09 PM EST 04/15/2024 3:12 PM EST Narrative [facility] - 04/15/2024 3:57 PM EST [id number], Clean Catch Generic External Data Provider LAB URINE ORDERAB LES Final Result Performing Organization Address [facility] Co de Phone Number [facility] [address] [place] [phone] * Lipase (04/15/2024 3:09 PM EST) [facility] Lipase 19 8 - 78 U/L [facility] 04/15/2024 3:09 PM EST 04/15/2024 3:12 PM EST us Generic External Data Provider LAB BLOOD ORDERAB LES Final Result Performing Organization Address [facility] Phone Number [facility] [address] [place] [address] [phone] * Magnesium (04/15/2024 3:09 PM EST) [facility] Magnesium 2.1 1.6 - 2.6 mg/dL [facility] 04/15/2024 3:09 PM EST 04/15/2024 3:12 PM EST Generic External Data Provider LAB BLOOD ORDERAB LES Final Result Performing Organization Address [facility] de Phone Number [facility] [address] [place] [address] [phone] * (ABNORMAL) Comprehensive Metabolic Panel (04/15/2024 3:09 PM EST) [facility] Sodium 139 135 - 145 mmol/L [facility] Potassium 4.5 3.3 - 5.1 mmol/L [facility] Chloride 107 96 - 108 mmol/L [facility] Carbon Dioxide 26 22 - 29 mmol/L [facility] Anion Gap 11(L) 12 - 20 [facility] Urea Nitrogen (BUN) 10 9 - 16 mg/dL [facility] Creatinine, Serum 0.73 0.5 - 1.4 mg/dL [facility] Creatinine Clr Calc Pharmacy 98.8 [facility] Comment:Provided height and weight: 157.48 cm,79.2 kg.eGFR (calculated from the MDRD study equation) and eCrCl(calculated from the Cockcroft-Gault equation) are based ondifferent parameters and may not yield comparable results.If eCrCl result is absurd, please check patient'sheight/weight. Estimated Glomerular Filt Rate >60 [facility] Comment:Chronic Kidney Disea se: Estimated GFR < 60 mL/min/1.98w9Homscu Kidney Disease: Estimated GFR < 15 mL/min/1.73m2 Glucose 94 60 - 115 mg/dL [facility] Calcium 9.4 8.4 - 10.2 mg/dL [facility] Bilirubin, Total 0.2 0.0 - 1.0 mg/dL [facility] Aspartate Amino Transferase 22 5 - 31 U/L [facility] Alanine Aminotransferase 17 0 - 31 U/L [facility] Total Protein 7.2 6.5 - 8.0 g/dL [facility] Albumin Level 3.9 3.5 - 5.0 g/dL [facility] Alkaline Phosphatase 55 39 - 117 U/L [facility] 04/15/2024 3:09 PM EST 04/15/2024 3:12 PM EST us Generic External Data Provider LAB BLOOD ORDERAB LES Final Result [facility] [address] [place] [phone] * (ABNORMAL) CBC auto differential (04/15/2024 3:09 PM EST) White Blood Count 5.1 4.8 - 10.8 X10*3/uL [facility] Red Blood Count 3.67(L) 4.20 - 5.50 X10*6/uL [facility] Hemoglobin 11.2(L) 12.0 - 16.0 g/dl [facility] Hematocrit 34.6(L) 37.0 - 47.0 % [facility] Mean Corpuscular Volume 94.3 80.0 - 98.0 fL [facility] Mean Corpuscular Hemoglobin 30.5 27.0 - 33.0 pg [facility] Mean Corpuscular HGB Conc 32.4 31.0 - 35.0 g/dl [facility] Red Cell Distribution Width 12.7 11.0 - 16.0 % [facility] Platelet Count 200 160 - 400 X10*3/uL [facility] Mean Platelet Volume 10.2 9.4 - 12.3 fL [facility] Neutrophils Percent Auto 42.2(L) 45 - 73 % [facility] Imm Gran Pct Auto 0.2 0.0 - 0.4 % [facility] Lymphocytes Percent Auto 48.8(H) 20 - 40 % [facility] Monocytes Percent Auto 4.9 2 - 11 % [facility] Eosinophils Percent Auto 3.1 0 - 4 % [facility] Basophils Percent Auto 0.8 0 - 2 % [facility] NRBC Pct Auto 0.0 0.0 - 0.2 /100WBC [facility] Neutrophils Absolute Auto 2.2 2.0 - 8.3 x10*3/uL [facility] Imm Gran Abs Auto 0.01 0.00 - 0.03 X10*3/uL [facility] Lymphocytes Absolute Auto 2.5 1.2 - 4.9 X10*3/uL [facility] Monocytes Absolute Auto 0.3 0.1 - 1.2 X10*3/uL [facility] Eosinophils Absolute Auto 0.2 0.0 - 0.4 X10*3/uL [facility] Basophils Absolute Auto 0.0 0.0 - 0.2 X10*3/uL [facility] NRBC Abs Auto 0.000 0.0 - 0.012 X10*3/uL [facility] 04/15/2024 3:09 PM EST 04/15/2024 3:12 PM EST us Generic External Data Provider LAB BLOOD ORDERAB LES Final Result [facility] [address] [place] [address] [phone] * TSI (Thyroid Stimulating Immunoglobulin) (04/09/2024 3:48 PM EST) Thyroid Stimulating Immunoglobulin <89 <140 % baseline [facility] Comment: Thyroid stimulating immunoglobulins (TSI) [...] hCG concentrationfalls below 40,625 mIU/mL (usually after [id number] gestation).The analytical performance characteristics of thisassay have been determined by [place]. ??The modificationshave not been cleared or approved by the FDA. ??Thisassay has been validated pursuant to the CLIAregulations and is used for clinical purposes.THIS TEST WAS PERFORMED AT:[facility] [place], [place] ??[id number] AGUILAR MD,PHD 04/09/2024 3:48 PM EST 04/09/2024 3:48 PM EST us Generic External Data Provider LAB BLOOD ORDERAB LES Final Result Performing Organization Address City/[facility] [address]/ZIP Co de Phone Number [facility] [address] [place] [phone] * TRAb (TSH Receptor Binding Antibody) (04/09/2024 3:48 PM EST) TRAb (TSH Receptor Binding Antibody) <1.00 <=2.00 IU/L [facility] Comment:This test was perfor med using the TRAb Antibody ELISAmethod which is standardized against the [address] [place], [place] [address]national Standard 90/672 and is reported inInternational Units (IU/L). The reference rangereported was established specifically for this testmethod.THIS TEST WAS PERFORMED AT:[facility] [place] [phone] AGUILAR MD,PHD 04/09/2024 3:48 PM EST 04/09/2024 3:48 PM EST us Generic External Data Provider LAB BLOOD ORDERAB LES Final Result Performing Organization Address [facility] Co de Phone Number [facility] [address] [place] [phone] * Thyroid Peroxidase Antibodies (04/09/2024 3:48 PM EST) Thyroid Peroxidase Antibodies 1 <9 IU/mL [facility] Comment:THIS TEST WAS PERFOR MED AT:[facility] [address] [id number] GENTILE MD 04/09/2024 3:48 PM EST 04/09/2024 3:48 PM EST us Generic External Data Provider LAB BLOOD ORDERAB LES Final Result Performing Organization Address City/[facility] [address]/ZIP Co de Phone Number [facility] [address] [place] [phone] * (ABNORMAL) T3, Total (04/09/2024 3:48 PM EST) T3, Total 62(A) 76 - 181 ng/dL [facility] Comment:THIS TEST WAS PERFOR MED AT:[facility] [place] [id number] GENTILE MD 04/09/2024 3:48 PM EST 04/09/2024 3:48 PM EST us Generic External Data Provider LAB BLOOD ORDERAB LES Final Result Performing Organization Address [facility] [address]/ZIP Co de Phone Number [facility] [address] [place] [phone] * (ABNORMAL) TSH (04/09/2024 3:48 PM EST) Thyroid Stimulating Hormone 13.36(H) 0.32 - 4.0 uIU/mL [facility] Comment:Note: A sustained TS H level above 2.5 uIU/mL may warrant further investigation. TSH 3rd Generation ([facility]) 04/09/2024 3:48 PM EST 04/09/2024 3:48 PM EST us Generic External Data Provider LAB BLOOD ORDERAB LES Final Result Performing Organization Address City/[facility] [address]/ZIP Co de Phone Number [facility] [address] [place] [phone] * T4, Free (04/09/2024 3:48 PM EST) Free T4 (Free Thyroxine) 0.96 0.71 - 1.85 ng/dL [facility] 04/09/2024 3:48 PM EST 04/09/2024 3:48 PM EST us Generic External Data Provider LAB BLOOD ORDERAB LES Final Result [facility] [address] [place] [phone] documented in this encounter Visit Diagnoses Not on filedocumented in this encounter Additional Health Concerns Assessment Noted Time PHQ-9 Depression Total Score: 5 02/27/20 24 12:52 PM EST documented as of this encounter Care Teams Vocational Instructor Relationship Specialty Start Date End Date Mary Hurd MD [address] [place] [address] PCP - General Family Medicine 02/01/21 Sigrid Florentino Chemical Research TechnicianMachine Group Leader 05/24/23 Donny Jimenez MD Consulting Physician Pulmonary Disease 02/27/24 documented as of this encounter
--- OUTSIDE RECORDS SUMMARY | 2024-04-16 18:21 | XMS_ITS | Encounter Summary ---
Author Organization [employer] Address [address] [place] [address] Care Team Providers Care Care Transition Manager Name Role Phone Mary Hurd MD Primary Care Provider [phone] Encounter Details Date Type Department Care Team (Latest Contact Info) Description 04/16/2024 Travel Social History Tobacco Use Types Packs/Day [...] documented as of this encounter Care Teams Care Transition Manager Relationship Specialty Start Date End Date Mary Hurd MD [address] [place] [address] PCP - General Family Medicine 02/01/21 Sigrid Florentino Raspberry CheckerCar Inspector 05/24/23 Donny Jimenez MD Consulting Physician Pulmonary Disease 02/27/24 documented as of this encounter
--- OUTSIDE RECORDS SUMMARY | 2024-04-16 18:22 | XMS_ITS | Encounter Summary ---
Author Organization [employer] Address [address] [facility] [address] [place] [address] Care Team Providers Care Immigration Services Officer Name Role Phone Mary Hurd MD Primary Care Provider [phone] Reason for Visit * Reason Onset Date Comments Med Refill 09/16/2023 Encounter Details Date Type Department Care Team ([facility] st Contact Info) Description 09/16/2023 Telephone [facility] [address] [place] [address] Mary Hurd MD [address] [place] [address] Med Refill Social History Tobacco Use Types [...] 150 MCG tablet To be sent to: [facility] [place], [place] - [address] [facility] documented in this encounter Plan of Treatment Not on file documented as of this encounter Visit Diagnoses Not on filedocumented in this encounter Additional Health Concerns Assessment Noted Time PHQ-9 Depression Total Score: 11 024 2:01 PM EDT documented as of this encounter Care Teams Immigration Services Officer Relationship Specialty Start Date End Date Mary Hurd MD [address] [facility] [place] [place] [address] PCP - General Family Medicine 02/01/21 Sigrid Florentino Barrel CentererKaitara Taraka 05/24/23 Donny Jimenez MD Consulting Physician Pulmonary Disease 02/27/24 documented as of this encounter
--- OUTSIDE RECORDS SUMMARY | 2024-04-16 18:22 | XMS_ITS | Clinical Summary ---
Author Organization [employer] Address [address] [place] [address] Care Team Providers Care [employer] Name Role Phone Mary Hurd MD Primary Care Provider [phone] Allergies Active Allergy Reactions Criticality Noted Date [...] in the morning. 08/28/19 24 Active Multiple Vitamins-[place] als (CertaVite/Ant ioxidants) tablet TAKE 1 TABLET [...] PM Sulma Trotter, OD [facility] 07/08/2023 2:30 PM [place] [facility]IC[facility] Sleep apnea 04/19/2023 Assessment & Plan [...] patient to orthopedics per her request, linsey FS, sent for X ray. Defer PT referral, [...] 06/19/2013 Hepatitis C antibody test positive 09/19/2012 Assessment & Plan (04/16/2024 2:21 PM EST): Patient was told she had hepatitis c, on record review I can see labs done on 2023 were she had negative antibodies, and one from 2020 where she had positive antibodies with a negative viral count, patient was explained of findings, discussed diagnosis/prognosis, will order test for confitmation Acquired hypothyroidism 02/05/2012 Assessment & Plan (02/27/2024 [...] today. She is getting some help from Counseling Services Manager. As this provider will be retiring, at this time patient is referred back to her PCP for continued medication management. Call [facility] with any questions or concerns. All [...] with therapist as usual, and [facility] Care Mgt. On 01/21/2023 pt was [...] usual. F/U with therapist as usual, and [facility] Mgt. On 01/21/2023 pt was informed that [...] agency prescriber. Will also be referred to [facility] Mgt. ADDENDUM: After the visit was complete, [...] Encounters Date Type Department Care Team Description 04/16/2024 1:15 PM EST Telemedicine [facility] [address] [place] [address] Henry Shelton MD Screening examination for STD (sexually transmitted disease) (Primary Dx); Hepatitis C antibody test positive 04/16/2024 Travel 04/16/2024 Telephone [facility] [address] [place] [address] Mary Hurd MD Nurse Triage 04/15/2024 10:00 AM EST Office Visit [facility] [address] [place] [phone] Fredo Drake MD Abdominal pain, unspecified abdominal location (Primary Dx); Abnormal uterine bleeding; Right flank pain 04/09/2024 2:15 PM EST Telemedicine [facility] [address] [place] [address] Henry Shelton MD Anxiety (Primary Dx) 04/09/2024 Orders Only GENERIC EXTERNAL DATA DEPARTMENT Provider, Generic External Data 04/09/2024 Travel 04/09/2024 Telephone [facility] [address] [place] [address] Mary Hurd MD Nurse Triage 02/27/2024 1:00 PM EST Telemedicine [facility] [address] [place] [address] Mary Hurd MD Severe persistent asthma, unspecified whether complicated (Primary Dx); Acquired hypothyroidism 02/27/2024 Travel 02/26/2024 Telephone [facility] [address] [place] [address] Mary Hurd MD CHART PREP 02/17/2024 Telephone [facility] [address] [place] [address] Mary Hurd MD 02/12/2024 Refill [facility] [address] [place] [address] Mary Hurd MD 01/24/2024 Patient Outreach [facility] MED[facility] [address] [place] [phone] Mary Hurd MD Care Coordination ([facility] [employer] telelphone call graduate) from Last 3 Months Immunizations Name Administration Dates Next Due DTP 11/24/1985,07/28/1985,06/04/1985 DTaP 04/27/2018,03/22/1989,12/07/1986 Hep B, Adolescent or Pediatric 07/29/1995,1995,02/05/1995 Hib (HbOC) 05/21/1985 IPV 03/22/1989, 6,07/28/1985,06/04 Influenza injectable quadriv alent IIV4 with preservative 12/12/2017 Influenza injectable quadriv alent preservative free 02/17/2020,02/19/2019,01/09/2017 Influenza, IIV3, injectable 01/04/1998 Influenza, Split (incl. freddy fied surface antigen) 02/05/2012 [employer] SARS-CoV-2 Vaccination 06/01/2020 MMR 04/03/1995,06/04/1985 Pfizer Covid-19 [...] W CONTRAST Routine 04/15/2024 6:14 PM EST TSH Routine 04/15/2024 3:09 PM EST T4, FREE Routine 04/15/2024 3:09 PM EST URINALYSIS WITH REFLEX MICROSCOPIC Routine 04/15/2024 3:09 PM EST LIPASE Routine 04/15/2024 3:09 PM EST MAGNESIUM Routine 04/15/2024 3:09 PM EST COMPREHENSIVE METABOLIC PANEL Routine 04/15/2024 3:09 PM EST CBC WITH AUTO DIFFERENTIAL Routine 04/15/2024 3:09 PM EST CULTURE, URINE, ROUTINE Routine 04/15/2024 11:48 AM [...] Recently Relevant to Health Maintenance Results * CT Abdomen Pelvis w/ Contrast (04/15/2024 6:14 PM EST) Anatomical Region Laterality Modality Body, Pelvis, Abdomen Computed T omography 04/15/2024 6:14 PM EST Narrative 04/15/2024 6:15 PM EST ? [facility] ?[address] ?[place] [address] ? CT Scan Report ? Signed ? Patient: Ramon,Yeliska ?MR#: [id number] ?? 91 ? : 1980 ?Acct:[id number] ? Age/Sex: 43 / F ?ADM Date: 04/15/24 ? Loc: HO.ED ? Attending Dr: ? Ordering Physician: Willis Jones DO ?? Date of Service: 04/15/24 ?? Procedure(s): CT abdomen pelvis w IV con ?? Accession Number(s): [id number] ? cc: Willis Jones DO; Mary Hurd MD ? Report Number: ?? [id number]: Total DLP = ??559.00 mGy-cm ? CLINICAL [...] ? DD/ 13 ? TD/TT: 04/15/241813 ? Revenue Stamp Clerk: ? Procedure Note Donotuseinterpreter, Image - 04/15/[address] [place] [address] [address] Scan Report Signed Patient: Brenda Navarro#: [id number] 91 : 1980Acct:[id number] Age/Sex: 43 / FADM Date: 04/15/24 Loc: HO.ED Attending Dr: Ordering Physician: Willis Jones DO Date of Service: 04/15/24 Procedure(s): CT abdomen pelvis w IV con Accession Number(s): [id number] cc: Willis Jones DO; Mary Hurd MD Report Number: [id number]: Total DLP = 559.00 mGy-cm CLINICAL HISTORY: [...] in OV> 04/15/241813 DD/ 13 TD/TT: 04/15/241813 Revenue Stamp Clerk: us [facility] External Provider IMG CT PROCEDURES Edited Result - Final * (ABNORMAL) CBC auto differential (04/15/2024 3:09 PM EST) White Blood Count 5.1 4.8 - 10.8 X10*3/uL [facility] Red Blood Count 3.67(L) 4.20 - 5.50 X10*6/uL [facility] Hemoglobin 11.2(L) 12.0 - 16.0 g/dl [facility] Hematocrit 34.6(L) 37.0 - 47.0 % [facility] Mean Corpuscular Volume 94.3 80.0 - 98.0 fL [facility] Mean Corpuscular Hemoglobin 30.5 27.0 - 33.0 pg [facility] Mean Corpuscular HGB Conc 32.4 31.0 - 35.0 g/dl [facility] Red Cell Distribution Width 12.7 11.0 - 16.0 % [facility] Platelet Count 200 160 - 400 X10*3/uL [facility] Mean Platelet Volume 10.2 9.4 - 12.3 fL [facility] Neutrophils Percent Auto 42.2(L) 45 - 73 % [facility] Imm Gran Pct Auto 0.2 0.0 - 0.4 % [facility] Lymphocytes Percent Auto 48.8(H) 20 - 40 % [facility] Monocytes Percent Auto 4.9 2 - 11 % [facility] Eosinophils Percent Auto 3.1 0 - 4 % [facility] Basophils Percent Auto 0.8 0 - 2 % [facility] NRBC Pct Auto 0.0 0.0 - 0.2 /100WBC [facility] Neutrophils Absolute Auto 2.2 2.0 - 8.3 x10*3/uL [facility] Imm Gran Abs Auto 0.01 0.00 - 0.03 X10*3/uL [facility] Lymphocytes Absolute Auto 2.5 1.2 - 4.9 X10*3/uL [facility] Monocytes Absolute Auto 0.3 0.1 - 1.2 X10*3/uL [facility] Eosinophils Absolute Auto 0.2 0.0 - 0.4 X10*3/uL [facility] Basophils Absolute Auto 0.0 0.0 - 0.2 X10*3/uL [facility] NRBC Abs Auto 0.000 0.0 - 0.012 X10*3/uL [facility] 04/15/2024 3:09 PM EST 04/15/2024 3:12 PM EST Generic External Data Provider LAB BLOOD ORDERAB LES Final Result Performing Organization Address [facility]/ZIP Co de Phone Number [facility] [address] [place] [address] [phone] * Urinalysis w/reflex microscopic (04/15/2024 3:09 PM EST) Color Urine Yellow [facility] Appearance Urine Clear [facility] PH 7.0 5.0 - 9.0 [facility] Glucose Urine UA Negative Negative mg/dL [facility] Urine Blood Negative Negative [facility] Specific State Road - Urine 1.010 1.005 - 1.025 [facility] Urine Protein Negative Neg-Trace mg/dL [facility] Urine Ketones Negative Negative mg/dL [facility] Nitrite Urine Negative Negative [facility] Leukocyte Esterase Urine Negative Negative [facility] 04/15/2024 3:09 PM EST 04/15/2024 3:12 PM EST Narrative [facility] - 04/15/2024 3:57 PM EST [id number], Clean Catch Generic External Data Provider LAB URINE ORDERAB LES Final Result Performing Organization Address [facility] Co de Phone Number [facility] [address] [place] [phone] * (ABNORMAL) TSH (04/15/2024 3:09 PM EST) Only the most recent of2 resultswithin the time period is included. Thyroid Stimulating Hormone 8.49(H) 0.32 - 4.0 uIU/mL [facility] Comment:Note: A sustained TS H level above 2.5 uIU/mL may warrant further investigation. TSH 3rd Generation ([facility]) 04/15/2024 3:09 PM EST 04/15/2024 3:12 PM EST Generic External Data Provider LAB BLOOD ORDERAB LES Final Result Performing Organization Address [facility] Co de Phone Number [facility] [address] [place] [phone] * T4, Free (04/15/2024 3:09 PM EST) Only the most recent of2 resultswithin the time period is included. Free T4 (Free Thyroxine) 0.87 0.71 - 1.85 ng/dL [facility] 04/15/2024 3:09 PM EST 04/15/2024 3:12 PM EST Generic External Data Provider LAB BLOOD ORDERAB LES Final Result Performing Organization Address [facility] de Phone Number [facility] [address] [place] [phone] * Magnesium (04/15/2024 3:09 PM EST) Magnesium 2.1 1.6 - 2.6 mg/dL [facility] 04/15/2024 3:09 PM EST 04/15/2024 3:12 PM EST Generic External Data Provider LAB BLOOD ORDERAB LES Final Result Performing Organization Address [facility] de Phone Number [facility] [address] [place] [phone] * Lipase (04/15/2024 3:09 PM EST) Lipase 19 8 - 78 U/L [facility] 04/15/2024 3:09 PM EST 04/15/2024 3:12 PM EST us Generic External Data Provider LAB BLOOD ORDERAB LES Final Result [facility] [address] [place] [phone] * (ABNORMAL) Comprehensive Metabolic Panel (04/15/2024 3:09 PM EST) Sodium 139 135 - 145 mmol/L [facility] Potassium 4.5 3.3 - 5.1 mmol/L [facility] Chloride 107 96 - 108 mmol/L [facility] Carbon Dioxide 26 22 - 29 mmol/L [facility] Anion Gap 11(L) 12 - 20 [facility] Urea Nitrogen (BUN) 10 9 - 16 mg/dL [facility] Creatinine, Serum 0.73 0.5 - 1.4 mg/dL [facility] Creatinine Clr Calc Pharmacy 98.8 [facility] Comment:Provided height and weight: 157.48 cm,79.2 kg.eGFR (calculated from the MDRD study equation) and eCrCl(calculated from the Cockcroft-Gault equation) are based ondifferent parameters and may not yield comparable results.If eCrCl result is absurd, please check patient'sheight/weight. Estimated Glomerular Filt Rate >60 [facility] Comment:Chronic Kidney Disea se: Estimated GFR < 60 mL/min/1.01j0Mdlfas Kidney Disease: Estimated GFR < 15 mL/min/1.73m2 Glucose 94 60 - 115 mg/dL [facility] Calcium 9.4 8.4 - 10.2 mg/dL [facility] Bilirubin, Total 0.2 0.0 - 1.0 mg/dL [facility] Aspartate Amino Transferase 22 5 - 31 U/L [facility] Alanine Aminotransferase 17 0 - 31 U/L [facility] Total Protein 7.2 6.5 - 8.0 g/dL [facility] Albumin Level 3.9 3.5 - 5.0 g/dL [facility] Alkaline Phosphatase 55 39 - 117 U/L [facility] 04/15/2024 3:09 PM EST 04/15/2024 3:12 PM EST Generic External Data Provider LAB BLOOD ORDERAB LES Final Result [facility] [address] [place] [phone] * POCT , urine manually resulted [...] EST) Thyroid Peroxidase Antibodies 1 <9 IU/mL [facility] Comment:THIS TEST WAS PERFOR MED AT:[facility] [place] [phone] GENTILE MD 04/09/2024 3:48 PM EST 04/09/2024 3:48 PM EST Generic External Data Provider LAB BLOOD ORDERAB LES Final Result [facility] [address] [place] [phone] * TSI (Thyroid Stimulating Immunoglobulin) (04/09/2024 3:48 PM EST) Thyroid Stimulating Immunoglobulin <89 <140 % baseline [facility] Comment: Thyroid stimulating immunoglobulins (TSI) [...] hCG concentrationfalls below 40,625 mIU/mL (usually after ltrrsixouglho82-nrugm gestation).The analytical performance characteristics of thisassay have been determined by [place], [place]. ??The modificationshave not been cleared or approved by the FDA. ??Thisassay has been validated pursuant to the CLIAregulations and is used for clinical purposes.THIS TEST WAS PERFORMED AT:[employer] [place], [place] ??[phone] AGUILAR MD,PHD 04/09/2024 3:48 PM EST 04/09/2024 3:48 PM EST us Generic External Data Provider LAB BLOOD ORDERAB LES Final Result Performing Organization Address [facility] Co de Phone Number [facility] [address] [place] [phone] * TRAb (TSH Receptor Binding Antibody) (04/09/2024 3:48 PM EST) TRAb (TSH Receptor Binding Antibody) <1.00 <=2.00 IU/L [facility] Comment:This test was perfor med using the TRAb Antibody ELISAmethod which is standardized against the [address] [place], [place] [address]national Standard 90/672 and is reported inInternational Units (IU/L). The reference rangereported was established specifically for this testmethod.THIS TEST WAS PERFORMED AT:[employer] [place] [phone] AGUILAR MD,PHD 04/09/2024 3:48 PM EST 04/09/2024 3:48 PM EST Generic External Data Provider LAB BLOOD ORDERAB LES Final Result Performing Organization Address [facility] de Phone Number [facility] [address] [place] [phone] * (ABNORMAL) T3, Total (04/09/2024 3:48 PM EST) T3, Total 62(A) 76 - 181 ng/dL [facility] Comment:THIS TEST WAS PERFOR MED AT:[employer] [address] [id number] GENTILE MD 04/09/2024 3:48 PM EST 04/09/2024 3:48 PM EST Generic External Data Provider LAB BLOOD ORDERAB LES Final Result Performing Organization Address [facility] Co de Phone Number [facility] [address] [place] [phone] * BI Mammogram Screening Tomosynthesis Bilateral (10/03/2023 2:07 PM EDT) Anatomical Region Laterality Modality Breast Bilateral Mammography 10/03/2023 2:07 PM EDT Narrative 10/29/2023 1:58 PM EDT ? [facility] ? [address] ?[place] [address] ? Mammography Report ? Signed ? Patient: Ramon,Yeliska ?MR#: [id number] ?? 91 ? : 1980 ?Acct:[id number] ? Age/Sex: 42 / F ?ADM Date: 10/03/23 ? Loc: HO.MAMMO ? Attending Dr: Mary Hurd MD ? Ordering Physician: Mary Hurd MD ?Results: 1Nega ?? tive ? Date of Service: 10/03/23 ?Follow Up: 1 Year From Orig ?? inal Mammogram ? Procedure(s): MM tomosynthesis screening BI ?? Accession Number(s): [id number] ? cc: Mary Hurd MD ? EXAMINATION: [...] 1353 ? DD/ 1407 ? TD/TT: ? Revenue Stamp Clerk: ? Procedure Note Lance, Image - 10/29/2023 [place] [facility] [address] [place] [address] Mammography Report Signed Patient: Brenda Navarro#: [id number] [birth year] : 1980Acct:[id number] Age/Sex: 42 / FADM Date: 10/03/23 Loc: HO.MAMMO Attending Dr: Mary Hurd MD Ordering Physician: Mary Hurd MDResults: 1Nega tive Date of Service: 10/03/23Follow Up: 1 Year From Orig inal Mammogram Procedure(s): MM tomosynthesis screening BI Accession Number(s): [id number] cc: Mary Hurd MD EXAMINATION: MM SCREENING [...] in OV> 10/29/23 1353 DD/ 1407 TD/TT: Revenue Stamp Clerk: Mary Hurd MD IMG BI PROCEDURES Final Resul t * Hepatitis A,B,C Profile (07/15/2023 1:30 PM EDT) Hepatitis A IgM Nonreactive Nonreactive [facility] Comment:IgM antibodies to COOPER V not detected; does not exclude earlyacute or recovered HAV infection. ~Hepatitis B Surface Antibody NONREACTIVE Nonreactive [facility] Comment:Nonreactive: < 8.00 mIU/mL Hepatitis B Core Antibody Nonreactive Nonreactive [facility] Hepatitis C Antibody Nonreactive Nonreactive [facility] Comment:Antibodies to HCV no t detected; does not exclude early acuteHCV infection. Hepatitis B Surface Ag Negative Negative [facility] Blood Venous blood specimen / Unknown 07/15/2023 1:30 PM EDT 07/15/2023 2:00 PM EDT Mary Hurd MD LAB BLOOD ORDERABLES Final Re sult [facility] [address] [place] [phone] * HIV Ab/Ag (LUPE HARRIS) (05/02/2022 4:17 PM EST) HIV AB/AG Nonreactive Nonreactive [facility] Comment:HIV-1 p24 Ag and/or HIV-1/HIV-2 Ab not detected.A test result that is nonreactive does not exclude thepossibility of exposure to or infection with HIV-1 and/orHIV-2. Nonreactive results in this assay for individualswith prior exposure to HIV-1 and/or HIV-2 may be due toantigen and antibody levels that are below the limit ofdetection of this assay.[facility] [employer] HIV Ag/Ab Combo assay result andsupplemental assay results should be interpreted inconjunction with the patient's clinical presentation,history and other laboratory results. If the results areinconsistent with clinical evidence, additional testing issuggested to confirm the result. 05/02/2022 4:17 PM EST 05/02/2022 4:19 PM EST [facility] External Provider LAB BLO OD ORDERABLES Final Result [facility] [address] [place] [phone] * THINPREP TIS PAP (04/15/2020 11:47 AM EST) Clinical Information: None given [facility] COMMENT SEE COMMENT FOUNDAT[facility] ON [...] has been evaluated with computer assisted technology. [facility] [employer] SYSTEM Pasting Machine Operator : SEE COMMENT [facility] Comment: MSM, CT(ASCP) CT screening location: [address] ??[phone] Infection Fungal organisms morphologically consistent with Cary spp. [facility] Interpretation/R esult: Negative for intraepithelial lesion or malignancy. [facility] LMP: NONE GIVEN [facility] LAB [facility] Prev. BX: NONE GIVEN [facility] Prev. PAP: NONE GIVEN FOUNDAT[facility] ON LAB SYSTEM SOURCE: None given [facility] Statement Of Adequacy: SEE COMMENT [facility] Comment: Satisfactory for evaluation. Endocervical/transformation zone component present. Age and/or menstrual status not provided 04/15/2020 11:4 7 AM EST us Mary Hurd MD LAB PATHOLOGY ORDERABLES Toshia l Result Performing Organization Address [facility] Co de Phone Number [facility] [address] * HPV mRNA E6/E7 (04/15/2020 11:47 AM EST) HPV nRNA E6/E7 Not Detected Not Detected [facility] Comment: Methodology: Resources Representative-Mediated Amplification This assay detects E6/E7 viral messenger RNA (mRNA) from 14 high-risk HPV types (16,18,31,33,35,39,45,51,52,56,58,59,66,68). ? The analytical performance characteristics of this assay have been determined by [employer]. The modifications have not been cleared or approved by the FDA. This assay has been validated pursuant to the CLIA regulations and is used for clinical purposes. ?? For additional information, please refer to http://education.[employer]/FWT910k3 (This link if provided for information/ educational purposes only.) 04/15/2020 11:4 7 AM EST us Mary Hurd MD LAB BLOOD ORDERABLES Final Re sult Performing Organization Address [facility] de Phone Number [facility] [address] from Last 3 Months or Most Recently Relevant to Health Maintenance Insurance [facility] C3 Care Teams [employer] Planners Relationship Specialty Start Date End Date Mary Hurd MD [address] [place] [phone] PCP - General Family Medicine 02/01/21 Sigrid Florentino Crib ClerkMotor Vehicles Supervisor 05/24/23 Donny Jimenez MD Consulting Physician Pulmonary Disease 02/27/24
[2024-04-17 04:00] LABS: Syphilis Screen Nonreactive (Nonreactive)
[2024-04-17 04:18] LABS: HIV AB/AG Nonreactive (Nonreactive); HIV Num 1 0.06 S/CO (0.00-0.99); ~HepC Num1 0.08 S/CO (0.00-0.79); ~Hepatitis C Antibody Nonreactive (Nonreactive)
== END 2024-04-16 14:26 | disposition home or self-care (01) ==
LOC: HO.LAB 14:25
PROVIDERS: PCP Internal Medicine; Visit Provider Internal Medicine
DX: Z11.3 Encounter for screening for infections with a predominantly sexual mode of transmission (principal)
CPT/HCPCS: 36415; 86780; 86803; 87389

== ENCOUNTER 2024-05-19 12:56 | Outpatient (REF) | payer MEDICAID, SELFPAY ==
[2024-05-19 15:01] LABS: Free T4 (Free Thyroxine) 1.14 ng/dL (0.71-1.85); Thyroid Stimulating Hormone 5.38 uIU/mL (0.32-4.0)
--- OUTSIDE RECORDS SUMMARY | 2024-05-19 16:48 | XMS_ITS | Encounter Summary ---
Author Organization [employer] Address [address] [facility] 7[address] [place] [address] Care Team Providers Care Wet Crown Blocking Operator Name Role Phone Mary Hurd MD Primary Care Provider [phone] Reason for Visit * Reason Onset Date Comments Nurse Triage 04/16/2024 Encounter Details Date Type Department Care Team ([facility] st Contact Info) Description 04/16/2024 Telephone [facility] MED & PEDS [address] [place] [address] Mary Hurd MD [address] [place] [address] Nurse Triage Social History Tobacco Use Types [...] 04/16/2024 11:42 AM EST Date: 04/15/24 Hospital: [facility] Seen for: Abdominal pain Symptomatic Yes DX. Constipation. Called pt. She states that she went to ED for abdominal pain and was DX. With Constipation. Pt. Started the MiriLax last night and did have a BM last night. Pt is more concerned that the provider in the [facility] ED told her [...] ED visit on : Date: 04/15/24 Hospital: [facility] Seen for: Abdominal [...] documented as of this encounter Care Teams Wet Crown Blocking Operator Relationship Specialty Start Date End Date aMry Hurd MD [address] [place] [address] PCP - General Family Medicine 02/01/21 Sigrid Florentino Licensed Loan OfficerLens Inspector 05/24/23 Donny Jimenez MD Consulting Physician Pulmonary Disease 02/27/24 documented as of this encounter
--- OUTSIDE RECORDS SUMMARY | 2024-05-19 16:48 | XMS_ITS | Encounter Summary ---
Author Organization [employer] Address [address] [facility] [address] [place] [address] Care Team Providers Care Shop Supervisor Name Role Phone Mary Hurd MD Primary Care Provider [phone] Reason for Visit * Reason Onset Date Comments Order(s) 09/17/2023 Encounter Details Date Type Department Care Team ([facility] st Contact Info) Description 09/17/2023 Telephone [facility] MEDICINE [address] [place] [address] Mary Hurd MD [address] [place] [address] Order(s) Social History Tobacco Use Types Packs/Day [...] any questions you can contact Nadya at [phone]. documented in this encounter Plan of Treatment Not on file documented as of this encounter Visit Diagnoses Not on filedocumented in this encounter Additional Health Concerns Assessment Noted Time PHQ-9 Depression Total Score: 11 024 2:01 PM EDT documented as of this encounter Care Teams Shop Supervisor Relationship Specialty Start Date End Date Mary Hurd MD [address] [place] [id number] PCP - General Family Medicine 02/01/21 Sigrid Florentino Drill Setup OperatorTransfer Pumper 05/24/23 Donny Jimenez MD Consulting Physician Pulmonary Disease 02/27/24 documented as of this encounter
--- OUTSIDE RECORDS SUMMARY | 2024-05-19 16:48 | XMS_ITS | Encounter Summary ---
Author Organization [employer] Address [address] [place] [address] Care Team Providers Care Booth Manager Name Role Phone Mary Hurd MD Primary Care Provider [phone] Reason for Visit * Reason Onset Date Comments Nurse Triage 07/10/2023 Encounter Details Date Type Department Care Team ([facility] st Contact Info) Description 07/10/2023 Telephone [facility] MEDICINE [address] [place] [address] Mary Hurd MD [address] [place], [place] [phone] Nurse Triage Social History Tobacco Use Types [...] The caller accepted this outcome Patient speaks liberian documented in this encounter Plan of Treatment Not on file documented as of this encounter Visit Diagnoses Not on filedocumented in this encounter Additional Health Concerns Assessment Noted Time PHQ-9 Depression Total Score: 11 024 2:01 PM EDT documented as of this encounter Care Teams Booth Manager Relationship Specialty Start Date End Date Mary Hurd MD [address] [place] [id number] PCP - General Family Medicine 02/01/21 Sigrid Florentino Marine Propulsion TechnicianManager Club 05/24/23 Donny Jimenez MD Consulting Physician Pulmonary Disease 02/27/24 documented as of this encounter
--- OUTSIDE RECORDS SUMMARY | 2024-05-19 16:48 | XMS_ITS | Clinical Summary ---
Author Organization [employer] Address [address] [facility] 7t [place] [address] Care Team Providers Care Methods Examiner Name Role Phone Mary Hurd MD Primary Care Provider [phone] Allergies Active Allergy Reactions Criticality Noted Date [...] 06/28/2023 1:30 PM Sulma Trotter OD VISION [facility] 07/08/2023 2:30 PM Willie Rubalcava RETAIL KEY HOLDER MEDICINE [facility] Sleep apnea 04/19/2023 Assessment & Plan [...] today. She is getting some help from Production Control Scheduler. As this provider will be retiring, at this time patient is referred back to her PCP for continued medication management. Call [facility] with any questions or concerns. All [...] F/U with therapist as usual, and [facility] Care Mgt. On 01/21/2023 pt was [...] F/U with therapist as usual, and [facility] Care Mgt. On 01/21/2023 pt was [...] prescriber. Will also be referred to [facility] Care Mgt. ADDENDUM: After the visit [...] Team Description 04/16/2024 1:15 PM EST Telemedicine [facility] [address] [place] [address] Henry Shelton MD Screening examination for STD (sexually transmitted disease) (Primary Dx); Hepatitis C antibody test positive 04/16/2024 Travel 04/16/2024 Telephone [facility] [address] [place] [address] Mary Hurd MD Nurse Triage 04/15/2024 10:00 AM EST Office Visit [facility] [address] [place] [address] Fredo Drake MD Abdominal pain, unspecified abdominal location (Primary Dx); Abnormal uterine bleeding; Right flank pain 04/09/2024 2:15 PM EST Telemedicine [facility] [address] [place] [address] Henry Shelton MD Anxiety (Primary Dx) 04/09/2024 Orders Only GENERIC EXTERNAL DATA DEPARTMENT Provider, Generic External Data 04/09/2024 Travel 04/09/2024 Telephone [facility] [address] [place] [address] Mary Hurd MD Nurse Triage 02/27/2024 1:00 PM EST Telemedicine [facility] [address] [place] [address] Mary Hurd MD Severe persistent asthma, unspecified whether complicated (Primary Dx); Acquired hypothyroidism 02/27/2024 Travel 02/26/2024 Telephone [facility] [address] [place] [address] Mary Hurd MD CHART PREP from Last [...] Stimulating Hormone 5.38(H) 0.32 - 4.0 uIU/mL [facility] Comment:Note: A sustained TS H level above 2.5 uIU/mL may warrant further investigation. TSH 3rd Generation ([facility]) 05/19/2024 1:33 PM EST 05/19/2024 1:33 PM EST us Generic External Data Provider LAB BLOOD ORDERAB LES Final Result Performing Organization Address [facility] Co de Phone Number [facility] [address] [place] [phone] * T4, Free (05/19/2024 1:33 PM EST) Only the most recent of3 resultswithin the time period is included. [facility] Free T4 (Free Thyroxine) 1.14 0.71 - 1.85 ng/dL [facility] 05/19/2024 1:33 PM EST 05/19/2024 1:33 PM EST us Generic External Data Provider LAB BLOOD ORDERAB LES Final Result Performing Organization Address [facility] de Phone Number [facility] [address] [place] [phone] * Syphilis Screen (04/16/2024 2:56 PM EST) [facility] Syphilis Screen Nonreactive Nonreactive [facility] Blood 04/16/2024 2:56 PM EST 04/16/2024 2:56 PM EST Henry Watson MD LAB BLOOD ORDERABL ES Final Result Performing Organization Address [facility] de Phone Number [facility] [address] [place] [address] [phone] * Hepatitis C Antibody with Reflex to HCV, RNA, Quantitative, Real-Time PCR (04/16/2024 2:56 PM EST) Hepatitis C Antibody Nonreactive Nonreactive [facility] Comment:Antibodies to HCV no t detected; does not exclude early acuteHCV infection. Blood Venous blood specimen / Unknown 04/16/2024 2:56 PM EST 04/16/2024 2:56 PM EST Henry Watson MD LAB BLOOD ORDERABL ES Final Result Performing Organization Address [facility]/ZIP Co de Phone Number [facility] [address] [place] [address] [phone] * HIV-1/2 Antigen and Antibodies, Fourth Generation, with Reflexes (04/16/2024 2:56 PM EST) Pathologist [facility] HIV AB/AG Nonreactive Nonreactive [facility] Comment:HIV-1 p24 Ag and/or HIV-1/HIV-2 Ab not detected.A test result that is nonreactive does not exclude thepossibility of exposure to or infection with HIV-1 and/orHIV-2. Nonreactive results in this assay for individualswith prior exposure to HIV-1 and/or HIV-2 may be due toantigen and antibody levels that are below the limit ofdetection of this assay.The [employer] HIV Ag/Ab Combo assay result andsupplemental assay results should be interpreted inconjunction with the patient's clinical presentation,history and other laboratory results. If the results areinconsistent with clinical evidence, additional testing issuggested to confirm the result. Blood Venous blood specimen / Unknown 04/16/2024 2:56 PM EST 04/16/2024 2:56 PM EST us Henry Watson MD LAB BLOOD ORDERABL ES Final Result Performing Organization Address [facility]/ZIP Co de Phone Number [facility] [address] [place] [phone] * CT Abdomen Pelvis w/ Contrast (04/15/2024 6:14 PM EST) Anatomical Region Laterality Modality Body, Pelvis, Abdomen Computed T omography 04/15/2024 6:14 PM EST Narrative 04/15/2024 6:15 PM EST ? [facility] ?[address] ?[place] [address] ? CT Scan Report ? Signed ? Patient: Ramon,Yeliska ?MR#: [id number] ?? 91 ? : 1980 ?Acct:[id number] ? Age/Sex: 43 / F ?ADM Date: 04/15/24 ? Loc: HO.ED ? Attending Dr: ? Ordering Physician: Willis Jones DO ?? Date of Service: 04/15/24 ?? Procedure(s): CT abdomen pelvis w IV con ?? Accession Number(s): [id number] ? cc: Willis Jones DO; Mary Hurd MD ? Report Number: ?? [id number]: Total DLP = ??559.00 mGy-cm ? CLINICAL [...] 1814 ? DD/ ? TD/TT: 04/15/244 ? Speech/Language Therapist: ? Procedure Note Donotuseinterpreter, Image - 04/15/[address] [address] [address] Scan Report Signed Patient: Brenda Navarro#: [id number] 91 : 1980Acct:[id number] Age/Sex: 43 / FADM Date: 04/15/24 Loc: HO.ED Attending Dr: Ordering Physician: Willis Jones DO Date of Service: 04/15/24 Procedure(s): CT abdomen pelvis w IV con Accession Number(s): [id number] cc: Willis Jones DO; Mary Hurd MD Report Number: [id number]: Total DLP = 559.00 mGy-cm CLINICAL HISTORY: [...] in OV> 04/15/241813 DD/ 13 TD/TT: 04/15/241813 Speech/Language Therapist: [facility] External Provider IMG CT PROCEDURES Edited Result - Final * (ABNORMAL) CBC auto differential (04/15/2024 3:09 PM EST) White Blood Count 5.1 4.8 - 10.8 X10*3/uL [facility] Red Blood Count 3.67(L) 4.20 - 5.50 X10*6/uL [facility] Hemoglobin 11.2(L) 12.0 - 16.0 g/dl [facility] Hematocrit 34.6(L) 37.0 - 47.0 % [facility] Mean Corpuscular Volume 94.3 80.0 - 98.0 fL [facility] Mean Corpuscular Hemoglobin 30.5 27.0 - 33.0 pg [facility] Mean Corpuscular HGB Conc 32.4 31.0 - 35.0 g/dl [facility] Red Cell Distribution Width 12.7 11.0 - 16.0 % [facility] Platelet Count 200 160 - 400 X10*3/uL [facility] Mean Platelet Volume 10.2 9.4 - 12.3 fL [facility] Neutrophils Percent Auto 42.2(L) 45 - 73 % [facility] Imm Gran Pct Auto 0.2 0.0 - 0.4 % [facility] Lymphocytes Percent Auto 48.8(H) 20 - 40 % [facility] Monocytes Percent Auto 4.9 2 - 11 % [facility] Eosinophils Percent Auto 3.1 0 - 4 % [facility] Basophils Percent Auto 0.8 0 - 2 % [facility] NRBC Pct Auto 0.0 0.0 - 0.2 /100WBC [facility] Neutrophils Absolute Auto 2.2 2.0 - 8.3 x10*3/uL [facility] Imm Gran Abs Auto 0.01 0.00 - 0.03 X10*3/uL [facility] Lymphocytes Absolute Auto 2.5 1.2 - 4.9 X10*3/uL [facility] Monocytes Absolute Auto 0.3 0.1 - 1.2 X10*3/uL [facility] Eosinophils Absolute Auto 0.2 0.0 - 0.4 X10*3/uL [facility] Basophils Absolute Auto 0.0 0.0 - 0.2 X10*3/uL [facility] NRBC Abs Auto 0.000 0.0 - 0.012 X10*3/uL [facility] 04/15/2024 3:09 PM EST 04/15/2024 3:12 PM EST us Generic External Data Provider LAB BLOOD ORDERAB LES Final Result Performing Organization Address [facility]/ZIP Co de Phone Number [facility] [address] [place] [address] [phone] * Urinalysis w/reflex microscopic (04/15/2024 3:09 PM EST) Color Urine Yellow [facility] Appearance Urine Clear [facility] PH 7.0 5.0 - 9.0 [facility] Glucose Urine UA Negative Negative mg/dL [facility] Urine Blood Negative Negative [facility] Specific [place] - Urine 1.010 1.005 - 1.025 [facility] Urine Protein Negative Neg-Trace mg/dL [facility] Urine Ketones Negative Negative mg/dL [facility] Nitrite Urine Negative Negative [facility] Leukocyte Esterase Urine Negative Negative [facility] 04/15/2024 3:09 PM EST 04/15/2024 3:12 PM EST Narrative [facility] - 04/15/2024 3:57 PM EST [id number], Clean Catch us Generic External Data Provider LAB URINE ORDERAB LES Final Result Performing Organization Address City/[facility]/ZIP Co de Phone Number [facility] [address] [place] [address] [phone] * Magnesium (04/15/2024 3:09 PM EST) Magnesium 2.1 1.6 - 2.6 mg/dL [facility] 04/15/2024 3:09 PM EST 04/15/2024 3:12 PM EST us Generic External Data Provider LAB BLOOD ORDERAB LES Final Result Performing Organization Address City/[facility]/ZIP Co de Phone Number [facility] [address] [place] [phone] * Lipase (04/15/2024 3:09 PM EST) Lipase 19 8 - 78 U/L [facility] 04/15/2024 3:09 PM EST 04/15/2024 3:12 PM EST Generic External Data Provider LAB BLOOD ORDERAB LES Final Result Performing Organization Address [facility] de Phone Number [facility] [address] [place] [phone] [phone] * (ABNORMAL) Comprehensive Metabolic Panel (04/15/2024 3:09 PM EST) Sodium 139 135 - 145 mmol/L [facility] Potassium 4.5 3.3 - 5.1 mmol/L [facility] Chloride 107 96 - 108 mmol/L [facility] Carbon Dioxide 26 22 - 29 mmol/L [facility] Anion Gap 11(L) 12 - 20 [facility] Urea Nitrogen (BUN) 10 9 - 16 mg/dL [facility] Creatinine, Serum 0.73 0.5 - 1.4 mg/dL [facility] Creatinine Clr Calc Pharmacy 98.8 [facility] Comment:Provided height and weight: 157.48 cm,79.2 kg.eGFR (calculated from the MDRD study equation) and eCrCl(calculated from the Cockcroft-Gault equation) are based ondifferent parameters and may not yield comparable results.If eCrCl result is absurd, please check patient'sheight/weight. Estimated Glomerular Filt Rate >60 [facility] Comment:Chronic Kidney Disea se: Estimated GFR < 60 mL/min/1.06b8Evibhd Kidney Disease: Estimated GFR < 15 mL/min/1.73m2 Glucose 94 60 - 115 mg/dL [facility] Calcium 9.4 8.4 - 10.2 mg/dL [facility] Bilirubin, Total 0.2 0.0 - 1.0 mg/dL [facility] Aspartate Amino Transferase 22 5 - 31 U/L [facility] Alanine Aminotransferase 17 0 - 31 U/L [facility] Total Protein 7.2 6.5 - 8.0 g/dL [facility] Albumin Level 3.9 3.5 - 5.0 g/dL [facility] Alkaline Phosphatase 55 39 - 117 U/L [facility] 04/15/2024 3:09 PM EST 04/15/2024 3:12 PM EST Generic External Data Provider LAB BLOOD ORDERAB LES Final Result Performing Organization Address City/[facility]/ZIP Co de Phone Number [facility] [address] [place] [address] [phone] * Culture, Urine, Routine (04/15/2024 11:48 AM EST) Urine Urine specimen obtained by clean catch procedure / Unknown 04/15/2024 11:48 AM EST 04/15/2024 5:53 PM EST Comment:UACC Narrative [facility] - 04/17/2024 8:38 AM EST Urine Culture No growth. Specimen Source: Urine clean catch Fredo Drake MD LAB MICROBIOLOGY - GENERAL ORDER ALE Final Result Performing Organization Address City/[facility]/ZIP Co de Phone Number [facility] [address] [place] [address] [phone] * POCT , urine manually resulted [...] EST) Thyroid Peroxidase Antibodies 1 <9 IU/mL [facility] Comment:THIS TEST WAS PERFOR MED AT:[facility] [place] [phone] GENTILE MD 04/09/2024 3:48 PM EST 04/09/2024 3:48 PM EST Generic External Data Provider LAB BLOOD ORDERAB LES Final Result [facility] [address] [place] [address] [phone] * TSI (Thyroid Stimulating Immunoglobulin) (04/09/2024 3:48 PM EST) Thyroid Stimulating Immunoglobulin <89 <140 % baseline [facility] Comment: Thyroid stimulating immunoglobulins [...] hCG concentrationfalls below 40,625 mIU/mL (usually after xbpdnayahukrr20-hbxip gestation).The analytical performance characteristics of thisassay have been determined by [employer] [place], [place]. ??The modificationshave not been cleared or approved by the FDA. ??Thisassay has been validated pursuant to the CLIAregulations and is used for clinical purposes.THIS TEST WAS PERFORMED AT:[employer] [id number] [place], [place] ??[phone] AGUILAR MD,PHD 04/09/2024 3:48 PM EST 04/09/2024 3:48 PM EST Generic External Data Provider LAB BLOOD ORDERAB LES Final Result [facility] [address] [place] [address] [phone] * TRAb (TSH Receptor Binding Antibody) (04/09/2024 3:48 PM EST) TRAb (TSH Receptor Binding Antibody) <1.00 <=2.00 IU/L [facility] Comment:This test was perfor med using the TRAb Antibody ELISAmethod which is standardized against the [facility] centerInternational Standard 90/672 and is reported inInternational Units (IU/L). The reference rangereported was established specifically for this testmethod.THIS TEST WAS PERFORMED AT:[employer] [id number] [place] [phone] AGUILAR MD,PHD 04/09/2024 3:48 PM EST 04/09/2024 3:48 PM EST Generic External Data Provider LAB BLOOD ORDERAB LES Final Result Performing Organization Address [facility] de Phone Number [facility] [address] [place] [phone] * (ABNORMAL) T3, Total (04/09/2024 3:48 PM EST) T3, Total 62(A) 76 - 181 ng/dL [facility] Comment:THIS TEST WAS PERFOR MED AT:[facility] [place] [phone] GENTILE MD 04/09/2024 3:48 PM EST 04/09/2024 3:48 PM EST us Generic External Data Provider LAB BLOOD ORDERAB LES Final Result Performing Organization Address [facility] de Phone Number [facility] [address] [place] [phone] * BI Mammogram Screening Tomosynthesis Bilateral (10/03/2023 2:07 PM EDT) Anatomical Region Laterality Modality Breast Bilateral Mammography 10/03/2023 2:07 PM EDT Narrative 10/29/2023 1:58 PM EDT ? [facility] ? [address] ?[place] [address] ? Mammography Report ? Signed ? Patient: Ramon,Yeliska ?MR#: [id number] ?? 91 ? : 1980 ?Acct:[id number] ? Age/Sex: 42 / F ?ADM Date: 07/18/24 ? Loc: HO.MAMMO ? Attending Zoe Hurd MD ? Ordering Physician: Mary Hurd MD ?Results: 1Nega ?? tive ? Date of Service: 10/03/23 ?Follow Up: 1 Year From Orig ?? inal Mammogram ? Procedure(s): MM tomosynthesis screening BI ?? Accession Number(s): [id number] ? cc: Mary Hurd MD ? EXAMINATION: [...] 1353 ? DD/ 1407 ? TD/TT: ? Speech/Language Therapist: ? Procedure Note Donotuseinterpreter, Image - 10/29/2023 [facility] [address] [place] [address] Mammography Report Signed Patient: Brenda Navarro#: [id number] 91 : 1980Acct:[id number] Age/Sex: 42 / FADM Date: 10/03/23 Loc: HORajeevMAMMO Attending Dr: Mary Hurd MD Ordering Physician: Mary Hurd MDResults: 1Nega tive Date of Service: 10/03/23Follow Up: 1 Year From Orig inal Mammogram Procedure(s): MM tomosynthesis screening BI Accession Number(s): [id number] cc: Mary Hurd MD EXAMINATION: MM SCREENING [...] in OV> 10/29/23 1353 DD/ 1407 TD/TT: Speech/Language Therapist: us Mary Hurd MD IMG BI PROCEDURES [...] has been evaluated with computer assisted technology. 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 [facility] Interpretation/R esult: Negative for intraepithelial lesion or malignancy. [facility] LMP: NONE GIVEN [facility] Prev. BX: NONE GIVEN [facility] Prev. PAP: NONE GIVEN [facility] SOURCE: None given [facility] Statement Of Adequacy: SEE COMMENT [facility] Comment: Satisfactory for evaluation. Endocervical/transformation zone component present. Age and/or menstrual status not provided 04/15/2020 11:4 7 AM EST Mary Hurd MD LAB PATHOLOGY ORDERABLES Toshia haney Result [facility] [address] * HPV mRNA E6/E7 (04/15/2020 11:47 AM EST) HPV nRNA E6/E7 Not Detected Not Detected [facility] Comment: Methodology: Senior Human Resources Representative-Mediated Amplification This assay detects E6/E7 viral messenger RNA (mRNA) from 14 high-risk HPV types (16,18,31,33,35,39,45,51,52,56,58,59,66,68). ? The analytical performance characteristics of this assay have been determined by [employer]. The modifications have not been cleared or approved by the FDA. This assay has been validated pursuant to the CLIA regulations and is used for clinical purposes. ?? For additional information, please refer to http://education.[employer])/HJZ155r5 (This link if provided for information/ educational purposes only.) 04/15/2020 11:4 7 AM EST us Mary Hurd MD LAB BLOOD ORDERABLES Final Re sult [facility] [address] [place] [address], from Last 3 Months or Most Recently Relevant to Health Maintenance Insurance [address] [place] Care Teams Methods Examiner Relationship Specialty Start Date End Date Mary Hurd MD [address] [place] [address] [place] [address] PCP - General Family Medicine 02/01/21 Sigrid Florentino Presetter OperatorDesign/Animation Instructor 05/24/23 Donny Jimenez MD Consulting Physician Pulmonary Disease 02/27/24
--- OUTSIDE RECORDS SUMMARY | 2024-05-19 16:48 | XMS_ITS | Encounter Summary ---
Author Organization [employer] Address [address] [facility] 7t [place] [address] Care Team Providers Care Registered Vascular Technologist (Rvt) Name Role Phone Mary Hurd MD Primary Care Provider [phone] Reason for Visit * Reason Onset Date Comments Med Refill 09/16/2023 Encounter Details Date Type Department Care Team ([facility] st Contact Info) Description 09/16/2023 Telephone [facility] [address] [place] [address] Mary Hurd MD [address] [place] [address] Med Refill Social History Tobacco Use Types [...] 150 MCG tablet To be sent to: [facility] - [place], [place] - [address] [facility] documented in this encounter Plan of Treatment Not on file documented as of this encounter Visit Diagnoses Not on filedocumented in this encounter Additional Health Concerns Assessment Noted Time PHQ-9 Depression Total Score: 11 024 2:01 PM EDT documented as of this encounter Care Teams Registered Vascular Technologist (Rvt) Relationship Specialty Start Date End Date Mary Hurd MD [address] [facility] [place] [address] PCP - General Family Medicine 02/01/21 Sigrid Florentino Transmitter OperatorManager Appointment 05/24/23 Donny Jimenez MD Consulting Physician Pulmonary Disease 02/27/24 documented as of this encounter
--- OUTSIDE RECORDS SUMMARY | 2024-05-19 16:48 | XMS_ITS | Encounter Summary ---
Author Organization [email or web address] Address [address] [facility] [address] [place] [address] Care Team Providers Care Steam Gigger Name Role Phone Mary Hurd MD Primary Care Provider [phone] Reason for Visit * Reason Onset Date Comments Food Assistance 12/27/2023 Encounter Details Date Type Department Care Team ([facility] st Contact Info) Description 12/27/2023 Telephone [facility] MEDICINE [address] [place] [address] Mary Hurd MD [address] [place], [place] [phone] Food Assistance Social History Tobacco Use Types [...] documented as of this encounter Care Teams Steam Gigger Relationship Specialty Start Date End Date Mary Hurd MD [address] [place] [address] PCP - General Family Medicine 02/01/21 Sigrid Florentino Legal Billing SpecialistSurgical Clinical Reviewer 05/24/23 Donny Jimenez MD Consulting Physician Pulmonary Disease 02/27/24 documented as of this encounter
--- OUTSIDE RECORDS SUMMARY | 2024-05-19 16:48 | XMS_ITS | Encounter Summary ---
Author Organization [employer] Address [address] [facility] [facility] [address] [place] [address] Care Team Providers Care Transcript Clerk Name Role Phone Mary Hurd MD Primary Care Provider [phone] Encounter Details Date Type Department Care Team ([facility] st Contact Info) Description 03/27/2023 Abstract [facility] MEDICINE [address] [place] [address] Mary Hurd MD [address] [place], [place] [phone] Social History Tobacco Use Types Packs/Day Years [...] documented as of this encounter Care Teams Transcript Clerk Relationship Specialty Start Date End Date Mary Hurd MD [address] [place] [phone] PCP - General Family Medicine 02/01/21 Sigrid Florentino Furniture Delivery DriverState Superintendent Of Schools 05/24/23 Donny Jimenez MD Consulting Physician Pulmonary Disease 02/27/24 documented as of this encounter
== END 2024-05-19 12:57 | disposition home or self-care (01) ==
LOC: HO.LAB 12:56
PROVIDERS: PCP Family Medicine; Visit Provider Student in an Organized Health Care Education/Training Program
DX: E89.0 Postprocedural hypothyroidism (principal)
CPT/HCPCS: 36415; 84439; 84443; 99212

== ENCOUNTER 2024-05-19 12:56 | Outpatient (AMB) | payer MEDICAID, SELFPAY ==
[2024-05-19 12:58] VITALS: BP 96/64; PULSE 75; O2SAT 93; BMI 32.1
--- NOTE | 2024-05-19 12:58 | MHC.OFFVIS ---
Vital Signs 05/19/24 12:58 Height 5 ft 2 in Weight 175 lb 11.335 oz BMI 32.1 BP 96/64 Blood Pressure Location Lt brachial Position Sitting Pulse 75 Pulse Source Pulse Oximeter Pulse Oximetry (%) 93 Oxygen Delivery Method Room Air Intake Visit Reasons: Hypothyroidism Intake Note: Patient present today for hypothyroidism follow up visit. Computer Analyst Supervisor Required: No Accompanied by: Self / Same As Patient Allergies Penicillins Allergy (Mild, Verified 05/19/24 13:03) RASH Medication List - Last Reconciled 05/19/24 by Soledad Torres MD albuterol sulfate 90 mcg/actuation (Ventolin HFA) 2 puffs inhalation Q4-6H PRN albuterol sulfate mg inhalation Q6H PRN Ca-D3-mag tm-ncod-rrz-perry-bor 600 mg calcium- 20 mcg-50 mg (Calcium 600-D3 Plus (mag-zinc)) tabs PO DAILY cholecalciferol (vitamin D3) 25 mcg PO QAM clonidine HCl 0.1 mg PO BEDTIME cyanocobalamin (vitamin B-12) 1,000 mcg PO DAILY epinephrine 0.3 mg IM Q10M PRN famotidine (Pepcid) 40 mg PO BEDTIME fluticasone propion-salmeterol 250-50 mcg/dose (Advair Diskus) 1 inh inhalation BID 30 days fluticasone propionate 50 mcg/actuation (Flonase Allergy Relief) 1 spray intranasal DAILY hydrocortisone 2.5% 1 appl topical BID PRN 15 days MDD SKIN RASH/IRRITATION ibuprofen 600 mg PO Q6H PRN levothyroxine 112 mcg orally; take 1 tablet daily from Saturday to Saturday and 1 and a half tablet on Sundays loratadine 10 mg PO DAILY montelukast (Singulair) 10 mg PO BEDTIME multivit with min-folic acid 120 mcg (Centrum Adult 50 Plus Fresh-Fruity) tabs PO DAILY nebulizers (AeroEclipse II Nebulizer) As directed nystatin 5 mL PO BID 10 days omalizumab 150 mg subcut Q2W 30 days polyethylene glycol 3350 (Miralax) 17 grams PO BID tiotropium bromide 2.5 mcg/actuation (Spiriva Respimat) 2 puffs inhalation DAILY 30 days venlafaxine ER (Effexor XR) 150 mg PO DAILY HPI Comments Details: 42 YO Female with a PMHx of Grave's disease s/p I131 ablation when she was a child with resultant hypothyroidism who is seen in F/U. She reports she is back as there has been a lot of fluctuation in her thyroid labs recently over the last few months. Currently takng 125 mcg daily [facility] she takes everyday diesnt miss doses and takes it first thing in the morning appropriately, doesnt take with other meds. Waits an hour at leats before eating. Most recent blood work in October 15 showed low TSH of 0.05 but patient is not sure whether the medicine was decreased after this or before this blood work to 125 . Previously when she was eeing Dr. Duarte was on 150 mcg daily. na din between was then on 137 mcg daily but now down to 125 mcg daily. Has lost 10 lbs over the past year, has been working out. Bowel movements are regular, menses are regular, LMP a month ago. Was feeling hot before does was decreased. Reports tremors are better now which she had on the high dose. No increased diaphoresis now. Reports fatigue. Hair loss was worsening but again better after dose decrease. Quit smoking 10 years ago. She does report occasional hoarseness of voice, that has really worsened over the past month, she feels a choking sensation and pressure sensation that happened once. Interval history 01/13/2024: TSH 0.17, free T4 1.34 01/17/2024: Dose of levothyroxine reduced to 112 mcg daily from 125 mcg daily 04/09/2024: TSH 13.36, free T4 0.96 Dose subsequently increased to 112 mcg 7-1/2 pills a week by taking 1-1/2 pill on Sundays and daily pill otherwise However patient today telling me she is taking only half a pill on Sundays instead on 1.5 as how she was instructed 04/15/2024: TSH 8.49, free T4 0.87 Physical exam General: sitting comfortably in no acute distress HEENT: normocephalic/atraumatic, EOM intact, moist oral mucosa Neck: supple, symmetrical, no thyromegaly Cardiac: normal heart sounds Pulm: normal breath sounds B/L, no added breath sounds Abd: not distended, no tenderness Laboratory Tests 05/06/23 10/16/23 15:16 16:24 TSH 8.79 H 0.05 L Free T4 0.89 0.94 Laboratory Tests 04/09/24 04/15/24 15:48 15:09 TSH 13.36 H 8.49 H Free T4 0.96 0.87 Total T3 62 L Thyroid Stim Immunoglob <89 Thyroid Peroxidase Ab 1 TSH Receptor Ab <1.00 [facility] Medical History (Updated 04/16/24 @ 00:00 by Kelly Solis) Cough Hyper-IgE syndrome Contact dermatitis Bronchitis Depression Postablative hypothyroidism Bronchial asthma Allergic rhinitis Asthma Allergic rhinitis Surgical History Hx of carpal tunnel repair Hx of tubal ligation Family History Father Heart disease CVD (cardiovascular disease) Diabetes Mother CVD (cardiovascular disease) Asthma Heart disease Thyroid disease Diabetes Social History Household Members: Children Alcohol intake: current Alcohol intake frequency: 3 or more drinks per day Patient Tobacco Use Status: Former Tobacco user Substance Use Type: Marijuana Assessment & Plan Assessment & Plan (1) Postablative hypothyroidism: Comment: s/p ablation for Graves disease Code(s): E89.0 - Postprocedural hypothyroidism Category: Medical Plan: Patient with postablative hypothyroidism with history of Graves disease status post I 131 ablation back when she was a child, coming in today for follow up. Recently she has been having a lot of fluctuations and her thyroid function Most recent events 01/13/2024: TSH 0.17, free T4 1.34 01/17/2024: Dose of levothyroxine reduced to 112 mcg daily from 125 mcg daily 04/09/2024: TSH 13.36, free T4 0.96 Dose subsequently increased to 112 mcg 7-1/2 pills a week by taking 1-1/2 pill on Sundays and daily pill otherwise However patient today telling me she is taking only half a pill on Sundays instead on 1.5 as how she was instructed 04/15/2024: TSH 8.49, free T4 0.87 For now I will have her repeat her labs now to see what is the status of her thyroid labs, however clearly she reduced the dose instead of increasing it despite elevated TSH levels. I went over the instructions with her 3 times today and had her repeat them back to me so I could verify that she understood how she is supposed to take the pill. Plan: -correct levothyroxine administration by taking 112 mcg 1 pill Saturday to Saturdays and 1-1/2 pill on Sundays -ordered TSH, free T4 to be done now -we will adjust levothyroxine if needed based on results by calling you -follow up in 3 months Plan see above Medications: Changed From levothyroxine 112 mcg PO DAILY 30 tabs 5RF To levothyroxine 112 mcg orally; take 1 tablet daily from Saturday to Saturday and 1 and a half tablet on Sundays 60 tabs 5RF Patient Instructions: Clarified to patient to start taking levothyroxine 112 mcg 1 tablet daily from Saturday to Saturday and 1-1/2 tablet on Sundays. Prescription sent to pharmacy. Do blood work today, we will reach out to you with the results and if we need to adjust the dose of the levothyroxine medication. Follow up in 3 months, always do blood work prior to your appointment. Se le aclar? al paciente que debe comenzar a shekhar levotiroxina 112 mcg, 1 tableta por d?a de lunes a s?bado y 1 tableta y media los jyoti. Se env?a la receta a la farmacia. Realice un an?lisis de xena davis, nos comunicaremos con usted para informarle los resultados y si es necesario ajustar la dosis del medicamento levotiroxina. Realice un seguimiento en 3 meses, siempre realice un an?lisis de xena antes de caban manjeet. Coding Level of Care Code Est Pt Level 3 (82410) Diagnoses Postablative hypothyroidism E89.0
--- OUTSIDE RECORDS SUMMARY | 2024-05-19 15:59 | XMS_ITS | Encounter Summary ---
Author Organization [employer] Address [address] [facility] [place] [address] Care Team Providers Care Material Control Associate Name Role Phone Mary Hurd MD Primary Care Provider [phone] Encounter Details Date Type Department Care Team ([facility] st Contact Info) Description 03/27/2023 Abstract [facility] [address] [place] [address] Mary Hurd MD [address] [place], [place] [id number] Social History Tobacco Use Types Packs/Day Years [...] documented as of this encounter Care Teams Material Control Associate Relationship Specialty Start Date End Date Mary Hurd MD [address] [place] [id number] PCP - General Family Medicine 02/01/21 Sigrid Florentino Basket MenderPotato Picker 05/24/23 Donny Jimenez MD Consulting Physician Pulmonary Disease 02/27/24 documented as of this encounter
--- OUTSIDE RECORDS SUMMARY | 2024-05-19 15:59 | XMS_ITS | Encounter Summary ---
Author Organization [employer] Address [address] [place] [address] Care Team Providers Care Shaving Machine Operator Name Role Phone Mary Hurd MD Primary Care Provider [phone] Reason for Visit * Reason Onset Date Comments Food Assistance 12/27/2023 Encounter Details Date Type Department Care Team ([facility] st Contact Info) Description 12/27/2023 Telephone [facility] MEDICINE [address] [place] [address] Mary Hurd MD [address] [place], [place] [phone] Food Assistance Social History Tobacco Use Types [...] documented as of this encounter Care Teams Shaving Machine Operator Relationship Specialty Start Date End Date Mary Hurd MD [address] [place] [address] PCP - General Family Medicine 02/01/21 Sigrid Florentino Eating Disorder PsychologistPatrol Commander 05/24/23 Donny Jimenez MD Consulting Physician Pulmonary Disease 02/27/24 documented as of this encounter
--- OUTSIDE RECORDS SUMMARY | 2024-05-19 15:59 | XMS_ITS | Encounter Summary ---
Author Organization [employer] Address [address] [facility] [address] [place] [address] Care Team Providers Care Generator Rebuilder Name Role Phone Mary Hurd MD Primary Care Provider [phone] Reason for Visit * Reason Onset Date Comments Nurse Triage 04/16/2024 Encounter Details Date Type Department Care Team ([facility] st Contact Info) Description 04/16/2024 Telephone [facility] [address] [place] [address] Mary Hurd MD [address] [place] [address] Nurse Triage Social History Tobacco Use Types [...] 04/16/2024 11:42 AM EST Date: 04/15/24 Hospital: [facility] Seen for: Abdominal pain Symptomatic Yes DX. Constipation. Called pt. She states that she went to ED for abdominal pain and was DX. With Constipation. Pt. Started the MiriLax last night and did have a BM last night. Pt is more concerned that the provider in the [facility] ED told her yesterday that bloodwork from [...] ED visit on : Date: 04/15/24 Hospital: [facility] Seen for: Abdominal pain Symptomatic Yes *if [...] documented as of this encounter Care Teams Generator Rebuilder Relationship Specialty Start Date End Date Mary Hurd MD [address] [place] [address] PCP - General Family Medicine 02/01/21 Sigrid Florentino Leadership Development InstructorTabulating Supervisor 05/24/23 Donny Jimenez MD Consulting Physician Pulmonary Disease 02/27/24 documented as of this encounter
--- OUTSIDE RECORDS SUMMARY | 2024-05-19 15:59 | XMS_ITS | Clinical Summary ---
Author Organization [facility] Address [address] [facility] [address] [place] [address] Care Team Providers Care Ndt Inspector Name Role Phone Mary Hurd MD Primary Care Provider [phone] Allergies Active Allergy Reactions Criticality Noted Date [...] MORE THAN 2 TABLETS PER 24 HOURS 2 Active omalizumab (Xolair) 150 MG injection Inject 1.2 mL under the skin every 4 (four) weeks. Active EPINEPHrine (Epipen) 0.3 MG/0.3ML injection syringe Inject 0.3 mg into the shoulder, thigh, or buttocks. 9 Active emtricitabine-t enofovir DF (Truvada) 200-300 MG tablet Take 1 tablet by mouth in the morning. 2 Active topiramate (Topamax) 100 MG tablet TAKE 1 TABLET BY MOUTH TWICE DAILY IN THE MORNING AND AT BEDTIME 4 Active zolpidem (Ambien) 10 MG tablet Take 10 mg by mouth at bedtime. 3 Active famotidine (Pepcid) 20 MG tablet Take 1 tablet (20 mg) by mouth 2 times daily. 60 tablet 11 4 Active buPROPion (Wellbutrin) 75 MG tabletIndicatio ns:Depressive disorder Take 1 tablet (75 mg) by mouth 2 times daily. 180 tablet 3 4 Active Advair Diskus 250-50 MCG/ACT aerosol powder INHALE 1 PUFF TWICE DAILY (for asthma). RINSE MOUTH AFTER USING. 4 Active Spiriva Respimat 2.5 MCG/ACT inhaler INHALE 2 PUFFS EVERY DAY (for asthma) 4 Active Multiple Vitamins-Iron (Tab-A-Osman/Iro n/Beta Carotene) tablet Take 1 tablet by mouth in the morning. 4 Active Multiple Vitamins-Minera ls (CertaVite/Anti oxidants) tablet TAKE 1 TABLET BY MOUTH EVERY MORNING 30 tablet 11 4 Active montelukast (Singulair) 10 MG tablet TAKE 1 TABLET BY MOUTH EVERY EVENING 30 tablet 11 4 Active cyanocobalamin (Vitamin B-12) 1000 MCG tablet TAKE 1 TABLET BY MOUTH EVERY MORNING 30 tablet 11 4 Active loratadine (Claritin) 10 MG tabletIndicatio ns:Severe persistent asthma, unspecified whether complicated TAKE 1 TABLET BY MOUTH EVERY MORNING 90 tablet 1 4 Active Calcium Carb-Cholecalci ferol 600-10 MG-MCG tabletIndicatio ns:Vitamin D deficiency TAKE 1 TABLET BY MOUTH TWICE DAILY AT NOON AND IN THE EVENING 180 tablet 1 4 Active cholecalciferol (Vitamin D-3) 25 MCG tabletIndicatio ns:Vitamin D deficiency TAKE 1 TABLET BY MOUTH EVERYDAY AT NOON 90 tablet 1 4 Active fluticasone (Flonase) 50 MCG/ACT nasal spray USE 1 SPRAY IN EACH NOSTRIL TWICE DAILY 48 g 1 4 Active predniSONE (Deltasone) 5 MG tablet TAKE 1 TABLET BY MOUTH ONCE DAILY 90 tablet 1 4 Active amitriptyline (Elavil) 100 MG tablet Take 100 mg by mouth at bedtime. 4 Active albuterol 108 (90 Base) MCG/ACT inhaler Inhale 2 puffs every 4 (four) hours if needed for wheezing. 18 g 4 025 Active albuterol (2.5 MG/3ML) 0.083% nebulizer solution Take 3 mL (2.5 mg) by nebulization every 6 (six) hours if needed for wheezing. 180 mL 5 4 Active levothyroxine (Tirosint) 112 MCG capsuleIndicati ons:Acquired Hypothyroidism, Rx'ed per pt by ENDO Take by mouth before breakfast. Active hydrOXYzine HCl (Atarax) 25 MG tablet Take 1 tablet (25 mg) by mouth every 6 (six) hours if needed for anxiety. 90 tablet 3 5 025 Active docusate sodium (Colace) 100 MG capsule Take 1 capsule (100 mg) by mouth if needed in the morning and at bedtime for constipation. 60 capsule 3 5 026 Active polyethylene glycol, PEG, 3350 (MiraLax) 17 GM/SCOOP powder Take 17 g by mouth Once per day for 7 days. 119 g 5 025 Active Problems Problem Noted Date Diagnosed Date [...] Provider Department Center 06/28/2023 1:30 PM Sulma Trotter OD [facility] 07/08/2023 2:30 PM Willie Rubalcava [facility] Sleep apnea 04/19/2023 Assessment & Plan [...] today. She is getting some help from [employer]. As this provider will be retiring, at this time patient is referred back to her PCP for continued medication management. Call [facility] with any questions or concerns. All [...] BID. F/U with therapist as usual, and [facility]. On 01/21/2023 pt was [...] usual. F/U with therapist as usual, and [facility] Care [facility]. On 01/21/2023 pt was [...] agency prescriber. Will also be referred to [facility]. ADDENDUM: After the visit [...] Team Description 04/16/2024 1:15 PM EST Telemedicine [facility] [address] [place] [address] Henry Shelton MD Screening examination for STD (sexually transmitted disease) (Primary Dx); Hepatitis C antibody test positive 04/16/2024 Travel 04/16/[address] [facility] [address] [place] [address] Mary Hurd MD Nurse Triage 04/15/2024 10:00 AM EST Office Visit [facility] [address] [place] [address] Fredo Drake MD Abdominal pain, unspecified abdominal location (Primary Dx); Abnormal uterine bleeding; Right flank pain 04/09/2024 2:15 PM EST Telemedicine [facility] [address] [place] [address] Henry Shelton MD Anxiety (Primary Dx) 04/09/2024 Orders Only GENERIC EXTERNAL DATA DEPARTMENT Provider, Generic External Data 04/09/2024 Travel 04/09/[address] [facility] [address] [place] [address] Mary Hurd MD Nurse Triage 02/27/2024 1:00 PM EST Telemedicine [facility] [address] [place] [address] Mary Hurd MD Severe persistent asthma, unspecified whether complicated (Primary Dx); Acquired hypothyroidism 02/27/2024 Travel 02/26/[address] [facility] [address] [place] [address] Mary Hurd MD CHART PREP from Last 3 Months Immunizations Name Administration [...] Hepatitis B Vaccines Completed 07/29/1995, 04/02/1995, 02/05/1995 Pneumococcal Vaccine: Pediatrics (0 to 5 Years) and At-Risk Patients (6 to 49) Years) Completed 06/03/2023, 01/23/2010, 01/23/2010 HIV Screening Completed 04/16/2024, 04/18, 02/17/2021, Additional history exists Hepatitis C Screening Completed 04/16/2024 , 07/15/2023, 02/17/2021, Additional history exists HPV Vaccines Aged Out No longer eligi [...] Priority Date/Time Associated Diagnosis Comments TSH Routine 05/19/2024 1:33 PM EST T4, FREE Routine 05/19/2024 1:33 PM EST SYPHILIS SCREEN Routine 04/16/2024 2:56 PM EST Screening examination for STD (sexually transmitted disease) HIV 1/2 ANTIGEN/ANTIBODY, FOURTH GENERATION W/RFL Routine 04/16/2024 2:56 PM EST Screening examination for STD (sexually transmitted disease) HEPATITIS C AB W/REFL TO HCV RNA, QN, PCR Routine 04/16/2024 2:56 PM EST Screening examination for STD (sexually transmitted disease) CT ABDOMEN PELVIS W CONTRAST Routine 04/15/2024 [...] PM EDT Breast cancer screening by mammogram HPV MRNA E6/E7 Routine 04/15/2020 11:47 AM EST [facility] PAP Routine 04/15/2020 11:47 AM EST from Last 3 Months or Most Recently Relevant to Health Maintenance Results * (ABNORMAL) TSH (05/19/2024 1:33 PM EST) Only the most recent of3 resultswithin the time period is included. Thyroid Stimulating Hormone 5.38(H) 0.32 - 4.0 uIU/mL [facility] Comment:Note: A sustained TS H level above 2.5 uIU/mL may warrant further investigation. TSH 3rd Generation ([facility]) 05/19/2024 1:33 PM EST 05/19/2024 1:33 PM EST us Generic External Data Provider LAB BLOOD ORDERAB LES Final Result Performing Organization Address [facility] Co de Phone Number [facility] [address] [place] [phone] * T4, Free (05/19/2024 1:33 PM EST) Only the most recent of3 resultswithin the time period is included. [facility] Free T4 (Free Thyroxine) 1.14 0.71 - 1.85 ng/dL [facility] 05/19/2024 1:33 PM EST 05/19/2024 1:33 PM EST us Generic External Data Provider LAB BLOOD ORDERAB LES Final Result Performing Organization Address [facility] de Phone Number [facility] [address] [place] [phone] * Syphilis Screen (04/16/2024 2:56 PM EST) [facility] Syphilis Screen Nonreactive Nonreactive [facility] Blood 04/16/2024 2:56 PM EST 04/16/2024 2:56 PM EST Henry Watson MD LAB BLOOD ORDERABL ES Final Result Performing Organization Address [facility] de Phone Number [facility] [address] [place] [phone] * Hepatitis C Antibody with Reflex to HCV, RNA, Quantitative, Real-Time PCR (04/16/2024 2:56 PM EST) Hepatitis C Antibody Nonreactive Nonreactive [facility] Comment:Antibodies to HCV no t detected; does not exclude early acuteHCV infection. Blood Venous blood specimen / Unknown 04/16/2024 2:56 PM EST 04/16/2024 2:56 PM EST Henry Watson MD LAB BLOOD ORDERABL ES Final Result Performing Organization Address [facility]/ZIP Co de Phone Number [facility] [address] [place] [phone] * HIV-1/2 Antigen and Antibodies, Fourth Generation, with Reflexes (04/16/2024 2:56 PM EST) Pathologist [facility] HIV AB/AG Nonreactive Nonreactive [facility] Comment:HIV-1 p24 Ag and/or HIV-1/HIV-2 Ab not detected.A test result that is nonreactive does not exclude thepossibility of exposure to or infection with HIV-1 and/orHIV-2. Nonreactive results in this assay for individualswith prior exposure to HIV-1 and/or HIV-2 may be due toantigen and antibody levels that are below the limit ofdetection of this assay.The [employer] HIV Ag/Ab Combo assay result andsupplemental assay results should be interpreted inconjunction with the patient's clinical presentation,history and other laboratory results. If the results areinconsistent with clinical evidence, additional testing issuggested to confirm the result. Blood Venous blood specimen / Unknown 04/16/2024 2:56 PM EST 04/16/2024 2:56 PM EST us Henry Watson MD LAB BLOOD ORDERABL ES Final Result Performing Organization Address [facility]/ZIP Co de Phone Number [facility] [address] [place] [phone] * CT Abdomen Pelvis w/ Contrast (04/15/2024 6:14 PM EST) Anatomical Region Laterality Modality Body, Pelvis, Abdomen Computed T omography 04/15/2024 6:14 PM EST Narrative 04/15/2024 6:15 PM EST ? [facility] ?[address] ?[place] [address] ? CT Scan Report ? Signed ? Patient: Ramon,Yeliska ?MR#: [id number] ?? 91 ? : 1980 ?Acct:[id number] ? Age/Sex: 43 / F ?ADM Date: 04/15/24 ? Loc: HO.ED ? Attending Dr: ? Ordering Physician: Willis Jones DO ?? Date of Service: 04/15/24 ?? Procedure(s): CT abdomen pelvis w IV con ?? Accession Number(s): [id number] ? cc: Willis Jones DO; Mary Hurd MD ? Report Number: ?? [id number]: Total DLP = ??559.00 mGy-cm ? CLINICAL [...] by Kojo Bowen MD in OV> ? 04/15/24 1814 ? DD/ ? TD/TT: 04/15/244 ? Red Cap: ? Procedure Note Donotuseinterpreter, Image - 04/15/[address] [address] [address] Scan Report Signed Patient: Brenda Navarro#: [id number] 91 : 1980Acct:[id number] Age/Sex: 43 / FADM Date: 04/15/24 Loc: HO.ED Attending Dr: Ordering Physician: Willis Jones DO Date of Service: 04/15/24 Procedure(s): CT abdomen pelvis w IV con Accession Number(s): [id number] cc: Willis Jones DO; Mary Hurd MD Report Number: [id number]: Total DLP = 559.00 mGy-cm CLINICAL HISTORY: [...] in OV> 04/15/241813 DD/ 13 TD/TT: 04/15/241813 Red Cap: [facility] External Provider IMG CT PROCEDURES Edited Result - Final * (ABNORMAL) CBC auto differential (04/15/2024 3:09 PM EST) White Blood Count 5.1 4.8 - 10.8 X10*3/uL [facility] Red Blood Count 3.67(L) 4.20 - 5.50 X10*6/uL [facility] Hemoglobin 11.2(L) 12.0 - 16.0 g/dl [facility] Hematocrit 34.6(L) 37.0 - 47.0 % [facility] Mean Corpuscular Volume 94.3 80.0 - 98.0 fL [facility] Mean Corpuscular Hemoglobin 30.5 27.0 - 33.0 pg [facility] Mean Corpuscular HGB Conc 32.4 31.0 - 35.0 g/dl [facility] Red Cell Distribution Width 12.7 11.0 - 16.0 % [facility] Platelet Count 200 160 - 400 X10*3/uL [facility] Mean Platelet Volume 10.2 9.4 - 12.3 fL [facility] Neutrophils Percent Auto 42.2(L) 45 - 73 % [facility] Imm Gran Pct Auto 0.2 0.0 - 0.4 % [facility] Lymphocytes Percent Auto 48.8(H) 20 - 40 % [facility] Monocytes Percent Auto 4.9 2 - 11 % [facility] Eosinophils Percent Auto 3.1 0 - 4 % [facility] Basophils Percent Auto 0.8 0 - 2 % [facility] NRBC Pct Auto 0.0 0.0 - 0.2 /100WBC [facility] Neutrophils Absolute Auto 2.2 2.0 - 8.3 x10*3/uL [facility] Imm Gran Abs Auto 0.01 0.00 - 0.03 X10*3/uL [facility] Lymphocytes Absolute Auto 2.5 1.2 - 4.9 X10*3/uL [facility] Monocytes Absolute Auto 0.3 0.1 - 1.2 X10*3/uL [facility] Eosinophils Absolute Auto 0.2 0.0 - 0.4 X10*3/uL [facility] Basophils Absolute Auto 0.0 0.0 - 0.2 X10*3/uL [facility] NRBC Abs Auto 0.000 0.0 - 0.012 X10*3/uL [facility] 04/15/2024 3:09 PM EST 04/15/2024 3:12 PM EST us Generic External Data Provider LAB BLOOD ORDERAB LES Final Result Performing Organization Address [facility]/ZIP Co de Phone Number [facility] [address] [place] [phone] * Urinalysis w/reflex microscopic (04/15/2024 3:09 PM EST) Color Urine Yellow [facility] Appearance Urine Clear [facility] PH 7.0 5.0 - 9.0 [facility] Glucose Urine UA Negative Negative mg/dL [facility] Urine Blood Negative Negative [facility] Specific [place] - Urine 1.010 1.005 - 1.025 [facility] Urine Protein Negative Neg-Trace mg/dL [facility] Urine Ketones Negative Negative mg/dL [facility] Nitrite Urine Negative Negative [facility] Leukocyte Esterase Urine Negative Negative [facility] 04/15/2024 3:09 PM EST 04/15/2024 3:12 PM EST Narrative [facility] - 04/15/2024 3:57 PM EST [id number], Clean Catch us Generic External Data Provider LAB URINE ORDERAB LES Final Result Performing Organization Address City/[facility]/ZIP Co de Phone Number [facility] [address] [place] [phone] * Magnesium (04/15/2024 3:09 PM EST) Magnesium 2.1 1.6 - 2.6 mg/dL [facility] 04/15/2024 3:09 PM EST 04/15/2024 3:12 PM EST us Generic External Data Provider LAB BLOOD ORDERAB LES Final Result Performing Organization Address City/[facility]/ZIP Co de Phone Number [facility] [address] [place] [phone] * Lipase (04/15/2024 3:09 PM EST) Lipase 19 8 - 78 U/L [facility] 04/15/2024 3:09 PM EST 04/15/2024 3:12 PM EST Generic External Data Provider LAB BLOOD ORDERAB LES Final Result Performing Organization Address [facility] de Phone Number [facility] [address] [place] [phone] * (ABNORMAL) Comprehensive Metabolic Panel (04/15/2024 3:09 PM EST) Sodium 139 135 - 145 mmol/L [facility] Potassium 4.5 3.3 - 5.1 mmol/L [facility] Chloride 107 96 - 108 mmol/L [facility] Carbon Dioxide 26 22 - 29 mmol/L [facility] Anion Gap 11(L) 12 - 20 [facility] Urea Nitrogen (BUN) 10 9 - 16 mg/dL [facility] Creatinine, Serum 0.73 0.5 - 1.4 mg/dL [facility] Creatinine Clr Calc Pharmacy 98.8 [facility] Comment:Provided height and weight: 157.48 cm,79.2 kg.eGFR (calculated from the MDRD study equation) and eCrCl(calculated from the Cockcroft-Gault equation) are based ondifferent parameters and may not yield comparable results.If eCrCl result is absurd, please check patient'sheight/weight. Estimated Glomerular Filt Rate >60 [facility] Comment:Chronic Kidney Disea se: Estimated GFR < 60 mL/min/1.48o4Iykmvq Kidney Disease: Estimated GFR < 15 mL/min/1.73m2 Glucose 94 60 - 115 mg/dL [facility] Calcium 9.4 8.4 - 10.2 mg/dL [facility] Bilirubin, Total 0.2 0.0 - 1.0 mg/dL [facility] Aspartate Amino Transferase 22 5 - 31 U/L [facility] Alanine Aminotransferase 17 0 - 31 U/L [facility] Total Protein 7.2 6.5 - 8.0 g/dL [facility] Albumin Level 3.9 3.5 - 5.0 g/dL [facility] Alkaline Phosphatase 55 39 - 117 U/L [facility] 04/15/2024 3:09 PM EST 04/15/2024 3:12 PM EST Generic External Data Provider LAB BLOOD ORDERAB LES Final Result Performing Organization Address City/[facility]/ZIP Co de Phone Number [facility] [address] [place] [phone] * Culture, Urine, Routine (04/15/2024 11:48 AM EST) Urine Urine specimen obtained by clean catch procedure / Unknown 04/15/2024 11:48 AM EST 04/15/2024 5:53 PM EST Comment:UACC Narrative [facility] - 04/17/2024 8:38 AM EST Urine Culture No growth. Specimen Source: Urine clean catch Fredo Drake MD LAB MICROBIOLOGY - GENERAL ORDER ALE Final Result Performing Organization Address City/[facility]/ZIP Co de Phone Number [facility] [address] [place] [phone] * POCT , urine manually resulted [...] EST) Thyroid Peroxidase Antibodies 1 <9 IU/mL [facility] Comment:THIS TEST WAS PERFOR MED AT:[facility] [place] [id number] GENTILE MD 04/09/2024 3:48 PM EST 04/09/2024 3:48 PM EST Generic External Data Provider LAB BLOOD ORDERAB LES Final Result [facility] [address] [place] [phone] * TSI (Thyroid Stimulating Immunoglobulin) (04/09/2024 3:48 PM EST) Thyroid Stimulating Immunoglobulin <89 <140 % baseline [facility] Comment: Thyroid stimulating immunoglobulins (TSI) [...] hCG concentrationfalls below 40,625 mIU/mL (usually after [id number]-nnxex gestation).The analytical performance characteristics of thisassay have been determined by [employer] [facility] [place], [place]. ??The modificationshave not been cleared or approved by the FDA. ??Thisassay has been validated pursuant to the CLIAregulations and is used for clinical purposes.THIS TEST WAS PERFORMED AT:[employer] [id number] [place], [place] ??[phone] AGUILAR MD,PHD 04/09/2024 3:48 PM EST 04/09/2024 3:48 PM EST Generic External Data Provider LAB BLOOD ORDERAB LES Final Result [facility] [address] [place] [address] [phone] * TRAb (TSH Receptor Binding Antibody) (04/09/2024 3:48 PM EST) TRAb (TSH Receptor Binding Antibody) <1.00 <=2.00 IU/L [facility] Comment:This test was perfor med using the TRAb Antibody ELISAmethod which is standardized against the [facility] centerInternational Standard 90/672 and is reported inInternational Units (IU/L). The reference rangereported was established specifically for this testmethod.THIS TEST WAS PERFORMED AT:[employer] [id number] [place] [phone] AGUILAR MD,PHD 04/09/2024 3:48 PM EST 04/09/2024 3:48 PM EST Generic External Data Provider LAB BLOOD ORDERAB LES Final Result Performing Organization Address [facility] de Phone Number [facility] [address] [place] [phone] * (ABNORMAL) T3, Total (04/09/2024 3:48 PM EST) T3, Total 62(A) 76 - 181 ng/dL [facility] Comment:THIS TEST WAS PERFOR MED AT:[facility] [place] [phone] GENTILE MD 04/09/2024 3:48 PM EST 04/09/2024 3:48 PM EST us Generic External Data Provider LAB BLOOD ORDERAB LES Final Result Performing Organization Address [facility] de Phone Number [facility] [address] [place] [phone] * BI Mammogram Screening Tomosynthesis Bilateral (10/03/2023 2:07 PM EDT) Anatomical Region Laterality Modality Breast Bilateral Mammography 10/03/2023 2:07 PM EDT Narrative 10/29/2023 1:58 PM EDT ? [facility] [place] ? [address] ?[place] [address] ? Mammography Report ? Signed ? Patient: Ramon,Yeliska ?MR#: [id number] ?? 89 ? : 1980 ?Acct:[id number] ? Age/Sex: 42 / F ?ADM Date: 07/18/24 ? Loc: HO.MAMMO ? Attending Zoe Hurd MD ? Ordering Physician: Mary Hurd MD ?Results: 1Nega ?? tive ? Date of Service: 10/03/23 ?Follow Up: 1 Year From Orig ?? inal Mammogram ? Procedure(s): MM tomosynthesis screening BI ?? Accession Number(s): [id number] ? cc: Mary Hurd MD ? EXAMINATION: [...] 1353 ? DD/ 1407 ? TD/TT: ? Red Cap: ? Procedure Note Donotuseinterpreter, Image - [facility] [address] [place] [address] Mammography Report Signed Patient: Brenda Navarro#: [id number] 91 : 1980Acct:[id number] Age/Sex: 42 / FADM Date: 10/03/23 Loc: HORajeevMAMMO Attending Dr: Mary Hurd MD Ordering Physician: Mary Hurd MDResults: 1Nega tive Date of Service: 10/03/23Follow Up: 1 Year From Orig inal Mammogram Procedure(s): MM tomosynthesis screening BI Accession Number(s): [id number] cc: Mary Hurd MD EXAMINATION: MM SCREENING [...] in OV> 10/29/23 1353 DD/ 1407 TD/TT: Red Cap: us Mary Hurd MD IMG BI PROCEDURES Final Resul t * THINPREP TIS PAP (04/15/2020 11:47 AM [...] has been evaluated with computer assisted technology. [facility] Kindergarten Teacher : SEE COMMENT [facility] Comment: MSM, CT(ASCP) CT screening location: [address] ??[address] Infection Fungal organisms morphologically consistent with Cary spp. [facility] Interpretation/R esult: Negative for intraepithelial lesion or malignancy. [facility] LMP: NONE GIVEN [facility] Prev. BX: NONE GIVEN [facility] Prev. PAP: NONE GIVEN [facility] SOURCE: None given [facility] Statement Of Adequacy: SEE COMMENT [facility] Comment: Satisfactory for evaluation. Endocervical/transformation zone component present. Age and/or menstrual status not provided 04/15/2020 11:4 7 AM EST Mary Hurd MD LAB PATHOLOGY ORDERABLES Toshia haney Result [facility] [address] * HPV mRNA E6/E7 (04/15/2020 11:47 AM EST) HPV nRNA E6/E7 Not Detected Not Detected [facility] Comment: Methodology: [employer] Server-Mediated Amplification This assay detects E6/E7 viral messenger RNA (mRNA) from 14 high-risk HPV types (16,18,31,33,35,39,45,51,52,56,58,59,66,68). ? The analytical performance characteristics of this assay have been determined by [employer]. The modifications have not been cleared or approved by the FDA. This assay has been validated pursuant to the CLIA regulations and is used for clinical purposes. ?? For additional information, please refer to http://education.[employer]/VDM196s2 (This link if provided for information/ educational purposes only.) 04/15/2020 11:4 7 AM EST us Mary Hurd MD LAB BLOOD ORDERABLES Final Re sult [facility] [address] [place] [address], from Last 3 Months or Most Recently Relevant to Health Maintenance Insurance [id number] [place] Care Teams Ndt Inspector Relationship Specialty Start Date End Date Mary Hurd MD [address] [place] [address] [place] [address] PCP - General Family Medicine 02/01/21 Sigrid Florentino [employer] Operations Director 05/24/23 Donny Jimenez MD Consulting Physician Pulmonary Disease 02/27/24
--- OUTSIDE RECORDS SUMMARY | 2024-05-19 15:59 | XMS_ITS | Encounter Summary ---
Author Organization [employer] Address [address] [place] [address] Care Team Providers Care Tape Maker Name Role Phone Mary Hurd MD Primary Care Provider [phone] Reason for Visit * Reason Onset Date Comments Nurse Triage 07/10/2023 Encounter Details Date Type Department Care Team ([facility] st Contact Info) Description 07/10/2023 Telephone [facility] MEDICINE [address] [place] [address] Mary Hurd MD [address] [place], [place] [phone] Nurse Triage Social History Tobacco Use Types [...] The caller accepted this outcome Patient speaks zimbabwean documented in this encounter Plan of Treatment Not on file documented as of this encounter Visit Diagnoses Not on filedocumented in this encounter Additional Health Concerns Assessment Noted Time PHQ-9 Depression Total Score: 11 024 2:01 PM EDT documented as of this encounter Care Teams Tape Maker Relationship Specialty Start Date End Date Mary Hurd MD [address] [place] [address] PCP - General Family Medicine 02/01/21 Sigrid Florentino Book ShelverMusic Engineer 05/24/23 Donny Jimenez MD Consulting Physician Pulmonary Disease 02/27/24 documented as of this encounter
--- OUTSIDE RECORDS SUMMARY | 2024-05-19 15:59 | XMS_ITS | Encounter Summary ---
Author Organization [employer] Address [address] [place] [address] Care Team Providers Care Treating Inspector Name Role Phone Mary Hurd MD Primary Care Provider [phone] Reason for Visit * Reason Onset Date Comments Order(s) 09/17/2023 Encounter Details Date Type Department Care Team ([facility] st Contact Info) Description 09/17/2023 Telephone [facility] MEDICINE [address] [place] [address] Mary Hurd MD [address] [place] [address] Order(s) Social History Tobacco Use Types Packs/Day [...] any questions you can contact Nadya at [phone]. documented in this encounter Plan of Treatment Not on file documented as of this encounter Visit Diagnoses Not on filedocumented in this encounter Additional Health Concerns Assessment Noted Time PHQ-9 Depression Total Score: 11 024 2:01 PM EDT documented as of this encounter Care Teams Treating Inspector Relationship Specialty Start Date End Date Mary Hurd MD [address] [place] [id number] PCP - General Family Medicine 02/01/21 Sigrid Florentino Dry Primer Powder BlenderManager Site 05/24/23 Donny Jimenez MD Consulting Physician Pulmonary Disease 02/27/24 documented as of this encounter
--- OUTSIDE RECORDS SUMMARY | 2024-05-19 15:59 | XMS_ITS | Encounter Summary ---
Author Organization [employer] Address [address] [facility] [address] [place] [address] Care Team Providers Care Stained Glass Window Designer Name Role Phone Mary Hurd MD Primary Care Provider [phone] Reason for Visit * Reason Onset Date Comments Med Refill 09/16/2023 Encounter Details Date Type Department Care Team ([facility] st Contact Info) Description 09/16/2023 Telephone [facility] MED & PEDS [address] [place] [address] Mary Hurd MD [address] [place] [address] Med Refill Social History Tobacco Use Types [...] 150 MCG tablet To be sent to: [facility] - [place], [place] - [address] [facility] documented in this encounter Plan of Treatment Not on file documented as of this encounter Visit Diagnoses Not on filedocumented in this encounter Additional Health Concerns Assessment Noted Time PHQ-9 Depression Total Score: 11 024 2:01 PM EDT documented as of this encounter Care Teams Stained Glass Window Designer Relationship Specialty Start Date End Date Mary Hurd MD [address] [facility] [place] [address] PCP - General Family Medicine 02/01/21 Sigrid Florentino Senior Property ManagerForensic Accountant 05/24/23 Donny Jimenez MD Consulting Physician Pulmonary Disease 02/27/24 documented as of this encounter
== END 2024-05-19 13:20 | disposition home or self-care (01) ==
PROVIDERS: PCP Family Medicine; Visit Provider Student in an Organized Health Care Education/Training Program
DX: E89.0 Postprocedural hypothyroidism (principal)
CPT/HCPCS: 99213

== ENCOUNTER 2024-07-13 10:31 | Outpatient (REF) | payer MEDICAID, SELFPAY ==
--- OUTSIDE RECORDS SUMMARY | 2024-07-13 12:22 | XMS_ITS | Encounter Summary ---
Author Organization [employer] Address [address] [place] [address] Care Team Providers Care Caregiver Services Home Name Role Phone Mary Hurd MD Primary Care Provider [phone] Reason for Visit * Reason Onset Date Comments Food Assistance 12/27/2023 Encounter Details Date Type Department Care Team ([facility] st Contact Info) Description 12/27/2023 Telephone [facility] MEDICINE [address] [place] [address] Mary Hurd MD [address] [place], [place] [phone] Food Assistance Social History Tobacco Use Types [...] documented as of this encounter Care Teams Caregiver Services Home Relationship Specialty Start Date End Date Mary Hurd MD [address] [place] [address] PCP - General Family Medicine 02/01/21 Sigrid Florentino Station MechanicHarvest Manager 05/24/23 Donny Jimenez MD Consulting Physician Pulmonary Disease 02/27/24 documented as of this encounter
--- OUTSIDE RECORDS SUMMARY | 2024-07-13 12:22 | XMS_ITS | Encounter Summary ---
Author Organization [employer] Address [address] [place] [address] Care Team Providers Care Deputy General Counsel Name Role Phone Mary Hurd MD Primary Care Provider [phone] Encounter Details Date Type Department Care Team ([facility] st Contact Info) Description 03/27/2023 Abstract [facility] MEDICINE [address] [place] [address] Mary Hurd MD [address] [place], [place] [phone] Social History Tobacco Use Types Packs/Day Years [...] documented as of this encounter Care Teams Deputy General Counsel Relationship Specialty Start Date End Date Mary Hurd MD [address] [place] [id number] PCP - General Family Medicine 02/01/21 Sigrid Florentino Learning Support AideLandfill Attendant 05/24/23 Donny Jimenez MD Consulting Physician Pulmonary Disease 02/27/24 documented as of this encounter
--- OUTSIDE RECORDS SUMMARY | 2024-07-13 12:22 | XMS_ITS | Encounter Summary ---
Author Organization [employer] Address [address] [place] [address] Care Team Providers Care Scrubber Machine Tender Name Role Phone Mary Hurd MD Primary Care Provider Reason for Visit * Reason Onset Date Comments Order(s) 09/17/2023 Encounter Details Date Type Department Care Team ([facility] st Contact Info) Description 09/17/2023 Telephone [facility] MEDICINE [address] [place] [address] Mary Hurd MD [address] [place] [address] Order(s) Social History Tobacco Use Types Packs/Day [...] any questions you can contact Nadya at [phone]. documented in this encounter Plan of Treatment Not on file documented as of this encounter Visit Diagnoses Not on filedocumented in this encounter Additional Health Concerns Assessment Noted Time PHQ-9 Depression Total Score: 11 024 2:01 PM EDT documented as of this encounter Care Teams Scrubber Machine Tender Relationship Specialty Start Date End Date Mary Hurd MD [address] [place] [id number] PCP - General Family Medicine 02/01/21 Sigrid Florentino Metal AnnealerInformation Specialist 05/24/23 Donny Jimenez MD Consulting Physician Pulmonary Disease 02/27/24 documented as of this encounter
--- OUTSIDE RECORDS SUMMARY | 2024-07-13 12:22 | XMS_ITS | Encounter Summary ---
Author Organization [employer] Address [address] [place] [address] Care Team Providers Care Fitness Floor Attendant Name Role Phone Mary Hurd MD Primary Care Provider [phone] Reason for Visit * Reason Onset Date Comments Nurse Triage 04/16/2024 Encounter Details Date Type Department Care Team ([facility] st Contact Info) Description 04/16/2024 Telephone [facility] [address] [place] [address] Mary Hurd MD [address] [place] [address] Nurse Triage Social History Tobacco Use Types [...] 04/16/2024 11:42 AM EST Date: 04/15/24 Hospital: [facility] Seen for: Abdominal pain Symptomatic Yes DX. Constipation. Called pt. She states that she went to ED for abdominal pain and was DX. With Constipation. Pt. Started the MiriLax last night and did have a BM last night. Pt is more concerned that the provider in the [facility] ED told her yesterday that bloodwork from [...] ED visit on : Date: 04/15/24 Hospital: [facility] Seen for: Abdominal pain Symptomatic Yes *if [...] documented as of this encounter Care Teams Fitness Floor Attendant Relationship Specialty Start Date End Date Mary Hurd MD [address] [place] [address] PCP - General Family Medicine 02/01/21 Sigrid Florentino Commercial FisherChainstitch Seat Joiner 05/24/23 Donny Jimenez MD Consulting Physician Pulmonary Disease 02/27/24 documented as of this encounter
--- OUTSIDE RECORDS SUMMARY | 2024-07-13 12:22 | XMS_ITS | Encounter Summary ---
Author Organization [employer] Address [address] [place] [address] Care Team Providers Care Centrifugal Supervisor Name Role Phone Mary Hurd MD Primary Care Provider [phone] Reason for Visit * Reason Onset Date Comments Nurse Triage 07/10/2023 Encounter Details Date Type Department Care Team ([facility] st Contact Info) Description 07/10/2023 Telephone [facility] MEDICINE [address] [place] [address] Mary Hurd MD [address] [place], [place] [phone] Nurse Triage Social History Tobacco Use Types [...] The caller accepted this outcome Patient speaks ethiopian documented in this encounter Plan of Treatment Not on file documented as of this encounter Visit Diagnoses Not on filedocumented in this encounter Additional Health Concerns Assessment Noted Time PHQ-9 Depression Total Score: 11 024 2:01 PM EDT documented as of this encounter Care Teams Centrifugal Supervisor Relationship Specialty Start Date End Date Mary Hurd MD [address] [place] [id number] PCP - General Family Medicine 02/01/21 Sigrid Florentino Porcelain Enamel InstallerHog Ringer 05/24/23 Donny Jimenez MD Consulting Physician Pulmonary Disease 02/27/24 documented as of this encounter
--- OUTSIDE RECORDS SUMMARY | 2024-07-13 12:23 | XMS_ITS | Clinical Summary ---
Author Organization [employer] Address [address] [facility] [address] [place] [address] Care Team Providers Care Solar Development Engineer Name Role Phone Mary Hurd MD Primary Care Provider Allergies Active Allergy Reactions Criticality Noted Date [...] shoulder, thigh, or buttocks. 02/20/20 19 Active emtricitabine-t enofovir DF (Truvada) 200-300 MG [...] times daily. 60 tablet 11 04/19/19 24 Active buPROPion (Wellbutrin) 75 MG tabletIndicatio ns:Depressive disorder Take 1 tablet (75 mg) by mouth 2 times daily. 180 tablet 3 07/08/19 24 Active Advair Diskus 250-50 MCG/ACT aerosol powder INHALE 1 PUFF TWICE DAILY (for asthma). RINSE MOUTH AFTER USING. 07/02/19 24 Active Spiriva Respimat 2.5 MCG/ACT inhaler INHALE 2 PUFFS EVERY DAY (for asthma) 07/02/19 24 Active Multiple Vitamins-Iron (Tab-A-Osman/Iro n/Beta Carotene) tablet Take 1 tablet by mouth in the morning. 08/28/19 24 Active Multiple Vitamins-Minera ls (CertaVite/Anti oxidants) tablet TAKE 1 TABLET BY MOUTH EVERY MORNING 30 tablet 11 11/14/19 24 Active montelukast (Singulair) 10 MG tablet TAKE 1 TABLET BY MOUTH EVERY EVENING 30 tablet 11 11/14/19 24 Active cyanocobalamin (Vitamin B-12) 1000 MCG tablet TAKE 1 TABLET BY MOUTH EVERY MORNING 30 tablet 11 11/14/19 24 Active loratadine (Claritin) 10 MG tabletIndicatio ns:Severe persistent asthma, unspecified whether complicated TAKE 1 TABLET BY MOUTH EVERY MORNING 90 tablet 1 12/18/19 24 Active Calcium Carb-Cholecalci ferol 600-10 MG-MCG tabletIndicatio ns:Vitamin D deficiency TAKE 1 TABLET BY MOUTH TWICE DAILY AT NOON AND IN THE EVENING 180 tablet 1 01/14/20 24 Active cholecalciferol (Vitamin D-3) 25 MCG tabletIndicatio [...] needed for wheezing. 18 g 02/27/20 24 2024 Active albuterol (2.5 MG/3ML) 0.083% nebulizer solution Take 3 mL (2.5 mg) by nebulization every 6 (six) hours if needed for wheezing. 180 mL 5 02/27/20 24 Active levothyroxine (Tirosint) 112 MCG capsuleIndicati ons:Acquired Hypothyroidism, Rx'ed per pt by ENDO Take by mouth before breakfast. Active hydrOXYzine HCl (Atarax) 25 MG tablet Take 1 tablet (25 mg) by mouth every 6 (six) hours if needed for anxiety. 90 tablet 3 04/09/19 25 2024 Active capsaicin (Zostrix) 0.025 % creamIndication s:Herpes zoster without complication Apply topically 2 times daily. 56.6 g 05/23/19 25 2025 Active docusate sodium (Colace) 100 MG capsule TAKE 1 CAPSULE BY MOUTH TWICE DAILY IN THE MORNING AND AT BEDTIME NEEDED FOR CONSTIPATION 180 capsule 07/09/19 Active docusate sodium (Colace) 100 MG capsule Take 1 capsule (100 mg) by mouth if needed in the morning and at bedtime for constipation. 60 capsule 3 04/15/19 25 2024 Discontinued Active Problems Problem Noted Date Diagnosed Date Herpes zoster without complication 05/22/2024 Numbness and tingling in both hands 10/31/2023 [...] 06/28/2023 1:30 PM Sulma Trotter, OD [facility] 07/08/2023 2:30 PM Willie Rubalcava, MOUNTING INSPECTOR MEDICINE [facility] Sleep apnea 04/19/2023 Assessment & Plan [...] today. She is getting some help from Medical Aide. As this provider will be retiring, at this time patient is referred back to her PCP for continued medication management. Call [facility] with any questions or concerns. All [...] BID. F/U with therapist as usual, and [facility] Care Mgt. On 01/21/2023 pt was [...] usual. F/U with therapist as usual, and [facility] Care Mgt. On 01/21/2023 pt was [...] agency prescriber. Will also be referred to [facility] Mgt. ADDENDUM: After the visit was [...] Cont f/up with Dr. Cochran (pul) Encounters * This document contains information received from the source organization and may not represent a complete record from that organization. Date Type Department Care Team Description 07/13/2024 Refill [facility] [address] [place] [address] Mary Hurd MD Vitamin D deficiency; Severe persistent asthma, unspecified whether complicated 07/07/2024 Refill [facility] [address] [address] Fredo Drake MD 05/25/2024 Telephone [facility] [address] [place] [phone] Mary Hurd MD Nurse Triage 05/22/2024 1:20 PM EST Office Visit [facility] [address] [address] Iza Schmidt MD Herpes zoster without complication (Primary Dx) 04/16/2024 1:15 PM EST Telemedicine [facility] [address] [place] [address] Henry Shelton MD Screening examination for STD (sexually transmitted disease) (Primary Dx); Hepatitis C antibody test positive 04/16/2024 Travel 04/16/2024 Telephone [facility] [address] [place] [address] Mary Hurd MD Nurse Triage 04/15/2024 10:00 AM EST Office Visit [address] [address] Fredo Drake MD Abdominal pain, unspecified abdominal location (Primary Dx); Abnormal uterine bleeding; Right flank pain from Last 3 Months Immunizations Name Administration Dates Next Due DTP 11/24/1985,07/28/1985,06/04/1985 DTaP 04/27/2018,03/22/1989,12/07/1986 Hep B, Adolescent or Pediatric 07/29/1995,1995,02/05/1995 Hib ([facility]) 05/21/1985 IPV 03/22/1989, 6,07/28/1985,06/04 Influenza injectable quadriv [...] Sign Reading Time Taken Comments Blood Pressure 113/62 05/22/2024 12:47 PM EST Pulse 75 05/22/2024 12:47 PM EST Temperature 36.5 ??C (97.7 ??F) 05/22/2024 12:[address] Respiratory Rate 18 04/15/2024 9:57 AM EST Oxygen Saturation 98% 05/22/2024 12:47 PM EST Inhaled Oxygen Concentration - - Weight 80.1 kg (176 lb 8 oz) 05/22/2024 12:47 PM EST Height 160 cm (5' 3 ) 05/22/2024 12:47 PM EST Body Mass Index 31.27 05/22/2024 12:47 PM EST Plan of Treatment Health Maintenance Due Date Last Done Comments Lipid Panel 1980 Family Planning (PISQ) 1997 COVID-19 Vaccine ( [...] AM EST Abdominal pain, unspecified abdominal location BI MAMMOGRAM SCREENING TOMOSYNTHESIS BILATERAL Routine 10/03/2023 2:07 PM EDT Breast cancer screening by mammogram HPV MRNA E6/E7 Routine 04/15/2020 11:47 AM EST THINPREP IMAGING SYSTEM PAP Routine 04/15/2020 11:47 AM EST from Last 3 Months or Most Recently Relevant to Health Maintenance Results * (ABNORMAL) TSH (05/19/2024 1:33 PM EST) Only the most recent of2 resultswithin the time period is included. Thyroid Stimulating Hormone 5.38(H) 0.32 - 4.0 uIU/mL [facility] Comment:Note: A sustained TS H level above 2.5 uIU/mL may warrant further investigation. TSH 3rd Generation ([facility]) 05/19/2024 1:33 PM EST 05/19/2024 1:33 PM EST us Generic External Data Provider LAB BLOOD ORDERAB LES Final Result [facility] [address] [place] [phone] * T4, Free (05/19/2024 1:33 PM EST) Only the most recent of2 resultswithin the time period is included. Free T4 (Free Thyroxine) 1.14 0.71 - 1.85 ng/dL [facility] 05/19/2024 1:33 PM EST 05/19/2024 1:33 PM EST us Generic External Data Provider LAB BLOOD ORDERAB LES Final Result Performing Organization Address [facility]/ZIP Co de Phone Number [facility] [address] [place] [phone] * Syphilis Screen (04/16/2024 2:56 PM EST) [facility] Syphilis Screen Nonreactive Nonreactive [facility] Blood 04/16/2024 2:56 PM EST 04/16/2024 2:56 PM EST Henry Watson MD LAB BLOOD ORDERABL ES Final Result Performing Organization Address [facility] Co de Phone Number [facility] [address] [place] [phone] * Hepatitis C Antibody with Reflex to HCV, RNA, Quantitative, Real-Time PCR (04/16/2024 2:56 PM EST) [facility] Hepatitis C Antibody Nonreactive Nonreactive [facility] Comment:Antibodies to HCV no t detected; does not exclude early acuteHCV infection. Blood Venous blood specimen / Unknown 04/16/2024 2:56 PM EST 04/16/2024 2:56 PM EST Henry Watson MD LAB BLOOD ORDERABL ES Final Result Performing Organization Address [facility] Co de Phone Number [facility] [address] [place] [phone] * HIV-1/2 Antigen and Antibodies, Fourth Generation, with Reflexes (04/16/2024 2:56 PM EST) HIV AB/AG Nonreactive Nonreactive [facility] Comment:HIV-1 p24 Ag and/or HIV-1/HIV-2 Ab not detected.A test result that is nonreactive does not exclude thepossibility of exposure to or infection with HIV-1 and/orHIV-2. Nonreactive results in this assay for individualswith prior exposure to HIV-1 and/or HIV-2 may be due toantigen and antibody levels that are below the limit ofdetection of this assay.The [employer] HIV Ag/Ab Combo assay result andsupplemental assay results should be interpreted inconjunction with the patient's clinical presentation,history and other laboratory results. If the results areinconsistent with clinical evidence, additional testing issuggested to confirm the result. Blood Venous blood specimen / Unknown 04/16/2024 2:56 PM EST 04/16/2024 2:56 PM EST us Henry Watson MD LAB BLOOD ORDERABL ES Final Result [facility] [address] [place] [phone] * CT Abdomen Pelvis w/ Contrast (04/15/2024 6:14 PM EST) Anatomical Region Laterality Modality Body, Pelvis, Abdomen Computed T omography 04/15/2024 6:14 PM EST Narrative 04/15/2024 6:15 PM EST ? [facility] ?[address] [place] [address] ?[place] [address] ? CT Scan Report ? Signed ? Patient: Ramon,Yeliska ?MR#: [id number] ?? 91 ? : 1980 ?Acct:[id number] ? Age/Sex: 43 / F ?ADM Date: 01/29/25 ? Loc: HO.ED ? Attending Dr: ? Ordering Physician: Willis Jones DO ?? Date of Service: 04/15/24 ?? Procedure(s): CT abdomen pelvis w IV con ?? Accession Number(s): [id number] ? cc: Willis Jones DO; Mary Hurd MD ? Report Number: ?? [id number]: Total DLP = ??559.00 mGy-cm ? CLINICAL [...] in OV> ? 04/15/24 1814 ? DD/ 13 ? TD/TT: 04/15/241813 ? Equipment Application Specialist: ? Procedure Note Deedee Lucas - 04/15/[address] [address] [address] Scan Report Signed Patient: Brenda Navarro#: [id number] 91 : 1980Acct:[id number] Age/Sex: 43 / FADM Date: 04/15/24 Loc: HO.ED Attending Dr: Ordering Physician: Willis Jones DO Date of Service: 04/15/24 Procedure(s): CT abdomen pelvis w IV con Accession Number(s): [id number] cc: Willis Jones DO; Mary Hurd MD Report Number: [id number]: Total DLP = 559.00 mGy-cm CLINICAL HISTORY: [...] in OV> 04/15/241813 DD/ 13 TD/TT: 04/15/241813 Equipment Application Specialist: [facility] External Provider IMG CT PROCEDURES Edited Result - Final * (ABNORMAL) CBC auto differential (04/15/2024 3:09 PM EST) White Blood Count 5.1 4.8 - 10.8 X10*3/uL [facility] Red Blood Count 3.67(L) 4.20 - 5.50 X10*6/uL [facility] Hemoglobin 11.2(L) 12.0 - 16.0 g/dl [facility] Hematocrit 34.6(L) 37.0 - 47.0 % [facility] Mean Corpuscular Volume 94.3 80.0 - 98.0 fL [facility] Mean Corpuscular Hemoglobin 30.5 27.0 - 33.0 pg [facility] Mean Corpuscular HGB Conc 32.4 31.0 - 35.0 g/dl [facility] Red Cell Distribution Width 12.7 11.0 - 16.0 % [facility] Platelet Count 200 160 - 400 X10*3/uL [facility] Mean Platelet Volume 10.2 9.4 - 12.3 fL [facility] Neutrophils Percent Auto 42.2(L) 45 - 73 % [facility] Imm Gran Pct Auto 0.2 0.0 - 0.4 % [facility] Lymphocytes Percent Auto 48.8(H) 20 - 40 % [facility] Monocytes Percent Auto 4.9 2 - 11 % [facility] Eosinophils Percent Auto 3.1 0 - 4 % [facility] Basophils Percent Auto 0.8 0 - 2 % [facility] NRBC Pct Auto 0.0 0.0 - 0.2 /100WBC [facility] Neutrophils Absolute Auto 2.2 2.0 - 8.3 x10*3/uL [facility] Imm Gran Abs Auto 0.01 0.00 - 0.03 X10*3/uL [facility] Lymphocytes Absolute Auto 2.5 1.2 - 4.9 X10*3/uL [facility] Monocytes Absolute Auto 0.3 0.1 - 1.2 X10*3/uL [facility] Eosinophils Absolute Auto 0.2 0.0 - 0.4 X10*3/uL [facility] Basophils Absolute Auto 0.0 0.0 - 0.2 X10*3/uL [facility] NRBC Abs Auto 0.000 0.0 - 0.012 X10*3/uL [facility] 04/15/2024 3:09 PM EST 04/15/2024 3:12 PM EST us Generic External Data Provider LAB BLOOD ORDERAB LES Final Result [facility] [address] [place] [phone] * Urinalysis w/reflex microscopic (04/15/2024 3:09 PM EST) Color Urine Yellow [facility] Appearance Urine Clear [facility] PH 7.0 5.0 - 9.0 [facility] Glucose Urine UA Negative Negative mg/dL [facility] Urine Blood Negative Negative [facility] Specific [place] - Urine 1.010 1.005 - 1.025 [facility] Urine Protein Negative Neg-Trace mg/dL [facility] Urine Ketones Negative Negative mg/dL [facility] Nitrite Urine Negative Negative [facility] Leukocyte Esterase Urine Negative Negative [facility] 04/15/2024 3:09 PM EST 04/15/2024 3:12 PM EST Narrative [facility] - 04/15/2024 3:57 PM EST [id number], Clean Catch Generic External Data Provider LAB URINE ORDERAB LES Final Result Performing Organization Address City/[facility]/ZIP Co de Phone Number [facility] [address] [place] [phone] * Magnesium (04/15/2024 3:09 PM EST) Magnesium 2.1 1.6 - 2.6 mg/dL [facility] 04/15/2024 3:09 PM EST 04/15/2024 3:12 PM EST Generic External Data Provider LAB BLOOD ORDERAB LES Final Result Performing Organization Address City/[facility] Co de Phone Number [facility] [address] [place] [phone] * Lipase (04/15/2024 3:09 PM EST) Lipase 19 8 - 78 U/L [facility] 04/15/2024 3:09 PM EST 04/15/2024 3:12 PM EST us Generic External Data Provider LAB BLOOD ORDERAB LES Final Result [facility] [address] [place], [place] [phone] * (ABNORMAL) Comprehensive Metabolic Panel (04/15/2024 3:09 PM EST) Sodium 139 135 - 145 mmol/L [facility] Potassium 4.5 3.3 - 5.1 mmol/L [facility] Chloride 107 96 - 108 mmol/L [facility] Carbon Dioxide 26 22 - 29 mmol/L [facility] Anion Gap 11(L) 12 - 20 [facility] Urea Nitrogen (BUN) 10 9 - 16 mg/dL [facility] Creatinine, Serum 0.73 0.5 - 1.4 mg/dL [facility] Creatinine Clr Calc Pharmacy 98.8 [facility] Comment:Provided height and weight: 157.48 cm,79.2 kg.eGFR (calculated from the MDRD study equation) and eCrCl(calculated from the Cockcroft-Gault equation) are based ondifferent parameters and may not yield comparable results.If eCrCl result is absurd, please check patient'sheight/weight. Estimated Glomerular Filt Rate >60 [facility] Comment:Chronic Kidney Disea se: Estimated GFR < 60 mL/min/[id number] Kidney Disease: Estimated GFR < 15 mL/min/1.73m2 Glucose 94 60 - 115 mg/dL [facility] Calcium 9.4 8.4 - 10.2 mg/dL [facility] Bilirubin, Total 0.2 0.0 - 1.0 mg/dL [facility] Aspartate Amino Transferase 22 5 - 31 U/L [facility] Alanine Aminotransferase 17 0 - 31 U/L [facility] Total Protein 7.2 6.5 - 8.0 g/dL [facility] Albumin Level 3.9 3.5 - 5.0 g/dL [facility] Alkaline Phosphatase 55 39 - 117 U/L [facility] 04/15/2024 3:09 PM EST 04/15/2024 3:12 PM EST Generic External Data Provider LAB BLOOD ORDERAB LES Final Result Performing Organization Address [facility]/ZIP Co de Phone Number [facility] [address] [place] [phone] * Culture, Urine, Routine (04/15/2024 11:48 AM EST) Urine Urine specimen obtained by clean catch procedure / Unknown 04/15/2024 11:48 AM EST 04/15/2024 5:53 PM EST Comment:UACC Narrative [facility] - 04/17/2024 8:38 AM EST Urine Culture No growth. Specimen Source: Urine clean catch Result [facility] Fredo Drake MD LAB MICROBIOLOGY - GENERAL ORDER ALE Final Result Performing Organization Address [facility] Co de Phone Number [facility] [address] [place] [phone] * POCT , urine manually resulted (04/15/2024 11:05 AM EST) Preg Test, Ur Negative Negative, Indeterminate, None Detected, Invalid, Specimen unsatisfactory for evaluation, Weakly Positive Urine 04/15/2024 11:0 5 AM EST Result [facility] Fredo Drake MD POINT OF CARE TEST [...] TEST ENTER/EDIT OR DERABLES Final Result * BI Mammogram Screening Tomosynthesis Bilateral (10/03/2023 2:07 PM EDT) Anatomical Region Laterality Modality Breast Bilateral Mammography 10/03/2023 2:07 PM EDT Narrative 10/29/2023 1:58 PM EDT ? [facility] ? [address] ?[place] [address] ? Mammography Report ? Signed ? Patient: Ramon,Yeliska ?MR#: [id number] ?? 91 ? : 1980 ?Acct:[id number] ? Age/Sex: 42 / F ?ADM Date: 10/03/23 ? Loc: HO.MAMMO ? Attending Dr: Mary Hurd MD ? Ordering Physician: Mary Hurd MD ?Results: 1Nega ?? tive ? Date of Service: 10/03/23 ?Follow Up: 1 Year From Orig ?? inal Mammogram ? Procedure(s): MM tomosynthesis screening BI ?? Accession Number(s): [id number] ? cc: Mary Hurd MD ? EXAMINATION: [...] 1353 ? DD/ 1407 ? TD/TT: ? Equipment Application Specialist: ? Procedure Note Deedee Lucas - 10/29/2023 [facility] [address] [place] [address] Mammography Report Signed Patient: Brenda Navarro#: [id number] 91 : 1980Acct:[id number] Age/Sex: 42 / FADM Date: 10/03/23 Loc: HO.MAMMO Attending Dr: Mary Hurd MD Ordering Physician: Mary Hurdesults: 1Nega tive Date of Service: 10/03/23Follow Up: 1 Year From Orig inal Mammogram Procedure(s): MM tomosynthesis screening BI Accession Number(s): [id number] cc: Mary Hurd MD EXAMINATION: MM SCREENING [...] in OV> 10/29/23 1353 DD/ 1407 TD/TT: Equipment Application Specialist: us Mary Hurd MD IMG BI PROCEDURES Final Resul t * THINPREP TIS PAP (04/15/2020 11:47 AM EST) Clinical Information: None given [facility] COMMENT SEE COMMENT [facility]OUNDAT[facility] ON [...] has been evaluated with computer assisted technology. [facility] Carpet Floor Layer Apprentice : SEE COMMENT [facility] Comment: MSM, CT(ASCP) CT screening location: [address] ??[address] Infection Fungal organisms morphologically consistent with [place] spp. [facility] Interpretation/R esult: Negative for intraepithelial lesion or malignancy. [facility] LMP: NONE GIVEN [facility] Prev. BX: NONE GIVEN [facility] Prev. PAP: NONE GIVEN FOUNDAT[facility] ON LAB SYSTEM SOURCE: None given [facility] Statement Of Adequacy: SEE COMMENT [facility] Comment: Satisfactory for evaluation. Endocervical/transformation zone component present. Age and/or menstrual status not provided 04/15/2020 11:4 7 AM EST Mary Hurd MD LAB PATHOLOGY ORDERABLES Toshia l Result Performing Organization Address [facility] de Phone Number [facility] [address] * HPV mRNA E6/E7 (04/15/2020 11:47 AM EST) HPV nRNA E6/E7 Not Detected Not Detected [facility] Comment: Methodology: Manager Enterprise Content Management-Mediated Amplification This assay detects E6/E7 viral messenger RNA (mRNA) from 14 high-risk HPV types (16,18,31,33,35,39,45,51,52,56,58,59,66,68). ? The analytical performance characteristics of this assay have been determined by [employer]. The modifications have not been cleared or approved by the FDA. This assay has been validated pursuant to the CLIA regulations and is used for clinical purposes. ?? For additional information, please refer to http://education.[employer]/HBQ373a2 (This link if provided for information/ educational purposes only.) 04/15/2020 11:4 7 AM EST Mary Hurd MD LAB BLOOD ORDERABLES Final Re sult Performing Organization Address [facility] de Phone Number [facility] [address] from Last 3 Months or Most Recently Relevant to Health Maintenance Insurance [facility] C3 Care Teams Solar Development Engineer Relationship Specialty Start Date End Date Mary Hurd MD [address] [place] [phone] PCP - General Family Medicine 02/01/21 Sigrid Florentino Javascript EngineerHealthcare Representative 05/24/23 Donny Jimenez MD Consulting Physician Pulmonary Disease 02/27/24
--- OUTSIDE RECORDS SUMMARY | 2024-07-13 12:23 | XMS_ITS | Encounter Summary ---
Author Organization [employer] Address [address] [place] [address] Care Team Providers Care Application Services Manager Name Role Phone Mary Hurd MD Primary Care Provider [phone] Reason for Visit * Reason Comments Med Refill Encounter Details Date Type Department Care Team ([facility] st Contact Info) Description 07/07/[address] [facility] [address] [place] [address] Fredo Drake MD [address] [place] [address] Social History Tobacco Use Types Packs/Day Years [...] documented as of this encounter Care Teams Application Services Manager Relationship Specialty Start Date End Date Mary Hurd MD [address] [place] [address] PCP - General Family Medicine 02/01/21 Sigrid Florentino Chair Post Machine OperatorFinancial Coordinator 05/24/23 Donny Jimenez MD Consulting Physician Pulmonary Disease 02/27/24 documented as of this encounter
--- OUTSIDE RECORDS SUMMARY | 2024-07-13 12:23 | XMS_ITS | Encounter Summary ---
Author Organization [employer] Address [address] [place] [address] Care Team Providers Care Dobby Loom Fixer Name Role Phone Mary Hurd MD Primary Care Provider [phone] Reason for Visit * Reason Comments Med Refill Encounter Details Date Type Department Care Team ([facility] st Contact Info) Description 07/13/[address] [facility] [address] [place], [place] [phone] Mary Hurd MD [address] [place] [address] Vitamin D deficiency; Severe persistent asthma, unspecified whether complicated Social History Tobacco Use Types Packs/Day Years [...] as of this encounter Visit Diagnoses Diagnosis Vitamin D deficiency Severe persistent asthma, unspecified whether complicated documented in this encounter Additional Health Concerns Assessment Noted Time PHQ-9 Depression Total Score: 5 02/27/20 24 12:52 PM EST documented as of this encounter Care Teams Dobby Loom Fixer Relationship Specialty Start Date End Date Mary Hurd MD [address] [place] [phone] PCP - General Family Medicine 02/01/21 Sigrid Florentino University TutorSeed Buyer 05/24/23 Donny Jimenez MD Consulting Physician Pulmonary Disease 02/27/24 documented as of this encounter
--- OUTSIDE RECORDS SUMMARY | 2024-07-13 12:23 | XMS_ITS | Encounter Summary ---
Author Organization [employer] Address [address] [facility] 7t [place] [address] Care Team Providers Care Candy Polisher Name Role Phone Mary Hurd MD Primary Care Provider [phone] Reason for Visit * Reason Onset Date Comments Med Refill 09/16/2023 Encounter Details Date Type Department Care Team ([facility] st Contact Info) Description 09/16/2023 Telephone [facility] MED & PEDS [address] [place] [address] Mary Hurd MD [address] [place] [address] Med Refill Social History Tobacco Use Types [...] 150 MCG tablet To be sent to: [facility] - [place], [place] - [address] [facility] documented in this encounter Plan of Treatment Not on file documented as of this encounter Visit Diagnoses Not on filedocumented in this encounter Additional Health Concerns Assessment Noted Time PHQ-9 Depression Total Score: 11 024 2:01 PM EDT documented as of this encounter Care Teams Candy Polisher Relationship Specialty Start Date End Date Mary Hurd MD [address] [facility] [place] [address] PCP - General Family Medicine 02/01/21 Sigrid Florentino Finish MixerChemical Process Operator 05/24/23 Donny Jimenez MD Consulting Physician Pulmonary Disease 02/27/24 documented as of this encounter
[2024-07-13 14:23] LABS: Thyroid Stimulating Hormone 0.42 uIU/mL (0.32-4.0)
== END 2024-07-13 10:32 | disposition home or self-care (01) ==
LOC: HO.10HDL 10:31
PROVIDERS: Visit Provider Student in an Organized Health Care Education/Training Program
DX: E89.0 Postprocedural hypothyroidism (principal)
CPT/HCPCS: 36415; 84439; 84443

== ENCOUNTER 2024-08-20 12:59 | Outpatient (AMB) | payer MEDICAID, SELFPAY ==
--- NOTE | 2024-08-20 13:01 | MHC.OFFVIS ---
Vital Signs 08/20/24 13:04 Height 5 ft 2 in Weight 176 lb 5.917 oz BMI 32.3 BP 90/58 L Blood Pressure Location Rt brachial Position Sitting Pulse 67 Pulse Source Pulse Oximeter Pulse Oximetry (%) 96 Oxygen Delivery Method Room Air Intake Visit Reasons: Hypothyroidism Intake Note: Patient present today for hypothyroidism follow up visit. Mixing Plant Dumper Required: Yes Mixing Plant Dumper Language: Radio Time Buyer Services: Mixing Plant Dumper Present Mixing Plant Dumper [facility] [place] Information Interpreted: non-clinical & clinical Accompanied by: Self / Same As Patient Allergies Penicillins Allergy (Mild, Verified 08/20/24 13:05) RASH Medication List - Last Reconciled 08/20/24 by Mat Robledo MD albuterol sulfate 90 mcg/actuation (Ventolin HFA) 2 puffs inhalation Q4-6H PRN albuterol sulfate mg inhalation Q6H PRN Ca-D3-mag bt-extk-mcv-perry-bor 600 mg calcium- 20 mcg-50 mg (Calcium 600-D3 Plus (mag-zinc)) tabs PO DAILY cholecalciferol (vitamin D3) 25 mcg PO QAM clonidine HCl 0.1 mg PO BEDTIME cyanocobalamin (vitamin B-12) 1,000 mcg PO DAILY epinephrine 0.3 mg IM Q10M PRN famotidine (Pepcid) 40 mg PO BEDTIME fluticasone propion-salmeterol 250-50 mcg/dose (Advair Diskus) 1 inh inhalation BID 30 days fluticasone propionate 50 mcg/actuation (Flonase Allergy Relief) 1 spray intranasal DAILY hydrocortisone 2.5% 1 appl topical BID PRN 15 days MDD SKIN RASH/IRRITATION ibuprofen 600 mg PO Q6H PRN levothyroxine 112 mcg orally; take 1 tablet daily from Saturday to Saturday and 1 and a half tablet on Sundays loratadine 10 mg PO DAILY montelukast (Singulair) 10 mg PO BEDTIME multivit with min-folic acid 120 mcg (Centrum Adult 50 Plus Fresh-Fruity) tabs PO DAILY nebulizers (AeroEclipse II Nebulizer) As directed nystatin 5 mL PO BID 10 days omalizumab 150 mg subcut Q2W 30 days polyethylene glycol 3350 (Miralax) 17 grams PO BID tiotropium bromide 2.5 mcg/actuation (Spiriva Respimat) 2 puffs PO DAILY venlafaxine ER (Effexor XR) 150 mg PO DAILY HPI Comments Details: 43 YO Female with a PMHx of Grave's disease s/p I131 ablation with resultant hypothyroidism who is seen in F/U. She remains on levothyroxine 112 mcg PO M- Sat and 1 1/2 tablet Saturday . She takes this appropriately. TSH has remained at goal. She does report occasional hoarseness of voice, but otherwise has no complaints today. Labs: Laboratory Tests 05/02/22 16:17 TSH 0.90 Free T4 0.96 [facility] Medical History (Updated 04/16/24 @ 00:00 by Kelly Solis) Cough Hyper-IgE syndrome Contact dermatitis Bronchitis Depression Postablative hypothyroidism Bronchial asthma Allergic rhinitis Asthma Allergic rhinitis Surgical History Hx of carpal tunnel repair Hx of tubal ligation Family History Father Heart disease CVD (cardiovascular disease) Diabetes Mother CVD (cardiovascular disease) Asthma Heart disease Thyroid disease Diabetes Social History Household Members: Children Alcohol intake: current Alcohol intake frequency: 3 or more drinks per day Patient Tobacco Use Status: Former Tobacco user Substance Use Type: Marijuana Physical Exam Const Other: Thyroid gland is decreased in size weighs about 5 g . Assessment & Plan Assessment & Plan (1) Postablative hypothyroidism: Comment: s/p ablation for Graves disease Code(s): E89.0 - Postprocedural hypothyroidism Category: Medical Plan: Is a 42-year-old female with a history of post-ablated hypothyroidism be replaced on 112 mcg levothyroxine M- Sat and 1/2 tablet Saturday . She appears to be clinically and biochemically euthyroid Plan is to continue the current therapy. Patient requested a follow up with Dr. Torres and we will give him wanted about 6 months' time Orders: Orders Free T4 (Free Thyroxine) 6 Months E89.0 - Postprocedural hypothyroidism Thyroid Stimulating Hormone 6 Months E89.0 - Postprocedural hypothyroidism Coding Level of Care Code Est Pt Level 3 (17393) Diagnoses Postablative hypothyroidism E89.0
[2024-08-20 13:04] VITALS: BP 90/58; PULSE 67; O2SAT 96; BMI 32.3
--- OUTSIDE RECORDS SUMMARY | 2024-08-20 15:04 | XMS_ITS | Encounter Summary ---
Author Organization [employer] Address [address] [facility] 7 [place] [address] Care Team Providers Care Traffic Or System Dispatcher Name Role Phone Mary Hurd MD Primary Care Provider [phone] Reason for Visit * Reason Onset Date Comments Nurse Triage 04/16/2024 Encounter Details Date Type Department Care Team ([facility] st Contact Info) Description 04/16/2024 Telephone [facility] MED & PEDS [address] [place] [address] Mary Hurd MD [address] [place] [address] Nurse Triage Social History Tobacco Use Types [...] 04/16/2024 11:42 AM EST Date: 04/15/24 Hospital: [facility] Seen for: Abdominal pain Symptomatic Yes DX. Constipation. Called pt. She states that she went to ED for abdominal pain and was DX. With Constipation. Pt. Started the MiriLax last night and did have a BM last night. Pt is more concerned that the provider in the [facility] ED told her yesterday that bloodwork from [...] ED visit on : Date: 04/15/24 Hospital: [facility] Seen for: Abdominal pain Symptomatic Yes *if yes message should go to Triage Patient advised will forward to team nurse for follow up Pt inform was told has Hep C documented in this encounter Plan of Treatment Upcoming Encounters Date Type Department Care Team ([facility] st Contact Info) Description 09/04/2024 2:00 PM EDT Office Visit [facility] MED & PEDS [address] [place] [address] Mary Hurd MD [address] [place] [address] documented as of this encounter Visit Diagnoses Not on filedocumented in this encounter Additional Health Concerns Assessment Noted Time PHQ-9 Depression Total Score: 5 02/27/20 24 12:52 PM EST documented as of this encounter Care Teams Traffic Or System Dispatcher Relationship Specialty Start Date End Date Mary Hurd MD [address] [place] [address] PCP - General Family Medicine 02/01/21 Sigrid Florentino Horticulture SuperintendentCardiology Fellow 05/24/23 Donny Jimenez MD Consulting Physician Pulmonary Disease 02/27/24 documented as of this encounter
== END 2024-08-20 13:23 | disposition home or self-care (01) ==
LOC: HO.ENCR 12:59
PROVIDERS: PCP Family Medicine; Visit Provider Internal Medicine Endocrinology, Diabetes & Metabolism
DX: E89.0 Postprocedural hypothyroidism (principal)
CPT/HCPCS: 99213

== ENCOUNTER → 2024-08-20 12:59 | Outpatient (BNVA) | payer MEDICAID, SELFPAY | PROVIDERS: PCP Family Medicine; Visit Provider Internal Medicine Endocrinology, Diabetes & Metabolism | DX: E89.0 Postprocedural hypothyroidism (principal) | CPT/HCPCS: 99212 ==

== ENCOUNTER 2024-10-08 15:38 | Outpatient (AMB) | payer MEDICAID, SELFPAY ==
--- OUTSIDE RECORDS SUMMARY | 2024-10-08 15:40 | XMS_ITS | Encounter Summary ---
Author Organization [employer] Address [address] [facility] 7 [place] [address] Care Team Providers Care Hired Help Name Role Phone Mary Hurd MD Primary Care Provider [phone] Reason for Visit * Reason Onset Date Comments Nurse Triage 04/16/2024 Encounter Details Date Type Department Care Team ([facility] Contact Info) Description 04/16/2024 Telephone [facility] MED & PEDS [address] [place] [address] Mary Hurd MD [address] [place] [address] Nurse Triage Social History Tobacco Use Types [...] 11:42 AM EST Date: 04/15/24 Hospital: [facility] Seen for: Abdominal pain Symptomatic Yes DX. Constipation. Called pt. She states that she went to ED for abdominal pain and was DX. With Constipation. Pt. Started the MiriLax last night and did have a BM last night. Pt is more concerned that the provider in the [facility] ED told her yesterday that bloodwork from [...] ED visit on : Date: 04/15/24 Hospital: [facility] Seen for: Abdominal pain Symptomatic Yes *if yes message should go to Triage Patient advised will forward to team nurse for follow up Pt inform was told has Hep C documented in this encounter Plan of Treatment Upcoming Encounters Date Type Department Care Team ([facility] st Contact Info) Description 10/23/2024 1:00 PM EDT Office Visit [facility] MED & PEDS [address] [place] [address] Mary Hurd MD [address] [place] [address] documented as of this encounter Visit Diagnoses Not on filedocumented in this encounter Additional Health Concerns Assessment Noted Time PHQ-9 Depression Total Score: 5 02/27/20 24 12:52 PM EST documented as of this encounter Care Teams Hired Help Relationship Specialty Start Date End Date Mary Hurd MD [address] [place] [address] PCP - General Family Medicine 02/01/21 Sigrid Florentino Piece Goods PackerClinical Field Specialist 05/24/23 Donny Jimenez MD Consulting Physician Pulmonary Disease 02/27/24 documented as of this encounter
--- NOTE | 2024-10-08 15:44 | A.OFFVIS_ITS ---
Vital Signs 10/08/24 15:45 Height 5 ft 2 in Weight 174 lb 2.643 oz BMI 31.9 BP 125/70 Blood Pressure Location Lt brachial Position Sitting Pulse 82 Pulse Source Pulse Oximeter Pulse Oximetry (%) 97 Oxygen Delivery Method Room Air Intake Visit Reasons: asthma Intake Note: pt is here for sick visit, she is wheezing in am, and when breathing she is having some pain in the back lung area. still on biologic every 2 weeks. Cleaner And Polisher Required: No Allergies Penicillins Allergy (Mild, Verified 10/08/24 16:32) RASH Medication List - Last Reconciled 10/08/24 by Donny Jimenez MD albuterol sulfate 90 mcg/actuation (Ventolin HFA) 2 puffs inhalation Q4-6H PRN albuterol sulfate mg inhalation Q6H PRN amitriptyline 100 mg PO BEDTIME bupropion HCl SR 100 mg PO DAILY Ca-D3-mag wg-xvky-rit-perry-bor 600 mg calcium- 20 mcg-50 mg (Calcium 600-D3 Plus (mag-zinc)) tabs PO DAILY calcium carbonate-vitamin D3 600 mg-10 mcg (400 unit) 1 tab PO BID cholecalciferol (vitamin D3) 25 mcg PO QAM clonidine HCl 0.1 mg PO BEDTIME cyanocobalamin (vitamin B-12) 1,000 mcg PO DAILY epinephrine 0.3 mg IM Q10M PRN famotidine (Pepcid) 40 mg PO BEDTIME fluticasone propion-salmeterol 250-50 mcg/dose (Advair Diskus) 1 inh inhalation BID 30 days fluticasone propionate 50 mcg/actuation (Flonase Allergy Relief) 1 spray intranasal DAILY hydrocortisone 2.5% 1 appl topical BID PRN 15 days MDD SKIN RASH/IRRITATION ibuprofen 600 mg PO Q6H PRN levothyroxine 112 mcg orally; take 1 tablet daily from Saturday to Saturday and 1 and a half tablet on Sundays loratadine 10 mg PO DAILY magnesium hydroxide (Milk of Magnesia) 30 mL PO BEDTIME montelukast (Singulair) 10 mg PO BEDTIME multivit with min-folic acid 120 mcg (Centrum Adult 50 Plus Fresh-Fruity) tabs PO DAILY nebulizers (AeroEclipse II Nebulizer) As directed nystatin 5 mL PO BID PRN omalizumab 150 mg subcut Q2W 30 days polyethylene glycol 3350 (Miralax) 17 grams PO BID prednisone 5 mg PO DAILY sennosides-docusate sodium 8.6-50 mg (Stool Softener-Stimulant Laxative) 2 tabs PO DAILY silver sulfadiazine 1% appl topical BID sumatriptan succinate 100 mg PO Q4H PRN tiotropium bromide 2.5 mcg/actuation (Spiriva Respimat) 2 puffs PO DAILY topiramate 100 mg PO BID venlafaxine ER (Effexor XR) 150 mg PO DAILY Do you need a note to return to daycare/school/sports/work: No HPI HPI asthma: Details: THIS 43 YEARS OLD FEMALE IS HERE FOR FOLLOW-UP, FOR ALLERGIC RHINITIS AND BRONCHIAL ASTHMA SHE IS ON BIOLOGIC TREATMENT WITH OMALIZUMAB 150 MG SUBQ Q.2 WEEKS, WHICH HAS HELPED HER A LOT. THE SEVERITY OF HER ASTHMA AND ALLERGIC RHINITIS SYMPTOMS HAS DECREASED GREATLY. SHE IS ALSO ON MAINTENANCE REGIMEN INCLUDING ADVAIR 250-50 B.I.D., SPIRIVA RESPIMAT 2.5 MG 2 INHALATIONS DAILY, AND ALBUTEROL 2 PUFFS Q 6 HOURS P.R.N.. SHE COMPLAINS THAT SHE STILL HAS MILD INTERMITTENT WHEEZING AND COUGH, NASAL CONGESTION IS MUCH LESS. 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 [facility] Medical History Paresthesia of skin Insomnia Depression with anxiety Migraine Cough Hyper-IgE syndrome Contact dermatitis Bronchitis Depression Postablative hypothyroidism Bronchial asthma Allergic rhinitis Asthma Allergic rhinitis Surgical History Hx of carpal tunnel repair Hx of tubal ligation Family History Father Heart disease CVD (cardiovascular disease) Diabetes Mother CVD (cardiovascular disease) Asthma Heart disease Thyroid disease Diabetes Social History Household Members: Children Alcohol intake: current Alcohol intake frequency: 3 or more drinks per day Patient Tobacco Use Status: Former Tobacco user Substance Use Type: Marijuana Review of Systems Const Reports fatigue and Reports night sweats Eyes Reports no additional complaints ENT Reports nasal congestion and Reports nasal discharge Card Denies chest pain, Denies irregular heart rhythm and Denies leg edema Resp Reports as per HPI GI Reports no additional complaints Reports no additional complaints Musc Reports no additional complaints Skin/Breast Reports system reviewed and no additional complaints, except as documented Neuro Reports no additional complaints Psych Reports no additional complaints Endo Reports fatigue Physical Exam Vital Signs: Last Vital Signs Pulse 82 10/08/24 15:45 BP 125/70 10/08/24 15:45 Pulse Ox 97 10/08/24 15:45 Oxygen Delivery Method Room Air 10/08/24 15:45 BMI result Body Mass Index 31.9 Const General: healthy appearing, comfortable, no acute distress, alert and awake Orientation/consciousness: patient oriented x3 HEENT Head: Yes normal to inspection General nose exam: No nasal polyps present, No nasal discharge present and Other nasal findings present (HAS MILD NASAL CONGESTION ON BOTH SIDES) Face and sinus: Yes sinuses nontender Mouth: oropharynx abnormals (A FEW PINPOINT WHITE SPOTS NOTED ON THE POSTERIOR PHARYNGEAL WALL) Throat: Yes posterior oropharynx normal Eyes General: appearance normal, both eyes and all related structures Neck Neck: Yes normal visual inspection, Yes no lymphadenopathy, Yes trachea midline and Yes no JVD Thyroid: Thyroid normal Chest Chest palpation & inspection: normal inspection of the chest, normal palpation of entire chest wall and no tenderness (ON THE PAIN IN THE BACK SHE DESCRIBES IS VERY MILD AND NONSPECIFIC /MUSCULA) Resp Other: Breath sounds are somewhat distant but equal on both sides. She has a few scatterred wheezes over the left chest . Cardio Palpation: normal PMI Rate: regular rate Rhythm: regular rhythm Heart sounds: no gallops and no murmurs Peripheral pulses: Peripheral pulses 2+ throughout GI Palpation (GI): Soft to palpation, nontender, No hepatosplenomegaly present and no masses Auscultation: normal bowel sounds Back/Spine/Pelvis Thoracic/Lumbar Spine: thoracic and lumbar spine normal to inspection Skin Rashes: rashes noted (Erythematous plaques, around the ankles on both sides.) Neuro General: patient oriented x3 and no focal motor deficits Cranial nerves: Yes CN's II-XII intact bilaterally Extrem General: Yes normal to inspection, Yes no clubbing, cyanosis or edema and Yes no calf tenderness Psych Appearance: grossly normal and well kempt Speech and movement: Normal speech and movement present Assessment & Plan Assessment & Plan (1) Bronchial asthma: Comment: PATIENT HAS HAD CHRONIC PERSISTENT ALLERGIC BRONCHIAL ASTHMA, SHE HAS DONE WELL SINCE SHE WAS STARTED ON BIOLOGIC INJECTIONS( XOLAIR ) CURRENTLY ON OMALIZUMAB ( XOLAIR ) 150 MG Q.2 WEEKS Code(s): J45.909 - Unspecified asthma, uncomplicated Category: Medical Plan: ADVISED TO CONTINUE THIS THERAPY (2) Cough: Comment: COUGH IS ONLY INTERMITTENT AND MILD, , PART OF AIRWAYS INFLAMMATORY PROCESS. Code(s): R05.9 - Cough, unspecified Category: Medical Plan: SHE MAY USE OTC COUGH SYRUP SUCH ROBITUSSIN ONLY P.R.N. (3) Allergic rhinitis: Comment: CHRONIC ALLERGIC RHINITIS, ALONG WITH BRONCHIAL ASTHMA, DUE TO HYPER IGE SYNDROME, MUCH BETTER CONTROLLED SINCE SHE IS ON BIOLOGIC TREATMENT. STILL HAS INTERMITTENT BOUTS OF INCREASED NASAL CONGESTION CAUSING COUGH Code(s): J30.9 - Allergic rhinitis, unspecified Category: Medical Plan: CONTINUE THE PRESENT MEDICATION MAY USE LORATADINE 10 MG ONCE A DAY P.R.N. 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 2 weeks. ,Asthma is relatively well controlled ., except for minor exacerbations off and on. She is getting the shots at [facility] infusion center. Code(s): D82.4 - Hyperimmunoglobulin E [IgE] syndrome Category: Medical Plan: ADVISED TO CONTINUE THIS THERAPY Medications: Changed From nystatin administer 1/2 of dose in each side of the mouth 5 mL PO BID 10 days 100 mL 1RF THRUSH To nystatin administer 1/2 of dose in each side of the mouth 5 mL PO BID PRN Coding Level of Care Code Est Pt Level 3 (97566) Diagnoses Bronchial asthma J45.909 Cough R05.9 Allergic rhinitis J30.9 Hyper-IgE syndrome D82.4
[2024-10-08 15:45] VITALS: BP 125/70; PULSE 82; O2SAT 97; BMI 31.9
== END 2024-10-08 16:05 | disposition home or self-care (01) ==
LOC: HO.HPS 15:39
PROVIDERS: PCP Family Medicine; Visit Provider Internal Medicine
DX: J45.909 Unspecified asthma, uncomplicated (principal); R05.9 Cough, unspecified; J30.9 Allergic rhinitis, unspecified; D82.4 Hyperimmunoglobulin E [IgE] syndrome
CPT/HCPCS: 99213

== ENCOUNTER → 2024-10-08 15:38 | Outpatient (BNVA) | payer MEDICAID, SELFPAY | PROVIDERS: PCP Family Medicine; Visit Provider Internal Medicine | DX: J45.909 Unspecified asthma, uncomplicated (principal); R05.9 Cough, unspecified; D82.4 Hyperimmunoglobulin E [IgE] syndrome | CPT/HCPCS: 99212 ==

== ENCOUNTER 2024-10-23 10:54 | Outpatient (AMB) | payer MEDICAID, SELFPAY ==
--- OUTSIDE RECORDS SUMMARY | 2024-10-23 10:57 | XMS_ITS | Encounter Summary ---
Author Organization [employer] Address [address] [facility] [address] [place] [address] Care Team Providers Care Irrigator Sprinkling System Name Role Phone Mary Hurd MD Primary Care Provider [phone] Reason for Visit * Reason Comments Med Refill Encounter Details Date Type Department Care Team ([facility] st Contact Info) Description 10/18/2024 Refill [facility] MED & PEDS [address] [place], [place] [id number] Mary Hurd MD [address] [place] [address] Constipation, unspecified constipation type Social History Tobacco Use Types Packs/Day Years [...] housing situation today? I have trev morocho 08/25/[address] you li ve. Do you have problems with any of the following? None of the above 08/25/2024 Food Insecurity Answer Date Recorded Within the past 12 months, y ou worried that your food would run out before you got money to buy more: Never True 08/25/2024 Within the past 12 months,th e food you bought just didn't last and you didn't have enough money to get more: Never True 12/2024 Transportation Answer Date Recorded In the past 12 months, has l ack of transportation kept you from medical appts, meetings, work or from getting things needed for daily living? No 08/25/2024 Utilities Answer Date Recorded In the past 12 months, has t he electric, gas, oil or water company threatened to shut off services in your home? No 08/25/2024 Depression Answer Date Recorded Patient Health Questionnaire-2 Score 1 02/27/2024 Internet Access Answer Date Recorded Internet Access Q1 Yes 08/25/2024 Internet Access Q2 Not on file 08/25/2024 Comments No Sex and Gender Information Value Date Recorded Sex Assigned at Female 01/15/2022 10:14 AM EDT Legal Sex Female 10:14 AM EDT Gender Identity Female 01/15/2022 10:14 AM EDT Sexual Orientation Choose not to disclose 2021 10:14 AM EDT documented as of this encounter Plan of Treatment Upcoming Encounters Date Type Department Care Team ([facility] st Contact Info) Description 10/23/2024 1:00 PM EDT Office Visit [facility] MED & PEDS [address] [place] [address] Mary Hurd MD [address] [place] [address] documented as of this encounter Visit Diagnoses Diagnosis Constipation, unspecified constipation type documented in this encounter Additional Health Concerns Assessment Noted Time PHQ-9 Depression Total Score: 5 02/27/20 24 12:52 PM EST documented as of this encounter Care Teams Irrigator Sprinkling System Relationship Specialty Start Date End Date Mary Hurd MD [address] [place] [address] PCP - General Family Medicine 02/01/21 Sigrid Florentino Proj EngineerAssistant Wrestling Coach 05/24/23 Donny Jimenez MD Consulting Physician Pulmonary Disease 02/27/24 documented as of this encounter
--- NOTE | 2024-10-23 11:05 | A.OFFVIS_ITS ---
Vital Signs 10/23/24 11:05 Height 5 ft 2 in Intake Visit Reasons: 6m Allergies Penicillins Allergy (Mild, Verified 10/23/24 11:06) RASH Medication List - Last Reconciled 10/23/24 by Chasity Cuvler CNP albuterol sulfate 90 mcg/actuation (Ventolin HFA) 2 puffs inhalation Q4-6H PRN albuterol sulfate mg inhalation Q6H PRN amitriptyline 100 mg PO BEDTIME bupropion HCl SR 100 mg PO DAILY Ca-D3-mag tp-jjes-ade-perry-bor 600 mg calcium- 20 mcg-50 mg (Calcium 600-D3 Plus (mag-zinc)) tabs PO DAILY calcium carbonate-vitamin D3 600 mg-10 mcg (400 unit) 1 tab PO BID cholecalciferol (vitamin D3) 25 mcg PO QAM clonidine HCl 0.1 mg PO BEDTIME cyanocobalamin (vitamin B-12) 1,000 mcg PO DAILY epinephrine 0.3 mg IM Q10M PRN famotidine (Pepcid) 40 mg PO BEDTIME fluticasone propion-salmeterol 250-50 mcg/dose (Advair Diskus) 1 inh inhalation BID 30 days fluticasone propionate 50 mcg/actuation (Flonase Allergy Relief) 1 spray intranasal DAILY hydrocortisone 2.5% 1 appl topical BID PRN 15 days MDD SKIN RASH/IRRITATION ibuprofen 600 mg PO Q6H PRN levothyroxine 112 mcg orally; take 1 tablet daily from Saturday to Saturday and 1 and a half tablet on Sundays loratadine 10 mg PO DAILY magnesium hydroxide (Milk of Magnesia) 30 mL PO BEDTIME montelukast (Singulair) 10 mg PO BEDTIME multivit with min-folic acid 120 mcg (Centrum Adult 50 Plus Fresh-Fruity) tabs PO DAILY nebulizers (AeroEclipse II Nebulizer) As directed nystatin 5 mL PO BID PRN omalizumab 150 mg subcut Q2W 30 days polyethylene glycol 3350 (Miralax) 17 grams PO BID prednisone 5 mg PO DAILY sennosides-docusate sodium 8.6-50 mg (Stool Softener-Stimulant Laxative) 2 tabs PO DAILY silver sulfadiazine 1% appl topical BID sumatriptan succinate 100 mg PO Q4H PRN tiotropium bromide 2.5 mcg/actuation (Spiriva Respimat) 2 puffs PO DAILY topiramate 100 mg PO BID venlafaxine ER (Effexor XR) 150 mg PO DAILY zolpidem 10 mg PO BEDTIME PRN HPI Comments Details: She was doing okay. Migraines were happening about 2x/week with photophobia, sonophobia, and nausea. She was very sensitive to bright light, especially the sun and had to wear dark sunglasses when driving. Has some trouble falling asleep, zolpidem helps. Able to sleep through the night. She has h/o frequent headaches 3/week lasting 30 minutes to a couple of hours. She started having headaches around 2018. They may be triggered by stress. She gets nausea, vomiting, photophobia, and sonophobia. They can last for several hours. She has a lot of environmental allergies and bad asthma. 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 May have some PTSD, history of phencyclidine withdrawal. [facility] Medical History (Updated 10/23/24 @ 11:10 by Chasity Culver CNP) Paresthesia of skin Insomnia Depression with anxiety Migraine Cough Hyper-IgE syndrome Contact dermatitis Bronchitis Depression Postablative hypothyroidism Bronchial asthma Allergic rhinitis Asthma Allergic rhinitis Surgical History Hx of carpal tunnel repair Hx of tubal ligation Family History Father Heart disease CVD (cardiovascular disease) Diabetes Mother CVD (cardiovascular disease) Asthma Heart disease Thyroid disease Diabetes Social History Household Members: Children Alcohol intake: current Alcohol intake frequency: 3 or more drinks per day Patient Tobacco Use Status: Former Tobacco user Substance Use Type: Marijuana Review of Systems Const Denies chills, Denies daytime sleepiness, Reports difficulty sleeping, Denies fatigue, Denies fever(s), Denies frequent falls, Reports headache(s), Denies increased appetite, Denies poor appetite, Denies snoring, Denies weakness, Denies weight gain and Denies weight loss Eyes Denies loss of vision ENT Denies vertigo, Denies dizziness, Reports headache(s) and Denies neck pain Card Denies chest pain at rest, Denies chest pain with activity, Denies syncope, Denies leg edema, Denies palpitations, Denies dyspnea and Denies dyspnea on exertion Resp Denies cough, Denies dyspnea, Denies dyspnea on exertion and Denies snoring GI Denies abdominal pain, Denies constipation, Denies heartburn, Denies diarrhea and Denies nausea Denies urinary frequency, Denies urinary incontinence and Denies urinary urgency Musc Denies abnormal gait, Denies back pain, Denies myalgias, Denies arthralgias, Denies neck pain, Denies numbness and Denies tingling Neuro Denies abnormal gait, Denies vertigo, Denies dizziness, Denies syncope, Denies frequent falls, Reports headache(s), Denies lack of coordination, Denies loss of vision, Denies memory loss, Denies numbness, Denies Other visual disturbances, Denies restless legs, Denies seizure-like activity, Denies tingling, Denies paresthesias, Denies tremor(s) and Denies weakness Psych Reports anxiety, Denies depression, Denies auditory hallucinations, Denies memory loss and Denies visual hallucinations Endo Denies fatigue and Denies palpitations Physical Exam Const Other: General Appearance:? normal, in no acute distress. Heart:? S1, S2 normal, no murmurs. Lungs:? clear anteriorly and posteriorly. Musculoskeletal:? normal. Extremities:? no edema. Psych:? alert, oriented, cognitive function intact, cooperative with exam. Neuro Other: Abnormal Neurological Findings:?none.? Mental Status: alert and oriented X 3. Normal attention, orientation, memory, and affect. Cranial Nerves: Pupils are equal, round, and reactive to light. External ocular muscles are intact. Visual pinto are full, no ptosis. Face is symmetrical, no facial weakness or droop. Facial sensations are normal. Tongue protrudes in midline. Palate elevates symmetrically. Shoulder shrugging is normal Motor Examination: Normal muscle tone, bulk and strength. No atrophy or fasciculations. No drift of the extended upper extremities. DTR 2+. Plantars are flexor. Sensory Exam: Normal light touch, temperature, pinprick, vibration, and joint- position sensations. Rhomberg sign is absent. Coordination: No ataxia. No titubation. Eppjgg-lb-[id number], yxhl-yddz-bbqh test, and rapid alternating movements were normal. Gait Exam: Within normal limits. Cerebellar Signs: Afqima-zt-bvay is okay. Extrapyramidal System: No tremor, rigidity with normal facial expressions. No bradykinesia. No bradyphrenia. Normal arm swing and posture. No propulsion or retropulsion. Speech: Normal. No dysphasia or dysarthria. Assessment & Plan Assessment & Plan (1) Migraine: Code(s): G43.909 - Migraine, unspecified, not intractable, without status migrainosus Category: Medical Qualifiers: Migraine type: unspecified Status migrainosus presence: without status migrainosus Intractability: not intractable Qualified Code(s): G43.909 - Migraine, unspecified, not intractable, without status migrainosus Plan: Continue topiramate 100mg 1 tablet twice a day. Continue amitriptyline 100mg 1 tablet at bedtime. Continue sumatriptan 100mg 1 tablet as needed for migraine. Start ondansetron 4mg 1 tablet as needed for nausea/vomiting. (2) Insomnia: Code(s): G47.00 - Insomnia, unspecified Category: Medical Qualifiers: Insomnia type: unspecified Qualified Code(s): G47.00 - Insomnia, unspecified Plan: Continue zolpidem 10mg 1 tablet at bedtime as needed for sleep. Medications: New amitriptyline 100 mg PO BEDTIME 30 tabs 5RF 30 days ondansetron 4 mg PO DAILY PRN 10 tabs 5RF nausea and vomiting 30 days zolpidem 10 mg PO BEDTIME PRN 30 tabs 2RF sleep 30 days topiramate 100 mg PO BID 60 tabs 5RF 30 days sumatriptan succinate take 1 tab at onset of headache; if no relief, may repeat 1 tab after at least 2 hrs; max = 2 tabs/24 hrs PO 10 tabs 5RF 30 days zolpidem 10 mg PO BEDTIME 30 days PRN 30 tabs 5RF sleep Discontinued amitriptyline Discontinued Reason: Order 100 mg PO BEDTIME topiramate Discontinued Reason: Order 100 mg PO BID sumatriptan succinate Discontinued Reason: Order 100 mg PO Q4H PRN zolpidem Discontinued Reason: Order 10 mg PO BEDTIME PRN Coding Level of Care Code Est Pt Level 4 (98006) Diagnoses Migraine without status migrainosus, not intractable, unspecified migraine type G43.909 Migraine type: unspecified Status migrainosus presence: without status migrainosus Intractability: not intractable Insomnia, unspecified type G47.00 Insomnia type: unspecified
== END 2024-10-23 11:57 | disposition home or self-care (01) ==
LOC: HO.HSM 10:55
PROVIDERS: PCP Family Medicine; Visit Provider Registered Nurse
DX: G43.909 Migraine, unspecified, not intractable, without status migrainosus (principal); G47.00 Insomnia, unspecified
CPT/HCPCS: 99214

== ENCOUNTER → 2024-10-23 10:54 | Outpatient (BNVA) | payer MEDICAID, SELFPAY | PROVIDERS: PCP Family Medicine; Visit Provider Registered Nurse | DX: G43.909 Migraine, unspecified, not intractable, without status migrainosus (principal); G47.00 Insomnia, unspecified | CPT/HCPCS: 99212 ==

== ENCOUNTER 2024-10-23 15:24 | Outpatient (REF) | payer MEDICAID, SELFPAY ==
[2024-10-23 18:03] LABS: Appearance Urine Clear; Glucose Urine UA Negative (Negative); PH 7.0 (5.0-9.0); Specific Gravity - Urine 1.010 (1.005-1.025); UMIC TRIGGER UACC YES
[2024-10-23 18:19] LABS: UACC Culture Trigger YES
[2024-10-24 02:55] LABS: CT PCR NOT DETECTED (Not Detect.); NG PCR NOT DETECTED (Not Detect.)
== END 2024-10-23 15:25 | disposition home or self-care (01) ==
LOC: HO.CHCLNP 15:24
PROVIDERS: PCP Family Medicine; Visit Provider Family Medicine
DX: Z11.3 Encounter for screening for infections with a predominantly sexual mode of transmission (principal); R82.90 Unspecified abnormal findings in urine
CPT/HCPCS: 81001; 87086; 87088; 87186; 87491; 87591

== ENCOUNTER 2024-11-05 14:35 | Outpatient (REF) | payer MEDICAID, SELFPAY ==
--- NOTE | ~2024-11-05 | XR_ITS ---
CLINICAL HISTORY: 43 yo F with posterior paraspinal spasms and pain, send to [facility] [place] Radiographs of the cervical spine, 7 views Comparison: None available Findings: There is normal alignment. No fracture. The vertebral body heights are preserved. There is mild intervertebral disc space narrowing at C5/C6 with trace endplate osteophytosis. The other intervertebral disc spaces are preserved. Mild multilevel uncovertebral and facet joint hypertrophy. No prevertebral soft tissue swelling. Impression: No acute findings. Mild degenerative change. This document has been electronically signed by: Shikha Eldridge MD on 11/06/2024 17:45:00
[2024-11-05 15:49] LABS: Cholesterol 242 mg/dL (<200); HDL Cholesterol 75 mg/dL (>40); Triglycerides 107 mg/dL (<150)
[2024-11-05 16:40] LABS: Free T4 (Free Thyroxine) < 0.42 ng/dL (0.71-1.85)
[2024-11-06 07:51] LABS: Syphilis Screen Nonreactive (Nonreactive)
[2024-11-06 08:00] LABS: HIV Num 1 0.05 S/CO (0.00-0.99); ~HepC Num1 0.25 S/CO (0.00-0.79); ~Hepatitis C Antibody Nonreactive (Nonreactive)
== END 2024-11-05 14:36 | disposition home or self-care (01) ==
LOC: HO.LAB 14:35
PROVIDERS: PCP Family Medicine; Visit Provider Family Medicine
DX: Z11.3 Encounter for screening for infections with a predominantly sexual mode of transmission (principal); Z11.4 Encounter for screening for human immunodeficiency virus [HIV]; Z11.59 Encounter for screening for other viral diseases; Z13.89 Encounter for screening for other disorder; E03.9 Hypothyroidism, unspecified; M54.2 Cervicalgia; G89.29 Other chronic pain
CPT/HCPCS: 36415; 72050; 80061; 84439; 84443; 86780; 86803; 87389

== ENCOUNTER → 2024-11-05 14:53 | Outpatient (BNV) | payer MEDICAID, SELFPAY | PROVIDERS: PCP Family Medicine; Visit Provider Radiology Diagnostic Radiology | DX: M62.830 Muscle spasm of back (principal); M54.2 Cervicalgia | CPT/HCPCS: 72050 ==

== ENCOUNTER 2025-01-01 09:46 | Outpatient (RCR) | payer MEDICAID, SELFPAY | END 2025-01-20 08:19 | disposition home or self-care (01) | LOC: HO.PT 09:46 | PROVIDERS: PCP Family Medicine; Visit Provider Family Medicine | DX: M54.2 Cervicalgia (principal); G89.29 Other chronic pain | CPT/HCPCS: 97012; 97110; 97140; 97161; 97530 ==

== ENCOUNTER 2025-01-13 11:00 | Outpatient (REF) | payer MEDICAID, SELFPAY ==
--- NOTE | ~2025-01-13 | MM_ITS ---
EXAMINATION: DXA BONE DENSITY AXIAL HISTORY: HIDE INSPECTOR USE OF STEROIDS TECHNIQUE: Digital Reef Dual energy absorptiometry (DEXA) of the lumbar spine, total left hip, and femoral neck was performed. COMPARISON: Comparison is made with the prior examination dated 01/11/2023. FINDINGS: The bone mineral density of the lumbar spine is 1.200 g/cm2, corresponding to a T-score of 0.2, and a Z-score of -0.2. This is indicative of normal bone mineral density. This represents a BMD change of -2.7% compared to the prior exam. This is statistically significant. The bone mineral density of the left total hip is 1.175 g/cm2, corresponding to a T-score of 1.3, and a Z-score of 1.3. This is indicative of normal bone mineral density. This represents a BMD change of 1.3% compared to the prior exam. This is not statistically significant. The bone mineral density of the left femoral neck is 1.079 g/cm2, corresponding to a T-score of 0.3, and a Z-score of 0.5. This is indicative of normal bone mineral density. This represents a BMD change of 0.1% compared to the prior exam. MM/XR DEXA axial skeleton IMPRESSION: Based on bone mineral density, and according to World Health Organization (WHO) criteria, the diagnosis is consistent with normal bone mineral density. Statistically, 68% of repeat scans fall within 1 SD (+/- 0.010 g/cm2 for AP spine L1-L4) and 1 SD (+/- 0.012 g/cm2 for femur total) FRAX is a trademark of the [employer]'s [place] for Metabolic Bone Disease, a World Health Organization (WHO) Collaborating Center. Electronically signed by: Mat Lazaro MD 01/13/2025 11:50 AM EDT
--- OUTSIDE RECORDS SUMMARY | 2025-01-13 13:57 | XMS_ITS | Encounter Summary ---
Author Organization [employer] Address [address] [place] [address] Care Team Providers Care Char Puller Name Role Phone Mary Hurd MD Primary Care Provider [phone] Encounter Details Date Type Department Care Team ([facility] st Contact Info) Description 03/27/2023 Abstract [facility] [address] [place] [address] Mary Hurd MD [address] [place] [address] Social History Tobacco Use Types Packs/Day Years [...] documented as of this encounter Care Teams Char Puller Relationship Specialty Start Date End Date Mary Hurd MD [address] [place] [address] PCP - General Family Medicine 02/01/21 Sigrid Florentino Flatware MakerCommunity Service Aide 05/24/23 Donny Jimenez MD Consulting Physician Pulmonary Disease 02/27/24 documented as of this encounter
--- OUTSIDE RECORDS SUMMARY | 2025-01-13 13:57 | XMS_ITS | Clinical Summary ---
Author Organization [facility] Address [address] [place] [address] 7 [place] [address] Care Team Providers Care Switch Crew Supervisor Name Role Phone Mary Hurd MD Primary Care Provider [phone] Allergies Active Allergy Reactions Criticality Noted Date Comments Penicillin V Other Low 01/23/2013 Other reaction(s): Rash per patient memory Shellfish Protein-Containing Drug Products Other Low 04/25/2010 Other reaction(s): unspecified Medications * This document [...] the shoulder, thigh, or buttocks. 9 Active emtricitabine-te nofovir DF (Truvada) 200-300 MG tablet Take 1 [...] times daily. 60 tablet 11 4 Active Advair Diskus 250-50 MCG/ACT aerosol powder INHALE 1 PUFF TWICE DAILY (for asthma). RINSE MOUTH AFTER USING. 4 Active Spiriva Respimat 2.5 MCG/ACT inhaler INHALE 2 PUFFS EVERY DAY (for asthma) 4 Active amitriptyline (Elavil) 100 MG tablet [...] for wheezing. 180 mL 5 4 Active hydrOXYzine HCl (Atarax) 25 MG tablet Take 1 tablet (25 mg) by mouth every 6 (six) hours if needed for anxiety. 90 tablet 3 5 Active capsaicin (Zostrix) 0.025 % creamIndications :Herpes zoster without complication Apply topically 2 times daily. 56.6 g 5 026 Active docusate sodium (Colace) 100 MG capsule TAKE 1 CAPSULE BY MOUTH TWICE DAILY IN THE MORNING AND AT BEDTIME NEEDED FOR CONSTIPATION 180 capsule 5 Active cholecalciferol (Vitamin D-3) 25 MCG tabletIndication s:Vitamin D deficiency TAKE 1 TABLET BY MOUTH EVERYDAY AT NOON 90 tablet 1 5 Active Calcium Carb-Cholecalcif jay jay 600-10 MG-MCG tabletIndication s:Vitamin D deficiency TAKE 1 TABLET BY MOUTH TWICE DAILY AT NOON AND IN THE EVENING 180 tablet 1 5 Active loratadine (Claritin) 10 MG tabletIndication s:Severe persistent asthma, unspecified whether complicated (HCC) TAKE 1 TABLET BY MOUTH EVERYDAY AT NOON 90 tablet 1 5 Active fluticasone (Flonase) 50 MCG/ACT nasal spray INSTILL 1 SPRAY IN EACH NOSTRIL TWICE DAILY 48 g 1 5 Active predniSONE (Deltasone) 5 MG tablet TAKE 1 TABLET BY MOUTH EVERY DAY 90 tablet 1 5 Active polyethylene glycol, PEG, 3350 (MiraLax) 17 GM/SCOOP powderIndication s:Constipation, unspecified constipation type Take 17 g by mouth Once per day. 527 g 2 5 Active magnesium hydroxide (Milk of Magnesia) 400 MG/5ML suspensionIndica tions:Constipati on, unspecified constipation type Take 30 mL by mouth at bedtime. 360 mL 5 Active silver sulfADIAZINE (Silvadene) 1 % creamIndications :Partial thickness burn of right forearm, initial encounter Apply topically 2 times daily. 50 g 5 025 Active buPROPion SR (Wellbutrin SR) 100 MG 12 hr tablet Take 1 tablet by mouth Once per day. 5 Active levothyroxine (Synthroid, Levoxyl) 112 MCG tablet TAKE 1 TABLET BY MOUTH EVERY DAY ON SATURDAY TO SATURDAY AND TAKE 1 AND 1/2 TABLETS BY MOUTH ON Saturday 5 Active FT Stool Softener 50-8.6 MG tabletIndication s:Constipation, unspecified constipation type TAKE 2 TABLETS BY MOUTH EVERY DAY 60 tablet 1 5 Active montelukast (Singulair) 10 MG tablet TAKE 1 TABLET BY MOUTH EVERY EVENING 90 tablet 3 5 Active cyanocobalamin (Vitamin B-12) 1000 MCG tablet TAKE 1 TABLET BY MOUTH EVERY MORNING 90 tablet 3 5 Active Multiple Vitamins-Mineral s (CertaVite/Antio xidants) tablet TAKE 1 TABLET BY MOUTH EVERY MORNING 90 tablet 3 5 Active Active Problems Problem Noted Date Diagnosed Date Malodorous urine 10/23/2024 Herpes zoster without complication 05/22/2024 Numbness and [...] 06/28/2023 1:30 PM Sulma Trotter, OD [facility] 07/08/2023 2:30 PM Willie Rubalcava 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 She visited the hospital recently where an ultrasound was performed, and she was given medication which provided temporary relief. The patient has been unable to have a bowel movement despite attempts. Given the duration and severity of symptoms, a more aggressive bowel regimen is warranted. Plan: - Prescribe MiraLAX 17g PO daily - For initial cleanout: Increase to TID for 3 days, then reduce to daily - Prescribe senna 2 tablets PO qhs - Recommend magnesium as needed - Educate patient on importance of hydration and fiber intake - Follow up in 10 days to assess efficacy of treatment Visual impairment 06/19/2013 Hepatitis C antibody test [...] today. She is getting some help from [employer]. As this provider will be retiring, at this time patient is referred back to her PCP for continued medication management. Call [facility] with any questions or concerns. All questions [...] BID. F/U with therapist as usual, and [facility]. On 01/21/2023 pt was informed that [...] usual. F/U with therapist as usual, and [facility]. On 01/21/2023 pt was informed that [...] agency prescriber. Will also be referred to [facility]. ADDENDUM: After the visit was complete, [...] sent refills. Cont f/up with [facility] Cochran [facility] Encounters Date Type Department Care Team Description 01/07/2025 Patient Outreach [facility] [address] [place] [address] Mary Hurd MD Care Coordination (CHW outreach for SDOH need food needs-LVM) 01/07/2025 Telephone [facility] [address] [place] [address] Mary Hurd MD Call Back Request 12/03/2024 Refill [facility] [address] [place] [address] Mary Hurd MD 11/06/2024 Results Follow-Up [facility] [address] [place] [address] Mary Hurd MD Urinalysis, Complete, with Reflex to Culture, TSH W/Reflex to FT4, Lipid Panel, Standard, Additional followed-up results: 6 11/03/2024 Refill [facility] [address] [place] [address] Mary Hurd MD 10/23/2024 1:00 PM EDT Office Visit [facility] [address] [place] [address] Mary Hurd MD Screening examination for STI (Primary Dx); Malodorous urine; Acquired hypothyroidism; Severe persistent asthma, unspecified whether complicated; Encounter for health-related screening; Neck pain, chronic; Current chronic use of systemic steroids 10/23/2024 Travel 10/18/2024 Refill [facility] [address] [place] [address] Mary Hurd MD Constipation, unspecified constipation type 10/16/2024 Patient Outreach [facility] [address] [place] [address] Mary Hurd MD Pre-visit Planning ([facility] screening completed on 08/25/24 ) from Last 3 Months Immunizations Immunization Administration Dates Next Due DTP 11/24/1985,07/28/1985,06/04/1985 DTaP 04/27/2018,03/22/1989,12/07/1986 Hep B, Adolescent or Pediatric 07/29/1995,1995,02/05/1995 Hib ([facility]) 05/21/1985 IPV 03/22/1989, 6,07/28/1985,06/04 Influenza injectable quadriv [...] Sign Reading Time Taken Comments Blood Pressure 110/70 10/23/2024 1:05 PM EDT Pulse 78 10/23/2024 1:05 PM EDT Temperature 36.7 C (98.1 F) 10/23/2024 1:05 PM EDT Respiratory Rate 20 10/23/2024 1:05 PM EDT Oxygen Saturation 98% 10/23/2024 1:05 PM EDT Inhaled Oxygen Concentration - - Weight 77.8 kg (171 lb 9.6 oz) 10/23/2024 1:05 P M EDT Height 157.5 cm (5' 2 ) 10/23/2024 1:05 PM EDT Body Mass Index 31.39 10/23/2024 1:05 PM EDT Plan of Treatment Health Maintenance Due Date Last Done Comments Disability Screening 1980 Family Planning (PISQ) 1997 HPV Vaccines (1 - 3-dose series) 1997 COVID-19 Vaccine (3 - 2024- season) 2024 02/28/2021, 06/01/2020 Influenza Vaccine (#1) 2024 , 02/19/2019, 12/12/2017, Additional history exists Alcohol/Substance Use Screening 02/26/2025 02/27/2024 Depression Screening 02/26/2025 02/27/2024, 02/27/20 Cervical Cancer Screening 04/15/2025 HPV/Cotest 04/15/2025 04/15/2020, 01/09/2017 Pap Smear 04/15/2025 04/15/2020 SDOH Screening 08/25/2025 08/25/2024 Mammogram 10/02/2025 10/03/2023 Tobacco Screening 10/23/2025 10/23/2024 DTaP/Tdap/Td Vaccines (10 - Td or Tdap) 04/27/2028 04/27/2018, 05/06/2016, 07/02/2014, Additional history exists Lipid Panel 11/05/2029 11/05/2024 Zoster Vaccines (1 of 2) 2032 RSV Patients and Patients Aged 60 years or older (1 - 1-dose 75+ series) 2057 HIB Vaccines Completed 05/21/1985 IPV Vaccines Completed 03/22/1989, 11/1985, 07/28/1985, Additional history exists Hepatitis B Vaccines Completed 07/29/1995, 04/02/1995, 02/05/1995 Pneumococcal Vaccine: Pediatrics (0 to 5 Years) and At-Risk Patients (6 to 49) Years Completed 06/03/2023, 01/23/2010, 01/23/2010 HIV Screening Completed 11/05/2024, 03/20, 05/02/2022, Additional history exists Hepatitis C Screening Completed 11/05/2024 , 04/16/2024, 07/15/2023, Additional history exists Hepatitis A Vaccines Aged Out No long er eligible based on patient's age to complete this topic Meningococcal B Vaccine Aged Out No l onger eligible based on patient's age to complete [...] Procedure Name Priority Date/Time Associated Diagnosis Comments BD DEXA AXIAL Routine 01/13/2025 11:10 AM EDT Current chronic use of systemic steroids XR CERVICAL SPINE 4V Routine 11/06/2024 5:45 PM EDT Neck pain, chronic T4, FREE Routine 11/05/2024 2:50 PM EDT HEPATITIS C AB W/REFL TO HCV RNA, QN, PCR Routine 11/05/2024 2:50 PM EDT Screening examination for STI HIV 1/2 ANTIGEN/ANTIBODY, FOURTH GENERATION W/RFL Routine 11/05/2024 2:50 PM EDT Screening examination for STI SYPHILIS SCREEN Routine 11/05/2024 2:50 PM EDT Screening examination for STI LIPID PANEL, STANDARD Routine 11/05/2024 2:50 PM EDT Encounter for health-related screening TSH W/REFLEX TO FT4 Routine 11/05/2024 2 :50 PM EDT Acquired hypothyroidism POCT URINALYSIS DIPSTICK Routine 10/23/2024 2:02 PM EDT Screening examination for STI CHLAMYDIA/N. GONORRHOEAE RNA, TMA, UROGENITAL Routine 10/23/2024 1:48 PM EDT Malodorous urine URINALYSIS, COMPLETE, WITH REFLEX TO CULTURE Routine 10/23/2024 12:00 AM EDT Malodorous urine CULTURE, URINE, ROUTINE Routine 10/23/2024 12:00 AM EDT BI MAMMOGRAM SCREENING TOMOSYNTHESIS BILATERAL Routine 10/03/2023 2:07 PM EDT Breast cancer screening by mammogram HPV MRNA E6/E7 Routine 04/15/2020 11:47 AM EST [facility] PAP Routine 04/15/2020 11:47 AM EST from Last 3 Months or Most Recently Relevant to Health Maintenance Results * BD DEXA Axial (01/13/2025 11:10 AM EDT) Anatomical Region Laterality Modality Body Radiographic Amena ging 01/13/2025 11:1 0 AM EDT Narrative 01/13/2025 11:53 AM EDT [facility] 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 COMPARISON: Comparison is made with the prior examination dated 01/11/2023. FINDINGS: The bone mineral density of the lumbar spine is 1.200 g/cm2, corresponding to a T-score of 0.2, and a Z-score of -0.2. This is indicative of normal bone mineral density. This represents a BMD change of -2.7% compared to the prior exam. This is statistically significant. The bone mineral density of the left total hip is 1.175 g/cm2, corresponding to a T-score of 1.3, and a Z-score of 1.3. This is indicative of normal bone mineral density. This represents a BMD change of 1.3% compared to the prior exam. This is not statistically significant. The bone mineral density of the left femoral neck is 1.079 g/cm2, corresponding to a T-score of 0.3, and a Z-score of 0.5. This is indicative of normal bone mineral density. This represents a BMD change of 0.1% compared to the prior exam. MM/XR DEXA axial skeleton IMPRESSION: Based on bone mineral density, and according to World Health Organization (WHO) criteria, the diagnosis is consistent with normal bone mineral density. Statistically, 68% of repeat scans fall within 1 SD (+/- 0.010 g/cm2 for AP spine L1-L4) and 1 SD (+/- 0.012 g/cm2 for femur total) FRAX is a trademark of the [employer]'s [place] [facility] Metabolic Bone Disease, a World Health Organization (WHO) Collaborating Center. Electronically signed by: Mat Lazaro MD 01/13/2025 11:50 AM EDT Dictated By: Mat Lazaro MD Signed By: <Electronically signed by Mat Lazaro MD in OV> 01/13/25 1150 DD/ 1110 TD/TT: 01/13/25 1135 Tableman: Procedure Note Donotuseinterpreter, Image - 01/13/2025 [place] [facility] [address] 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 COMPARISON: Comparison is made with the prior examination dated 01/11/2023. FINDINGS: The bone mineral density of the lumbar spine is 1.200 g/cm2, corresponding to a T-score of 0.2, and a Z-score of -0.2. This is indicative of normal bone mineral density. This represents a BMD change of -2.7% compared to the prior exam. This is statistically significant. The bone mineral density of the left total hip is 1.175 g/cm2, corresponding to a T-score of 1.3, and a Z-score of 1.3. This is indicative of normal bone mineral density. This represents a BMD change of 1.3% compared to the prior exam. This is not statistically significant. The bone mineral density of the left femoral neck is 1.079 g/cm2, corresponding to a T-score of 0.3, and a Z-score of 0.5. This is indicative of normal bone mineral density. This represents a BMD change of 0.1% compared to the prior exam. MM/XR DEXA axial skeleton IMPRESSION: Based on bone mineral density, and according to World Health Organization (WHO) criteria, the diagnosis is consistent with normal bone mineral density. Statistically, 68% of repeat scans fall within 1 SD (+/- 0.010 g/cm2 for AP spine L1-L4) and 1 SD (+/- 0.012 g/cm2 for femur total) FRAX is a trademark of the [employer] [place] [facility] Metabolic Bone Disease, a World Health Organization (WHO) Collaborating Center. Electronically signed by: Mat Lazaro MD 01/13/2025 11:50 AM EDT Dictated By: Mat Lazaro MD Signed By: <Electronically signed by Mat Lazaro MD in OV> 01/13/25 1150 DD/ 1110 TD/TT: 01/13/25 1135 Tableman: Mary Hurd MD IMG DXA PROCEDURES Final Resu lt * XR CERVICAL SPINE 4V (11/06/2024 5:45 PM EDT) Anatomical Region Laterality Modality Abdomen Radiographic Amena ging 11/06/2024 5:45 PM EDT Narrative 11/06/2024 5:46 PM EDT [place] [address] XRay Report Signed Patient: Charlie Navarro MR#: [id number] 91 : 1980 Acct:[id number] Age/Sex: 43 / F ADM Date: 11/05/24 Loc: HO.LAB Attending Dr: Mary Hurd MD Ordering Physician: Mary Hurd MD Date of Service: 11/05/24 Procedure(s): XR cervical spine 4V Accession Number(s): [id number] cc: Mary Hurd MD CLINICAL HISTORY: 43 yo F with posterior paraspinal spasms and pain, send to [facility] Radiographs of the cervical spine, 7 views Comparison: None available Findings: There is normal alignment. No fracture. The vertebral body heights are preserved. There is mild intervertebral disc space narrowing at C5/C6 with trace endplate osteophytosis. The other intervertebral disc spaces are preserved. Mild multilevel uncovertebral and facet joint hypertrophy. No prevertebral soft tissue swelling. Impression: No acute findings. Mild degenerative change. This document has been electronically signed by: Shikha Eldridge MD on 11/06/2024 17:45:00 Dictated By: Shikha Munroe MD Signed By: <Electronically signed by Shikha Munroe MD in OV> 11/06/24 1746 DD/ 1745 TD/TT: 11/06/24 174 Tableman: Procedure Note Donotuseinterpreter, Image - 11/06/[address] [address] XRay Report Signed Patient: Brenda Navarro#: [id number] 91 : 1980Acct:[id number] Age/Sex: 43 / FADM Date: 11/05/24 Loc: HO.LAB Attending Dr: Mary Hurd MD Ordering Physician: Mary Hurd MD Date of Service: 11/05/24 Procedure(s): XR cervical spine 4V Accession Number(s): [id number] cc: Mary Hurd MD CLINICAL HISTORY: 43 yo F with posterior paraspinal spasms and pain, sendto [facility] Radiographs of the cervical spine, 7 views Comparison: None available Findings: There is normal alignment. No fracture. The vertebral body heights are preserved. There is mild intervertebral disc space narrowing at C5/C6 with trace endplate osteophytosis. The other intervertebral disc spaces are preserved. Mild multilevel uncovertebral and facet joint hypertrophy. No prevertebral soft tissue swelling. Impression: No acute findings. Mild degenerative change. This document has been electronically signed by: Shikha Eldridge MD on 11/06/2024 17:45:00 Dictated By: Shikha Munroe MD Signed By: <Electronically signed by Shikha Munroe MD in OV> 11/06/241745 DD/ 44 TD/TT: 11/06/241744 Tableman: us Mary Hurd MD IMG XR PROCEDURES Final Resul t * Syphilis Screen (11/05/2024 2:50 PM EDT) Syphilis Screen Nonreactive Nonreactive [facility] Blood 11/05/2024 2:50 PM EDT 11/05/2024 2:51 PM EDT us Mary Hurd MD LAB BLOOD ORDERABLES Final Re sult [facility] [address] [place] [phone] * (ABNORMAL) TSH W/Reflex to FT4 (11/05/2024 2:50 PM EDT) Pathologist [facility] TSH reflex Free T4 >100.00(H) 0.32 - 4.0 uIU/mL [facility] Blood Venous blood specimen / Unknown 11/05/2024 2:50 PM EDT 11/05/2024 2:51 PM EDT Mary Hurd MD LAB BLOOD ORDERABLES Final Re sult Performing Organization Address [facility]/ZIP Co de Phone Number [facility] [address] [place] [phone] * Hepatitis C Antibody with Reflex to HCV, RNA, Quantitative, Real-Time PCR (11/05/2024 2:50 PM EDT) Pathologist [facility] Hepatitis C Antibody Nonreactive Nonreactive [facility] Comment:Antibodies to HCV no t detected; does not exclude early acuteHCV infection. Blood Venous blood specimen / Unknown 11/05/2024 2:50 PM EDT 11/05/2024 2:51 PM EDT Mary Hurd MD LAB BLOOD ORDERABLES Final Re sult Performing Organization Address [facility]/ZIP Co de Phone Number [facility] [address] [place] [phone] * HIV-1/2 Antigen and Antibodies, Fourth Generation, with Reflexes (11/05/2024 2:50 PM EDT) Pathologist [facility] HIV AB/AG Nonreactive Nonreactive [facility] Comment:HIV-1 p24 Ag and/or HIV-1/HIV-2 Ab not detected.A test result that is nonreactive does not exclude thepossibility of exposure to or infection with HIV-1 and/orHIV-2. Nonreactive results in this assay for individualswith prior exposure to HIV-1 and/or HIV-2 may be due toantigen and antibody levels that are below the limit ofdetection of this assay.The [employer] HIV Ag/Ab Combo assay result andsupplemental assay results should be interpreted inconjunction with the patient's clinical presentation,history and other laboratory results. If the results areinconsistent with clinical evidence, additional testing issuggested to confirm the result. Blood Venous blood specimen / Unknown 11/05/2024 2:50 PM EDT 11/05/2024 2:51 PM EDT Mary Hurd MD LAB BLOOD ORDERABLES Final Re sult Performing Organization Address [facility]/ZIP Co de Phone Number [facility] [address] [place] [address] [phone] * (ABNORMAL) T4, Free (11/05/2024 2:50 PM EDT) Free T4 (Free Thyroxine) <0.42(L) 0.71 - 1.85 ng/dL [facility] 11/05/2024 2:50 PM EDT 11/05/2024 2:51 PM EDT Mary Hurd MD LAB BLOOD ORDERABLES Final Re sult Performing Organization Address [facility] Co de Phone Number [facility] [address] [place] [phone] * (ABNORMAL) Lipid Panel, Standard (11/05/2024 2:50 PM EDT) Triglycerides 107 <150 mg/dL [facility] Comment:Desirable Triglyceri de: less than 150 mg/dLBorderline High Triglyceride 150-199 mg/dLHigh Triglyceride: 200-499 mg/dLVery High Triglyceride: greater than or equal to 5OO mg/dL Cholesterol 242(H) <200 mg/dL [facility] Comment:Desirable Cholestero l: less than 200 mg/dLBorderline High Cholesterol: 200-239 mg/dLHigh Cholesterol: greater than 239 mg/dL LDL Cholesterol Calculated 146(H) <100 mg/dL [facility] Comment:Desirable LDL: less than 100 mg/dLNear Optimal/Above Optimal LDL: 110- 129 mg/dLBorderline High LDL: 130-159 mg/dLHigh LDL: 160-189 mg/dLVery High LDL: greater than or equal to 190 mg/dL HDL Cholesterol 75 >40 mg/dL [facility] Comment:Desirable HDL: great er than 40 mg/dL Note: This HDL assay may give artificially low results in patients with liver disease. Blood Venous blood specimen / Unknown 11/05/2024 2:50 PM EDT 11/05/2024 2:51 PM EDT Mary Hurd MD LAB BLOOD ORDERABLES Final Re sult [facility] [address] [place] [address] [phone] * (ABNORMAL) POCT Urinalysis (10/23/2024 2:02 PM EDT) Color, UA Yellow Clarity, UA Clear Glucose, UA Negative Bilirubin, UA Negative Ketones, UA Negative Spec Grav, UA 1.015 Blood, UA Positive(A) Negative, None Detected Comment:pt has her period pH, UA 7.0 Protein, UA Negative Urobilinogen, UA 0.2 Leukocytes, UA Trace Negative, Rare, Trace Nitrite, UA Positive(A) Negative, None Detected Appearance, UA red QC Media Lot # [id number] Lot# Expiration Date [id number] Urine 10/23/2024 2:02 PM EDT Mary Hurd MD POINT OF CARE TEST ENTER/EDIT ORDERABLES Final Result * Chlamydia/N. Gonorrhoeae RNA, TMA, Urogenitial (10/23/2024 1:48 PM EDT) CT PCR NOT DETECTED Not Detect. [facility] Comment:A not detected test result does not exclude the possibilityof infection because test results can be affected byimproper specimen collection, concurrent antibiotic therapy,or the number of organisms in the specimen which may bebelow the sensitivity of the test. As with many diagnostictests, results from the Xpert CT/NG assay should beinterpreted in conjunction with other laboratory andclinical data available to the clinician.Xpert CT/NG performance has not been evaluated in patientsless than 14 years of age. The assay should not be used forthe evaluationof suspected sexual abuse or for other medico-legalindications. Additional testing is recommended in anycircumstance when false positive or false negative resultscould lead to adverse medical, social or psychologicalconsequences. NG PCR NOT DETECTED Not Detect. [facility] Comment:A not detected test result does not exclude the possibilityof infection because test results can be affected byimproper specimen collection, concurrent antibiotic therapy,or the number of organisms in the specimen which may bebelow the sensitivity of the test. As with many diagnostictests, results from the Xpert CT/NG assay should beinterpreted in conjunction with other laboratory andclinical data available to the clinician.Xpert CT/NG performance has not been evaluated in patientsless than 14 years of age. The assay should not be used forthe evaluationof suspected sexual abuse or for other medico-legalindications. Additional testing is recommended in anycircumstance when false positive or false negative resultscould lead to adverse medical, social or psychologicalconsequences. Swab (Vaginal Swab) 10/23/2024 1:48 PM EDT 10/23/2024 5:59 PM EDT us Mary Hurd MD LAB MICROBIOLOGY - GENERAL OR DERABLES Final Result [facility] [address] [place] [phone] * (ABNORMAL) Urinalysis, Complete, with Reflex to Culture (10/23/2024 12:00 AM EDT) Color Urine Yellow [facility] Appearance Urine Clear [facility] PH 7.0 5.0 - 9.0 [facility] Glucose Urine UA Negative Negative mg/dL [facility] Urine Blood Large (3+)(A) Negative [facility] Specific [place] - Urine 1.010 1.005 - 1.025 [facility] Urine Protein Negative Neg-Trace mg/dL [facility] Urine Ketones Negative Negative mg/dL [facility] Nitrite Urine Positive(A) Negative [facility] Leukocyte Esterase Urine Small (1+)(A) Negative [facility] RBC Urine 11-20(A) 0 - 2 /HPF [facility] Urine WBC 0-5 0 - 5 /HPF [facility] Urine Squamous Epithelial Cell 0-2 0 - 2 /HPF [facility] Urine Bacteria 4+ None Seen [facility] Hyaline Casts, Urine 0-2 0 - 2 /LPF [facility] Urine 10/23/2024 10/23/2024 Narrative [facility] - 10/23/2024 6:20 PM EDT [id number], Clean Catch us Mary Hurd MD LAB URINE ORDERABLES Final Re sult [facility] [address] [place] [address] [phone] * Culture, Urine, Routine (10/23/2024 12:00 AM EDT) Urine Urine specimen obtained by clean catch procedure / Unknown 10/23/2024 10/23/2024 Comment:[facility] - 10/25/2024 7:58 AM EDT Escherichia coli Quant > 100,000 cfu/mL Escherichia coli: Ampicillin >=32(R) Escherichia coli: Cefazolin (Urine) 8(S) Escherichia coli: Cefepime <=0.12(S) Escherichia coli: Ceftriaxone <=0.25(S) Escherichia coli: Ciprofloxacin >=4(R) Escherichia coli: Gentamicin <=1(S) Escherichia coli: Nitrofurantoin <=16(S) Escherichia coli: Trimethoprim/Sulfamethoxazole >=320(R) Specimen Source: Urine clean catch us Mary Hurd MD LAB MICROBIOLOGY - GENERAL OR DERABLES Final Result [facility] [address] [place] [address] [phone] * BI Mammogram Screening Tomosynthesis Bilateral (10/03/2023 2:07 PM EDT) Anatomical Region Laterality Modality Breast Bilateral Mammography 10/03/2023 2:07 PM EDT Narrative 10/29/2023 1:58 PM EDT [address] [place] [address] Mammography Report Signed Patient: Charlie Navarro MR#: [id number] 91 : 1980 Acct:[id number] Age/Sex: 42 / F ADM Date: 10/03/23 Loc: HO.MAMMO Attending Dr: Mary Hurd MD Ordering Physician: Mary Hurd MD Results: 1Nega tive Date of Service: 10/03/23 Follow Up: 1 Year From [facility] M[facility] Procedure(s): MM tomosynthesis screening BI Accession Number(s): [id number] cc: Mary Hurd MD EXAMINATION: MM SCREENING [...] in OV> 10/29/23 1353 DD/ 1407 TD/TT: Tableman: Procedure Note Donotuseinterpreter, Image - 10/29/2023 [facility] [address] [place] [address] Mammography Report Signed Patient: Brenda Navarro#: [id number] 91 : 1980Acct:[id number] Age/Sex: 42 / FADM Date: 10/03/23 Loc: HO.MAMMO Attending Dr: Mary Hurd MD Ordering Physician: Mary Hurd [facility] 1Nega tive Date of Service: 10/03/23Follow Up: 1 Year From Orig inal Mammogram Procedure(s): MM tomosynthesis screening BI Accession Number(s): [id number] cc: Mary Hurd MD EXAMINATION: MM SCREENING [...] in OV> 10/29/23 1353 DD/ 1407 TD/TT: Tableman: us Mary Hurd MD IMG BI PROCEDURES Final Resul t * THINPREP TIS PAP (04/15/2020 11:47 AM EST) Clinical Information: None given [facility] COMMENT SEE COMMENT [facility] Comment: EXPLANATORY NOTE: The Pap is a screening test for cervical cancer. It is not a diagnostic test and is subject to false negative and false positive results. It is most reliable when a satisfactory sample, regularly obtained, is submitted with relevant clinical findings and history, and when the Pap result is evaluated along with historic and current clinical information. COMMENT: This Pap test has been evaluated with computer assisted technology. [facility] Quantometer Operator : SEE COMMENT [facility] Comment: MSM, CT(ASCP) CT screening location: [place] [address] Infection Fungal organisms morphologically consistent with Cary spp. [facility] Interpretation/R esult: Negative for intraepithelial lesion or malignancy. [facility] LMP: NONE GIVEN [facility] Prev. BX: NONE GIVEN [facility] Prev. PAP: NONE GIVEN [facility] SOURCE: None given [facility] Statement Of Adequacy: SEE COMMENT [facility] Comment: Satisfactory for evaluation. Endocervical/transformation zone component present. Age and/or menstrual status not provided 04/15/2020 11:4 7 AM EST Mary Hurd MD LAB PATHOLOGY ORDERABLES Toshia haney Result [facility] [address] * HPV mRNA E6/E7 (04/15/2020 11:47 AM EST) HPV nRNA E6/E7 Not Detected Not Detected [facility] Comment: Methodology: [place] Maori-Mediated Amplification This assay detects E6/E7 viral messenger RNA (mRNA) from 14 high-risk HPV types (16,18,31,33,35,39,45,51,52,56,58,59,66,68). The analytical performance characteristics of this assay have been determined by [employer]. The modifications have not been cleared or approved by the FDA. This assay has been validated pursuant to the CLIA regulations and is used for clinical purposes. For additional information, please refer to http://education.[employer].Race Yourself/PYP970t9 (This link if provided for information/ educational purposes only.) 04/15/2020 11:4 7 AM EST Mary Hurd MD LAB BLOOD ORDERABLES Final Re sult [facility] [address] from Last 3 Months or Most Recently Relevant to Health Maintenance Insurance [employer] C3 Care Teams Switch Crew Supervisor Relationship Specialty Start Date End Date Mary Hurd MD [address] [place] [phone] PCP - General Family Medicine 02/01/21 Sigrid Florentino Merchandise AppraiserProduct Ambassador 05/24/23 Donny Jimenez MD Consulting Physician Pulmonary Disease 02/27/24
--- OUTSIDE RECORDS SUMMARY | 2025-01-13 13:57 | XMS_ITS | Encounter Summary ---
Author Organization [employer] Address [address] [facility] 7 [place] [address] Care Team Providers Care Saddle Tree Stitcher Name Role Phone Mary Hurd MD Primary Care Provider [phone] Reason for Visit * Reason Onset Date Comments Nurse Triage 04/16/2024 Encounter Details Date Type Department Care Team ([facility] [place] Contact Info) Description 04/16/2024 Telephone [facility] CHC MED & PEDS [address] [place] [address] Mary Hurd MD [address] [place] [address] Nurse Triage Social History Tobacco Use Types [...] 04/16/2024 11:42 AM EST Date: 04/15/24 Hospital: [facility] Seen for: Abdominal pain Symptomatic Yes DX. Constipation. Called pt. She states that she went to ED for abdominal pain and was DX. With Constipation. Pt. Started the MiriLax last night and did have a BM last night. Pt is more concerned that the provider in the [facility] ED told her yesterday that bloodwork from [...] ED visit on : Date: 04/15/24 Hospital: [facility] Seen for: Abdominal pain Symptomatic Yes *if [...] documented as of this encounter Care Teams Saddle Tree Stitcher Relationship Specialty Start Date End Date Mary Hrud MD [address] [place] [phone] PCP - General Family Medicine 02/01/21 Sigrid Florentino Customer Service AdvocateBrim Plater 05/24/23 Donny Jimenez MD Consulting Physician Pulmonary Disease 02/27/24 documented as of this encounter
--- OUTSIDE RECORDS SUMMARY | 2025-01-13 13:57 | XMS_ITS | Encounter Summary ---
Author Organization [employer] Address [address] [facility] 7 [place] [address] Care Team Providers Care Envelope Folding Machine Operator Name Role Phone Mary Hurd MD Primary Care Provider [phone] Reason for Visit * Reason Onset Date Comments Food Assistance 12/27/2023 Encounter Details Date Type Department Care Team ([facility] st Contact Info) Description 12/27/2023 Telephone [facility] MEDICINE [address] [place] [address] Mary Hurd MD [address] [place] [address] Food Assistance Social History Tobacco Use Types [...] documented as of this encounter Care Teams Envelope Folding Machine Operator Relationship Specialty Start Date End Date Mary Hurd MD [address] [place] [phone] PCP - General Family Medicine 02/01/21 Sigrid Florentino Leak Detection EngineerCorporate Health Consultant 05/24/23 Donny Jimenez MD Consulting Physician Pulmonary Disease 02/27/24 documented as of this encounter
--- OUTSIDE RECORDS SUMMARY | 2025-01-13 13:57 | XMS_ITS | Encounter Summary ---
Author Organization [employer] Address 75 [facility] 7 [place] [address] Care Team Providers Care Supervisor In Circuit Testing Name Role Phone Mary Hurd MD Primary Care Provider [phone] Reason for Visit * Reason Onset Date Comments Call Back Request 01/07/2025 Encounter Details Date Type Department Care Team ([facility] Contact Info) Description 01/07/2025 Telephone [facility] CHC MED & PEDS [address] [place] [address] Mary Hurd MD [address] [place] [address] Call Back Request Social History Tobacco Use Types Packs/Day Years [...] encounter Miscellaneous Notes * Telephone Encounter - Unruly Olson - 01/07/2025 1:04 PM EDT Tc from pt requesting a call back regarding food assistance. Contact pt at [phone] documented in this encounter Plan of Treatment Not on file documented as of this encounter Visit Diagnoses Not on filedocumented in this encounter Additional Health Concerns Assessment Noted Time PHQ-9 Depression Total Score: 5 02/27/20 24 12:52 PM EST documented as of this encounter Care Teams Supervisor In Circuit Testing Relationship Specialty Start Date End Date Mary Hurd MD [address] [place] [phone] PCP - General Family Medicine 02/01/21 Sigrid Florentino Rn DocumentationEvaporator Operator Molasses 05/24/23 Donny Jimenez MD Consulting Physician Pulmonary Disease 02/27/24 documented as of this encounter
--- OUTSIDE RECORDS SUMMARY | 2025-01-13 13:57 | XMS_ITS | Encounter Summary ---
Author Organization [employer] Address 75 [facility] 7 [place] [address] Care Team Providers Care Wound Specialist Name Role Phone Mary Hurd MD Primary Care Provider [phone] Reason for Visit * Reason Onset Date Comments Nurse Triage 07/10/2023 Encounter Details Date Type Department Care Team ([facility] st Contact Info) Description 07/10/2023 Telephone [facility] MEDICINE [address] [place] [address] Mary Hurd MD [address] [place] [address] Nurse Triage Social History Tobacco Use Types [...] documented as of this encounter Care Teams Wound Specialist Relationship Specialty Start Date End Date Mary Hurd MD [address] [place] [phone] PCP - General Family Medicine 02/01/21 Sigrid Florentino Heavy Duty CustodianManager Casino 05/24/23 Donny Jimenez MD Consulting Physician Pulmonary Disease 02/27/24 documented as of this encounter
--- OUTSIDE RECORDS SUMMARY | 2025-01-13 13:57 | XMS_ITS | Encounter Summary ---
Author Organization [employer] Address 75 [facility] 7 [place] [address] Care Team Providers Care Blackjack Dealer Name Role Phone Mary Hurd MD Primary Care Provider [phone] Reason for Visit * Reason Onset Date Comments Order(s) 09/17/2023 Encounter Details Date Type Department Care Team ([facility] st Contact Info) Description 09/17/2023 Telephone [facility] MEDICINE [address] [place] [address] Mary Hurd MD [address] [place] [address] Order(s) Social History Tobacco Use Types Packs/Day [...] any questions you can contact Nadya at [phone]. documented in this encounter Plan of Treatment Not on file documented as of this encounter Visit Diagnoses Not on filedocumented in this encounter Additional Health Concerns Assessment Noted Time PHQ-9 Depression Total Score: 11 024 2:01 PM EDT documented as of this encounter Care Teams Blackjack Dealer Relationship Specialty Start Date End Date Mary Hurd MD [address] [place] [phone] PCP - General Family Medicine 02/01/21 Sigrid Florentino MagistrateBuilding Trades Teacher 05/24/23 Donny Jimenez MD Consulting Physician Pulmonary Disease 02/27/24 documented as of this encounter
--- OUTSIDE RECORDS SUMMARY | 2025-01-13 13:57 | XMS_ITS | Encounter Summary ---
Author Organization [employer] Address 75 [facility] 7 [place] [address] Care Team Providers Care Process Machine Operator Name Role Phone Mary Hurd MD Primary Care Provider [phone] Reason for Visit * Reason Onset Date Comments Med Refill 09/16/2023 Encounter Details Date Type Department Care Team ([facility] Contact Info) Description 09/16/2023 Telephone [facility] MED & PEDS [address] [place] [address] Mary Hurd MD [address] [place] [address] Med Refill Social History Tobacco Use Types [...] 150 MCG tablet To be sent to: [facility] [place], [place] - [address] [facility] documented in this encounter Plan of Treatment Not on file documented as of this encounter Visit Diagnoses Not on filedocumented in this encounter Additional Health Concerns Assessment Noted Time PHQ-9 Depression Total Score: 11 024 2:01 PM EDT documented as of this encounter Care Teams Process Machine Operator Relationship Specialty Start Date End Date Mary Hurd MD [address] [facility] [address] PCP - General Family Medicine 02/01/21 Sigrid Florentino Burlesque DancerBusiness Manager 05/24/23 Donny Jimenez MD Consulting Physician Pulmonary Disease 02/27/24 documented as of this encounter
== END 2025-01-13 11:01 | disposition home or self-care (01) ==
LOC: HO.MAMMO 11:00
PROVIDERS: PCP Family Medicine; Visit Provider Family Medicine
DX: Z13.820 Encounter for screening for osteoporosis (principal); Z79.52 Long term (current) use of systemic steroids
CPT/HCPCS: 77080; 99212

== ENCOUNTER → 2025-01-13 11:30 | Outpatient (BNV) | payer MEDICAID, SELFPAY | PROVIDERS: PCP Family Medicine; Visit Provider Radiology Diagnostic Radiology | DX: E28.39 Other primary ovarian failure (principal) | CPT/HCPCS: 77080 ==

== ENCOUNTER 2025-01-13 14:59 | Outpatient (AMB) | payer MEDICAID, SELFPAY ==
--- NOTE | 2025-01-13 15:04 | MHC.OFFVIS ---
Vital Signs 01/13/25 15:13 Height 5 ft 2 in Weight 170 lb BMI 31.1 BP 100/60 Blood Pressure Location Rt brachial Position Sitting Pulse 64 Pulse Source Pulse Oximeter Pulse Oximetry (%) 99 Oxygen Delivery Method Room Air Intake Visit Reasons: Constipation Intake Note: New pt for initial eval of constipation. CC; C.O. constipation w/o rectal bleeding. Pt also reports chronic GERD and epigastric pain. Still taking famotidine but not having success. Pt also taking miralax and bisacodyl which she states is better than not having any treatments at all, but does not provide much relief. Biomedical Instrument Technician Required: Yes Biomedical Instrument Technician Services: Biomedical Instrument Technician Offered & Declined Accompanied by: Mother Allergies Penicillins Allergy (Mild, Verified 01/13/25 15:04) RASH HPI HPI Constipation: Details: 44-year-old female with past medical history of migraine, asthma, hypothyroidism, allergic rhinitis is here today for initial consultation. Patient was sent to us by her PCP. Patient has a long history of constipation. Currently she is taking MiraLax and Dulcolax as needed. PCP also send her script for senna/docusate sodium combination. Patient reports that she does not feel like she empties completely even if she takes the medication. Her diet does not include much fiber. She is drinking water. Patient denies any melena, hematochezia. Occasional abdominal bloating and cramping postprandially. Patient reports epigastric pain postprandially. Reports to have also acid reflux. Currently takes famotidine as needed, however feels like it is not helping with symptoms. She denies dyspepsia, dysphagia or odynophagia. Patient denies eating big meal late at night. [facility] Medical History Paresthesia of skin Insomnia Depression with anxiety Migraine Cough Hyper-IgE syndrome Contact dermatitis Bronchitis Depression Postablative hypothyroidism Bronchial asthma Allergic rhinitis Asthma Allergic rhinitis Surgical History Hx of carpal tunnel repair Hx of tubal ligation Family History Father Heart disease CVD (cardiovascular disease) Diabetes Mother CVD (cardiovascular disease) Asthma Heart disease Thyroid disease Diabetes Social History Household Members: Children Alcohol intake: current Alcohol intake frequency: 3 or more drinks per day Patient Tobacco Use Status: Former Tobacco user Substance Use Type: Marijuana Review of Systems Const Denies weight gain and Denies weight loss ENT Reports no additional complaints, Denies dysphagia and Denies odynophagia Card Reports no additional complaints Resp Reports no additional complaints GI Reports abdominal pain (Epigastric), Denies belching, Denies melena, Reports bloating, Denies change in bowel habits, Reports constipation, Denies dysphagia, Denies excessive flatus, Denies dyspepsia, Reports heartburn, Denies diarrhea, Denies loose stools, Denies nausea, Denies odynophagia and Denies vomiting Reports no additional complaints Musc Reports no additional complaints Neuro Reports no additional complaints Psych Reports no additional complaints Endo Reports no additional complaints Physical Exam Vital Signs: Last Vital Signs Pulse 64 01/13/25 15:13 BP 100/60 01/13/25 15:13 Pulse Ox 99 01/13/25 15:13 Oxygen Delivery Method Room Air 01/13/25 15:13 BMI result Body Mass Index 31.1 Const General: healthy appearing and no acute distress Nutritional Appearance: obese Orientation/consciousness: patient oriented x3 Resp Effort & Inspection: normal respiratory effort, able to speak in complete sentences, no tracheal deviation and symmetric chest movement Auscultation: clear to auscultation bilaterally Cardio Rate: regular rate GI Inspection: Yes normal to inspection, No distended and Yes obesity Palpation (GI): Soft to palpation, not firm, nontender and No hepatosplenomegaly present Auscultation: normal bowel sounds General: Yes no CVA tenderness Back/Spine/Pelvis Back: no CVA tenderness Skin General skin exam: elasticity normal, turgor normal and dry skin Neuro General: patient oriented x3 Psych Appearance: grossly normal Mental Status: mental status grossly normal Assessment & Plan Assessment & Plan (1) Constipation: Code(s): K59.00 - Constipation, unspecified Qualifiers: Constipation type: slow transit constipation Qualified Code(s): K59.01 - Slow transit constipation (2) GERD (gastroesophageal reflux disease): Code(s): K21.9 - Gastro-esophageal reflux disease without esophagitis Qualifiers: Esophagitis presence: esophagitis presence not specified Qualified Code(s): K21.9 - Gastro-esophageal reflux disease without esophagitis (3) Postprandial epigastric pain: Code(s): R10.13 - Epigastric pain (4) Postprandial abdominal bloating: Code(s): R14.0 - Abdominal distension (gaseous) Plan Patient reports epigastric pain postprandially. Will check transglutaminase, lipase, upper GI with barium swallow. Patient will be sent also for ultrasound. She is reporting postprandial epigastric pain and right upper quadrant discomfort. Patient was encouraged to take Dulcolax daily as well as take MiraLax in the morning. Patient was encouraged to increase fiber in her diet. Increase fluid intake and activity to promote bowel motility. Patient will start taking pantoprazole in the morning. Avoid dietary triggers only diet snacking. Staying upright for minimum 3 hours after meals discussed patient. Patient will return in 3-4 months. She will call if she will have any GI concerning symptoms. She is agreeable to this plan and verbalizes understanding of instructions. She was given the opportunity to ask questions and all questions answered. Thank you for allowing me to participate in her care Orders: Orders Transglutaminase IgA 01/13/25 R10.9 - Unspecified abdominal pain Lipase 01/13/25 R10.9 - Unspecified abdominal pain FL upper GI w Ba Swallow 01/13/25 K21.9 - Gastro-esophageal reflux disease without esophagitis US abdomen complete 01/13/25 R10.9 - Unspecified abdominal pain Vitamin B12 and Folate 01/13/25 R19.7 - Diarrhea, unspecified Vitamin D 25-OH (D2 and D3) 01/13/25 E55.9 - Vitamin D deficiency, unspecified Medications: New pantoprazole take one tablet half an hour before breakfast 40 mg PO DAILY 30 tabs 3RF K21.9 - Gastro-esophageal reflux disease without esophagitis Coding Level of Care Code New Pt Level 4 (99328) Diagnoses Slow transit constipation K59.01 Constipation type: slow transit constipation Gastroesophageal reflux disease, unspecified whether esophagitis present K21.9 Esophagitis presence: esophagitis presence not specified Postprandial epigastric pain R10.13 Postprandial abdominal bloating R14.0 Time Spent (min) 50 Comment 35 minutes spent with patient and additional 15 minutes spent reviewing her records
[2025-01-13 15:13] VITALS: BP 100/60; PULSE 64; O2SAT 99; BMI 31.1
== END 2025-01-13 15:34 | disposition home or self-care (01) ==
LOC: HO.HGI 15:00
PROVIDERS: PCP Family Medicine; Visit Provider Nurse Practitioner Family
DX: K59.01 Slow transit constipation (principal); K21.9 Gastro-esophageal reflux disease without esophagitis; R10.13 Epigastric pain; R14.0 Abdominal distension (gaseous)
CPT/HCPCS: 99204

== ENCOUNTER 2025-01-13 15:39 | Outpatient (REF) | payer MEDICAID, SELFPAY ==
[2025-01-13 16:28] LABS: Lipase 18 U/L (8-78)
[2025-01-13 17:06] LABS: Folate 9.7 ng/mL (> or = 4.0); Vitamin B12 422 pg/mL (200-900)
[2025-01-17 05:22] LABS: Vitamin D 25-OH, D2 <4 ng/mL; Vitamin D 25-OH, D3 28 ng/mL; Vitamin D 25-OH, Total 28 ng/mL (30-100)
== END 2025-01-13 15:40 | disposition home or self-care (01) ==
LOC: HO.LAB 15:39
PROVIDERS: PCP Family Medicine; Visit Provider Nurse Practitioner Family
DX: E55.9 Vitamin D deficiency, unspecified (principal); R19.7 Diarrhea, unspecified; R10.9 Unspecified abdominal pain
CPT/HCPCS: 36415; 82306; 82607; 82746; 83690; 86364

== ENCOUNTER 2025-02-22 13:27 | Outpatient (REF) | payer MEDICAID, SELFPAY ==
[2025-02-22 17:09] LABS: Free T4 (Free Thyroxine) 0.89 ng/dL (0.71-1.85); Thyroid Stimulating Hormone 17.10 uIU/mL (0.32-4.0)
--- OUTSIDE RECORDS SUMMARY | 2025-02-22 22:13 | XMS_ITS | Encounter Summary ---
Author Organization [employer] Address [address] [facility] 7 [place] [address] Care Team Providers Care Biomass Power Plant Manager Name Role Phone Mary Hurd MD Primary Care Provider [phone] Reason for Visit * Reason Onset Date Comments Nurse Triage 04/16/2024 Encounter Details Date Type Department Care Team ([facility] Contact Info) Description 04/16/2024 Telephone [facility] MED & PEDS [address] [place] [address] Mary Hurd MD [address] [place] [address] Nurse Triage Social History Tobacco Use Types [...] 04/16/2024 11:42 AM EST Date: 04/15/24 Hospital: [facility] Seen for: Abdominal pain Symptomatic Yes DX. Constipation. Called pt. She states that she went to ED for abdominal pain and was DX. With Constipation. Pt. Started the MiriLax last night and did have a BM last night. Pt is more concerned that the provider in the [facility] ED told her yesterday that bloodwork from [...] ED visit on : Date: 04/15/24 Hospital: [facility] Seen for: Abdominal pain Symptomatic Yes *if [...] documented as of this encounter Care Teams Biomass Power Plant Manager Relationship Specialty Start Date End Date Mary Hurd MD [address] [place] [phone] PCP - General Family Medicine 02/01/21 Sigrid Florentino Ammonia Refrigeration TechnicianCarton Maker 05/24/23 Donny Jimenez MD Consulting Physician Pulmonary Disease 02/27/24 documented as of this encounter
--- OUTSIDE RECORDS SUMMARY | 2025-02-22 22:13 | XMS_ITS | Encounter Summary ---
Author Organization [employer] Address [address] [facility] 7 [place] [address] Care Team Providers Care Centralized Traffic Control Operator Name Role Phone Mary Hurd MD Primary Care Provider [phone] Reason for Visit * Reason Onset Date Comments Call Back Request 01/07/2025 Encounter Details Date Type Department Care Team ([facility] Contact Info) Description 01/07/2025 Telephone [facility] MED & PEDS [address] [place] [address] Mary Hurd MD [address] [place] [address] Call Back Request Social History Tobacco Use [...] back regarding food assistance. Contact pt at [phone] documented in this encounter Plan of Treatment Not on file documented as of this encounter Visit Diagnoses Not on filedocumented in this encounter Additional Health Concerns Assessment Noted Time PHQ-9 Depression Total Score: 5 02/27/20 24 12:52 PM EST documented as of this encounter Care Teams Centralized Traffic Control Operator Relationship Specialty Start Date End Date Mary Hurd MD [address] [place] [address] PCP - General Family Medicine 02/01/21 Sigrid Florentino Chemical PreparerGelatin Maker Utility 05/24/23 Donny Jimenez MD Consulting Physician Pulmonary Disease 02/27/24 documented as of this encounter
--- OUTSIDE RECORDS SUMMARY | 2025-02-22 22:13 | XMS_ITS | Encounter Summary ---
Author Organization [employer] Address [address] [facility] 7 [place] [address] Care Team Providers Care Submarine Cable Equipment Technician Name Role Phone Mary Hurd MD Primary Care Provider [phone] Reason for Visit * Reason Onset Date Comments Food Assistance 12/27/2023 Encounter Details Date Type Department Care Team ([facility] st Contact Info) Description 12/27/2023 Telephone [facility] MEDICINE [address] [place] [address] Mary Hurd MD [address] [place] [address] Food Assistance Social History Tobacco Use Types [...] documented as of this encounter Care Teams Submarine Cable Equipment Technician Relationship Specialty Start Date End Date Mary Hurd MD [address] [place] [id number] PCP - General Family Medicine 02/01/21 Sigrid Florentino Pharmacy Retail Support SpecialistLvn 05/24/23 Donny Jimenez MD Consulting Physician Pulmonary Disease 02/27/24 documented as of this encounter
--- OUTSIDE RECORDS SUMMARY | 2025-02-22 22:13 | XMS_ITS | Encounter Summary ---
Author Organization [employer] Address [address] [facility] 7 [place] [address] Care Team Providers Care Solar Business Developer Name Role Phone Mary Hurd MD Primary Care Provider [phone] Reason for Visit * Reason Onset Date Comments Order(s) 09/17/2023 Encounter Details Date Type Department Care Team ([facility] st Contact Info) Description 09/17/2023 Telephone [facility] MEDICINE [address] [place] [address] Mary Hurd MD [address] [place] [address] Order(s) Social History Tobacco Use Types Packs/Day [...] any questions you can contact Nadya at [phone]. documented in this encounter Plan of Treatment Not on file documented as of this encounter Visit Diagnoses Not on filedocumented in this encounter Additional Health Concerns Assessment Noted Time PHQ-9 Depression Total Score: 11 024 2:01 PM EDT documented as of this encounter Care Teams Solar Business Developer Relationship Specialty Start Date End Date Mary Hurd MD [address] [place] [id number] PCP - General Family Medicine 02/01/21 Sigrid Florentino Language InterpreterScrew Machine Tool Setter 05/24/23 Donny Jimenez MD Consulting Physician Pulmonary Disease 02/27/24 documented as of this encounter
--- OUTSIDE RECORDS SUMMARY | 2025-02-22 22:13 | XMS_ITS | Encounter Summary ---
Author Organization [employer] Address [address] [facility] 7 [place] [address] Care Team Providers Care Family And Consumer Education Teacher Name Role Phone Mary Hurd MD Primary Care Provider [phone] Reason for Visit * Reason Onset Date Comments Nurse Triage 07/10/2023 Encounter Details Date Type Department Care Team ([facility] st Contact Info) Description 07/10/2023 Telephone [facility] MEDICINE [address] [place] [address] Mary Hurd MD [address] [place] [address] Nurse Triage Social History Tobacco Use Types [...] The caller accepted this outcome Patient speaks slovak documented in this encounter Plan of Treatment Not on file documented as of this encounter Visit Diagnoses Not on filedocumented in this encounter Additional Health Concerns Assessment Noted Time PHQ-9 Depression Total Score: 11 024 2:01 PM EDT documented as of this encounter Care Teams Family And Consumer Education Teacher Relationship Specialty Start Date End Date Mary Hurd MD [address] [place] [address] PCP - General Family Medicine 02/01/21 Sigrid Florentino Handbag DesignerSpecial Client Bus Driver 05/24/23 Donny Jimenez MD Consulting Physician Pulmonary Disease 02/27/24 documented as of this encounter
--- OUTSIDE RECORDS SUMMARY | 2025-02-22 22:13 | XMS_ITS | Encounter Summary ---
Author Organization [employer] Address [address] [facility] 7 [place] [address] Care Team Providers Care Secondary Set Up Man Name Role Phone Mary Hurd MD Primary Care Provider Reason for Visit * Reason Onset Date Comments Med Refill 09/16/2023 Encounter Details Date Type Department Care Team ([facility] Contact Info) Description 09/16/2023 Telephone [facility] MED & PEDS [address] [place] [address] Mary Hurd MD [address] [place] [address] Med Refill Social History Tobacco Use Types [...] MCG tablet To be sent to: [facility] - [place], [place] - [address] [facility] documented in this encounter Plan of Treatment Not on file documented as of this encounter Visit Diagnoses Not on filedocumented in this encounter Additional Health Concerns Assessment Noted Time PHQ-9 Depression Total Score: 11 024 2:01 PM EDT documented as of this encounter Care Teams Secondary Set Up Man Relationship Specialty Start Date End Date Mary Hurd MD [address] [facility] [place] [address] PCP - General Family Medicine 02/01/21 Sigrid Florentino Tie CutterIndian Nanny 05/24/23 Donny Jimenez MD Consulting Physician Pulmonary Disease 02/27/24 documented as of this encounter
--- OUTSIDE RECORDS SUMMARY | 2025-02-22 22:13 | XMS_ITS | Encounter Summary ---
Author Organization [employer] Address [address] [facility] 7 [place] [address] Care Team Providers Care Interpreter For The Deaf Name Role Phone Mary Hurd MD Primary Care Provider [phone] Encounter Details Date Type Department Care Team ([facility] st Contact Info) Description 03/27/[address] [facility] MEDICINE [address] [place] [address] Mary Hurd MD [address] [place] [address] Social History Tobacco Use Types Packs/Day Years [...] documented as of this encounter Care Teams Interpreter For The Deaf Relationship Specialty Start Date End Date Mary Hurd MD [address] [place] [address] PCP - General Family Medicine 02/01/21 Sigrid Florentino High Pressure CleanerCaramel Cutter Helper 05/24/23 Donny Jimenez MD Consulting Physician Pulmonary Disease 02/27/24 documented as of this encounter
--- OUTSIDE RECORDS SUMMARY | 2025-02-22 22:14 | XMS_ITS | Clinical Summary ---
Author Organization [employer] Address [address] [place] [address] 7 [place] [address] Care Team Providers Care Powder Hand Name Role Phone Mary Hurd MD Primary Care Provider [phone] Allergies Active Allergy Reactions Criticality Noted Date [...] daily. 60 tablet 11 04/19/19 24 Active Advair Diskus 250-50 MCG/ACT aerosol powder INHALE 1 PUFF TWICE DAILY (for asthma). RINSE MOUTH AFTER USING. 07/02/19 24 Active Spiriva Respimat 2.5 MCG/ACT inhaler INHALE 2 PUFFS EVERY DAY (for asthma) 07/02/19 24 Active amitriptyline (Elavil) 100 MG tablet [...] wheezing. 180 mL 5 02/27/20 24 Active hydrOXYzine HCl (Atarax) 25 MG tablet Take 1 tablet (25 mg) by mouth every 6 (six) hours if needed for anxiety. 90 tablet 3 04/09/19 25 Active capsaicin (Zostrix) 0.025 % creamIndication s:Herpes zoster without complication Apply topically 2 times daily. 56.6 g 05/23/19 25 2025 Active docusate sodium (Colace) 100 MG capsule TAKE 1 CAPSULE BY MOUTH TWICE DAILY IN THE MORNING AND AT BEDTIME NEEDED FOR CONSTIPATION 180 capsule 07/09/19 25 Active fluticasone (Flonase) 50 MCG/ACT nasal spray INSTILL 1 SPRAY IN EACH NOSTRIL TWICE DAILY 48 g 1 08/12/19 25 Active predniSONE (Deltasone) 5 MG tablet TAKE 1 TABLET BY MOUTH EVERY DAY 90 tablet 1 08/12/19 25 Active magnesium hydroxide (Milk of Magnesia) 400 MG/5ML suspensionIndic ations:Constipa tion, unspecified constipation type Take 30 mL by mouth at bedtime. 360 mL 08/27/19 25 Active silver sulfADIAZINE (Silvadene) 1 % creamIndication s:Partial thickness burn of right forearm, initial encounter Apply topically 2 times daily. 50 g 08/27/19 25 2024 Active buPROPion SR (Wellbutrin SR) 100 MG 12 hr tablet Take 1 tablet by mouth Once per day. 08/14/19 25 Active levothyroxine (Synthroid, Levoxyl) 112 MCG tablet TAKE 1 TABLET BY MOUTH EVERY DAY ON SATURDAY TO SATURDAY AND TAKE 1 AND 1/2 TABLETS BY MOUTH ON Saturday08/12/19 25 Active FT Stool Softener 50-8.6 MG tabletIndicatio ns:Constipation , unspecified constipation type TAKE 2 TABLETS BY MOUTH EVERY DAY 60 tablet 1 10/20/19 25 Active montelukast (Singulair) 10 MG tablet TAKE 1 TABLET BY MOUTH EVERY EVENING 90 tablet 3 11/04/19 25 Active cyanocobalamin (Vitamin B-12) 1000 MCG tablet TAKE 1 TABLET BY MOUTH EVERY MORNING 90 tablet 3 11/04/19 25 Active Multiple Vitamins-Minera ls (CertaVite/Anti oxidants) tablet TAKE 1 TABLET BY MOUTH EVERY MORNING 90 tablet 3 12/04/19 25 Active cholecalciferol (Vitamin D-3) 50 MCG (2000 UT) capsule Take 1 capsule (50 mcg) by mouth Once per day. 90 capsule 3 5 4:47 PM EST 01/19/20 25 Active polyethylene glycol, PEG, 3350 (Glycolax) 17 GM/SCOOP powderIndicatio ns:Constipation , unspecified constipation type TAKE 17 GM MIXED IN 8 OUNCES OF WATER ONCE DAILY 510 g 2 01/29/20 25 Active Calcium Carb-Cholecalci ferol 600-10 MG-MCG tabletIndicatio ns:Vitamin D deficiency TAKE 1 TABLET BY MOUTH TWICE DAILY AT NOON AND IN THE EVENING 180 tablet 1 02/10/20 25 Active loratadine (Claritin) 10 MG tabletIndicatio ns:Severe persistent asthma, unspecified whether complicated (HCC) TAKE 1 TABLET BY MOUTH EVERYDAY AT NOON 90 tablet 1 02/10/20 25 Active Calcium Carb-Cholecalci ferol 600-10 MG-MCG tabletIndicatio ns:Vitamin D deficiency TAKE 1 TABLET BY MOUTH TWICE DAILY AT NOON AND IN THE EVENING 180 tablet 1 07/14/19 25 2024 Discontinued loratadine (Claritin) 10 MG tabletIndicatio ns:Severe persistent asthma, unspecified whether complicated (HCC) TAKE 1 TABLET BY MOUTH EVERYDAY AT NOON 90 tablet 1 07/14/19 25 2024 Discontinued polyethylene glycol, PEG, 3350 (MiraLax) 17 GM/SCOOP powderIndicatio ns:Constipation , unspecified constipation type Take 17 g by mouth Once per day. 527 g 2 08/27/19 25 2024 Discontinued Active Problems Problem Noted [...] 06/28/2023 1:30 PM Sulma Trotter OD VISION [facility] 07/08/2023 2:30 PM FLORENCE VegaP MEDICINE [facility] Sleep apnea 04/19/2023 Assessment & Plan (08/26/2023 [...] Cobalamin deficiency 03/07/2015 History of substance abuse ([facility]) 03/07/2015 Tremor 01/26/2014 Constipation 06/19/2013 Assessment [...] today. She is getting some help from Preventive Maintenance Coordinator. As this provider will be retiring, at this time patient is referred back to her PCP for continued medication management. Call [facility] with any questions or concerns. All questions [...] BID. F/U with therapist as usual, and [facility] Care Mgt. On 01/21/2023 pt was informed [...] usual. F/U with therapist as usual, and [facility] Care Mgt. On 01/21/2023 pt was informed [...] agency prescriber. Will also be referred to [facility] Care Mgt. ADDENDUM: After the visit was [...] Encounters Date Type Department Care Team Description 02/08/2025 Refill [facility]ED[facility] [address] [place], [place] [phone] Jazzmine Nguyễn, ABIEL Vitamin D deficiency; Severe persistent asthma, unspecified whether complicated (HCC) 01/27/2025 Refill [facility] [address] [place], [place] [phone] Mary Hurd MD Constipation, unspecified constipation type 01/18/2025 Results Follow-Up [facility] [address] [place], [place] [phone] Mary Hurd MD Lipase, Vitamin B12 (Cobalamin) and Folate Panel, Serum, Tissue Transglutaminase Antibody, IgA, VITAMIN D 25-OH (D2 AND D3) 01/07/2025 Patient Outreach [facility] MEDICINE [address] [place] [address] [phone] Mary Hurd MD Care Coordination (CHW outreach for SDOH need food needs-LVM) 01/07/2025 Telephone [facility] [address] [place] [address] Mary Hurd MD Call Back Request 12/03/2024 Refill [facility] [address] [place] [address] Mary Hurd MD from Last 3 Months Immunizations Immunization Administration Dates Next Due DTP 11/24/1985,07/28/1985,06/04/1985 DTaP 04/27/2018,03/22/1989,12/07/1986 Hep B, Adolescent or Pediatric 07/29/1995,1995,02/05/1995 Hib ([facility]) 05/21/1985 IPV 03/22/1989, 6,07/28/1985,06/04 Influenza injectable quadriv [...] HPV Vaccines (1 - 3-dose series) 1997 Zoster Vaccines (1 of 2) 2001 COVID-19 Vaccine (3 - season) 2024 02/28/2021, 06/01/2020 Influenza Vaccine (#1) [...] Additional history exists Lipid Panel 11/05/2029 11/05/2024 RSV Patients and Patients Aged 60 years [...] Priority Date/Time Associated Diagnosis Comments TSH Routine 02/22/2025 1:36 PM EST T4, FREE Routine 02/22/2025 1:36 PM EST VITAMIN B12/FOLATE, SERUM PANEL Routine 01/13/2025 3:57 PM EDT LIPASE Routine 01/13/2025 3:57 PM EDT VITAMIN D 25-OH (D2 AND D3) Routine 01/13/2025 11:57 AM EDT TISSUE TRANSGLUTAMINASE AB, IGA Routine 01/13/2025 11:57 AM EDT BD DEXA AXIAL Routine 01/13/2025 11:10 AM EDT Current chronic use of systemic steroids HEPATITIS C AB W/REFL TO HCV RNA, QN, PCR Routine 11/05/2024 2:50 PM EDT Screening examination for STI HIV 1/2 ANTIGEN/ANTIBODY, FOURTH GENERATION W/RFL Routine 11/05/2024 2:50 PM EDT Screening examination for STI LIPID PANEL, STANDARD Routine 11/05/2024 2:50 PM EDT Encounter for health-related screening BI MAMMOGRAM SCREENING TOMOSYNTHESIS BILATERAL Routine 10/03/2023 2:07 PM EDT Breast cancer screening by mammogram HPV MRNA E6/E7 Routine 04/15/2020 11:47 AM EST [facility]IN[employer]P [facility]AGING SYSTEM PAP Routine 04/15/2020 11:47 AM EST from Last 3 Months or Most Recently Relevant to Health Maintenance Results * (ABNORMAL) TSH (02/22/2025 1:36 PM EST) Thyroid Stimulating Hormone 17.10(H) 0.32 - 4.0 uIU/mL [facility] Comment:Note: A sustained TS H level above 2.5 uIU/mL may warrant further investigation. TSH 3rd Generation ([facility]) 02/22/2025 1:36 PM EST 02/22/2025 1:36 PM EST Generic External Data Provider LAB BLOOD ORDERAB LES Final Result Performing Organization Address City/[facility]/ZIP Co de Phone Number [facility] [address] [place] [phone] * T4, Free (02/22/2025 1:36 PM EST) Pathologist [facility] Free T4 (Free Thyroxine) 0.89 0.71 - 1.85 ng/dL [facility] 02/22/2025 1:36 PM EST 02/22/2025 1:36 PM EST [facility] External Data Provider LAB BLOOD ORDERAB LES Final Result Performing Organization Address City/[facility]/ZIP Co de Phone Number [facility] [address] [place] [phone] * Vitamin B12 (Cobalamin) and Folate Panel, Serum (01/13/2025 3:57 PM EDT) Vitamin B12 422 200 - 900 pg/mL [facility] Comment:NORMAL 200-900 PG/ML INDETERMINATE 160-199 PG/ML DEFICIENT < 160 PG/ML Folate 9.7 > or = 4.0 ng/mL [facility] Comment:Reference Values:> o r = 4.0 ng/mL< 4.0 ng/mL suggests folate deficiency Methotrexate, aminopterin and folinic acid(leucovorin) are chemotherapeutic agents whose molecularstructures are similar to folate; therefore, the Architectfolate assay cannot be used for patients using these drugs. 01/13/2025 3:57 PM EDT 01/13/2025 3:58 PM EDT Generic External Data Provider LAB BLOOD ORDERAB LES Final Result Performing Organization Address City/[facility]/ZIP Co de Phone Number [facility] [address] [place] [phone] * Lipase (01/13/2025 3:57 PM EDT) Lipase 18 8 - 78 U/L [facility] 01/13/2025 3:57 PM EDT 01/13/2025 3:58 PM EDT Generic External Data Provider LAB BLOOD ORDERAB LES Final Result Performing Organization Address City/[facility]/ZIP Co de Phone Number [facility] [address] [place] [phone] * (ABNORMAL) VITAMIN D 25-OH (D2 AND D3) (01/13/2025 11:57 AM EDT) Vitamin D, 25-OH, D2 <4 ng/mL [facility] Comment:This test was develo ped and its analytical performancecharacteristics have been determined by [facility] [place], [place]. It hasnot been cleared or approved by the U.S. Food and DrugAdministration. This assay has been validated pursuantto the CLIA regulations and is used for clinicalpurposes.THIS TEST WAS PERFORMED AT:[employer] [place] [address]BNUFCMCIRINEO AGUILAR MD,PHD Vitamin D, 25-OH, D3 28 ng/mL [facility] Comment:This test was jessica richardson and its analytical performancecharacteristics have been determined by [employer] [place], [place]. It hasnot been cleared or approved by the U.S. Food and DrugAdministration. This assay has been validated pursuantto the CLIA regulations and is used for clinicalpurposes. Vitamin D, 25-OH, Total 28(A) 30 - 100 ng/mL [facility] Comment:Vitamin D, 25-Hydrox y reports concentrations of twocommon forms, 25-OHD2 and 25-OHD3. 25-OHD3 indicatesboth endogenous production and supplementation.25-OHD2 is an indicator of exogenous sources such asdiet or supplementation. Therapy is based onmeasurement of Total 25-OHD, with levels <20 ng/mLindicative of Vitamin D deficiency, while levelsbetween 20 ng/mL and 30 ng/mL suggest insufficiency.Optimal levels are > or = 30 ng/mL.For additional information, please refer tohttp://education.[employer]/faq/NTB531(This link is being provided for informational/educational purposes only.) 01/13/2025 11:5 7 AM EDT 01/13/2025 3:58 PM EDT us Generic External Data Provider LAB BLOOD ORDERAB LES Final Result [facility] [address] [place] [phone] * Tissue Transglutaminase Antibody, IgA (01/13/2025 11:57 AM EDT) Transglutaminase IgA <1.0 U/mL [facility] Comment:Value Interpretation ----- <15.0 Antibody not detected> or = 15.0 Antibody detectedTHIS TEST WAS PERFORMED AT:[facility] [place] [phone] GENTILE MD 01/13/2025 11:5 7 AM EDT 01/13/2025 3:58 PM EDT us Generic External Data Provider LAB BLOOD ORDERAB LES Final Result [facility] [address] [facility] [place] [address] [phone] * BD DEXA Axial (01/13/2025 11:10 AM EDT) Anatomical Region Laterality Modality Body Radiographic Amena ging 01/13/2025 11:1 0 AM EDT Narrative 01/13/2025 11:53 AM EDT [facility] [address] 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 Electronically signed by: Mat Lazaro MD 01/13/2025 11:50 AM EDT RP Dictated By: Mat Lazaro MD Signed By: <Electronically signed by Mat Lazaro MD in OV> 01/13/25 1150 DD/ 1110 TD/TT: 01/13/25 1135 Review Analyst: Procedure Note Donotuseinterpreter, Image - 01/13/2025 [facility] [address] [place] [address] Mammography Report Signed Patient: Brenda Navarro#: [id number] 91 : 1980Acct:[id number] Age/Sex: 44 / FADM Date: 01/13/25 Loc: HO.MAMMO Attending Dr: Mary Hurd MD Ordering Physician: Mary Hurd MDResults: Date of Service: 01/13/25Follow Up: Procedure(s): XR DEXA axial skeleton Accession Number(s): [id number] cc: Mary Hurd MD Reason For Exam: CUSTODIAL USE OF STEROIDS EXAMINATION: DXA BONE DENSITY AXIAL HISTORY: CUSTODIAL USE OF STEROIDS TECHNIQUE: [employer] Dual energy absorptiometry (DEXA) of the lumbar [...] is a trademark of the [employer] [facility] Metabolic [employer] Disease, a World Health Organization (WHO) Collaborating Center. Electronically signed by: Mat Lazaro MD 01/13/2025 11:50 AM EDT Dictated By: Mat Lazaro MD Signed By: <Electronically signed by Mat Lazaro MD in OV> 01/13/25 1150 DD/ 1110 TD/TT: 01/13/25 1135 Review Analyst: Result Say Hurd MD IMG DXA PROCEDURES Final Resu lt * Hepatitis C Antibody with Reflex to HCV, RNA, Quantitative, Real-Time PCR (11/05/2024 2:50 PM EDT) Hepatitis C Antibody Nonreactive Nonreactive [facility] Comment:Antibodies to HCV no t detected; does not exclude early acuteHCV infection. Blood Venous blood specimen / Unknown 11/05/2024 2:50 PM EDT 11/05/2024 2:51 PM EDT us Mary Hurd MD LAB BLOOD ORDERABLES Final Re sult [facility] [address] [place] [phone] * HIV-1/2 Antigen and Antibodies, Fourth Generation, with Reflexes (11/05/2024 2:50 PM EDT) HIV AB/AG Nonreactive Nonreactive [facility] Comment:HIV-1 p24 Ag and/or HIV-1/HIV-2 Ab not detected.A test result that is nonreactive does not exclude thepossibility of exposure to or infection with HIV-1 and/orHIV-2. Nonreactive results in this assay for individualswith prior exposure to HIV-1 and/or HIV-2 may be due toantigen and antibody levels that are below the limit ofdetection of this assay.The [employer] HIV Ag/Ab Combo assay result andsupplemental assay results should be interpreted inconjunction with the patient's clinical presentation,history and other laboratory results. If the results areinconsistent with clinical evidence, additional testing issuggested to confirm the result. Blood Venous blood specimen / Unknown 11/05/2024 2:50 PM EDT 11/05/2024 2:51 PM EDT Result Say Hurd MD LAB BLOOD ORDERABLES Final Re sult Performing Organization Address City/[facility]/ZIP Co de Phone Number [facility] [address] [place] [phone] * (ABNORMAL) Lipid Panel, Standard (11/05/2024 2:50 PM EDT) Triglycerides 107 <150 mg/dL [facility] Comment:Desirable Triglyceri de: less than 150 mg/dLBorderline High Triglyceride 150-199 mg/dLHigh Triglyceride: 200-499 mg/dLVery High Triglyceride: greater than or equal to 5OO mg/dL Cholesterol 242(H) <200 mg/dL [facility] Comment:Desirable Cholestero l: less than 200 mg/dLBorderline High Cholesterol: 200-239 mg/dLHigh Cholesterol: greater than 239 mg/dL LDL Cholesterol Calculated 146(H) <100 mg/dL [facility] Comment:Desirable LDL: less than 100 mg/dLNear Optimal/Above Optimal LDL: 110- 129 mg/dLBorderline High LDL: 130-159 mg/dLHigh LDL: 160-189 mg/dLVery High LDL: greater than or equal to 190 mg/dL HDL Cholesterol 75 >40 mg/dL [facility] Comment:Desirable HDL: great er than 40 mg/dL Note: This HDL assay may give artificially low results in patients with liver disease. Blood Venous blood specimen / Unknown 11/05/2024 2:50 PM EDT 11/05/2024 2:51 PM EDT us Mary Hurd MD LAB BLOOD ORDERABLES Final Re sult [facility] [address] [place] [phone] * BI Mammogram Screening Tomosynthesis Bilateral (10/03/2023 2:07 PM EDT) Anatomical Region Laterality Modality Breast Bilateral Mammography 10/03/2023 2:07 PM EDT Narrative 10/29/2023 1:58 PM EDT [address] [place] [address] Mammography Report Signed Patient: Charlie Navarro MR#: [id number] 91 : 1980 Acct:[id number] Age/Sex: 42 / F ADM Date: 10/03/23 Loc: HO.MAMMO Attending Dr: Mary Hurd MD Ordering Physician: Mary Hurd MD Results: 1Nega tive Date of Service: 10/03/23 Follow Up: 1 Year From Orig inal Mammogram Procedure(s): MM tomosynthesis screening BI Accession Number(s): [id number] cc: Mary Hurd MD EXAMINATION: MM SCREENING [...] in OV> 10/29/23 1353 DD/ 1407 TD/TT: Review Analyst: Procedure Note Donotuseinterpreter, Image - 10/29/[address] [place] [address] Mammography Report Signed Patient: Tere NavarroR#: [id number] 91 : 1980Acct:[id number] Age/Sex: 42 / FADM Date: 10/03/23 Loc: HO.MAMMO Attending Dr: Mary Hurd MD Ordering Physician: Mary Hurd MDResults: 1Nega tive Date of Service: 10/03/23Follow Up: 1 Year From Orig ina Mammogram Procedure(s): MM tomosynthesis screening BI Accession Number(s): [id number] cc: Mary Hurd MD EXAMINATION: MM SCREENING [...] in OV> 10/29/23 1353 DD/ 1407 TD/TT: Review Analyst: us Mary Hurd MD IMG BI PROCEDURES Final Resul t * THINPREP TIS PAP (04/15/2020 11:47 AM EST) Clinical Information: None given [facility] COMMENT SEE COMMENT FOUNDAT[facility] ON [...] along with historic and current clinical information. Comment: This Pap test has been evaluated with computer assisted technology. [facility] Mercury Recoverer : SEE COMMENT [facility] Comment: MSM, CT(ASCP) CT screening location: [address] [address] Infection Fungal organisms morphologically consistent with Cary spp. [facility] Interpretation/R esult: Negative for intraepithelial lesion or malignancy. [facility] LMP: NONE GIVEN [facility] Prev. BX: NONE GIVEN [facility] Prev. PAP: NONE GIVEN FOUNDAT[facility] ON LAB SYSTEM SOURCE: None given [facility] Statement Of Adequacy: SEE COMMENT [facility] Comment: Satisfactory for evaluation. Endocervical/transformation zone component present. Age and/or menstrual status not provided 04/15/2020 11:4 7 AM EST Mary Hurd MD LAB PATHOLOGY ORDERABLES Toshia l Result Performing Organization Address [facility] Phone Number [facility] [address] * HPV mRNA E6/E7 (04/15/2020 11:47 AM EST) HPV nRNA E6/E7 Not Detected Not Detected [facility] Comment: Methodology: Surgical Consultant-Mediated Amplification This assay detects E6/E7 viral messenger RNA (mRNA) from 14 high-risk HPV types (16,18,31,33,35,39,45,51,52,56,58,59,66,68). The analytical performance characteristics of this assay have been determined by [employer]. The modifications have not been cleared or approved by the FDA. This assay has been validated pursuant to the CLIA regulations and is used for clinical purposes. For additional information, please refer to http://education.[facility].[employer]/EOG340n0 (This link if provided for information/ educational purposes only.) 04/15/2020 11:4 7 AM EST Mary Hurd MD LAB BLOOD ORDERABLES Final Re sult Performing Organization Address [facility] Co de Phone Number [facility] [address] from Last 3 Months or Most Recently Relevant to Health Maintenance [place] [place] [address] C3 Care Teams Powder Hand Relationship Specialty Start Date End Date Mary Hurd MD [address] [place] [phone] PCP - General Family Medicine 02/01/21 Sigrid Florentino Pipe And Test SupervisorEngineering Programmer 05/24/23 Donny Jimenez MD Consulting Physician Pulmonary Disease 02/27/24
--- OUTSIDE RECORDS SUMMARY | 2025-02-22 22:14 | XMS_ITS | Encounter Summary ---
Author Organization [employer] Address [address] [facility] 7 [place] [address] Care Team Providers Care Medicaid Specialist Name Role Phone Mary Hurd MD Primary Care Provider [phone] Encounter Details Date Type Department Care Team (Latest Contact Info) Description 01/18/2025 Results Follow-Up [facility] [address] [place] [address] Mary Hurd MD [address] [place] [address] Lipase, Vitamin B12 (Cobalamin) and Folate Panel, Serum, Tissue Transglutaminase Antibody, IgA, VITAMIN D 25-OH (D2 AND D3) Social History Tobacco Use Types Packs/Day Years [...] documented as of this encounter Care Teams Medicaid Specialist Relationship Specialty Start Date End Date Mary Hurd MD [address] [place] [address] PCP - General Family Medicine 02/01/21 Sigrid Florentino Forming And Assembling SupervisorTransmitter Engineer 05/24/23 Donny Jimenez MD Consulting Physician Pulmonary Disease 02/27/24 documented as of this encounter
== END 2025-02-22 13:28 | disposition home or self-care (01) ==
LOC: HO.LAB 13:27
PROVIDERS: PCP Family Medicine; Visit Provider Internal Medicine Endocrinology, Diabetes & Metabolism
DX: E89.0 Postprocedural hypothyroidism (principal)
CPT/HCPCS: 36415; 84439; 84443

== ENCOUNTER 2025-03-05 10:28 | Outpatient (REF) | payer MEDICAID, SELFPAY ==
--- NOTE | ~2025-03-05 | US_ITS ---
CLINICAL HISTORY: R10.9 - Unspecified abdominal pain US abdomen complete with color Doppler Comparison: CT - CT ABDOMEN PELVIS W IV CON - 04/15/24 17:[address]/SR - CT ABDOMEN PELVIS W IV CON - 04/15/24 17:25 EST Findings: The visualized pancreas, aorta, and inferior vena cava are unremarkable. Liver normal size and echotexture. Right lobe 12.9 cm length. No focal hepatic masses. Common duct 2.4 mm diameter. Physiologic distention of the gallbladder. No gallstones or sludge. No gallbladder wall thickening. No pericholecystic fluid. No sonographic Cramer sign. Right kidney normal size, 10.1 cm in length. Normal cortical width and echotexture. No solid or cystic renal masses. No nephrolithiasis. No hydronephrosis. Left kidney normal, 9.6 cm in length. Normal cortical width and echotexture. No solid or cystic renal masses. No nephrolithiasis. No hydronephrosis. Spleen measures 7.9 cm. No splenic masses. No ascites. No lymphadenopathy. Impression: 1. Normal abdominal ultrasound. This document has been electronically signed by: Brodie Calderon MD on 03/05/2025 12:11:20
--- OUTSIDE RECORDS SUMMARY | 2025-03-05 12:03 | XMS_ITS | Encounter Summary ---
Author Organization [employer] Address [address] [facility] 7 [place] [address] Care Team Providers Care Insurance Risk Manager Name Role Phone Mary Hurd MD Primary Care Provider [phone] Radha Tripathi Unavailable Reason for Visit * Reason Onset Date Comments Nurse Triage 04/16/2024 Encounter Details Date Type Department Care Team ([facility] st Contact Info) Description 04/16/2024 Telephone [facility] MED & PEDS [address] [place] [address] Mary Hurd MD 505 [place] [address] Nurse Triage Social History Tobacco Use Types [...] is your housing situation today? I have trevlis morocho 12/31/[address] you [...] 04/16/2024 11:42 AM EST Date: 04/15/24 Hospital: [facility] Seen for: Abdominal pain Symptomatic Yes DX. Constipation. Called pt. She states that she went to ED for abdominal pain and was DX. With Constipation. Pt. Started the MiriLax last night and did have a BM last night. Pt is more concerned that the provider in the [facility] ED told her yesterday that bloodwork from [...] ED visit on : Date: 04/15/24 Hospital: [facility] Seen for: Abdominal pain Symptomatic Yes *if yes message should go to Triage Patient advised will forward to team nurse for follow up Pt inform was told has Hep C documented in this encounter Plan of Treatment Upcoming Encounters Date Type Department Care Team ([facility] st Contact Info) Description 03/05/2025 3:45 PM EST Office Visit [facility] MED & PEDS [address] [place] [address] Barney Denny MD [address] [place] [address] documented as of this encounter Visit Diagnoses Not on filedocumented in this encounter Additional Health Concerns Assessment Noted Time PHQ-9 Depression Total Score: 5 02/27/20 12:52 PM EST documented as of this encounter Care Teams Insurance Risk Manager Relationship Specialty Start Date End Date Mary Hurd MD [address] [place] [address] PCP - General Family Medicine 02/01/21 Radha Tripathi 02/26/25 Sigrid Florentino Etched Circuit ProcessorDiamond Die Polisher 05/24/23 Donny Jimenez MD Consulting Physician Pulmonary Disease 02/27/24 Alissa Steele Etched Circuit ProcessorDiamond Die Polisher 02/25/25 documented as of this encounter
--- OUTSIDE RECORDS SUMMARY | 2025-03-05 12:03 | XMS_ITS | Encounter Summary ---
Author Organization [employer] Address [address] [facility] 7 [place] [address] Care Team Providers Care Rehab Nurse Name Role Phone Mary Hurd MD Primary Care Provider [phone] Radha Tripathi Unavailable Reason for Visit * Reason Onset Date Comments Call Back Request 01/07/2025 Encounter Details Date Type Department Care Team ([facility] Contact Info) Description 01/07/2025 Telephone [facility] CHC MED & PEDS [address] [place] [address] Mary Hurd MD [address] [place] [address] Call Back Request Social History Tobacco Use [...] back regarding food assistance. Contact pt at [phone] documented in this encounter Plan of Treatment Upcoming Encounters Date Type Department Care Team ([facility] st Contact Info) Description 03/05/2025 3:45 PM EST Office Visit [facility] CHC MED & PEDS [address] [place] [address] Barney Denny MD 505 [place] [address] documented as of this encounter Visit Diagnoses Not on filedocumented in this encounter Additional Health Concerns Assessment Noted Time PHQ-9 Depression Total Score: 5 02/27/20 24 12:52 PM EST documented as of this encounter Care Teams Rehab Nurse Relationship Specialty Start Date End Date Mary Hurd MD [address] [place] [address] PCP - General Family Medicine 11/17/21 Radha Tripathi 02/26/25 Sigrid Florentino Solid Waste Disposal ManagerSawsmith 05/24/23 Donny Jimenez MD Consulting Physician Pulmonary Disease 02/27/24 Alissa Steele Solid Waste Disposal ManagerSawsmith 02/25/25 documented as of this encounter
--- OUTSIDE RECORDS SUMMARY | 2025-03-05 12:03 | XMS_ITS | Encounter Summary ---
Author Organization [employer] Address [address] [facility] 7 [place] [address] Care Team Providers Care Speech Language Specialist Name Role Phone Mary Hurd MD Primary Care Provider [phone] Radha Tripathi Unavailable Reason for Visit * Reason Onset Date Comments Nurse Triage 07/10/2023 Encounter Details Date Type Department Care Team ([facility] st Contact Info) Description 07/10/2023 Telephone [facility] MEDICINE [address] [place] [address] Mary Hurd MD [address] [place] [address] Nurse Triage Social History Tobacco Use Types [...] The caller accepted this outcome Patient speaks indonesian documented in this encounter Plan of Treatment Upcoming Encounters Date Type Department Care Team ([facility] st Contact Info) Description 03/05/2025 3:45 PM EST Office Visit [facility] MED & PEDS [address] [place] [address] Barney Denny MD 505 [place] [address] documented as of this encounter Visit Diagnoses Not on filedocumented in this encounter Additional Health Concerns Assessment Noted Time PHQ-9 Depression Total Score: 11 024 2:01 PM EDT documented as of this encounter Care Teams Speech Language Specialist Relationship Specialty Start Date End Date Mary Hurd MD [address] [place] [address] PCP - General Family Medicine 02/01/21 Radha Tripathi 02/26/25 Sigrid Florentino Marketing Database ConsultantCafe Cook 05/24/23 Donny Jimenez MD Consulting Physician Pulmonary Disease 02/27/24 Alissa Steele Marketing Database ConsultantCafe Cook 02/25/25 documented as of this encounter
--- OUTSIDE RECORDS SUMMARY | 2025-03-05 12:03 | XMS_ITS ---
Author Organization [employer] Address [address] [place] [address] 7 [place] [address] Care Team Providers Care Hat Sprayer Name Role Phone Mary Hurd MD Primary Care Provider [phone] Radha Tripathi CHW Complex Status:Outreach In Progress (Enrolling) Start date:02/26/2025 Enrollment reason:ADT Feed Overview CP Assigned Patient- Pt went to [facility] on 02/25/25. Case Team Name Relationship Phone Radha Tripathi(Responsible Staff) [phone] Continued Care and Services Coordination
--- OUTSIDE RECORDS SUMMARY | 2025-03-05 12:03 | XMS_ITS | Encounter Summary ---
Author Organization [employer] Address [address] [facility] 7 [place] [address] Care Team Providers Care Juvenile Counselor Name Role Phone Mary Hurd MD Primary Care Provider [phone] Radha Tripathi Unavailable Reason for Visit * Reason Onset Date Comments Food Assistance 12/27/2023 Encounter Details Date Type Department Care Team ([facility] st Contact Info) Description 12/27/[address] [facility] MEDICINE [address] [place] [address] Mary Hurd MD 505 [place] [address] Food Assistance Social History Tobacco Use Types [...] Upcoming Encounters Date Type Department Care Team (Late st Contact Info) Description 03/05/2025 3:45 PM EST Office Visit [facility] CHC MED & PEDS [address] [place] [address] Barney Denny MD [address] [place] [address] documented as of this encounter Visit Diagnoses Not on filedocumented in this encounter Additional Health Concerns Assessment Noted Time PHQ-9 Depression Total Score: 11 024 2:01 PM EDT documented as of this encounter Care Teams Juvenile Counselor Relationship Specialty Start Date End Date Mary Hurd MD [address] [place] [address] PCP - General Family Medicine 02/01/21 Radha Tripathi 02/26/25 Sigrid Florentino Soaker Soda WorkerStorage Battery Inspector And Tester 05/24/23 Donny Jimenez MD Consulting Physician Pulmonary Disease 02/27/24 Alissa Steele Soaker Soda WorkerStorage Battery Inspector And Tester 02/25/25 documented as of this encounter
--- OUTSIDE RECORDS SUMMARY | 2025-03-05 12:03 | XMS_ITS | Encounter Summary ---
Author Organization [employer] Address [address] [facility] 7 [place] [address] Care Team Providers Care Foxing Cutting Machine Operator Name Role Phone Mary Hurd MD Primary Care Provider [phone] Radha Tripathi Unavailable Reason for Visit * Reason Onset Date Comments Nurse Triage 03/02/2025 Encounter Details Date Type Department Care Team ([facility] st Contact Info) Description 03/02/2025 Telephone [facility] MEDICINE [address] [place] [address] Mary Hurd MD 505 [place] [address] Nurse Triage Social History Tobacco Use Types [...] encounter Miscellaneous Notes * Telephone Encounter - Mary Kay Salas RN - 03/02/2025 1:40 PM EST TC placed to patient. Patient c/o sore throat, productive cough, bilateral ear pain x 3 days. Patient reported she has HX of chronic asthma. Patient denies any SOB at this time. Speaking in full sentences. Patient also concerned that her sore throat won't go away, and she thinks is associated with elevated thyroid levels. RN scheduled an appt with a provider in [facility] for further evaluation. RN advised patient if her symptoms worsen to go to the ED or the [facility] for further evaluation. Patient verbalized understanding. Protocol Used: Sore Throat (Adult) Protocol-Based Disposition: See in Office or Video Visit Today Video visit offer not recorded Positive Triage Questions: * Patient wants to be seen * Sore throat is main symptom and lasts > 48 hours * Sore throat * All higher-acuity triage questions were negative. Care Advice Discussed: * Reassurance and Education - Sore Throat * Sore Throat * Soft Diet * Drink Plenty of Liquids * Pain and Fever Medicines * Pain and Fever Medicines - Extra Notes and Warnings * Contagiousness * Expected Course * Reasons To Call Back - Sore throat is the main symptom and it lasts longer than 48 hours - Sore throat is mild but lasts longer than 4 days - Fever lasts longer than 3 days - You become worse * Telephone Encounter - Nate Joyce - 03/02/2025 11:16 AM EST Symptom: Sore Throat Outcome: Schedule an appointment to be seen within 24 hours Reason: Caller denied all higher acuity questions Please contact pt at [phone]. (Comoran Speaker) documented in this encounter Plan of Treatment Upcoming Encounters Date Type Department Care Team ([facility] st Contact Info) Description 03/05/2025 3:45 PM EST Office Visit [facility] MED & PEDS [address] [place] [address] Barney Denny MD [address] [place] [address] documented as of this encounter Visit Diagnoses Not on filedocumented in this encounter Additional Health Concerns Assessment Noted Time PHQ-9 Depression Total Score: 5 02/27/20 24 12:52 PM EST documented as of this encounter Care Teams Foxing Cutting Machine Operator Relationship Specialty Start Date End Date Mary Hurd MD [address] [place] [address] PCP - General Family Medicine 02/01/21 Radha Tripathi 02/26/25 Sigrid Florentino Grinder Set Up Operator JigCrisis Manager 05/24/23 Donny Jimenez MD Consulting Physician Pulmonary Disease 02/27/24 Alissa Steele Grinder Set Up Operator JigCrisis Manager 02/25/25 documented as of this encounter
--- OUTSIDE RECORDS SUMMARY | 2025-03-05 12:03 | XMS_ITS | Encounter Summary ---
Author Organization [employer] Address [address] [facility] 7 [place] [address] Care Team Providers Care Health Practice Manager Name Role Phone Mary Hurd MD Primary Care Provider [phone] Radha Tripathi Unavailable Reason for Visit * Reason Onset Date Comments Order(s) 09/17/2023 Encounter Details Date Type Department Care Team ([facility] st Contact Info) Description 09/17/2023 Telephone [facility] MEDICINE [address] [place] [address] Mary Hurd MD [address] [place] [address] Order(s) Social History Tobacco Use Types Packs/Day [...] your housing situation today? I have trev rashawn 12/31/[address] you li [...] 1:19 PM EDT Tc from Nadya with [facility] calling to request a mammogram order for the pt stating she is due for one. If any questions you can contact Nadya at [phone]. documented in this encounter Plan of Treatment Upcoming Encounters Date Type Department Care Team ([facility] st Contact Info) Description 03/05/2025 3:45 PM EST Office Visit [facility] MED & PEDS [address] [place] [address] Barney Denny MD [address] [place] [address] documented as of this encounter Visit Diagnoses Not on filedocumented in this encounter Additional Health Concerns Assessment Noted Time PHQ-9 Depression Total Score: 11 024 2:01 PM EDT documented as of this encounter Care Teams Health Practice Manager Relationship Specialty Start Date End Date Mary Hurd MD [address] [place] [address] PCP - General Family Medicine 02/01/21 Radha Tripathi 02/26/25 Sigrid Florentino Sales And Marketing Vice PresidentTravel Trailer Components Assembler 05/24/23 Donny Jimenez MD Consulting Physician Pulmonary Disease 02/27/24 Alissa Steele Sales And Marketing Vice PresidentTravel Trailer Components Assembler 02/25/25 documented as of this encounter
--- OUTSIDE RECORDS SUMMARY | 2025-03-05 12:03 | XMS_ITS | Encounter Summary ---
Author Organization [employer] Address [address] [facility] 7 [place] [address] Care Team Providers Care Dross Skimmer Name Role Phone Mary Hurd MD Primary Care Provider [phone] Radha Tripathi Unavailable Encounter Details Date Type Department Care Team ([facility] st Contact Info) Description 03/27/2023 Abstract [facility] MEDICINE [address] [place] [address] Mary Hurd MD [address] [place] [address] Social History Tobacco Use Types Packs/Day Years [...] Upcoming Encounters Date Type Department Care Team ([facility] st Contact Info) Description 03/05/2025 3:45 PM EST Office Visit [facility] MED & PEDS [address] [place], [place] [id number] Barney Denny MD [address] [place], [place] [id number] documented as of this encounter Visit Diagnoses Not on filedocumented in this encounter Additional Health Concerns Assessment Noted Time PHQ-9 Depression Total Score: 5 03/25/19 1:50 PM EST documented as of this encounter Care Teams Dross Skimmer Relationship Specialty Start Date End Date Mary Hurd MD [address] [place] [address] PCP - General Family Medicine 02/01/21 Radha Tripathi 02/26/25 Sigrid Florentino General Manager FarmWriter Technical Publications 05/24/23 Donny Jimenez MD Consulting Physician Pulmonary Disease 02/27/24 Alissa Steele General Manager Farm[employer] Technical Publications 02/25/25 documented as of this encounter
--- OUTSIDE RECORDS SUMMARY | 2025-03-05 12:04 | XMS_ITS | Encounter Summary ---
Author Organization [employer] Address [address] [facility] 7 [place] [address] Care Team Providers Care Food Mixer Repairer Name Role Phone Mary Hurd MD Primary Care Provider [phone] Radha Tripathi Unavailable Reason for Visit * Reason Onset Date Comments Med Refill 09/16/2023 Encounter Details Date Type Department Care Team ([facility] Contact Info) Description 09/16/2023 Telephone [facility] MED & PEDS [address] [place] [address] Mary Hurd MD [address] [place] [address] Med Refill Social History Tobacco Use Types [...] 150 MCG tablet To be sent to: [facility] - [place], [place] - [address] [facility] documented in this encounter Plan of Treatment Upcoming Encounters Date Type Department Care Team (Late st Contact Info) Description 03/05/2025 3:45 PM EST Office Visit [facility] CHC MED & PEDS [address] [place] [address] Barney Denny MD 505 [place] [address] documented as of this encounter Visit Diagnoses Not on filedocumented in this encounter Additional Health Concerns Assessment Noted Time PHQ-9 Depression Total Score: 11 024 2:01 PM EDT documented as of this encounter Care Teams Food Mixer Repairer Relationship Specialty Start Date End Date Mary Hurd MD [address] [facility] [place] [address] PCP - General Family Medicine 11/17/21 Radha Tripathi 02/26/25 Sigrid Florentino Center DirectorConsulting Software Engineer 05/24/23 Donyn Jimenez MD Consulting Physician Pulmonary Disease 02/27/24 Alissa Steele Center DirectorConsulting Software Engineer 02/25/25 documented as of this encounter
--- OUTSIDE RECORDS SUMMARY | 2025-03-05 12:04 | XMS_ITS | Encounter Summary ---
Author Organization [employer] Address [address] [place] [address] 7 [place] [address] Care Team Providers Care Model Builder Display Name Role Phone aMry Hurd MD Primary Care Provider [phone] Radha Tripathi Unavailable Reason for Visit * Reason Onset Date Comments Results 01/18/2025 Encounter Details Date Type Department Care Team (Latest Contact Info) Description 01/18/2025 Results Follow-Up [facility] CHC MED & PEDS [address] [place] [address] Mary Hurd MD [address] [place] [address] Lipase, Vitamin B12 (Cobalamin) and Folate Panel, Serum, Tissue Transglutaminase Antibody, IgA, Additional followed-up results: 3 Social History Tobacco Use Types Packs/Day Years [...] encounter Miscellaneous Notes * Telephone Encounter - Karina Joyce - 02/23/2025 12:50 PM EST Tc from pt call regarding message prior. Please contact at [phone] documented in this encounter Plan of Treatment Upcoming Encounters Date Type Department Care Team ([facility] st Contact Info) Description 03/05/2025 3:45 PM EST Office Visit [facility] CHC MED & PEDS [address] [place] [address] Barney Denny MD [address] [place] [address] documented as of this encounter Visit Diagnoses Not on filedocumented in this encounter Additional Health Concerns Assessment Noted Time PHQ-9 Depression Total Score: 5 02/27/20 24 12:52 PM EST documented as of this encounter Care Teams Model Builder Display Relationship Specialty Start Date End Date Mary Hurd MD [address] [place] [address] PCP - General Family Medicine 02/01/21 Radha Tripathi 02/26/25 Sigrid Florentino Associate Juvenile Court JudgeDry Folder Cloth 05/24/23 Donny Jimenez MD Consulting Physician Pulmonary Disease 02/27/[address]issa [address] JudgeDry Folder Cloth 02/25/25 documented as of this encounter
--- OUTSIDE RECORDS SUMMARY | 2025-03-05 12:04 | XMS_ITS | Clinical Summary ---
Author Organization [employer] Address [address] [place] [address] 7 [place] [address] Care Team Providers Care Supervisor Paint Department Name Role Phone Mary Hurd MD Primary Care Provider [phone] Radha Tripathi Unavailable Allergies Active Allergy Reactions Criticality Noted Date [...] needed for wheezing. 18 g 02/27/20 24 Active albuterol (2.5 MG/3ML) 0.083% nebulizer solution [...] at bedtime. 360 mL 08/27/19 25 Active buPROPion SR (Wellbutrin SR) 100 MG [...] 90 tablet 1 07/14/19 25 2024 Discontinued silver sulfADIAZINE (Silvadene) 1 % creamIndication s:Partial thickness burn of right forearm, initial encounter Apply topically 2 times daily. 50 g 08/27/19 25 2024 Active Problems Problem Noted Date Diagnosed Date [...] 06/28/2023 1:30 PM Sulma Trotter OD VISION [facility] 07/08/2023 2:30 PM ABIEL Vega MEDICINE [facility] Sleep apnea 04/19/2023 Assessment & Plan (08/26/2023 [...] Cobalamin deficiency 03/07/2015 History of substance abuse ([facility]) 03/07/2015 Tremor 01/26/2014 Constipation 06/19/2013 Assessment & [...] today. 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 As this provider will be retiring, at this time patient is referred back to her PCP for continued medication management. Call [facility] with any questions or concerns. All questions [...] BID. F/U with therapist as usual, and [facility] Care Mgt. On 01/21/2023 pt was informed [...] usual. F/U with therapist as usual, and [facility] Care Mgt. On 01/21/2023 pt was informed [...] agency prescriber. Will also be referred to [facility] Care Mgt. ADDENDUM: After the visit was [...] Encounters Date Type Department Care Team Description 03/02/2025 Telephone [facility] MEDICINE [address] [place] [phone] Mary Hurd MD Nurse Triage 02/26/2025 Patient Outreach [facility] [address] [place] [address] Mary Hurd MD Care Coordination ([facility] ED Follow Up) 02/26/2025 Patient Outreach [facility] [address] [place] [address] Mary Hurd MD Care Coordination ( Care Coordination Chart Review) 02/26/2025 Patient Outreach [facility] [address] [place] [address] Mary Hurd MD 02/25/2025 Telephone [facility] [address] [place] [address] Mary Hurd MD Care Coordination ([facility] Care Plan) 02/08/2025 Refill [facility] [address] [place] [address] Jazzmine Nguyễn FNP Vitamin D deficiency; Severe persistent asthma, unspecified whether complicated (HCC) 01/27/2025 Refill [facility] [address] [place] [address] Mary Hurd MD Constipation, unspecified constipation type 01/18/2025 Results Follow-Up [facility] [address] [place] [address] Mary Hurd MD Lipase, Vitamin B12 (Cobalamin) and Folate Panel, Serum, Tissue Transglutaminase Antibody, IgA, Additional followed-up results: 3 01/07/2025 Patient Outreach [facility] [address] [place], [place] [phone] Mary Hurd MD Care Coordination ([facility] outreach for SDOH need food needs-LVM) 01/07/2025 Telephone [facility] [address] [place] [address] Mary Hurd MD Call Back Request from Last 3 Months Immunizations Immunization Administration [...] 10/23/2024 1:05 PM EDT Plan of Treatment Upcoming Encounters Date Type Department Care Team ([facility] st Contact Info) Description 03/05/2025 3:45 PM EST Office Visit [facility] [address] [place] [address] Barney Denny MD [address] [place] [address] Health Maintenance Due Date Last Done Comments Disability Screening 1982 Alcohol/Substance Use Screening 1994 Family Planning (PISQ) 1997 HPV Vaccines (1 - 3-dose series) 1997 Zoster Vaccines (1 of 2) 2001 COVID-19 Vaccine ( - season) 2024 02/28/2021, 06/01/2020 Influenza Vaccine (#1) 2024 , 02/19/2019, 12/12/2017, Additional history exists Depression Screening 02/26/2025 02/27/2024, 02/27/20 24 Cervical [...] Stimulating Hormone 17.10(H) 0.32 - 4.0 uIU/mL [facility] Comment:Note: A sustained TS H level above 2.5 uIU/mL may warrant further investigation. TSH 3rd Generation ([facility]) 02/22/2025 1:36 PM EST 02/22/2025 1:36 PM EST us Generic External Data Provider LAB BLOOD ORDERAB LES Final Result [facility] [address] [place] [address] [phone] * T4, Free (02/22/2025 1:36 PM EST) Free T4 (Free Thyroxine) 0.89 0.71 - 1.85 ng/dL [facility] 02/22/2025 1:36 PM EST 02/22/2025 1:36 PM EST Generic External Data Provider LAB BLOOD ORDERAB LES Final Result Performing Organization Address [facility] Co de Phone Number [facility] [address] [place] [phone] * Vitamin B12 (Cobalamin) and Folate Panel, Serum (01/13/2025 3:57 PM EDT) [facility] Vitamin B12 422 200 - 900 pg/mL [facility] Comment:NORMAL 200-900 PG/ML INDETERMINATE 160-199 PG/ML DEFICIENT < 160 PG/ML Folate 9.7 > or = 4.0 ng/mL [facility] Comment:Reference Values:> o r = 4.0 ng/mL< 4.0 ng/mL suggests folate deficiency Methotrexate, aminopterin and folinic acid(leucovorin) are chemotherapeutic agents whose molecularstructures are similar to folate; therefore, the Architectfolate assay cannot be used for patients using these drugs. 01/13/2025 3:57 PM EDT 01/13/2025 3:58 PM EDT Generic External Data Provider LAB BLOOD ORDERAB LES Final Result Performing Organization Address [facility] Co de Phone Number [facility] [address] [place] [phone] * Lipase (01/13/2025 3:57 PM EDT) Pathologist [facility] Lipase 18 8 - 78 U/L [facility] 01/13/2025 3:57 PM EDT 01/13/2025 3:58 PM EDT Generic External Data Provider LAB BLOOD ORDERAB LES Final Result Performing Organization Address [facility]/ZIP Co de Phone Number [facility] [address] [place] [phone] * (ABNORMAL) VITAMIN D 25-OH (D2 AND D3) (01/13/2025 11:57 AM EDT) Vitamin D, 25-OH, D2 <4 ng/mL [facility] Comment:This test was develo ped and its analytical performancecharacteristics have been determined by [facility] [place], [place]. It hasnot been cleared or approved by the U.S. Food and DrugAdministration. This assay has been validated pursuantto the CLIA regulations and is used for clinicalpurposes.THIS TEST WAS PERFORMED AT:[employer] [id number] [place] [phone] AGUILAR MD,PHD Vitamin D, 25-OH, D3 28 ng/mL [facility] Comment:This test was develo ped and its analytical performancecharacteristics have been determined by [facility], [place]. It hasnot been cleared or approved by the U.S. Food and DrugAdministration. This assay has been validated pursuantto the CLIA regulations and is used for clinicalpurposes. Vitamin D, 25-OH, Total 28(A) 30 - 100 ng/mL [facility] Comment:Vitamin D, 25-Hydrox y reports [...] = 30 ng/mL.For additional information, please refer tohttp://education.[employer]/faq/ONN230(This link is being provided for informational/educational purposes only.) 01/13/2025 11:5 7 AM EDT 01/13/2025 3:58 PM EDT Generic External Data Provider LAB BLOOD ORDERAB LES Final Result Performing Organization Address [facility] Co de Phone Number [facility] [address] [place] [phone] * Tissue Transglutaminase Antibody, IgA (01/13/2025 11:57 AM EDT) Transglutaminase IgA <1.0 U/mL [facility] Comment:Value Interpretation ----- <15.0 Antibody not detected> or = 15.0 Antibody detectedTHIS TEST WAS PERFORMED AT:[employer] [place] [phone] GENTILE MD 01/13/2025 11:5 7 AM EDT 01/13/2025 3:58 PM EDT Generic External Data Provider LAB BLOOD ORDERAB LES Final Result Performing Organization Address [facility] Co de Phone Number [facility] [address] [place] [phone] * BD DEXA Axial (01/13/2025 11:10 AM EDT) Anatomical Region Laterality Modality Body Radiographic Amena ging 01/13/2025 11:1 0 AM EDT Narrative 01/13/2025 11:53 AM EDT [facility] [address] [place] [address] Mammography Report Signed Patient: Charlie Navarro MR#: [id number] 91 : 1980 Acct:[id number] Age/Sex: 44 / F ADM Date: 01/13/25 Loc: HO.MAMMO Attending Dr: Mary Hurd MD Ordering Physician: Mary Hurd MD Results: Date of Service: 01/13/25 Follow Up: Procedure(s): XR DEXA axial skeleton Accession Number(s): [id number] cc: Mary Hurd MD Reason For Exam: PROCEDURES NURSE USE OF STEROIDS EXAMINATION: DXA BONE DENSITY AXIAL HISTORY: GROUP HOME USE OF STEROIDS TECHNIQUE: Arlettie Dual energy absorptiometry (DEXA) of the lumbar [...] is a trademark of the [employer]'s [place] for Metabolic Bone Disease, a World Health Organization (WHO) Collaborating Center. Electronically signed by: Mat Lazaro MD 01/13/2025 11:50 AM EDT Dictated By: Mat Lazaro MD Signed By: <Electronically signed by Mat Lazaro MD in OV> 01/13/25 1150 DD/ 1110 TD/TT: 01/13/25 1135 Top Spotter: Procedure Note Donotuseinterpreter, Image - 01/13/2025 [facility] [address] [place] [address] Mammography Report Signed Patient: Brenda Navarro#: [id number] 91 : 1980Acct:[id number] Age/Sex: 44 / FADM Date: 01/13/25 Loc: HO.MAMMO Attending Dr: Mary Hurd MD Ordering Physician: Mary Hurdesults: Date of Service: 01/13/25Follow Up: Procedure(s): XR DEXA axial skeleton Accession Number(s): [id number] cc: Mary Hurd MD Reason For Exam: PROCEDURES NURSE USE OF STEROIDS EXAMINATION: DXA BONE DENSITY AXIAL HISTORY: PROCEDURES NURSE USE OF STEROIDS TECHNIQUE: Arlettie Dual energy absorptiometry (DEXA) of the lumbar [...] is a trademark of the [employer] [place] [employer] Metabolic Bone Disease, a World Health Organization (WHO) Collaborating Center. Electronically signed by: Mat Lazaro MD 01/13/2025 11:50 AM EDT RP Dictated By: Mat Lazaro MD Signed By: <Electronically signed by Mat Lazaro MD in OV> 01/13/25 1150 DD/ 1110 TD/TT: 01/13/25 1135 Top Spotter: us Mary Hurd MD IMG DXA PROCEDURES Final Resu lt * Hepatitis C Antibody with Reflex to HCV, RNA, Quantitative, Real-Time PCR (11/05/2024 2:50 PM EDT) Pathologist [facility] Hepatitis C Antibody Nonreactive Nonreactive [facility] Comment:Antibodies to HCV no t detected; does not exclude early acuteHCV infection. Blood Venous blood specimen / Unknown 11/05/2024 2:50 PM EDT 11/05/2024 2:51 PM EDT us Mary Hurd MD LAB BLOOD ORDERABLES Final Re sult [facility] [address] [place] [phone] * HIV-1/2 Antigen and Antibodies, Fourth Generation, with Reflexes (11/05/2024 2:50 PM EDT) Pathologist [facility] HIV AB/AG Nonreactive Nonreactive [facility] Comment:HIV-1 p24 Ag and/or HIV-1/HIV-2 Ab not detected.A test result that is nonreactive does not exclude thepossibility of exposure to or infection with HIV-1 and/orHIV-2. Nonreactive results in this assay for individualswith prior exposure to HIV-1 and/or HIV-2 may be due toantigen and antibody levels that are below the limit ofdetection of this assay.The [employer] HIV Ag/Ab Combo assay result andsupplemental assay results should be interpreted inconjunction with the patient's clinical presentation,history and other laboratory results. If the results areinconsistent with clinical evidence, additional testing issuggested to confirm the result. Blood Venous blood specimen / Unknown 11/05/2024 2:50 PM EDT 11/05/2024 2:51 PM EDT us Mary Hurd MD LAB BLOOD ORDERABLES Final Re sult [facility] [address] [place] [phone] * (ABNORMAL) Lipid Panel, Standard (11/05/2024 2:50 PM EDT) Triglycerides 107 <150 mg/dL [facility] Comment:Desirable Triglyceri de: less than 150 mg/dLBorderline High Triglyceride 150-199 mg/dLHigh Triglyceride: 200-499 mg/dLVery High Triglyceride: greater than or equal to 5OO mg/dL Cholesterol 242(H) <200 mg/dL [facility] Comment:Desirable Cholestero l: less than 200 mg/dLBorderline High Cholesterol: 200-239 mg/dLHigh Cholesterol: greater than 239 mg/dL LDL Cholesterol Calculated 146(H) <100 mg/dL [facility] Comment:Desirable LDL: less than 100 mg/dLNear Optimal/Above Optimal LDL: 110- 129 mg/dLBorderline High LDL: 130-159 mg/dLHigh LDL: 160-189 mg/dLVery High LDL: greater than or equal to 190 mg/dL HDL Cholesterol 75 >40 mg/dL [facility] Comment:Desirable HDL: great er than 40 mg/dL Note: This HDL assay may give artificially low results in patients with liver disease. Blood Venous blood specimen / Unknown 11/05/2024 2:50 PM EDT 11/05/2024 2:51 PM EDT Mary Hurd MD LAB BLOOD ORDERABLES Final Re sult [facility] [address] [place] [phone] [phone] * BI Mammogram Screening Tomosynthesis Bilateral (10/03/2023 2:07 PM EDT) Anatomical Region Laterality Modality Breast Bilateral Mammography 10/03/2023 2:07 PM EDT Narrative 10/29/2023 1:58 PM EDT [address] [place] [address] Mammography Report Signed Patient: Charlie Navarro MR#: [id number] 91 : 1980 Acct:[id number] Age/Sex: 42 / F ADM Date: 10/03/23 Loc: HO.MAMMO Attending Dr: Mary Hurd MD Ordering Physician: Mary Hurd MD Results: 1Nega tive Date of Service: 10/03/23 Follow Up: 1 Year From Orig ina Mammogram Procedure(s): MM tomosynthesis screening BI Accession Number(s): [id number] cc: Mary Hurd MD EXAMINATION: MM SCREENING [...] in OV> 10/29/23 1353 DD/ 1407 TD/TT: Top Spotter: Procedure Note Donotuseinterpreter, Image - 10/29/2023 [facility] [address] [place] [address] Mammography Report Signed Patient: Brenda Navarro#: [id number] 91 : 1980Acct:[id number] Age/Sex: 42 / FADM Date: 10/03/23 Loc: ARELI Attending Dr: Mary Hurd MD Ordering Physician: Mary Hurd MDResults: 1Nega tive Date of Service: 10/03/23Follow Up: 1 Year From Orig inal Mammogram Procedure(s): MM tomosynthesis screening BI Accession Number(s): [id number] cc: Mary Hurd MD EXAMINATION: MM SCREENING [...] in OV> 10/29/23 1353 DD/ 1407 TD/TT: Top Spotter: Mary Hurd MD IMG BI PROCEDURES Final [...] has been evaluated with computer assisted technology. [employer] [facility] Domestic Helper : SEE COMMENT [facility] Comment: MSM, CT(ASCP) CT screening location: [place] [address] Infection Fungal organisms morphologically consistent with [place] spp. [employer] [facility] Interpretation/R esult: Negative for intraepithelial lesion or malignancy. [employer] [facility] LMP: NONE [facility]IVEN [facility] Prev. BX: NONE [facility]IVEN [facility] Prev. PAP: NONE GIVEN [facility] SOURCE: None given [facility] Statement Of Adequacy: SEE COMMENT [employer] [facility] Comment: Satisfactory for evaluation. Endocervical/transformation zone component present. Age and/or menstrual status not provided 04/15/2020 11:4 7 AM EST Mary Hurd MD LAB PATHOLOGY ORDERABLES Toshia l Result [employer] [facility] [address] * HPV mRNA E6/E7 (04/15/2020 11:47 AM EST) HPV nRNA E6/E7 Not Detected Not Detected [facility] Comment: Methodology: Scrap Charger-Mediated Amplification This assay detects E6/E7 viral messenger RNA (mRNA) from 14 high-risk HPV types (16,18,31,33,35,39,45,51,52,56,58,59,66,68). The analytical performance characteristics of this assay have been determined by [employer]. The modifications have not been cleared or approved by the FDA. This assay has been validated pursuant to the CLIA regulations and is used for clinical purposes. For additional information, please refer to http://education.[employer]/QGR793i6 (This link if provided for information/ educational purposes only.) 04/15/2020 11:4 7 AM EST us Mary Hurd MD LAB BLOOD ORDERABLES Final Re sult [facility] [address] from Last 3 Months or Most Recently Relevant to Health Maintenance Insurance [facility] C3 Care Teams Supervisor Paint Department Relationship Specialty Start Date End Date Mary Hurd MD [address] [place] [address] PCP - General Family Medicine 02/01/21 Radha Tripathi 02/26/25 Sigrid Florentino Blender LaborerWiring Technician 05/24/23 Donny Jimenez MD Consulting Physician Pulmonary Disease 02/27/24 Alissa Steele Blender LaborerWiring Technician 02/25/25
== END 2025-03-05 10:29 | disposition home or self-care (01) ==
LOC: HO.HMGCX 10:28
PROVIDERS: PCP Family Medicine; Visit Provider Nurse Practitioner Family
DX: R10.9 Unspecified abdominal pain (principal)
CPT/HCPCS: 76700

== ENCOUNTER → 2025-03-05 10:41 | Outpatient (BNV) | payer MEDICAID, SELFPAY | PROVIDERS: PCP Family Medicine; Visit Provider Radiology Diagnostic Radiology | DX: R10.9 Unspecified abdominal pain (principal) | CPT/HCPCS: 76700 ==